=== PATIENT | female | born 2000 | race Caucasian/White ===

== ENCOUNTER → 2024-09-04 | Outpatient (CLI) | payer BC, SELFPAY ==
[2024-09-04 10:38] LABS: Absolute Lymphocyte Count 1.88 X10^3/uL (0.83-4.51); Absolute Neutrophil Count 9.3 X10^3/uL (2.0-7.7); Basophil# 0.03 X10^3/uL; Basophil% 0.3 % (0-1); Eosinophil# 0.04 X10^3/uL; Eosinophils% 0.3 % (0-5); Hematocrit 40.6 % (37-47); Hemoglobin 14.2 g/dL (12.0-15.0); Lymphocyte # 1.88 X10^3/ul (0.83-4.51); Lymphocyte % 15.8 % (19-41); Mean Corpuscular Hgb 29.1 pg (27.0-32.0); Mean Corpuscular Volume 83.2 fL (81-99); Mean Platelet Vol. 10.1 fl (6.2-12.0); Monocyte# 0.57 X10^3/uL; Monocyte% 4.8 % (0-10); NRBC Flagged by Analyzer 0 % (0-5); Neutrophil # 9.29 X10^3/uL (2.7-7.7); Neutrophil % 78.2 % (47-70); Platelet Count 339 K/mm3 (150-450); RBC Distribution Width CV 12.8 % (11.6-14.6); RBC Distribution Width SD 38.9 fl (35.1-43.9); Red Blood Count 4.88 M/mm3 (4.2-5.4); White Blood Count 11.9 K/mm3 (4.4-11.0)
[2024-09-04 11:20] LABS: Hemoglobin A1c 5.1 % (<=5.6)
[2024-09-04 11:37] LABS: HIV Nonreactive (Nonreactive); Hepatitis B Surface Antigen Nonreactive (Nonreactive); Hepatitis C Antibody Nonreactive (Nonreactive); Rubella IgG REAC (Nonreactive); Syphilis Antibodies Nonreactive (Nonreactive)
== END | disposition home or self-care (01) ==
LOC: BWCLAB 09:33
PROVIDERS: Visit Provider Advanced Practice Midwife
DX: O99.210 Obesity complicating pregnancy, unspecified trimester (principal); Z3A.00 Weeks of gestation of pregnancy not specified
CPT/HCPCS: 36415; 83036; 85025; 86703; 86762; 86780; 86803; 86850; 86900; 86901; 87086; 87340; 87491; 87591; 88175; G0145

== ENCOUNTER → 2024-09-04 | Outpatient (CLI) | payer BC, SELFPAY | END | disposition home or self-care (01) | LOC: LABSPEC 10:45 | PROVIDERS: Referring Provider Advanced Practice Midwife; Visit Provider Advanced Practice Midwife | DX: O09.91 Supervision of high risk pregnancy, unspecified, first trimester (principal); Z3A.09 9 weeks gestation of pregnancy; Z12.4 Encounter for screening for malignant neoplasm of cervix | CPT/HCPCS: 87086; 87491; 87591; 88175; G0145 ==

== ENCOUNTER → 2025-01-15 | Outpatient (CLI) | payer OTHER, SELFPAY ==
[2025-01-15 12:15] LABS: Hematocrit 37.9 % (37-47); Hemoglobin 12.9 g/dL (12.0-15.0); Immature Granulocytes Count 0.080 X10^3/uL (0.0-0.0); Mean Corp Hgb Conc 34.0 g/dL (32-36); Mean Corpuscular Volume 87.7 fL (81-99); Mean Platelet Vol. 10.3 fl (6.2-12.0); NRBC Flagged by Analyzer 0 % (0-5); Platelet Count 293 K/mm3 (150-450); RBC Distribution Width CV 12.6 % (11.6-14.6); RBC Distribution Width SD 40.6 fl (35.1-43.9); Red Blood Count 4.32 M/mm3 (4.2-5.4); White Blood Count 11.3 K/mm3 (4.4-11.0)
[2025-01-15 13:19] LABS: HIV Nonreactive (Nonreactive); Syphilis Antibodies Nonreactive (Nonreactive)
[2025-01-15 13:21] LABS: Glucose Challenge Gest 1H 50g 142 mg/dL (70-140)
== END | disposition home or self-care (01) ==
LOC: BWCLAB 09:55
PROVIDERS: Referring Provider Obstetrics & Gynecology; Visit Provider Obstetrics & Gynecology
DX: O09.90 Supervision of high risk pregnancy, unspecified, unspecified trimester (principal); Z13.1 Encounter for screening for diabetes mellitus; Z3A.00 Weeks of gestation of pregnancy not specified
CPT/HCPCS: 36415; 82950; 85025; 86703; 86780

== ENCOUNTER → 2025-03-01 | Outpatient (CLI) | payer OTHER, SELFPAY ==
--- NOTE | 2025-03-01 15:04 | US_ITS ---
PROCEDURE: US/OB Limited With [employer]
== END | disposition home or self-care (01) ==
LOC: US 15:01
PROVIDERS: PCP Internal Medicine; Referring Provider Obstetrics & Gynecology; Visit Provider Obstetrics & Gynecology
DX: O99.213 Obesity complicating pregnancy, third trimester (principal); Z3A.33 33 weeks gestation of pregnancy
CPT/HCPCS: 76816

== ENCOUNTER → 2025-03-02 | Outpatient (CLI) | payer OTHER, SELFPAY ==
[2025-03-02 07:18] LABS: Glucose GTT-Gestation. Fasting 106 mg/dL (<105)
[2025-03-02 09:32] LABS: Glucose GTT-Gestational 1 Hr 167 mg/dL (<190)
[2025-03-02 11:07] LABS: Glucose GTT-Gestational 2 Hr 149 mg/dL (<165)
[2025-03-02 12:24] LABS: Glucose GTT-Gestational 3 Hr 79 L (<145)
== END | disposition home or self-care (01) ==
PROVIDERS: PCP Internal Medicine; Referring Provider Nurse Practitioner Women's Health; Visit Provider Nurse Practitioner Women's Health
DX: O99.810 Abnormal glucose complicating pregnancy (principal); Z3A.00 Weeks of gestation of pregnancy not specified
CPT/HCPCS: 36415; 82951; 82952

== ENCOUNTER → 2025-03-13 | Outpatient (CLI) | payer OTHER, SELFPAY | END | disposition home or self-care (01) | LOC: LABSPEC 11:58 | PROVIDERS: PCP Internal Medicine; Visit Provider Advanced Practice Midwife | DX: O09.93 Supervision of high risk pregnancy, unspecified, third trimester (principal); Z3A.00 Weeks of gestation of pregnancy not specified | CPT/HCPCS: 87081; 87186 ==

== ENCOUNTER 2025-03-27 19:53 | Inpatient (IN) | payer OTHER, SELFPAY ==
[2025-03-27] VITALS (22 sets, daily range): BP systolic 125–167; BP diastolic 58–87; PULSE 82–142; RESP 18; TEMP 36.8–37; O2SAT 98–100; BMI 45.7; BMI 2009.0; BMI 20251125.0
--- OUTSIDE RECORDS SUMMARY | 2025-03-27 19:22 | XMS RPT_ITS | CCD ---
Author Organization [facility] Care Team Providers Care Ripper Operator Name Role Phone Mango Whiteside Admitting Unavailable Mango Whiteside Attending Unavailable No Doctor Assigned, Nodr Primary Care Unavail able Mango Whiteside Admitting Unavailable Mango Whiteside Attending Unavailable No Doctor Assigned, Nodr Primary Care Unavail able Mango Whiteside Admitting Unavailable WhitesideMango quinn Attending Unavailable No Doctor Assigned, Nodr Primary Care Unavail able Mango Whiteside Admitting Unavailable Mango Whiteside Attending Unavailable No Doctor Assigned, Nodr Primary Care Unavail able Mango Whiteside Admitting Unavailable WhitesideMango quinn Attending Unavailable No Doctor Assigned, Nodr Primary Care Unavail able Mango Whiteside Attending Unavailable No Doctor Assigned, Nodr Primary Care Unavail able Mango Whiteside Admitting Unavailable Mango Whiteside Attending Unavailable No Doctor Assigned, Nodr Primary Care Unavail able Oberhauser DO, Daquan L Primary Care Provider OBERHAUSER, DAQUAN L Primary Care Unavailable OBERHAUSER, DAQUAN L Attending Unavailable OBERHAUSER, DAQUAN L Referring Unavailable OBERHAUSER, DAQUAN L Primary Care Unavailable JAY STEWART Attending Unavailable OBERHAUSER, DAQUAN L Primary Care Unavailable OBERHAUSER, DAQUAN L Attending Unavailable OBERHAUSER, DAQUAN L Primary Care Unavailable OBERHAUSER, DAQUAN Primary Care Unavailable SUKHI PEREZ Attending Unava ilable OBERHAUSER, DAQUAN Primary Care Unavailable LANE MORFIN Attending Unavailable LIDIA KRUGER Attending Unavaila ble OBERHAUSER, DAQUAN Primary Care Unavailable Angelica Maldonado CNM Attending Provider Angelica Maldonado CNM Referring Provider [phone] Dr. Tabitha Byrnes MD Attending Provider [phone] Miguelina Espinal CNM Attending Provider [phone] Dr. Dorys Dow DO Attending Provider TABITHA BYRNES Referring Unavailabl e NO PRIMARY CARE, Primary Care Unavailable VIOLET ALEJO Attending Unavailable KHLOE CAPUTO Attending Unavailable DORYS PETTIT Referring Unavailab le NO PRIMARY CARE, Primary Care Unavailable MINDY HUANG Attending Unavailable OBERHAUSER, DAQUAN Primary Care Unavailable Angelica Maldonado CNM Attending Provider [phone] Chris BRANTLEY-CNusrat Attending Provider [phone] Dr. Dorys Dow DO Referring Provider Miguelina Espinal CNM Attending Physician [phone] Dr. Dorys Dow DO Attending Physician Chris LUG BREAKER AND WIRE PULLER-CNusrat Attending Physician [phone] Angelica Maldonado CNM Attending Physician [phone] Joseph FRAUSTO, Dr. Lu Attending Physician Oberhauser, Daquan Primary Care Unavailable Angelica Maldonado Attending Unavailable Oberhauser, Daquan Primary Care Unavailable Angelica Maldonado Attending Unavailable Oberhauser, Daquan Referring Unavailable Dorys Dow Attending Unavailbhupendra Perez LUG BREAKER AND WIRE PULLERNusrat Attending Unavailable Angelica Maldonado Attending Unavailable Miguelina Espinal Attending Unavailable Angelica Maldonado Attending Unavailable Angelica Maldonado Attending Unavailable Tabitha Byrnes Attending Unavailable Dorys Dow Attending UnavailTabitha Griffin Attending Unavailable Tabitha Byrnes Attending Unavailable Oberhauser, Daquan Primary Care Unavailable Oberhauser, Daquan Referring Unavailable Tabitha Byrnes Attending Unavailable Angelica Maldonado Attending Unavailable Angelica Maldonado Referring Unavailable Angelica Maldonado Attending Unavailable Oberhauser, Daquan Primary Care Unavailable [place] LUG BREAKER AND WIRE PULLER, Nusrat Attending Unavailable [place] LUG BREAKER AND WIRE PULLERNusrat Referring Unavailable Oberhauser, Daquan Primary Care Unavailable Tabitha Byrnes Attending Unavailable Tabitha Byrnes Referring Unavailable Dorys Dow Attending Unavailbhupendra e Dorys Dow Referring Unavailabl e Medications Current Medications Medication Drug Class(es) Dates Sig (Normalized) Sig (Original) 200 actuat albuterol 0.09 mg/actuat dry powder inhaler (10 sources) beta2-Adrenergic Agonist Start: 08-18-2024 Albuterol Sulfate 90 mcg/actuation aerosol powdr breath activated Active 1 NMA INHALATION EVERY 4-6 HOURS as needed August 18, 2024 12:00am Complies with drug therapy azithromycin 250 mg oral tablet (1 source) Macrolide Antimicrobial Start: 03-11-2023 azithromycin (Zithromax) 250 mg tablet Indications: Acute asthmatic bronchitis , Upper respiratory tract infection, unspecified type Take 1 tablet (250 mg) by mouth once daily. 2 tabs po day 1 1 tab po every day days 2-5 6 tablet 0 03/11/2023 Active brompheniramine maleate 0.4 mg/ml / dextromethorphan hydrobromide 2 mg/ml / pseudoephedrine hydrochloride 6 mg/ml oral solution (1 source) alpha-Adrenergic Agonist, Uncompetitive D-hioksn-W-asparta te Receptor Antagonist, Sigma-1 Agonist Start: 03-11-2023 take 5 mL by mouth every four hours for cough brompheniramine-pse udoeph-DM (Bromfed DM) 2-30-10 mg/5 mL syrup Indications: Acute asthmatic bronchitis , Upper respiratory tract infection, unspecified type Take 5 mL by mouth every 4 hours if needed for allergies, congestion or cough. 120 mL 1 03/11/2023 Active docosahexaenoic acid 200 mg oral capsule (10 sources) Start: 08-18-2024 Docosahexaenoic Acid ( Dha) 200 mg capsule Active mg PO August 18, 2024 12:00am Complies with drug therapy drospirenone / Ethinyl Estradiol (2 sources) Progestin, Estrogen Start: 2022 End: 2023 take 1 tablet by mouth once daily drospirenone-ethiny l estradioL (Ashleigh, 28,) 3-0.03 mg tablet Indications: Menorrhagia with irregular cycle Take 1 tablet by mouth once daily. 28 tablet 12 2022 2023 Active Ethinyl Estradiol / Ferrous fumarate / Norethindrone (2 sources) Estrogen Start: 08-21-2022 End: 2022 take 1 tablet by mouth once daily norethindrone-e.est radioL-iron (Microgestin FE 1.5/30) 1.5 mg-30 mcg (21)/75 mg (7) tablet Indications: Menorrhagia with irregular cycle Take 1 tablet by mouth once daily. 28 tablet 12 08/21/2022 2022 Discontinued (Therapy completed) Start: 08-21-2022 End: 08-21-2023 take 1 tablet by mouth once daily norethindrone-e.estradioL-iron (Microges tin FE 1.5/30) 1.5 mg-30 mcg (21)/75 mg (7) tablet Indications: Menorrhagia with irregular cycle Take 1 tablet by mouth once daily. 28 tablet 12 08/21/2022 08/21/2023 Active ondansetron 4 mg disintegrating oral tablet (11 sources) Serotonin-3 Receptor Antagonist Start: 09-04-2024 take 1 tablet by mouth every six hours as needed for nausea and vomiting Ondansetron 4 mg tablet,disintegrating Active 4 mg PO EVERY 6 HOURS as needed for nausea and vomiting 30 September 04, 2024 12:00am Nausea and vomiting during Vomiting of , unspecified Complies with drug therapy Start: 08-21-2022 End: 08-28-2022 take 1 tablet by mouth every eight hours for nausea ondansetron ODT (Zofran-ODT) 4 mg disintegrating tablet Indications: Menorrhagia with irregular cycle Take 1 tablet (4 mg) by mouth every 8 hours if needed for nausea or vomiting for up to 7 days. 20 tablet 0 08/21/2022 08/28/2022 Active predniSONE 10 mg oral tablet (1 source) Start: 03-11-2023 take 4 tablets by mouth once daily, then take 3 tablets by mouth once daily, then take 2 tablets by mouth once daily, then take 1 tablet by mouth once daily predniSONE (Deltasone) 10 mg tablet Indications: Acute asthmatic bronchitis , Upper respiratory tract infection, unspecified type 4 tabs po every day x3 days, then 3 tabs po every day x3 days, then 2 tabs po every day x3 days, then 1 tab po every day x3 days 30 tablet 0 03/11/2023 Active sertraline 50 mg oral tablet (8 sources) Serotonin Reuptake Inhibitor Start: 01-29-2025 take 1 tablet by mouth once daily Sertraline 50 mg tablet Active 50 mg PO daily 30 January 29, 2025 11:13am Complies with drug therapy Start: 01-29-2025 take 1 tablet by pilar th once daily Sertraline 50 mg tablet Active 50 mg PO daily 30 10January 29, 2025 11:13am Complies with drug therapy Start: 12-19-2024 End: 01-29-2025 take 1 tablet by mouth once daily Sertraline 50 mg tablet Discontinued 50 mg PO daily December 19, 2024 12:00am January 29, 2025 11:13am Problems Active Problems Problem Classification Problem Date Documented Da te Episodic/Chronic Asthma (20 sources) Exercise-induced asthma; Translations: [Exercise induced bronchospasm] Onset: 11-29-2015 08-21-2022 Chronic Comment on above: Rescue inhaler Diabetes or abnormal glucose tolerance complicating ; childbirth; or the puerperium (8 sources) Abnormal glucose level; Translations: [Abnormal glucose complicating ] Onset: 03-13-2025 01-16-2025 Episodic Comment on above: 3 hr glucose Immunizations and screening for infectious disease (1 source) Encounter for immunization; Translations: [Encounter for immunization] Onset: 02-13-2025 Episodic Menstrual disorders (10 sources) Menometrorrhagia; Translations: [Excessive and frequent menstruation with irregular cycle] Onset: 08-21-2022 08-21-2022 Chronic Other complications of (20 sources) Maternal obesity complicating , childbirth and the puerperium, antepartum; Translations: [Obesity complicating , unspecified trimester] 09-04-2024 Chronic Comment on above: BMI 42.0-weekly NSTs at 34 weeks A1C Other complications of (1 source) Obesity complicating , third trimester; Translations: [Obesity complicating , third trimester] Onset: 03-13-2025 Chronic Other complications of (1 source) Obesity complicating , unspecified trimester; Translations: [Obesity complicating , unspecified trimester] Onset: 11-28-2024 Chronic Other complications of (20 sources) High risk ; Translations: [Supervision of high risk , unspecified, unspecified trimester] 09-04-2024 Episodic Comment on above: PRR (waiting on gcc) ,, ARAM 04/07/25, : Nader PRR,, ARAM , : Nader PRR,, ARAM , ajit : Nader Other complications of (1 source) Supervision of high risk , unspecified, third trimester; Translations: [Supervision of high risk , unspecified, third trimester] Onset: 03-13-2025 Episodic Other complications of (1 source) Supervision of high risk , unspecified, unspecified trimester; Translations: [Supervision of high risk , unspecified, unspecified trimester] Onset: 01-20-2025 Episodic Other connective tissue disease (2 sources) Bursitis of right shoulder; Translations: [Bursitis of right shoulder] Onset: 11-01-2023 Episodic Other connective tissue disease (2 sources) Pain in leg, unspecified; Translations: [Pain in leg, unspecified] Onset: 11-30-2024 Episodic Other and delivery including normal (20 sources) ; Translations: [Encounter for supervision of normal , unspecified, unspecified trimester] 09-04-2024 Episodic Comment on above: Discuss genetic/stone ier testing - undecided Discuss genetic/stone ier testing - declined nl anatomy Other upper respiratory infections (3 sources) Acute upper respiratory infection, unspecified; Translations: [Upper respiratory infection] Onset: 03-11-2023 Episodic Residual codes; unclassified (1 source) 36 weeks gestation of ; Translations: [36 weeks gestation of ] Onset: 03-13-2025 Episodic Residual codes; unclassified (1 source) 34 weeks gestation of ; Translations: [34 weeks gestation of ] Onset: 02-27-2025 Episodic Residual codes; unclassified (1 source) 32 weeks gestation of ; Translations: [32 weeks gestation of ] Onset: 02-13-2025 Episodic Urinary tract infections (2 sources) Urinary tract infection, site not specified; Translations: [Urinary tract infection, site not specified] Onset: 12-15-2023 Episodic Viral infection (2 sources) COVID-19; Translations: [COVID-19] Onset: 06-09-2023 Past or Other Problems Problem Classification Problem Date Documented Da te Episodic/Chronic Other complications of (1 source) Supervision of high risk , unspecified, first trimester; Translations: [Supervision of high risk , unspecified, first trimester] Onset: 11-14-2024 Episodic Other complications of (1 source) Vomiting of , unspecified; Translations: [Vomiting of , unspecified] Onset: 09-04-2024 Episodic Other non-traumatic joint disorders (2 sources) Knee pain; Translations: [Pain in unspecified knee] Onset: 05-10-2018 08-21-2022 Episodic Other non-traumatic joint disorders (3 sources) Pain of right wrist; Translations: [Pain in right wrist] Onset: 07-22-2018 08-21-2022 Episodic Other non-traumatic joint disorders (1 source) Pain in unspecified knee; Translations: [Pain in joint, lower leg] Onset: 05-10-2018 08-21-2022 Episodic Other screening for suspected conditions (not mental disorders or infectious disease) (1 source) Encounter for screening for malignant neoplasm of cervix; Translations: [Encounter for screening for malignant neoplasm of cervix] Onset: 09-04-2024 Episodic Residual codes; unclassified (1 source) 16 weeks gestation of ; Translations: [16 weeks gestation of ] Onset: 10-27-2024 Episodic Residual codes; unclassified (1 source) 12 weeks gestation of ; Translations: [12 weeks gestation of ] Onset: 09-29-2024 Episodic Residual codes; unclassified (1 source) 9 weeks gestation of ; Translations: [9 weeks gestation of ] Onset: 09-04-2024 Episodic Unclassified (1 source) Onset: 03-11-2023 03-11-2023 Results Test Name Value Interpretation Reference Range Facility Operating Table Assembler Office Visit Reporton 03-13-2025 Operating Table Assembler Office Visit Report [facility] [address], [address] [place] [address] OFFICE VISIT Date of Service: 03/13/25 MR#: [id number] Acct: [id number] Name: ANGELITA SUTTON Rep #: [id number] : 2000 Provider: MARIANNA Mascorro ams Age/Sex: 24/F Location: [facility] [place] Status: Signed Intake Vital Signs 12/19/24 11:06 01/15/25 10:04 03/06/25 10:54 03/13/25 08:54 03/13/25 08:55 Height 5 ft 11 in 5 ft 11 in 5 ft 11 in 5 ft 11 in 5 ft 11 in Weight: 316 lb 9 oz BMI 44.1 BP 127/81 H Intake Visit Reasons: 36wk3d ob/nst Embroiderer Required: No Is patient in pain?: No Allergies No Known Allergies Allergy (Verified 03/13/25 08:54) Medications ???Medication ???Instructions ???Recorded ???Confirmed ???Type albuterol sulfate 90 mcg/actuation 1 inh inhalation Q4-6H PRN 08/1803/13/25 History breath activated powder inhaler docosahexaenoic acid 200 mg mg PO 08/18/24 03/13/25 History capsule ( DHA) ondansetron 4 mg disintegrating 4 mg PO Q6H PRN nausea and 09/04/2 5 03/13/25 Rx tablet vomiting #30 tabs sertraline 50 mg tablet 50 mg PO QDAY #30 tabs 01/29/25 Rx Last Menstrual Period: 07/01/24 Zika: Zika virus screening: Negative : No PFSH PFSH Surgical History [place] teeth removed S/P tonsillectomy Family History Father Hypothyroid Grandmother [place] disease Grandmother Diabetes Hypertension Kidney failure Social History adopted: No household members: spouse and other details: step son 's ex current occupational status: employed 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 current occupational exposures/hazards: Yes pets and animals: No history of recent travel: No sexually active: Yes Smoking Status: Never smoker alcohol intake: current alcohol intake frequency: holidays/special occasions only details: Not while substance use type: does not use diet: lactose free well-balanced diet: about half the time caffeine: No eating out: 1-3 times/week during the past year weight has: remained stable what type of physical activity do you participate in: none carine/yazidism: Bahai seatbelt use: always do you feel safe at home: Yes additional social history: : Vadim Chung ([facility]) - [employer]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 OB Visit ARAM Calculator Estimated Delivery Date Method Current WG Current Estimate 04/07/25 LMP (Certain) 36w 3d Other Estimates 04/07/25 Ultrasound #1 36w 3d Expected Delivery Route/Plan Labor Preferences- CB/BF classes: encouraged labor support person: Ron labor intervention preferences: [] pain management options preferred: epidural! cut cord/dad catch: yes : yes PP control planned: Discussed discussed possible routes of delivery and associated risks: [] special requests: [] Specific Issue/Plans Covid status: [] Flu vaccine: [] Tdap vaccine: given Rhogam: NA LARC form signed: yes Problem list reviewed and updated with the most current plan of care details and appropriate orders placed. Relevant counseling for the gestational age provided. Continue routine care and follow up unless otherwise noted in visit notes/problem list details Initial Weight: 294 lb Date -???-???-???-???-?? ?-???-???-???-???-? ??-???-???- EGA Weight BP Urine Prot -???-???-???-???-?? ?-???-???-???-???-? ??-???-???- Glucose FHR FuHt Pres Dilation -???-???-???-???-?? ?-???-???-???-???-? ??-???-???- Effaced St Visit Note 05/05/25 -???-???-???-???-?? ?-???-???-???-???-? ??-???-???- 9w 2d 294 lb 2 oz (+2 oz) 124/84 -???-???-???-???-?? ?-???-???-???-???-? ??-???-???- 184 -???-???-???-???-?? ?-???-???-???-???-? ??-???-???- KW-CRL cons with dates. undecided on NIPT/carrier. rest of labs today. 09/29/24 -???-???-???-???-?? ?-???-???-???-???-? ??-???-???- 12w 6d 295 lb 6 oz (+1 lb 6 oz) 130/82 Negative -???-???-???-???-?? ?-???-???-???-???-? ??-???-???- Negative 150 -???-???-???-???-?? ?-???-???-???-???-? ??-???-???- SM- no vb pearce ving some cramping and pelvic pain 10/27/24 -???-???-???-???-?? ?-???-???-???-???-? ??-???-???- 16w 6d 289 lb (-5 lb) 138/79 Negative -???-???-???-???-?? ?-???-???-???-???-? ??-???-???- Negative 144 -???-???-???-???-?? ?-???-???-???-???-? ??-?? (more content not included)... Normal [facility] Operating Table Assembler Office Visit Reporton 03-06-2025 Operating Table Assembler Office Visit Report [facility] [address], [address] [place] [address] OFFICE VISIT Date of Service: 03/06/25 MR#: [id number] Acct: [id number] Name: ANGELITA SUTTON Rep #: [id number] : 2000 Provider: Dr. Tabitha goldman MD Age/Sex: 24/F Location: [facility] Status: Signed Intake Vital Signs 01/15/25 10:04 02/27/25 09:48 03/06/25 10:54 Height 5 ft 11 in 5 ft 11 in 5 ft 11 in Weight: 311 lb 2 oz 312 lb 7 oz BMI 43.4 43.5 BP 129/83 H 132/83 H Intake Visit Reasons: 35wk 3d *NST only Embroiderer Required: No Is patient in pain?: No Allergies No Known Allergies Allergy (Verified 03/06/25 10:54) Medications ???Medication ???Instructions ???Recorded ???Confirmed ???Type albuterol sulfate 90 mcg/actuation 1 inh inhalation Q4-6H PRN 08/1803/06/25 History breath activated powder inhaler docosahexaenoic acid 200 mg mg PO 08/18/24 03/06/25 History capsule ( DHA) ondansetron 4 mg disintegrating 4 mg PO Q6H PRN nausea and 0505/2 5 03/06/25 Rx tablet vomiting #30 tabs sertraline 50 mg tablet 50 mg PO QDAY #30 tabs 01/29/25 Rx Last Menstrual Period: 07/01/24 Zika: Zika virus screening: Negative : No PFSH PFSH Surgical History [place] teeth removed S/P tonsillectomy Family History Father Hypothyroid Grandmother [place] disease Grandmother Diabetes Hypertension Kidney failure Social History adopted: No household members: spouse and other details: step son 's ex current occupational status: employed 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 current occupational exposures/hazards: Yes pets and animals: No history of recent travel: No sexually active: Yes Smoking Status: Never smoker alcohol intake: current alcohol intake frequency: holidays/special occasions only details: Not while substance use type: does not use diet: lactose free well-balanced diet: about half the time caffeine: No eating out: 1-3 times/week during the past year weight has: remained stable what type of physical activity do you participate in: none carine/yazidism: Bahai seatbelt use: always do you feel safe at home: Yes additional social history: : 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 OB Visit ARAM Calculator Estimated Delivery Date Method Current WG Current Estimate 04/07/25 LMP (Certain) 35w 4d Other Estimates 04/07/25 Ultrasound #1 35w 4d Expected Delivery Route/Plan Labor Preferences- CB/BF classes: encouraged labor support person: Ron labor intervention preferences: [] pain management options preferred: epidural! cut cord/dad catch: yes : yes PP control planned: Discussed discussed possible routes of delivery and associated risks: [] special requests: [] Specific Issue/Plans Covid status: [] Flu vaccine: [] Tdap vaccine: given Rhogam: NA LARC form signed: yes Problem list reviewed and updated with the most current plan of care details and appropriate orders placed. Relevant counseling for the gestational age provided. Continue routine care and follow up unless otherwise noted in visit notes/problem list details Initial Weight: 294 lb Date -???-???-???-???-?? ?-???-???-???-???-? ??-???-???- EGA Weight BP Urine Prot -???-???-???-???-?? ?-???-???-???-???-? ??-???-???- Glucose FHR FuHt Pres Dilation -???-???-???-???-?? ?-???-???-???-???-? ??-???-???- Effaced St Visit Note 09/04/24 -???-???-???-???-?? ?-???-???-???-???-? ??-???-???- 9w 2d 294 lb 2 oz (+2 oz) 124/84 -???-???-???-???-?? ?-???-???-???-???-? ??-???-???- 184 -???-???-???-???-?? ?-???-???-???-???-? ??-???-???- KW-CRL cons with dates. undecided on NIPT/carrier. rest of labs today. 09/29/24 -???-???-???-???-?? ?-???-???-???-???-? ??-???-???- 12w 6d 295 lb 6 oz (+1 lb 6 oz) 130/82 Negative -???-???-???-???-?? ?-???-???-???-???-? ??-???-???- Negative 150 -???-???-???-???-?? ?-???-???-???-???-? ??-???-???- SM- no vb pearce ving some cramping and pelvic pain 10/27/24 -???-???-???-???-?? ?-???-???-???-???-? ??-???-???- 16w 6d 289 lb (-5 lb) 138/79 Negative -???-???-???-???-?? ?-???-???-???-???-? ??-???-???- Negative 144 -???-???-???-???-?? ?-???-???-???-???-? ??-???-???- LC (more content not included)... Normal [facility] Gestational GTT 3HR 100gon 1 GEST GTT 100gm High [facility] Comment on above: Order Comment: Y Result Comment: FAST ING 106 H Col: 03/02/25 0644 GLUCOSE TOLERANCE TEST FOR Reference Interval GESTATIONAL DIABETES Fasting <105 mg/dL 1 hour <190 mg/dl 2 hour <165 mg/dl 3 hour <145 mg/dl 1 HR GLU 167 Col: 03/02/25 0819 2 HR GLU 149 Col: 03/02/25 0918 3 HR GLU 79 Col: 03/02/25 1019 Performed By: #### B TS, L3890.6102, L3890.6301, L509.4006, L509.8002, L100.0100, L3890.6006, L501.9985 #### [facility] [address] [place], [address] OB Limited With Biometricson 03-01-2025 OB Limited With Biometrics [facility] Services [address] [place], [place] [id number] OB Limited With Biometrics MR#: [id number] Acct: [id number] Name: ANGELITA SUTTON Rep #: [id number] : 2000 F 24 From: Bryan otto MD PCP: Dr. Daquan Hills, DO Status: REG CLI Study: OB Limited With Biometrics Date of Exam: 03/01 Exam# [id number] Ordering Dr: Tabitha Byrnes PROCEDURE: OB LIMITED WITH BIOMETRICS 03/01/2025 REASON FOR EXAM: GROWTH TECHNIQUE: Procedure Code: [id number] Modality: US Procedure: OB LIMITED WITH BIOMETRICS COMPARISON: None FINDINGS LMP: July 01, 2024. Number: 1 Position: Vertex Placental Position: Posterior and not low-lying Placental Abnormalities: No evidence of previa. DIMENSIONS: Biparietal Diameter: 9 cm: 36 weeks and 4 days: 92 percentile/ Head Circumference: 32 cm: 36 weeks and 1 day: 51 percentile/ Abdominal Circumference: 31.4 cm: 35 weeks and 2 days: 73rd percentile/ Femur Length: 6.8 cm: 34 weeks and 6 days: 47 percentile/ ESTIMATED WEIGHT: 2704 g plus/-406 g. ESTIMATED WEIGHT PERCENTILE (24+ weeks): 69 ESTIMATED GESTATIONAL AGE: Baseline: 34 weeks and 5 days By Ultrasound: 35 weeks and 5 days ESTIMATED DATE OF DELIVERY: Baseline: April 07, 2025 By Ultrasound: March 31, 2025 BIOPHYSICAL ASSESSMENT: Amniotic Fluid Volume: 5.7 cm Amniotic Fluid Index: 11.9 cm (8-24 cm normal range) Cardiac Motion: 131 beats per minute (average) Trunk and Limb Motion: Present. US/OB Limited With Biometrics IMPRESSION: Single live intrauterine gestation with a mean gestational age of 35 weeks and 5 days. Reading Location: [facility] CC: Dr. Daquan Hills DO; Dr. Tabitha Byrnes MD Social Welfare Clerk: Signed Normal [facility] Operating Table Assembler Office Visit Reporton 02-27-2025 Operating Table Assembler Office Visit Report [facility]'s [address], [address] [place] [address] OFFICE VISIT Date of Service: 02/27/25 MR#: [id number] Acct: [id number] Name: HERMANANGELITA PRIEST Rep #: [id number] : 2000 Provider: Dr. Tabitha goldman MD Age/Sex: 24/F Location: [facility] [place] Status: Signed Intake Vital Signs 12/19/24 11:06 02/13/25 13:53 02/27/25 09:48 Height 5 ft 11 in 5 ft 11 in 5 ft 11 in Weight: 307 lb 4 oz 311 lb 2 oz BMI 42.8 43.4 BP 116/68 129/83 H Intake Visit Reasons: 34w 3d ob/nst Embroiderer Required: No Is patient in pain?: No Allergies No Known Allergies Allergy (Verified 02/27/25 09:48) Medications ???Medication ???Instructions ???Recorded ???Confirmed ???Type albuterol sulfate 90 mcg/actuation 1 inh inhalation Q4-6H PRN 08/1802/27/25 History breath activated powder inhaler docosahexaenoic acid 200 mg mg PO 08/18/24 02/27/25 History capsule ( DHA) ondansetron 4 mg disintegrating 4 mg PO Q6H PRN nausea and 5 02/27/25 Rx tablet vomiting #30 tabs sertraline 50 mg tablet 50 mg PO QDAY #30 tabs 01/29/25 Rx Last Menstrual Period: 07/01/24 Zika: Zika virus screening: Negative : No PFSH PFSH Surgical History [place] teeth removed S/P tonsillectomy Family History Father Hypothyroid Grandmother [place] disease Grandmother Diabetes Hypertension Kidney failure Social History adopted: No household members: spouse and other details: step son 's ex current occupational status: employed 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 current occupational exposures/hazards: Yes pets and animals: No history of recent travel: No sexually active: Yes Smoking Status: Never smoker alcohol intake: current alcohol intake frequency: holidays/special occasions only details: Not while substance use type: does not use diet: lactose free well-balanced diet: about half the time caffeine: No eating out: 1-3 times/week during the past year weight has: remained stable what type of physical activity do you participate in: none carine/yazidism: Bahai seatbelt use: always do you feel safe at home: Yes additional social history: : 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 OB Visit ARAM Calculator Estimated Delivery Date Method Current WG Current Estimate 04/07/25 LMP (Certain) 34w 3d Other Estimates 04/07/25 Ultrasound #1 34w 3d Expected Delivery Route/Plan Labor Preferences- CB/BF classes: encouraged labor support person: Ron labor intervention preferences: [] pain management options preferred: epidural! cut cord/dad catch: yes : yes PP control planned: Discussed discussed possible routes of delivery and associated risks: [] special requests: [] Specific Issue/Plans Covid status: [] Flu vaccine: [] Tdap vaccine: given Rhogam: NA LARC form signed: yes Problem list reviewed and updated with the most current plan of care details and appropriate orders placed. Relevant counseling for the gestational age provided. Continue routine care and follow up unless otherwise noted in visit notes/problem list details Initial Weight: 294 lb Date -???-???-???-???-?? ?-???-???-???-???-? ??-???-???- EGA Weight BP Urine Prot -???-???-???-???-?? ?-???-???-???-???-? ??-???-???- Glucose FHR FuHt Pres Dilation -???-???-???-???-?? ?-???-???-???-???-? ??-???-???- Effaced St Visit Note 09/04/24 -???-???-???-???-?? ?-???-???-???-???-? ??-???-???- 9w 2d 294 lb 2 oz (+2 oz) 124/84 -???-???-???-???-?? ?-???-???-???-???-? ??-???-???- 184 -???-???-???-???-?? ?-???-???-???-???-? ??-???-???- KW-CRL cons with dates. undecided on NIPT/carrier. rest of labs today. 09/29/24 -???-???-???-???-?? ?-???-???-???-???-? ??-???-???- 12w 6d 295 lb 6 oz (+1 lb 6 oz) 130/82 Negative -???-???-???-???-?? ?-???-???-???-???-? ??-???-???- Negative 150 -???-???-???-???-?? ?-???-???-???-???-? ??-???-???- SM- no vb pearce ving some cramping and pelvic pain 10/27/24 -???-???-???-???-?? ?-???-???-???-???-? ??-???-???- 16w 6d 289 lb (-5 lb) 138/79 Negative -???-???-???-???-?? ?-???-???-???-???-? ??-???-???- Negative 144 -???-???-???-???-?? ?-???-???-???-???-? ??-???-???- LC- no vb/cr amping (more content not included)... Normal [facility] - Chemistry and C hemistry - challengeOrdered By: Tabitha Byrnes on 02-13-2025 Glucose Ql (U) Negative [facility] - UrinalysisOrder ed By: Tabitha Byrnes on 02-13-2025 Protein Ql (U) Negative [facility] Operating Table Assembler Office Visit Reporton 02-13-2025 Operating Table Assembler Office Visit Report [facility] [address], [address] [place] [address] OFFICE VISIT Date of Service: 02/13/25 MR#: [id number] Acct: [id number] Name: ANGELITA SUTTON Rep #: [id number] : 2000 Provider: Dr. Tabitha goldman MD Age/Sex: 24/F Location: [facility] [place] Status: Signed Intake Vital Signs 12/19/24 11:06 01/29/25 10:51 02/13/25 13:53 Height 5 ft 11 in 5 ft 11 in 5 ft 11 in Weight: 307 lb 4 oz BMI 42.8 BP 116/68 Intake Visit Reasons: 32wk 3D ob Embroiderer Required: No Is patient in pain?: No Allergies No Known Allergies Allergy (Verified 02/13/25 13:52) Medications ???Medication ???Instructions ???Recorded ???Confirmed ???Type albuterol sulfate 90 mcg/actuation 1 inh inhalation Q4-6H PRN 08/1802/13/25 History breath activated powder inhaler docosahexaenoic acid 200 mg mg PO 08/18/24 02/13/25 History capsule ( DHA) ondansetron 4 mg disintegrating 4 mg PO Q6H PRN nausea and 5 02/13/25 Rx tablet vomiting #30 tabs sertraline 50 mg tablet 50 mg PO QDAY #30 tabs 01/29/25 Rx Last Menstrual Period: 07/01/24 Zika: Zika virus screening: Negative : No PFSH PFSH Surgical History [place] teeth removed S/P tonsillectomy Family History Father Hypothyroid Grandmother [place] disease Grandmother Diabetes Hypertension Kidney failure Social History adopted: No household members: spouse and other details: step son 's ex current occupational status: employed 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 current occupational exposures/hazards: Yes pets and animals: No history of recent travel: No sexually active: Yes Smoking Status: Never smoker alcohol intake: current alcohol intake frequency: holidays/special occasions only details: Not while substance use type: does not use diet: lactose free well-balanced diet: about half the time caffeine: No eating out: 1-3 times/week during the past year weight has: remained stable what type of physical activity do you participate in: none carine/yazidism: Bahai seatbelt use: always do you feel safe at home: Yes additional social history: : 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 OB Visit ARAM Calculator Estimated Delivery Date Method Current WG Current Estimate 04/07/25 LMP (Certain) 32w 3d Other Estimates 04/07/25 Ultrasound #1 32w 3d Expected Delivery Route/Plan Labor Preferences- CB/BF classes: encouraged labor support person: Ron labor intervention preferences: [] pain management options preferred: epidural! cut cord/dad catch: yes : yes PP control planned: Discussed discussed possible routes of delivery and associated risks: [] special requests: [] Specific Issue/Plans Covid status: [] Flu vaccine: [] Tdap vaccine: given Rhogam: NA LARC form signed: yes Problem list reviewed and updated with the most current plan of care details and appropriate orders placed. Relevant counseling for the gestational age provided. Continue routine care and follow up unless otherwise noted in visit notes/problem list details Initial Weight: 294 lb Date -???-???-???-???-?? ?-???-???-???-???-? ??-???-???- EGA Weight BP Urine Prot -???-???-???-???-?? ?-???-???-???-???-? ??-???-???- Glucose FHR FuHt Pres Dilation -???-???-???-???-?? ?-???-???-???-???-? ??-???-???- Effaced St Visit Note 09/04/24 -???-???-???-???-?? ?-???-???-???-???-? ??-???-???- 9w 2d 294 lb 2 oz (+2 oz) 124/84 -???-???-???-???-?? ?-???-???-???-???-? ??-???-???- 184 -???-???-???-???-?? ?-???-???-???-???-? ??-???-???- KW-CRL cons with dates. undecided on NIPT/carrier. rest of labs today. 09/29/24 -???-???-???-???-?? ?-???-???-???-???-? ??-???-???- 12w 6d 295 lb 6 oz (+1 lb 6 oz) 130/82 Negative -???-???-???-???-?? ?-???-???-???-???-? ??-???-???- Negative 150 -???-???-???-???-?? ?-???-???-???-???-? ??-???-???- SM- no vb pearce ving some cramping and pelvic pain 10/27/24 -???-???-???-???-?? ?-???-???-???-???-? ??-???-???- 16w 6d 289 lb (-5 lb) 138/79 Negative -???-???-???-???-?? ?-???-???-???-???-? ??-???-???- Negative 144 -???-???-???-???-?? ?-???-???-???-???-? ??-???-???- LC- no vb/cr amping today. no concerns. has anatomy (more content not included)... Normal [facility] - Chemistry and C hemistry - challengeOrdered By: Angelica Maldonado on 01-29-2025 Glucose Ql (U) Negative [facility] - UrinalysisOrder ed By: Angelica Maldonado on 01-29-2025 Protein Ql (U) Negative [facility] Operating Table Assembler Office Visit Reporton 01-29-2025 Operating Table Assembler Office Visit Report [facility] [address], [address] [place] [address] OFFICE VISIT Date of Service: 01/29/25 MR#: [id number] Acct: [id number] Name: HERMANANGELITA PRIEST Rep #: [id number] : 2000 Provider: MARIANNA Mascorro ams Age/Sex: 24/F Location: [facility] [place] Status: Signed Intake Vital Signs 12/19/24 11:06 01/15/25 10:04 01/29/25 10:50 01/29/25 10:51 Height 5 ft 11 in 5 ft 11 in 5 ft 11 in 5 ft 11 in Weight: 303 lb 9 oz BMI 42.3 BP 131/83 H Intake Visit Reasons: 30wk 2D ob Embroiderer Required: No Is patient in pain?: No Allergies No Known Allergies Allergy (Verified 01/29/25 10:50) Medications ???Medication ???Instructions ???Recorded ???Confirmed ???Type albuterol sulfate 90 mcg/actuation 1 inh inhalation Q4-6H PRN 08/1801/29/25 History breath activated powder inhaler docosahexaenoic acid 200 mg mg PO 08/18/24 01/29/25 History capsule ( DHA) ondansetron 4 mg disintegrating 4 mg PO Q6H PRN nausea and 5 01/29/25 Rx tablet vomiting #30 tabs sertraline 50 mg tablet 50 mg PO QDAY #30 tabs 01/29/25 Rx Last Menstrual Period: 07/01/24 Zika: Zika virus screening: Negative : No PFSH PFSH Surgical History [place] teeth removed S/P tonsillectomy Family History Father Hypothyroid Grandmother [place] disease Grandmother Diabetes Hypertension Kidney failure Social History adopted: No household members: spouse and other details: step son 's ex current occupational status: employed 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 current occupational exposures/hazards: Yes pets and animals: No history of recent travel: No sexually active: Yes Smoking Status: Never smoker alcohol intake: current alcohol intake frequency: holidays/special occasions only details: Not while substance use type: does not use diet: lactose free well-balanced diet: about half the time caffeine: No eating out: 1-3 times/week during the past year weight has: remained stable what type of physical activity do you participate in: none carine/yazidism: Bahai seatbelt use: always do you feel safe at home: Yes additional social history: : 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 OB Visit ARAM Calculator Estimated Delivery Date Method Current WG Current Estimate 04/07/25 LMP (Certain) 30w 2d Other Estimates 04/07/25 Ultrasound #1 30w 2d Expected Delivery Route/Plan Labor Preferences- CB/BF classes: encouraged labor support person: Ron labor intervention preferences: [] pain management options preferred: epidural! cut cord/dad catch: yes : yes PP control planned: Discussed discussed possible routes of delivery and associated risks: [] special requests: [] Specific Issue/Plans Covid status: [] Flu vaccine: [] Tdap vaccine: given Rhogam: NA LARC form signed: yes Problem list reviewed and updated with the most current plan of care details and appropriate orders placed. Relevant counseling for the gestational age provided. Continue routine care and follow up unless otherwise noted in visit notes/problem list details Initial Weight: 294 lb Date -???-???-???-???-?? ?-???-???-???-???-? ??-???-???- EGA Weight BP Urine Prot -???-???-???-???-?? ?-???-???-???-???-? ??-???-???- Glucose FHR FuHt Pres Dilation -???-???-???-???-?? ?-???-???-???-???-? ??-???-???- Effaced St Visit Note 09/04/24 -???-???-???-???-?? ?-???-???-???-???-? ??-???-???- 9w 2d 294 lb 2 oz (+2 oz) 124/84 -???-???-???-???-?? ?-???-???-???-???-? ??-???-???- 184 -???-???-???-???-?? ?-???-???-???-???-? ??-???-???- KW-CRL cons with dates. undecided on NIPT/carrier. rest of labs today. 09/29/24 -???-???-???-???-?? ?-???-???-???-???-? ??-???-???- 12w 6d 295 lb 6 oz (+1 lb 6 oz) 130/82 Negative -???-???-???-???-?? ?-???-???-???-???-? ??-???-???- Negative 150 -???-???-???-???-?? ?-???-???-???-???-? ??-???-???- SM- no vb pearce ving some cramping and pelvic pain 10/27/24 -???-???-???-???-?? ?-???-???-???-???-? ??-???-???- 16w 6d 289 lb (-5 lb) 138/79 Negative -???-???-???-???-?? ?-???-???-???-???-? ??-???-???- Negative 144 -???-???-???-???-?? ?-???-???-???-???-? ??-???-???- LC- no vb/cr amping today. no (more content not included)... Normal [facility] Absolute lymphocyte countOrd ered By: Dorys Ahn on 01-15-2025 Lymphocytes Auto (Unsp spec) [#/Vol] 2.07 10*3/uL 0.83-4.51 [facility] Absolute neutrophil countOrd ered By: Dorys Ahn on 01-15-2025 Neutrophils (Bld) [#/Vol] 8.5 10*3/uL High 2.0-7.7 [facility] Automated lymphocyte count a s percentage of total leukocytesOrdered By: Dorys Ahn on 01-15-2025 Lymphocytes/100 WBC Auto (Unsp spec) 18.4 % Low 19-41 [facility] Basophil percentageOrdered B y: Dorys Ahn on 01-15-2025 Basophils/100 WBC (Bld) 0.3 % 0-1 [facility] CBC W/Diff, Automatedon 01-01 Absolute Lymph 2.07 X10 3/uL Normal 0.83-4.51 [facility] Comment on above: Performed By: #### L 509.8002, L3890.6006, L501.0250, L100.0100 #### [facility] [address] [place], [address] Absolute Neut 8.5 X10 3/uL High 2.0-7.7 [facility] Comment on above: Performed By: #### L 509.8002, L3890.6006, L501.0250, L100.0100 #### [facility] [address] [place], [address] Basophils/100 WBC (Bld) 0.3 % Normal 0-1 [facility] Comment on above: Performed By: #### L 509.8002, L3890.6006, L501.0250, L100.0100 #### [facility] [address] [place], [address] Eosinophils/100 WBC (Bld) 0.6 % Normal 0-5 [facility] Comment on above: Performed By: #### L 509.8002, L3890.6006, L501.0250, L100.0100 #### [facility] [address] [place], [address] Erythrocyte distribution width (RBC) [Ratio] 12.6 % Normal 11.6-14.6 [facility] Comment on above: Performed By: #### L 509.8002, L3890.6006, L501.0250, L100.0100 #### [facility] [address] [place], [address] Hematocrit (Bld) [Volume fraction] 37.9 % Normal 37-47 [facility] Comment on above: Performed By: #### L 509.8002, L3890.6006, L501.0250, L100.0100 #### [facility] [address] [place], [address] Hemoglobin (Bld) [Mass/Vol] 12.9 g/dL Normal 12.0-15.0 [facility] Comment on above: Performed By: #### L 509.8002, L3890.6006, L501.0250, L100.0100 #### [facility] [address] [place], [address] IG% 0.700 Normal 0.0-0.9 [facility] Comment on above: Result Comment: IG% - Immature Granulocytes (promyelocytes, myelocytes and metamyelocytes) > 1% indicates that a LEFT SHIFT is Present. Performed By: #### L 509.8002, L3890.6006, L501.0250, L100.0100 #### [facility] [address] [place], [address] Lymphocytes/100 WBC (Bld) 18.4 % Low 19-41 [facility] Comment on above: Performed By: #### L 509.8002, L3890.6006, L501.0250, L100.0100 #### [facility] [address] [place], [address] MCH (RBC) [Entitic mass] 29.9 pg Normal 27.0-32.0 [facility] Comment on above: Performed By: #### L 509.8002, L3890.6006, L501.0250, L100.0100 #### [facility] [address] [place], [address] MCHC (RBC) [Mass/Vol] 34.0 g/dL Normal 32-36 [facility] Comment on above: Performed By: #### L 509.8002, L3890.6006, L501.0250, L100.0100 #### [facility] [address] [place], [address] MCV (RBC) [Entitic vol] 87.7 fL Normal 81-99 [facility] Comment on above: Performed By: #### L 509.8002, L3890.6006, L501.0250, L100.0100 #### [facility] [address] [place], [address] Monocytes/100 WBC (Bld) 4.6 % Normal 0-10 [facility] Comment on above: Performed By: #### L 509.8002, L3890.6006, L501.0250, L100.0100 #### [facility] [address] [place], [address] Neutrophils/100 WBC (Bld) 75.4 % High 47-70 [facility] Comment on above: Performed By: #### L 509.8002, L3890.6006, L501.0250, L100.0100 #### [facility] [address] [place], [address] Nucleated RBC (Bld) [#/Vol] 0 10*3/uL Normal 0-5 [facility] Comment on above: Performed By: #### L 509.8002, L3890.6006, L501.0250, L100.0100 #### [facility] [address] [place], [address] Platelet mean volume (Bld) [Entitic vol] 10.3 fL Normal 6.2-12.0 [facility] Comment on above: Performed By: #### L 509.8002, L3890.6006, L501.0250, L100.0100 #### [facility] [address] [place], [address] Platelets (Bld) [#/Vol] 293 10*3/uL Normal 150-450 [facility] Comment on above: Performed By: #### L 509.8002, L3890.6006, L501.0250, L100.0100 #### [facility] [address] [place], [address] RBC (Bld) [#/Vol] 4.32 10*6/uL Normal 4.2-5.4 [facility] Comment on above: Performed By: #### L 509.8002, L3890.6006, L501.0250, L100.0100 #### [facility] [address] [place], [address] RDW SD 40.6 fl Normal 35.1-43.9 [facility] Comment on above: Performed By: #### L 509.8002, L3890.6006, L501.0250, L100.0100 #### [facility] [address] [place], [address] WBC (Bld) [#/Vol] 11.3 10*3/uL High 4.4-11.0 [facility] Comment on above: Performed By: #### L 509.8002, L3890.6006, L501.0250, L100.0100 #### [facility] [address] [place], [address] Eosinophil percentageOrdered By: Dorys Ahn on 01-15-2025 Eosinophils/100 WBC (Bld) 0.6 % 0-5 [facility] Erythrocyte distribution wid th ratioOrdered By: Dorys Ahn on 01-15-2025 Erythrocyte distribution width (RBC) [Ratio] 12.6 % 11.6-14.6 [facility] Erythrocyte distribution wid th standard deviationOrdered By: Dorys Ahn on 01-15-2025 Erythrocyte distribution width (RBC) [Ratio] 40.6 fl 35.1-43.9 [facility] Glucose Challenge Gest 1H 50 sam 01-15-2025 GLU GEST 50g 1H 147 mg/dL High 70-140 [facility] Comment on above: Result Comment: AMENDED REPORT 01/15/25 1321 GLU GEST 50g 1H previously reported as: 147 H mg/dL Performed By: #### L 509.8002, L3890.6006, L501.0250, L100.0100 #### [facility] [address] [place], [address] Glucose measurement at 2 margie rs post-dose gestational glucose tolerance testOrdered By: Dorys Ahn on 01-15-2025 Glucose [Mass/Vol] 142 mg/dL High 70-140 [facility] Comment on above: Previous reported re sult: 147 mg/dLEdited by: DANI on 01/15/25:1321 AMENDED REPORT 01/15/25 1321 GLU GEST 50g 1H previously reported as: 147 H mg/dL HIVon 01-15-2025 HIV Non-Reactive Normal Nonreactive [facility] Comment on above: Result Comment: Non- Reactive Reactive Repeatedly reactive samples must be confirmed according to CDC recommended confirmatory algorithms. The subresults for either HIVAG or AHIV can be used as an aid in the selection of the confirmation algorithm for reactive samples. Send out specimens with Reactive results to [facility] for confirmation. Order the HIV antibody detection and differentiation: lc#[id number] Performed By: #### B TS, L3890.6102, L3890.6301, L509.4006, L509.8002, L100.0100, L3890.6006, L501.9985 #### [facility] [address] [place], [place], [address] Hematocrit Auto (Bld) [Volum e fraction]Ordered By: Dorys Ahn on 01-15-2025 Hematocrit (Bld) [Volume fraction] 37.9 % 37-47 [facility] Hemoglobin measurementOrdere d By: Dorys Ahn on 01-15-2025 Hemoglobin (Bld) [Mass/Vol] 12.9 g/dL 12.0-15.0 [facility] Immature granulocytes/100 WB C Auto (Bld)Ordered By: Dorys Ahn on 01-15-2025 Immature granulocytes/100 WBC (Bld) 0.700 % 0.0-0.9 [facility] Comment on above: IG% - Immature Granu locytes (promyelocytes, myelocytes and metamyelocytes) > 1% indicates that a LEFT SHIFT is Present. Laboratory - Chemistry and C hemistry - challengeOrdered By: Nusrat Perez on 01-15-2025 Glucose Ql (U) Negative [facility] - UrinalysisOrder ed By: Nusrat Perez on 01-15-2025 Protein Ql (U) Negative [facility] MCV (mean corpuscular volume ) determinationOrdered By: Dorys Ahn on 01-15-2025 MCV (RBC) [Entitic vol] 87.7 fL 81-99 [facility] Mean corpuscular hemoglobin (MCH) determinationOrdered By: Dorys Ahn on 01-15-2025 MCH (RBC) [Entitic mass] 29.9 pg 27.0-32.0 [facility] Mean corpuscular hemoglobin concentration (MCHC) determinationOrdered By: Dorys Ahn on 01-15-2025 MCHC (RBC) [Mass/Vol] 34.0 g/dL 32-36 [facility] Mean platelet volume determi nationOrdered By: Dorys Ahn on 01-15-2025 Platelet mean volume (Bld) [Entitic vol] 10.3 fL 6.2-12.0 [facility] Monocyte percentageOrdered B y: Dorys Ahn on 01-15-2025 Monocytes/100 WBC (Bld) 4.6 % 0-10 [facility] Neutrophil percentageOrdered By: Dorys Ahn on 01-15-2025 Neutrophils/100 WBC (Bld) 75.4 % High 47-70 [facility] No Panel InformationOrdered By: Dorys Ahn on 01-15-2025 HIV (1&2) Antibody Non-Reactive Nonreactive [facility] Comment on above: Non-ReactiveReactive Repeatedly reactive samples must be confirmed according to CDC recommended confirmatory algorithms. The subresults for either HIVAG or AHIV can be used as an aid in the selection of the confirmation algorithm for reactive samples.Send out specimens with Reactive results to [facility] for confirmation.Order the HIV antibody detection and differentiation: #[id number] Nucleated red blood cell per centageOrdered By: Dorys Ahn on 01-15-2025 Nucleated RBC/100 WBC (Bld) [Ratio] 0 % 0-5 [facility] Operating Table Assembler Office Visit Reporton 01-15-2025 Operating Table Assembler Office Visit Report [facility]'[address], [address] [place] [address] OFFICE VISIT Date of Service: 01/15/25 MR#: [id number] Acct: [id number] Name: HERMANANGELITA PRIEST Rep #: [id number] : 2000 Provider: RENATO de la cruz Age/Sex: 24/F Location: [facility] [place] Status: Signed Intake Vital Signs 10/27/24 13:59 12/19/24 11:06 01/15/25 09:52 01/15/25 10:04 Height 5 ft 11 in 5 ft 11 in 5 ft 11 in 5 ft 11 in Weight: 301 lb 2 oz BMI 42.0 BP 118/84 H Intake Visit Reasons: 28 wk ob/glucose Chief Complaint: 28 Week OB/Glucose Embroiderer Required: No Is patient in pain?: No Allergies No Known Allergies Allergy (Verified 01/15/25 09:51) Medications ???Medication ???Instructions ???Recorded ???Confirmed ???Type albuterol sulfate 90 mcg/actuation 1 inh inhalation Q4-6H PRN 08/1801/15/25 History breath activated powder inhaler docosahexaenoic acid 200 mg mg PO 08/18/24 01/15/25 History capsule ( DHA) ondansetron 4 mg disintegrating 4 mg PO Q6H PRN nausea and 09/04/2 5 01/15/25 Rx tablet vomiting #30 tabs sertraline 50 mg tablet 50 mg PO QDAY #30 tabs 12/19/24 Rx Last Menstrual Period: 07/01/24 Zika: Zika virus screening: Negative : Yes PFSH PFSH Surgical History [place] teeth removed S/P tonsillectomy Family History Father Hypothyroid Grandmother [place] disease Grandmother Diabetes Hypertension Kidney failure Social History adopted: No household members: spouse and other details: step son 's ex current occupational status: employed 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 current occupational exposures/hazards: Yes pets and animals: No history of recent travel: No sexually active: Yes Smoking Status: Never smoker alcohol intake: current alcohol intake frequency: holidays/special occasions only details: Not while substance use type: does not use diet: lactose free well-balanced diet: about half the time caffeine: No eating out: 1-3 times/week during the past year weight has: remained stable what type of physical activity do you participate in: none carine/yazidism: Bahai seatbelt use: always do you feel safe at home: Yes additional social history: : 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 OB Visit ARAM Calculator Estimated Delivery Date Method Current WG Current Estimate 04/07/25 LMP (Certain) 28w 2d Other Estimates 04/07/25 Ultrasound #1 28w 2d Expected Delivery Route/Plan Labor Preferences- CB/BF classes: encouraged labor support person: Ron labor intervention preferences: [] pain management options preferred: epidural! cut cord/dad catch: yes : yes PP control planned: Discussed discussed possible routes of delivery and associated risks: [] special requests: [] Specific Issue/Plans Covid status: [] Flu vaccine: [] Tdap vaccine: given Rhogam: NA LARC form signed: yes Problem list reviewed and updated with the most current plan of care details and appropriate orders placed. Relevant counseling for the gestational age provided. Continue routine care and follow up unless otherwise noted in visit notes/problem list details Initial Weight: 294 lb Date -???-???-???-???-?? ?-???-???-???-???-? ??-???-???- EGA Weight BP Urine Prot -???-???-???-???-?? ?-???-???-???-???-? ??-???-???- Glucose FHR FuHt Pres Dilation -???-???-???-???-?? ?-???-???-???-???-? ??-???-???- Effaced St Visit Note 09/04/24 -???-???-???-???-?? ?-???-???-???-???-? ??-???-???- 9w 2d 294 lb 2 oz (+2 oz) 124/84 -???-???-???-???-?? ?-???-???-???-???-? ??-???-???- 184 -???-???-???-???-?? ?-???-???-???-???-? ??-???-???- KW-CRL cons with dates. undecided on NIPT/carrier. rest of labs today. 09/29/24 -???-???-???-???-?? ?-???-???-???-???-? ??-???-???- 12w 6d 295 lb 6 oz (+1 lb 6 oz) 130/82 Negative -???-???-???-???-?? ?-???-???-???-???-? ??-???-???- Negative 150 -???-???-???-???-?? ?-???-???-???-???-? ??-???-???- SM- no vb pearce ving some cramping and pelvic pain 10/27/24 -???-???-???-???-?? ?-???-???-???-???-? ??-???-???- 16w 6d 289 lb (-5 lb) 138/79 Negative -???-???-???-???-?? ?-???-???-???-???-? ??-???-???- Negative 144 -???-???-???-???-?? ?-???-??? (more content not included)... Normal [facility] Platelet countOrdered By: Hugh Ahn on 01-15-2025 Platelets (Bld) [#/Vol] 293 10*3/uL 150-450 [facility] RBC Auto (Bld) [#/Vol]Ordere d By: Dorys Ahn on 01-15-2025 RBC (Bld) [#/Vol] 4.32 10*6/uL 4.2-5.4 [facility] Syphilis Antibodieson 2024 Syphilis Abs Non-Reactive Normal Nonreactive [facility] Comment on above: Performed By: #### B TS, L3890.6102, L3890.6301, L509.4006, L509.8002, L100.0100, L3890.6006, L501.9985 #### [facility] [address] [place], [address] White blood cell (WBC) count Ordered By: Dorys Ahn on 01-15-2025 WBC (Bld) [#/Vol] 11.3 10*3/uL High 4.4-11.0 [facility] Laboratory - Chemistry and C hemistry - challengeOrdered By: Dorys Ahn on 12-19-2024 Glucose Ql (U) Negative [facility] - UrinalysisOrder ed By: Dorysangeli Ahn on 12-19-2024 Protein Ql (U) Negative [facility] Operating Table Assembler Office Visit Reporton 12-19-2024 Operating Table Assembler Office Visit Report [facility]'[address], [address] [place] [address] OFFICE VISIT Date of Service: 12/19/24 MR#: [id number] Acct: [id number] Name: ANGELITA SUTTON Rep #: [id number] : 2000 Provider: Dr. Dorys Parra DO Age/Sex: 24/F Location: [facility] [place] Status: Signed Intake Vital Signs 10/27/24 13:59 11/20/24 09:23 12/19/24 11:06 Height 5 ft 11 in 5 ft 11 in 5 ft 11 in Weight: 300 lb 6 oz BMI 41.8 BP 117/75 Intake Visit Reasons: 24 wk ob Embroiderer Required: No Is patient in pain?: No Allergies No Known Allergies Allergy (Verified 12/19/24 11:04) Medications ???Medication ???Instructions ???Recorded ???Confirmed ???Type albuterol sulfate 90 mcg/actuation 1 inh inhalation Q4-6H PRN 08/1812/19/24 History breath activated powder inhaler docosahexaenoic acid 200 mg mg PO 08/18/24 12/19/24 History capsule ( DHA) ondansetron 4 mg disintegrating 4 mg PO Q6H PRN nausea and 05/05/2 5 12/19/24 Rx tablet vomiting #30 tabs sertraline 50 mg tablet 50 mg PO QDAY #30 tabs 12/19/24 Rx Last Menstrual Period: 07/01/24 Zika: Zika virus screening: Negative : No PFSH PFSH Surgical History [place] teeth removed S/P tonsillectomy Family History Father Hypothyroid Grandmother [place] disease Grandmother Diabetes Hypertension Kidney failure Social History adopted: No household members: spouse and other details: step son 's ex current occupational status: employed 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 current occupational exposures/hazards: Yes pets and animals: No history of recent travel: No sexually active: Yes Smoking Status: Never smoker alcohol intake: current alcohol intake frequency: holidays/special occasions only details: Not while substance use type: does not use diet: lactose free well-balanced diet: about half the time caffeine: No eating out: 1-3 times/week during the past year weight has: remained stable what type of physical activity do you participate in: none carine/yazidism: Bahai seatbelt use: always do you feel safe at home: Yes additional social history: : 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 OB Visit ARAM Calculator Estimated Delivery Date Method Current WG Current Estimate 04/07/25 LMP (Certain) 24w 3d Other Estimates 04/07/25 Ultrasound #1 24w 3d Expected Delivery Route/Plan Labor Preferences- CB/BF classes: [] labor support person: [] labor intervention preferences: [] pain management options preferred: [] cut cord/dad catch: [] : [] PP control planned: [] discussed possible routes of delivery and associated risks: [] special requests: [] Specific Issue/Plans Covid status: [] Flu vaccine: [] Tdap vaccine: [] Rhogam: [] LARC form signed: [] Problem list reviewed and updated with the most current plan of care details and appropriate orders placed. Relevant counseling for the gestational age provided. Continue routine care and follow up unless otherwise noted in visit notes/problem list details Initial Weight: 294 lb Date -???-???-???-???-?? ?-???-???-???-???-? ??-???-???- EGA Weight BP Urine Prot -???-???-???-???-?? ?-???-???-???-???-? ??-???-???- Glucose FHR FuHt Pres Dilation -???-???-???-???-?? ?-???-???-???-???-? ??-???-???- Effaced St Visit Note 09/04/24 -???-???-???-???-?? ?-???-???-???-???-? ??-???-???- 9w 2d 294 lb 2 oz (+2 oz) 124/84 -???-???-???-???-?? ?-???-???-???-???-? ??-???-???- 184 -???-???-???-???-?? ?-???-???-???-???-? ??-???-???- KW-CRL cons with dates. undecided on NIPT/carrier. rest of labs today. 09/29/24 -???-???-???-???-?? ?-???-???-???-???-? ??-???-???- 12w 6d 295 lb 6 oz (+1 lb 6 oz) 130/82 Negative -???-???-???-???-?? ?-???-???-???-???-? ??-???-???- Negative 150 -???-???-???-???-?? ?-???-???-???-???-? ??-???-???- SM- no vb pearce ving some cramping and pelvic pain 10/27/24 -???-???-???-???-?? ?-???-???-???-???-? ??-???-???- 16w 6d 289 lb (-5 lb) 138/79 Negative -???-???-???-???-?? ?-???-???-???-???-? ??-???-???- Negative 144 -???-???-???-???-?? ?-???-???-???-???-? ??-???-???- LC- no vb/cr amping today. no concerns. has anatomy scheduled.declines afp (more content not included)... Normal [facility] D-DIMER, QUANTITATIVEon 11-02 D-DIMER QUANTITATIVE < Normal 0.27-0.49 [facility] Comment on above: Order Comment: A D-d colby concentration of <0.5 micrograms per milliliter FEU is considered a low probability for pulmonary embolus (PE) and deep venous thrombosis (DVT). Results of this test should always be interpreted in conjunction with the patient's medical history,clinical presentation, and other findings. Clinical diagnosis should not be based on the results of the D-dimer alone. Performed By: #### 4 [id number] #### [facility] [address] [address] Bruno Alexandra M.D. [id number] ED Prov Noteon 11-30-2024 ED Prov Note [facility] EM[facility] ATTENDING NOTE: NAME: Angelita Sutton CSN: [id number] 24 y.o. PCP: Daquan [place] DO History: Chief Complaint: Leg Pain and Problem HPI: The history was obtained from the patient. Angelita is a 24 y.o. female who presents with a chief complaint of Leg Pain and Problem. Wearing compression socks thigh high Initially a burning sensation in his bilateral inguinal canal Burning sensation medial right knee now in lateral right calf Called [facility] and told to come in for DVT evaluation PMHx: Past Medical History: Diagnosis Date Asthma PMSx: History reviewed. No pertinent surgical history. FAM. Hx: History reviewed. No pertinent family history. SOC. Hx: Social History [1] MEDs: Previous Medications Medication Sig albuterol 90 mcg/actuation inhaler Inhale 2 (two) puffs every 4 (four) hours as needed . ketorolac (TORADOL) 10 mg tablet Take 1 (one) tablet (10 mg total) by mouth 3 (three) times a day as needed for pain . ALL: Allergies[2] ROS: Positives and pertinent negatives as per HPI. All other systems were reviewed and are negative. Physical Exam: Patient Vitals for the past 24 hrs: BP Temp Temp src Pulse Resp SpO2 11/30/24 2315 114/77 -- -- 90 15 97 % 11/30/24 2300 114/77 -- -- 98 -- 97 % 11/30/24 2126 (!) 153/85 98.1 degrees F (36.7 degrees C) Oral (!) 106 16 97 % Physical Exam Laboratory & Radiological Imaging (if done): Labs Reviewed D-DIMER, QUANTITATIVE - Normal Narrative: A D-dimer concentration of <0.5 micrograms per milliliter FEU is considered a low probability for pulmonary embolus (PE) and deep venous thrombosis (DVT). Results of this test should always be interpreted in conjunction with the patient's medical history,clinical presentation, and other findings. Clinical diagnosis should not be based on the results of the D-dimer alone. No orders to display ED Course / Medical Decision Making: I did personally review Angelita's past medical history, surgical history, social history, as well as family history (when relevant). In this case, I also oversaw the her drug management by reviewing her medication list, allergy list, as well as the medications that I prescribed during the ED course and/or recommended as an out-patient (including possible OTC medications such as acetaminophen, NSAIDs , etc). Her past medical problem list included: Active Ambulatory Problems Diagnosis Date Noted No Active Ambulatory Problems Resolved Ambulatory Problems Diagnosis Date Noted No Resolved Ambulatory Problems Past Medical History: Diagnosis Date Asthma ED MEDICATIONS GIVEN: Medications - No data to display After reviewing the items above, I did look at previous medical documentation, such as recent hospitalizations, office visits, and/or recent consultations with PCP/specialist. SDOH: Another factor that I considered in Angelita's care was her Social Determinants of Health (SDOH). During this ED encounter, she did NOT appear to have any significant issues identified. LAB TESTING: Ancillary lab testing: D-dimer RADIOLOGY: I did consider radiological studies for Angelita's care today: None indicated DIFFERENTIAL DIAGNOSES: Achilles tendon rupture calcaneal bursitis cellulitis compartment syndrome DVT cancer anemia strain ruptured popliteal cyst superficial thrombophlebitis venous stasis lymphedema cellulitis fracture compartment syndrome , as well as other etiologies. ED COURSE: 24-year-old female who is 21 weeks came in for right sided leg pain initially started in her bilateral inguinal canal region then it went to the medial right knee and then down into the right calf Patient called her OB and was told to come in for evaluation of possible DVT D-dimer negative Patient discharged home in stable condition with return precautions Clinical Impression: 1. Leg pain Disposition: ED Disposition ED Disposition Discharge Condition Stable Comment Angelita Jessica Herman discharged to home/self care in stable condition. Mindy Huang MD ED Attending Physician [facility] [1] Social History Socioeconomic History Marital status: Tobacco Use Smoking status: Never Smokeless tobacco: Never Vaping Use Vaping status: Never Used Substance and Sexual Activity Alcohol use: Not Currently Drug use: Not Currently [2] No Known Allergies Mindy Huang MD 11/30/24 2338 AUTHENTICATED BY MINDY HUANG, ON 11/30/2024 23:38:00 Normal [facility] - Chemistry and C hemistry - challengeOrdered By: Dorys Ahn on 11-20-2024 Glucose Ql (U) Negative [facility] - UrinalysisOrder ed By: Dorys Ahn on 11-20-2024 Protein Ql (U) Negative [facility] Operating Table Assembler Office Visit Reporton 11-20-2024 Operating Table Assembler Office Visit Report [facility]'s [address], [address] [place] [address] OFFICE VISIT Date of Service: 11/20/24 MR#: [id number] Acct: [id number] Name: HERMANANGELITALOREE ACOSTA Rep #: [id number] : 2000 Provider: Dr. Dorys Parra DO Age/Sex: 23/F Location: [facility] [place] Status: Signed Intake Vital Signs 09/04/24 08:50 10/27/24 13:59 11/20/24 09:21 11/20/24 09:23 Height 5 ft 11 in 5 ft 11 in 5 ft 11 in 5 ft 11 in Weight: 300 lb BMI 41.8 BP 139/82 H Intake Visit Reasons: 20wk ob Embroiderer Required: No Is patient in pain?: No Allergies No Known Allergies Allergy (Verified 11/20/24 09:21) Medications ???Medication ???Instructions ???Recorded ???Confirmed ???Type albuterol sulfate 90 mcg/actuation 1 inh inhalation Q4-6H PRN 08/1811/20/24 History breath activated powder inhaler docosahexaenoic acid 200 mg mg PO 08/18/24 11/20/24 History capsule ( DHA) ondansetron 4 mg disintegrating 4 mg PO Q6H PRN nausea and 5 11/20/24 Rx tablet vomiting #30 tabs Last Menstrual Period: 07/01/24 Zika: Zika virus screening: Negative : No PFSH PFSH Surgical History [place] teeth removed S/P tonsillectomy Family History Father Hypothyroid Grandmother [place] disease Grandmother Diabetes Hypertension Kidney failure Social History adopted: No household members: spouse and other details: step son 's ex current occupational status: employed 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 current occupational exposures/hazards: Yes pets and animals: No history of recent travel: No sexually active: Yes Smoking Status: Never smoker alcohol intake: current alcohol intake frequency: holidays/special occasions only details: Not while substance use type: does not use diet: lactose free well-balanced diet: about half the time caffeine: No eating out: 1-3 times/week during the past year weight has: remained stable what type of physical activity do you participate in: none carine/yazidism: Bahai seatbelt use: always do you feel safe at home: Yes additional social history: : 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 OB Visit ARAM Calculator Estimated Delivery Date Method Current WG Current Estimate 04/07/25 LMP (Certain) 20w 2d Other Estimates 04/07/25 Ultrasound #1 20w 2d Expected Delivery Route/Plan Labor Preferences- CB/BF classes: [] labor support person: [] labor intervention preferences: [] pain management options preferred: [] cut cord/dad catch: [] : [] PP control planned: [] discussed possible routes of delivery and associated risks: [] special requests: [] Specific Issue/Plans Covid status: [] Flu vaccine: [] Tdap vaccine: [] Rhogam: [] LARC form signed: [] Problem list reviewed and updated with the most current plan of care details and appropriate orders placed. Relevant counseling for the gestational age provided. Continue routine care and follow up unless otherwise noted in visit notes/problem list details Initial Weight: 294 lb Date -???-???-???-???-?? ?-???-???-???-???-? ??-???-???- EGA Weight BP Urine Prot -???-???-???-???-?? ?-???-???-???-???-? ??-???-???- Glucose FHR FuHt Pres Dilation -???-???-???-???-?? ?-???-???-???-???-? ??-???-???- Effaced St Visit Note 09/04/24 -???-???-???-???-?? ?-???-???-???-???-? ??-???-???- 9w 2d 294 lb 2 oz (+2 oz) 124/84 -???-???-???-???-?? ?-???-???-???-???-? ??-???-???- 184 -???-???-???-???-?? ?-???-???-???-???-? ??-???-???- KW-CRL cons with dates. undecided on NIPT/carrier. rest of labs today. 09/29/24 -???-???-???-???-?? ?-???-???-???-???-? ??-???-???- 12w 6d 295 lb 6 oz (+1 lb 6 oz) 130/82 Negative -???-???-???-???-?? ?-???-???-???-???-? ??-???-???- Negative 150 -???-???-???-???-?? ?-???-???-???-???-? ??-???-???- SM- no vb pearce ving some cramping and pelvic pain 10/27/24 -???-???-???-???-?? ?-???-???-???-???-? ??-???-???- 16w 6d 289 lb (-5 lb) 138/79 Negative -???-???-???-???-?? ?-???-???-???-???-? ??-???-???- Negative 144 -???-???-???-???-?? ?-???-???-???-???-? ??-???-???- LC- no vb/cr amping today. no concerns. has anatomy scheduled.declines afp 07/21/25 -???-???-???-???-?? ?-???-???-???-???-? ??-??? (more content not included)... Normal [facility] - Chemistry and C hemistry - challengeOrdered By: Miguelina Espinal on 10-27-2024 Glucose Ql (U) Negative [facility] - UrinalysisOrder ed By: Miguelina Espinal on 10-27-2024 Protein Ql (U) Negative [facility] Operating Table Assembler Office Visit Reporton 10-27-2024 Operating Table Assembler Office Visit Report [facility]'s [address], [address] [place] [address] OFFICE VISIT Date of Service: 10/27/24 MR#: [id number] Acct: [id number] Name: ANGELITA SUTTON Rep #: [id number] : 2000 Provider: MARIANNA cardoza Age/Sex: 23/F Location: [facility] [place] Status: Signed Intake Vital Signs 09/04/24 08:50 09/29/24 14:56 10/27/24 13:59 Height 5 ft 11 in 5 ft 11 in 5 ft 11 in Weight: 289 lb BMI 40.3 BP 138/79 H Intake Visit Reasons: 16wk ob Chief Complaint: 16wk ob Embroiderer Required: No Is patient in pain?: No Allergies No Known Allergies Allergy (Unverified 10/27/24 13:57) Medications ???Medication ???Instructions ???Recorded ???Confirmed ???Type albuterol sulfate 90 mcg/actuation 1 inh inhalation Q4-6H PRN 08/1810/27/24 History breath activated powder inhaler docosahexaenoic acid 200 mg mg PO 08/18/24 10/27/24 History capsule ( DHA) ondansetron 4 mg disintegrating 4 mg PO Q6H PRN nausea and 5 10/27/24 Rx tablet vomiting #30 tabs Last Menstrual Period: 07/01/24 : No PFSH PFSH Surgical History [place] teeth removed S/P tonsillectomy Family History Father Hypothyroid Grandmother [place] disease Grandmother Diabetes Hypertension Kidney failure Social History adopted: No household members: spouse and other details: step son 's ex current occupational status: employed 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 current occupational exposures/hazards: Yes pets and animals: No history of recent travel: No sexually active: Yes Smoking Status: Never smoker alcohol intake: current alcohol intake frequency: holidays/special occasions only details: Not while substance use type: does not use diet: lactose free well-balanced diet: about half the time caffeine: No eating out: 1-3 times/week during the past year weight has: remained stable what type of physical activity do you participate in: none carine/yazidism: Bahai seatbelt use: always do you feel safe at home: Yes additional social history: : 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 OB Visit ARAM Calculator Estimated Delivery Date Method Current WG Current Estimate 04/07/25 LMP (Certain) 16w 6d Other Estimates 04/07/25 Ultrasound #1 16w 6d Expected Delivery Route/Plan Labor Preferences- CB/BF classes: [] labor support person: [] labor intervention preferences: [] pain management options preferred: [] cut cord/dad catch: [] : [] PP control planned: [] discussed possible routes of delivery and associated risks: [] special requests: [] Specific Issue/Plans Covid status: [] Flu vaccine: [] Tdap vaccine: [] Rhogam: [] LARC form signed: [] Problem list reviewed and updated with the most current plan of care details and appropriate orders placed. Relevant counseling for the gestational age provided. Continue routine care and follow up unless otherwise noted in visit notes/problem list details Initial Weight: 294 lb Date -???-???-???-???-?? ?-???-???-???-???-? ??-???-???- EGA Weight BP Urine Prot -???-???-???-???-?? ?-???-???-???-???-? ??-???-???- Glucose FHR FuHt Pres Dilation -???-???-???-???-?? ?-???-???-???-???-? ??-???-???- Effaced St Visit Note 09/04/24 -???-???-???-???-?? ?-???-???-???-???-? ??-???-???- 9w 2d 294 lb 2 oz (+2 oz) 124/84 -???-???-???-???-?? ?-???-???-???-???-? ??-???-???- 184 -???-???-???-???-?? ?-???-???-???-???-? ??-???-???- KW-CRL cons with dates. undecided on NIPT/carrier. rest of labs today. 09/29/24 -???-???-???-???-?? ?-???-???-???-???-? ??-???-???- 12w 6d 295 lb 6 oz (+1 lb 6 oz) 130/82 Negative -???-???-???-???-?? ?-???-???-???-???-? ??-???-???- Negative 150 -???-???-???-???-?? ?-???-???-???-???-? ??-???-???- SM- no vb pearce ving some cramping and pelvic pain 10/27/24 -???-???-???-???-?? ?-???-???-???-???-? ??-???-???- 16w 6d 289 lb (-5 lb) 138/79 Negative -???-???-???-???-?? ?-???-???-???-???-? ??-???-???- Negative 144 -???-???-???-???-?? ?-???-???-???-???-? ??-???-???- LC- no vb/cr amping today. no concerns. has anatomy scheduled.declines afp ACOG First Trimester First Trimester: Discussed ROS Const Reports system reviewed and no additi (more content not included)... Normal [facility] - Chemistry and C hemistry - challengeOrdered By: Tabitha Byrnes on 09-29-2024 Glucose Ql (U) Negative [facility] - UrinalysisOrder ed By: Tabitha Byrnes on 09-29-2024 Protein Ql (U) Negative [facility] Operating Table Assembler Office Visit Reporton 09-29-2024 Operating Table Assembler Office Visit Report [facility] [address], [address] [place] [address] OFFICE VISIT Date of Service: 09/29/24 MR#: [id number] Acct: [id number] Name: ANGELITA SUTTON Rep #: [id number] : 2000 Provider: Dr. Tabitha goldman MD Age/Sex: 23/F Location: [facility] [place] Status: Signed Intake Vital Signs 09/04/24 08:50 09/29/24 14:53 09/29/24 14:56 Height 5 ft 11 in 5 ft 11 in 5 ft 11 in Weight: 295 lb 6 oz BMI 41.1 BP 130/82 H Intake Visit Reasons: 12wk ob Embroiderer Required: No Is patient in pain?: No Allergies No Known Allergies Allergy (Unverified 09/29/24 14:53) Medications ???Medication ???Instructions ???Recorded ???Confirmed ???Type albuterol sulfate 90 mcg/actuation 1 inh inhalation Q4-6H PRN 08/1809/29/24 History breath activated powder inhaler docosahexaenoic acid 200 mg mg PO 08/18/24 09/29/24 History capsule ( DHA) ondansetron 4 mg disintegrating 4 mg PO Q6H PRN nausea and 5 09/29/24 Rx tablet vomiting #30 tabs Last Menstrual Period: 07/01/24 Zika: Zika virus screening: Negative : No PFSH PFSH Surgical History [place] teeth removed S/P tonsillectomy Family History Father Hypothyroid Grandmother Bhanu disease Grandmother Diabetes Hypertension Kidney failure Social History adopted: No household members: spouse and other details: step son 's ex current occupational status: employed 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 current occupational exposures/hazards: Yes pets and animals: No history of recent travel: No sexually active: Yes Smoking Status: Never smoker alcohol intake: current alcohol intake frequency: holidays/special occasions only details: Not while substance use type: does not use diet: lactose free well-balanced diet: about half the time caffeine: No eating out: 1-3 times/week during the past year weight has: remained stable what type of physical activity do you participate in: none carine/yazidism: Bahai seatbelt use: always do you feel safe at home: Yes additional social history: : 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 OB Visit ARAM Calculator Estimated Delivery Date Method Current WG Current Estimate 04/07/25 LMP (Certain) 12w 6d Other Estimates 04/07/25 Ultrasound #1 12w 6d Expected Delivery Route/Plan Labor Preferences- CB/BF classes: [] labor support person: [] labor intervention preferences: [] pain management options preferred: [] cut cord/dad catch: [] : [] PP control planned: [] discussed possible routes of delivery and associated risks: [] special requests: [] Specific Issue/Plans Covid status: [] Flu vaccine: [] Tdap vaccine: [] Rhogam: [] LARC form signed: [] Problem list reviewed and updated with the most current plan of care details and appropriate orders placed. Relevant counseling for the gestational age provided. Continue routine care and follow up unless otherwise noted in visit notes/problem list details Initial Weight: 294 lb Date -???-???-???-???-?? ?-???-???-???-???-? ??-???-???- EGA Weight BP Urine Prot -???-???-???-???-?? ?-???-???-???-???-? ??-???-???- Glucose FHR FuHt Pres Dilation -???-???-???-???-?? ?-???-???-???-???-? ??-???-???- Effaced St Visit Note 09/04/24 -???-???-???-???-?? ?-???-???-???-???-? ??-???-???- 9w 2d 294 lb 2 oz (+2 oz) 124/84 -???-???-???-???-?? ?-???-???-???-???-? ??-???-???- 184 -???-???-???-???-?? ?-???-???-???-???-? ??-???-???- KW-CRL cons with dates. undecided on NIPT/carrier. rest of labs today. 09/29/24 -???-???-???-???-?? ?-???-???-???-???-? ??-???-???- 12w 6d 295 lb 6 oz (+1 lb 6 oz) 130/82 Negative -???-???-???-???-?? ?-???-???-???-???-? ??-???-???- Negative 150 -???-???-???-???-?? ?-???-???-???-???-? ??-???-???- SM- no vb pearce ving some cramping and pelvic pain ACOG First Trimester First Trimester: Discussed Results POC Urinalysis 2 Dip (Clinic) Office Urine Glucose Negative Last Edit by Nusrat Don on 09/29/24 15:14 Office Urine Protein Negative Last Edit by Nusrat Don on 09/29/24 15:14 Coding Level of Care Code OB Routine Diagnoses Obesity affecting O99.210 Supervision of [facility] (more content not included)... Normal [facility] Chlamydia/GC JR aptimaon CHLAMY,NUC ACID Negative [facility] Comment on above: Performed By: #### B TS, L3890.6102, L3890.6301, L509.4006, L509.8002, L100.0100, L3890.6006, L501.9985 #### [facility] [address] [place], [place], [id number] GC BY NUC ACID Negative [facility] Comment on above: Performed By: #### B TS, L3890.6102, L3890.6301, L509.4006, L509.8002, L100.0100, L3890.6006, L501.9985 #### [facility] [address] [place], [place], [id number] PAP I-G w/rfx hrHPV-Aptimaon 09-07-2024 ADEQ Comment Normal . [facility] Comment on above: Order Comment: Speci men Comment: [id number] Comment: No. of containers..01 ThinPrep Vial Result Comment: Sati sfactory for evaluation. No endocervical component is identified. Performed By: #### B TS, L3890.6102, L3890.6301, L509.4006, L509.8002, L100.0100, L3890.6006, L501.9985 #### [facility] [address] [place], [address] COMM . Normal . [facility] Comment on above: Order Comment: Speci men Comment: [id number] Comment: No. of containers..01 ThinPrep Vial Performed By: #### B TS, L3890.6102, L3890.6301, L509.4006, L509.8002, L100.0100, L3890.6006, L501.9985 #### [facility] [address] [place], [place], [id number] COMMENT Comment Normal . [facility] Comment on above: Order Comment: Speci men Comment: [id number] Comment: No. of containers..01 ThinPrep Vial Result Comment: This liquid based ThinPrep(R) pap test was screened with the use of an image guided system. Performed By: #### B TS, L3890.6102, L3890.6301, L509.4006, L509.8002, L100.0100, L3890.6006, L501.9985 #### [facility] [address] [place], [place], [phone] DIAG Comment Normal . [facility] Comment on above: Order Comment: Speci men Comment: [id number] Comment: No. of containers..01 ThinPrep Vial Result Comment: NEGA TIVE FOR INTRAEPITHELIAL LESION OR MALIGNANCY. Performed By: #### B TS, L3890.6102, L3890.6301, L509.4006, L509.8002, L100.0100, L3890.6006, L501.9985 #### [facility] [address] [place], [place], [id number] HPV RFLX Comment Normal . [facility] Comment on above: Order Comment: Speci men Comment: [id number] Comment: No. of containers..01 ThinPrep Vial Result Comment: The HPV DNA reflex criteria were not met with this specimen result therefore, no HPV testing was performed. Performed at: [address] [id number] Police Justice: Brigette George MD, Phone: [phone] Performed By: #### B TS, L3890.6102, L3890.6301, L509.4006, L509.8002, L100.0100, L3890.6006, L501.9985 #### [facility] [address] [place], [place], [phone] PAPSMR Comment Normal . [facility] Comment on above: Order Comment: Speci men Comment: [id number] Comment: No. of containers..01 ThinPrep Vial Result Comment: The Pap smear is a screening test designed to aid in the detection of premalignant and malignant conditions of the uterine cervix. It is not a diagnostic procedure and should not be used as the sole means of detecting cervical cancer. Both false-positive and false-negative reports do occur. Performed By: #### B TS, L3890.6102, L3890.6301, L509.4006, L509.8002, L100.0100, L3890.6006, L501.9985 #### [facility] [address] [place], [place], [phone] PERFORM Comment Normal . [facility] Comment on above: Order Comment: Speci men Comment: [id number] Comment: No. of containers..01 ThinPrep Vial Result Comment: Oly Santacruz, Cook Pressure (ASCP) Performed By: #### B TS, L3890.6102, L3890.6301, L509.4006, L509.8002, L100.0100, L3890.6006, L501.9985 #### [facility] [address] [place], [place], [phone] Urine Cultureon 09-05-2024 URC Culture exhibits no growth. Normal [facility] Comment on above: Performed By: #### B TS, L3890.6102, L3890.6301, L509.4006, L509.8002, L100.0100, L3890.6006, L501.9985 #### [facility] [address] [place], [place], [phone] Absolute lymphocyte countOrd ered By: Angelica Maldonado on 09-04-2024 Lymphocytes Auto (Unsp spec) [#/Vol] 1.88 10*3/uL 0.83-4.51 [facility] Absolute neutrophil countOrd ered By: Angelica Maldonado on 09-04-2024 Neutrophils (Bld) [#/Vol] 9.3 10*3/uL High 2.0-7.7 [facility] Automated lymphocyte count a s percentage of total leukocytesOrdered By: Angelica Maldonado on 09-04-2024 Lymphocytes/100 WBC Auto (Unsp spec) 15.8 % Low 19-41 [facility] Basophil percentageOrdered B y: Angelica Maldonado on 09-04-2024 Basophils/100 WBC (Bld) 0.3 % 0-1 [facility] CBC W/Diff, Automatedon 05 Absolute Lymph 1.88 X10 3/uL Normal 0.83-4.51 [facility] Comment on above: Performed By: #### B TS, L3890.6102, L3890.6301, L509.4006, L509.8002, L100.0100, L3890.6006, L501.9985 #### [facility] [address] [place], [address] Absolute Neut 9.3 X10 3/uL High 2.0-7.7 [facility] Comment on above: Performed By: #### B TS, L3890.6102, L3890.6301, L509.4006, L509.8002, L100.0100, L3890.6006, L501.9985 #### [facility] [address] [place], [address] Basophils/100 WBC (Bld) 0.3 % Normal 0-1 [facility] Comment on above: Performed By: #### B TS, L3890.6102, L3890.6301, L509.4006, L509.8002, L100.0100, L3890.6006, L501.9985 #### [facility] [address] [place], [address] Eosinophils/100 WBC (Bld) 0.3 % Normal 0-5 [facility] Comment on above: Performed By: #### B TS, L3890.6102, L3890.6301, L509.4006, L509.8002, L100.0100, L3890.6006, L501.9985 #### [facility] [address] [place], [address] Erythrocyte distribution width (RBC) [Ratio] 12.8 % Normal 11.6-14.6 [facility] Comment on above: Performed By: #### B TS, L3890.6102, L3890.6301, L509.4006, L509.8002, L100.0100, L3890.6006, L501.9985 #### [facility] [address] [place], [address] Hematocrit (Bld) [Volume fraction] 40.6 % Normal 37-47 [facility] Comment on above: Performed By: #### B TS, L3890.6102, L3890.6301, L509.4006, L509.8002, L100.0100, L3890.6006, L501.9985 #### [facility] [address] [place], [address] Hemoglobin (Bld) [Mass/Vol] 14.2 g/dL Normal 12.0-15.0 [facility] Comment on above: Performed By: #### B TS, L3890.6102, L3890.6301, L509.4006, L509.8002, L100.0100, L3890.6006, L501.9985 #### [facility] [address] [place], [address] IG% 0.600 Normal 0.0-0.9 [facility] Comment on above: Result Comment: IG% - Immature Granulocytes (promyelocytes, myelocytes and metamyelocytes) > 1% indicates that a LEFT SHIFT is Present. Performed By: #### B TS, L3890.6102, L3890.6301, L509.4006, L509.8002, L100.0100, L3890.6006, L501.9985 #### [facility] [address] [place], [address] Lymphocytes/100 WBC (Bld) 15.8 % Low 19-41 [facility] Comment on above: Performed By: #### B TS, L3890.6102, L3890.6301, L509.4006, L509.8002, L100.0100, L3890.6006, L501.9985 #### [facility] [address] [place], [address] MCH (RBC) [Entitic mass] 29.1 pg Normal 27.0-32.0 [facility] Comment on above: Performed By: #### B TS, L3890.6102, L3890.6301, L509.4006, L509.8002, L100.0100, L3890.6006, L501.9985 #### [facility] [address] [place], [address] MCHC (RBC) [Mass/Vol] 35.0 g/dL Normal 32-36 [facility] Comment on above: Performed By: #### B TS, L3890.6102, L3890.6301, L509.4006, L509.8002, L100.0100, L3890.6006, L501.9985 #### [facility] [address] [place], [address] MCV (RBC) [Entitic vol] 83.2 fL Normal 81-99 [facility] Comment on above: Performed By: #### B TS, L3890.6102, L3890.6301, L509.4006, L509.8002, L100.0100, L3890.6006, L501.9985 #### [facility] [address] [place], [address] Monocytes/100 WBC (Bld) 4.8 % Normal 0-10 [facility] Comment on above: Performed By: #### B TS, L3890.6102, L3890.6301, L509.4006, L509.8002, L100.0100, L3890.6006, L501.9985 #### [facility] [address] [place], [address] Neutrophils/100 WBC (Bld) 78.2 % High 47-70 [facility] Comment on above: Performed By: #### B TS, L3890.6102, L3890.6301, L509.4006, L509.8002, L100.0100, L3890.6006, L501.9985 #### [facility] [address] [place], [address] Nucleated RBC (Bld) [#/Vol] 0 10*3/uL Normal 0-5 [facility] Comment on above: Performed By: #### B TS, L3890.6102, L3890.6301, L509.4006, L509.8002, L100.0100, L3890.6006, L501.9985 #### [facility] [address] [place], [address] Platelet mean volume (Bld) [Entitic vol] 10.1 fL Normal 6.2-12.0 [facility] Comment on above: Performed By: #### B TS, L3890.6102, L3890.6301, L509.4006, L509.8002, L100.0100, L3890.6006, L501.9985 #### [facility] [address] [place], [address] Platelets (Bld) [#/Vol] 339 10*3/uL Normal 150-450 [facility] Comment on above: Performed By: #### B TS, L3890.6102, L3890.6301, L509.4006, L509.8002, L100.0100, L3890.6006, L501.9985 #### [facility] [address] [place], [address] RBC (Bld) [#/Vol] 4.88 10*6/uL Normal 4.2-5.4 [facility] Comment on above: Performed By: #### B TS, L3890.6102, L3890.6301, L509.4006, L509.8002, L100.0100, L3890.6006, L501.9985 #### [facility] [address] [place], [address] RDW SD 38.9 fl Normal 35.1-43.9 [facility] Comment on above: Performed By: #### B TS, L3890.6102, L3890.6301, L509.4006, L509.8002, L100.0100, L3890.6006, L501.9985 #### [facility] [address] [place], [address] WBC (Bld) [#/Vol] 11.9 10*3/uL High 4.4-11.0 [facility] Comment on above: Performed By: #### B TS, L3890.6102, L3890.6301, L509.4006, L509.8002, L100.0100, L3890.6006, L501.9985 #### [facility] [address] [place], [place], [id number] Cervical or vagninal specime n microscopic examination by cytology stain (reported asOrdered By: Angelica Maldonado on 09-04-2024 Cytology report Cyto stain Doc (Cvx/Vag) Comment . [facility] Comment on above: The Pap smear is a s creening test designed to aid in thedetection of premalignant and malignant conditions of theuterine cervix. It is not a diagnostic procedure andshould not be used as the sole means of detecting cervicalcancer. Both false-positive and false-negative reports dooccur. Chlamydia trachomatis rRNA d etection by probe and target amplification methodOrdered By: Angelica Maldonado on 09-04-2024 C. trachomatis rRNA JR+probe Ql (Unsp spec) Negative [facility] Eosinophil percentageOrdered By: Angelica Maldonado on 09-04-2024 Eosinophils/100 WBC (Bld) 0.3 % 0-5 [facility] Erythrocyte distribution wid th ratioOrdered By: Angelica Maldonado on 09-04-2024 Erythrocyte distribution width (RBC) [Ratio] 12.8 % 11.6-14.6 [facility] Erythrocyte distribution wid th standard deviationOrdered By: Angelica Maldonado on 09-04-2024 Erythrocyte distribution width (RBC) [Ratio] 38.9 fl 35.1-43.9 [facility] HIVon 09-04-2024 HIV Non-Reactive Normal Nonreactive [facility] Comment on above: Result Comment: Non- Reactive Reactive Repeatedly reactive samples must be confirmed according to CDC recommended confirmatory algorithms. The subresults for either HIVAG or AHIV can be used as an aid in the selection of the confirmation algorithm for reactive samples. Send out specimens with Reactive results to [facility] for confirmation. Order the HIV antibody detection and differentiation: lc#[id number] Performed By: #### B TS, L3890.6102, L3890.6301, L509.4006, L509.8002, L100.0100, L3890.6006, L501.9985 #### [facility] [address] [place], [place], [id number] Hematocrit Auto (Bld) [Volum e fraction]Ordered By: Angelica Maldonado on 09-04-2024 Hematocrit (Bld) [Volume fraction] 40.6 % 37-47 [facility] Hemoglobin A1con 09-04-2024 HbA1c (Bld) [Mass fraction] 5.1 % Normal <=5.6 [facility] Comment on above: Result Comment: Norm al < 5.7 % Prediabetic 5.7 - 6.4 % Diabetic >or= 6.5 % Please note range changes. Performed By: #### B TS, L3890.6102, L3890.6301, L509.4006, L509.8002, L100.0100, L3890.6006, L501.9985 #### [facility] [address] [place], [address] Hemoglobin A1c percentageOrd ered By: Angelica Maldonado on 09-04-2024 HbA1c (Bld) [Mass fraction] 5.1 % <5.7 [facility] Comment on above: Normal < 5.7 % Predi abetic 5.7 - 6.4 % Diabetic >or= 6.5 % Please note range changes. Hemoglobin measurementOrdere d By: Angelica Maldonado on 09-04-2024 Hemoglobin (Bld) [Mass/Vol] 14.2 g/dL 12.0-15.0 [facility] Hepatitis C Antibodyon 09-04 Hepatitis C Ab Non-Reactive Normal Nonreactive [facility] Comment on above: Result Comment: Reac tive: Presumptive evidence of antibodies to HCV. Follow CDC recommendations for supplemental testing. Non-Reactive: Antibodies to HCV were not detected; does not exclude the possibility of exposure to HCV Reactive Results are presumptive evidence of antibodies to HCV. Follow CDC recommendations for supplemental testing. Order confirmation testing: HCV Quant by PCR testing - HCVPCR #[id number] Non Reactive: < 0.8 Equivocal: >/= 0.8 to < 1.0 Reactive: >/= 1.0 The [facility] requires that a reactive/equivocal HCV antibody result be sent out for confirmation. HCV Quant by PCR testing. Performed By: #### B TS, L3890.6102, L3890.6301, L509.4006, L509.8002, L100.0100, L3890.6006, L501.9985 #### [facility] [address] [place], [place], [id number] Immature granulocytes/100 WB C Auto (Bld)Ordered By: Angelica Maldonado on 09-04-2024 Immature granulocytes/100 WBC (Bld) 0.600 % 0.0-0.9 [facility] Comment on above: IG% - Immature Granu locytes (promyelocytes, myelocytes and metamyelocytes) > 1% indicates that a LEFT SHIFT is Present. L3890.6102on 09-04-2024 HEP B Surf Ag Non-Reactive Normal Nonreactive [facility] Comment on above: Result Comment: Reac tive: Presumptive evidence of HBV. Repeatedly reactive samples must be confirmed using a neutralization test ([employer] HBsAg Confirmatory Test) Non-Reactive: HBsAg not detected; does not exclude the possibility of exposure to HBV Performed By: #### B TS, L3890.6102, L3890.6301, L509.4006, L509.8002, L100.0100, L3890.6006, L501.9985 #### [facility] [address] [place], [place], [id number] L509.4006on 09-04-2024 Rubella IgG REAC Normal Nonreactive [facility] Comment on above: Result Comment: Anti body Result: Interpretation Non-Reactive: Non-Immune Reactive: Immune The following results were obtained with the [employer] Rubella IgG assay. Results from assays of other manufacturers cannot be used interchangeably. Performed By: #### B TS, L3890.6102, L3890.6301, L509.4006, L509.8002, L100.0100, L3890.6006, L501.9985 #### [facility] [address] [place], [address] Laboratory - CytologyOrdered By: Angelica Maldonado on 09-04-2024 Cook Pressure Cyto stain Nom (Cvx/Vag) [ID] Comment . [facility] Comment on above: Lashonda Domínguez ytologist ([facility]) Laboratory - Microbiology an d Antimicrobial susceptibilityOrdered By: Angelica Maldonado on 09-04-2024 HBV surface Ag Ql (S) Non-Reactive Nonreactive [facility] Comment on above: Reactive: Presumptiv e evidence of HBV. Repeatedly reactive samples must be confirmed using a neutralization test ([employer] HBsAg Confirmatory Test)Non-Reactive: HBsAg not detected; does not exclude the possibility of exposure to HBV Laboratory - Miscellaneous t estsOrdered By: Angelica Mladonado on 09-04-2024 Service comment (Unsp spec) [Interp] . . [facility] MCV (mean corpuscular volume ) determinationOrdered By: Angelica Maldonado on 09-04-2024 MCV (RBC) [Entitic vol] 83.2 fL 81-99 [facility] Mean corpuscular hemoglobin (MCH) determinationOrdered By: Angelica Maldonado on 09-04-2024 MCH (RBC) [Entitic mass] 29.1 pg 27.0-32.0 [facility] Mean corpuscular hemoglobin concentration (MCHC) determinationOrdered By: Angelica Maldonado on 09-04-2024 MCHC (RBC) [Mass/Vol] 35.0 g/dL 32-36 [facility] Mean platelet volume determi nationOrdered By: Angelica Maldonado on 09-04-2024 Platelet mean volume (Bld) [Entitic vol] 10.1 fL 6.2-12.0 [facility] Monocyte percentageOrdered B y: Angelica Maldonado on 09-04-2024 Monocytes/100 WBC (Bld) 4.8 % 0-10 [facility] Neisseria gonorrhoeae nuclei c acid detection by amplified probe techniqueOrdered By: Angelica Maldonado on 09-04-2024 N. gonorrhoeae DNA JR+probe Ql (Unsp spec) Negative [facility] Neutrophil percentageOrdered By: Angelica Maldonado on 09-04-2024 Neutrophils/100 WBC (Bld) 78.2 % High 47-70 [facility] No Panel InformationOrdered By: Angelica Maldonado on 09-04-2024 Pap Smear Specimen Adequacy Comment . [facility] Comment on above: Satisfactory for ruben luation. No endocervical component is identified. HIV (1&2) Antibody Non-Reactive Nonreactive [facility] Comment on above: Non-ReactiveReactive Repeatedly reactive samples must be confirmed according to CDC recommended confirmatory algorithms. The subresults for either HIVAG or AHIV can be used as an aid in the selection of the confirmation algorithm for reactive samples.Send out specimens with Reactive results to [facility] for confirmation.Order the HIV antibody detection and differentiation: lc#[id number] Nucleated red blood cell per centageOrdered By: Angelica Maldonado on 09-04-2024 Nucleated RBC/100 WBC (Bld) [Ratio] 0 % 0-5 [facility] Operating Table Assembler Office Visit Reporton 09-04-2024 Operating Table Assembler Office Visit Report [facility] [address], [address] [place] [address] OFFICE VISIT Date of Service: 09/04/24 MR#: [id number] Acct: [id number] Name: ANGELITA SUTTON Rep #: [id number] : 2000 Provider: MARIANNA Mascorro ams Age/Sex: 23/F Location: [facility] [place] Status: Signed Intake Vital Signs 08/18/24 13:40 09/04/24 08:50 Height 5 ft 11 in 5 ft 11 in Weight: 294 lb 2 oz BMI 41.0 BP 124/84 H Intake Visit Reasons: NOB:LMP 3/ ARAM 04/07 Do NOT shorten per KW Chief Complaint: New OB Embroiderer Required: No Is patient in pain?: No Allergies No Known Allergies Allergy (Unverified 09/04/24 08:48) Medications ???Medication ???Instructions ???Recorded ???Confirmed ???Type albuterol sulfate 90 mcg/actuation 1 inh inhalation Q4-6H PRN 08/1809/04/24 History breath activated powder inhaler docosahexaenoic acid 200 mg mg PO 08/18/24 09/04/24 History capsule ( DHA) ondansetron 4 mg disintegrating 4 mg PO Q6H PRN nausea and 5 09/04/24 Rx tablet vomiting #30 tabs Last Menstrual Period: 07/01/24 : No Have you fallen in the past year?: No PFSH PFSH Surgical History [place] teeth removed S/P tonsillectomy Family History Father Hypothyroid Grandmother [place] disease Grandmother Diabetes Hypertension Kidney failure Social History adopted: No household members: spouse and other details: step son 's ex current occupational status: employed 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 current occupational exposures/hazards: Yes pets and animals: No history of recent travel: No sexually active: Yes Smoking Status: Never smoker alcohol intake: current alcohol intake frequency: holidays/special occasions only details: Not while substance use type: does not use diet: lactose free well-balanced diet: about half the time caffeine: No eating out: 1-3 times/week during the past year weight has: remained stable what type of physical activity do you participate in: none carine/yazidism: Bahai seatbelt use: always do you feel safe at home: Yes additional social history: : 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 OB Visit ARAM Calculator Estimated Delivery Date Method Current WG Current Estimate 04/07/25 LMP (Certain) 9w 2d Other Estimates 04/07/25 Ultrasound #1 9w 2d Estimated Due Date: 04/07/25 Expected Delivery Route/Plan Labor Preferences- CB/BF classes: [] labor support person: [] labor intervention preferences: [] pain management options preferred: [] cut cord/dad catch: [] : [] PP control planned: [] discussed possible routes of delivery and associated risks: [] special requests: [] Specific Issue/Plans Covid status: [] Flu vaccine: [] Tdap vaccine: [] Rhogam: [] LARC form signed: [] Problem list reviewed and updated with the most current plan of care details and appropriate orders placed. Relevant counseling for the gestational age provided. Continue routine care and follow up unless otherwise noted in visit notes/problem list details Initial Weight: 294 lb Date -???-???-???-???-?? ?-???-???-???-???-? ??-???-???- EGA Weight BP Urine Prot -???-???-???-???-?? ?-???-???-???-???-? ??-???-???- Glucose FHR FuHt Pres Dilation -???-???-???-???-?? ?-???-???-???-???-? ??-???-???- Effaced St Visit Note 09/04/24 -???-???-???-???-?? ?-???-???-???-???-? ??-???-???- 9w 2d 294 lb 2 oz (+2 oz) -???-???-???-???-?? ?-???-???-???-???-? ??-???-???- 184 -???-???-???-???-?? ?-???-???-???-???-? ??-???-???- KW-CRL cons with dates. undecided on NIPT/carrier. rest of labs today. Menstrual History Last Menstrual Period: 07/01/24 Reported LMP: definite Normal amount/duration: Yes Frequency in days: 32 On hormonal BC at conception: No hCG+: 08/05/24 Antepartum Record Genetic Screening: Congenital Heart Defect: Other, Neural Tube Defect: Other, Hemoglobinopathy Or Carrier: Other, Cystic Fibrosis: Other, Chromosome Abnormality: Other, Roman-Sachs: Other, Hemophilia: Other, Intellectual Disability/Autism: Other, Recurrent Loss/Stillbirth: Other, Other Structural Defect: Other, Other Genetic Disease: Partner (NF1 - FOB's dad) and Materna (more content not included)... Normal [facility] Platelet countOrdered By: Ezra Maldonado on 09-04-2024 Platelets (Bld) [#/Vol] 339 10*3/uL 150-450 [facility] RBC Auto (Bld) [#/Vol]Ordere d By: Angelica Maldonado on 09-04-2024 RBC (Bld) [#/Vol] 4.88 10*6/uL 4.2-5.4 [facility] Syphilis Antibodieson 2024 Syphilis Abs Non-Reactive Normal Nonreactive [facility] Comment on above: Performed By: #### B TS, L3890.6102, L3890.6301, L509.4006, L509.8002, L100.0100, L3890.6006, L501.9985 #### [facility] [address] [place], [address] Type AND Screenon 09-04-2024 ABO and Rh group Nom (Bld) Blood group A Rh(D) positive Normal [facility] Comment on above: Order Comment: PN Performed By: #### B TS, L3890.6102, L3890.6301, L509.4006, L509.8002, L100.0100, L3890.6006, L501.9985 #### [facility] [address] [place], [address] Urine cultureOrdered By: Lakhwinder Maldonado on 09-04-2024 Bacteria identified Cx Nom (U) Culture exhibits no growth. [facility] White blood cell (WBC) count Ordered By: Angelica Maldonado on 09-04-2024 WBC (Bld) [#/Vol] 11.9 10*3/uL High 4.4-11.0 [facility] - Chemistry and C hemistry - challengeOrdered By: Angelica Maldonado on 08-18-2024 HCG ( test) Ql (U) Positive [facility] Office Visit Reporton 2024 Office Visit Report [facility] [address] [place] [address] OFFICE VISIT Date of Service: 08/18/24 MR#: [id number] Acct: [id number] Patient: ANGELITA SUTTON Rep #: [id number] : 2000 Provider: MARIANNA Mascorro ams Age/Sex: 23/F Location: [facility] Status: Signed Intake Vital Signs 08/18/24 13:40 Height 5 ft 11 in Weight: 301 lb 4 oz BMI 42.0 BP 122/76 H Intake Visit Reasons: PNOB nurse visit Embroiderer Required: No Accompanied by: Allergies No Known Allergies Allergy (Unverified 08/18/24 13:06) Medications ???Medication ???Instructions ???Recorded ???Confirmed ???Type albuterol sulfate 90 mcg/actuation 1 inh inhalation Q4-6H PRN 08/1808/18/24 History breath activated powder inhaler docosahexaenoic acid 200 mg mg PO 08/18/24 08/18/24 History capsule ( DHA) Is last menstrual period known: Yes Post menopausal: No Patient : Yes Nurse's Note: Pt here for PNOB. Office UPT: positive. Vitals WNL. PNOB questions completed. Problem list, allergies, and medications updated. Results POC Urine Office , Urine Positive Last Edit by Mayela Nvoa RN on 08/18/24 13:53 Assessment and Plan Assessment and Plan Orders: Orders POC Urine 08/18/24 N91.2 - Amenorrhea, unspecified CBC W/Diff, Automated 08/18/24 O09.90 - Supervision of high risk , unspecified, unspecified trimester Type Screen 08/18/24 O. - Supervision of high risk , unspecified, unspecified trimester Rubella IgG 08/18/24 O09. - Supervision of high risk , unspecified, unspecified trimester Hepatitis C Antibody 08/18/24 O.90 - Supervision of high risk , unspecified, unspecified trimester Hepatitis B Surface Antigen 08/18/24 O.90 - Supervision of high risk , unspecified, unspecified trimester Culture, Urine 08/18/24 O. - Supervision of high risk , unspecified, unspecified trimester Syphilis Antibodies 08/18/24 O. - Supervision of high risk , unspecified, unspecified trimester Chlamydia/GC JR aptima 08/18/24 O. - Supervision of high risk , unspecified, unspecified trimester HIV 08/18/24 O09. - Supervision of high risk , unspecified, unspecified trimester Hemoglobin A1c 08/18/24 O09.90 - Supervision of high risk , unspecified, unspecified trimester, O99.210 - Obesity complicating , unspecified trimester 08/21/24 1643 Date Angelica Venegas Signature: Date (if applicable) CC: Normal [facility] ED Prov Noteon 12-15-2023 ED Prov Note ED PROVIDER NOTE [facility] EM[facility] NAME: Angelita Johnson AGE: 23 y.o. : 2000 VISIT DATE: 12/15/2023 CSN: [id number] PCP: Daquan Hills DO Chief Complaint Patient presents with Urinary Frequency 23-year-old presents to the ER for evaluation of dysuria urgency frequency. States has been having waxing and symptoms for last few days. No associate fevers abdominal pain or flank pain. No chest pain difficulty breathing. Past Medical History: Diagnosis Date Asthma History reviewed. No pertinent surgical history. History reviewed. No pertinent family history. Social History Socioeconomic History Marital status: Single Tobacco Use Smoking status: Never Smokeless tobacco: Never Vaping Use Vaping status: Never Used Substance and Sexual Activity Alcohol use: Not Currently Drug use: Not Currently Previous Medications Medication Sig albuterol 90 mcg/actuation inhaler Inhale 2 (two) puffs every 4 (four) hours as needed . ketorolac (TORADOL) 10 mg tablet Take 1 (one) tablet (10 mg total) by mouth 3 (three) times a day as needed for pain . No Known Allergies Review of Systems All other systems reviewed and are negative. Patient Vitals for the past 24 hrs: BP Temp Temp src Pulse Resp SpO2 Height Weight 12/15/23 1237 125/82 99.1 degrees F (37.3 degrees C) Temporal 88 18 98 % 5' 11" 135.2 kg (298 lb) Physical Exam Vitals and nursing note reviewed. Constitutional: Appearance: Normal appearance. HENT: Head: Normocephalic and atraumatic. Right Ear: External ear normal. Left Ear: External ear normal. Nose: Nose normal. Mouth/Throat: Mouth: Mucous membranes are moist. Pharynx: Oropharynx is clear. Eyes: Extraocular Movements: Extraocular movements intact. Conjunctiva/sclera: Conjunctivae normal. Pupils: Pupils are equal, round, and reactive to light. Cardiovascular: Rate and Rhythm: Normal rate and regular rhythm. Musculoskeletal: General: Normal range of motion. Cervical back: Normal range of motion and neck supple. Pulmonary: Effort: Pulmonary effort is normal. Breath sounds: Normal breath sounds. Abdominal: General: Abdomen is flat. Bowel sounds are normal. Palpations: Abdomen is soft. Neurological: General: No focal deficit present. Mental Status: She is alert and oriented to person, place, and time. Mental status is at baseline. Psychiatric: Mood and Affect: Mood normal. Thought Content: Thought content normal. . Laboratory & Radiographic Imaging (if done): Results for orders placed or performed during the hospital encounter of 12/15/23 POC Urinalysis Dipstick, Auto Result Value Ref Range Spec Grav, UA 1.020 1.005 - 1.025 pH, UA 7.0 5.0 - 7.0 Protein, UA Negative Negative mg/dL Glucose, UA Negative Negative mg/dL Ketones, UA Negative Negative mg/dL Bilirubin, UA Negative Negative Urobilinogen, UA 0.2 <2.0 mg/dL Blood, UA Trace-intact (A) Negative Nitrite, UA Negative Negative Leukocyte Esterase, UA Small (A) Negative POC , Urine Result Value Ref Range POC Preg Test, Urine Negative Negative No orders to display Procedures Medical Decision Making Not . Unlikely TOA, Ovarian Torsion, PID, gonorrhea/chlamydia . Low suspicion for Infected Urolithiasis, AAA, Cholecystitis, Pancreatitis, SBO, Appendicitis, or other acute abdomen. Rx: Keflex 500mg BID for 5 days Disposition: Discharge home. SRP discussed. Advise follow up with primary care provider within 24-72 hours. The patient has been informed that they may have pre-hypertension or hypertension based on a blood pressure reading in the Emergency Department. I recommend that the patient call the primary care provider listed on their discharge instructions or a physician of their choice as soon as possible to arrange follow-up in the next 4 weeks for further evaluation of possible pre-hypertension or hypertension. . Clinical Impression: No diagnosis found. ED Disposition None Follow-up Information Follow-up information has not been specified. Contact information for after-discharge care Follow-up information has not been specified. Lidia Kruger MD 12/15/23 1257 AUTHENTICATED BY LIDIA KRUGER, ON 12/15/2023 12:57:52 Normal [facility] POC , URINE - RALSo n 12-15-2023 Beta HCG ( test) Ql (U) Negative Normal Negative [facility] Comment on above: Order Comment: Negat raymon: Dilute urine specimens, as indicated by a low specific gravity (<1.010) may not contain representitive levels of hCG. If is still suspected, a serum test or repeat urine test using a first morning urine specimen should be considered. POC URINALYSIS DIPSTICK,AUTO - RALSon 12-15-2023 POC BILIRUBIN, URINE Negative Normal Negative [facility] POC BLOOD, URINE Trace-intact Abnormal Negative [facility] POC GLUCOSE, URINE Negative Normal Negative [facility] POC KETONES, URINE Negative Normal Negative [facility] POC LEUKOCYTE ESTERASE, URINE Small Abnormal Negative [facility] POC NITRITE, URINE Negative Normal Negative [facility] POC PH, URINE 7.0 Normal 5.0-7.0 [facility] POC PROTEIN, URINE Negative Normal Negative [facility] POC SPECIFIC GRAVITY 1.020 Normal 1.005-1.025 [facility] POC UROBILINOGEN 0.2 mg/dL Normal < 2.0 [facility] dical [place] URINE AEROBIC CULTUREon 12-01 URINE AEROBIC CULTURE URINE CULTURE > 10,000 CFU/mL mixture of normal urogenital microbiota Normal [facility] Comment on above: Performed By: #### 4 [id number] #### [facility] [address] [place] [address] Sukhi Amaro M.D. [id number] ED Prov Noteon 11-01-2023 ED Prov Note HPI: 11/01/2023, Time: @JUAN@ Angelita Jessica Johnson is a 22 y.o. 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 The complaint has been constant, moderate in severity, and worsened by changing position. No numbness of the arm and no other direct injury ROS: Pertinent positives and negatives are stated within HPI, all other systems reviewed and are negative. ------- PAST HISTORY ------- Past Medical History: @[facility] Past Surgical History: has no past surgical history on file. Social History: reports that she has never smoked. She has never used smokeless tobacco. She reports that she does not currently use alcohol. She reports that she does not currently use drugs. Family History: family history is not on file. The patient's home medications have been reviewed. Allergies: Patient has no known allergies. RESULTS All laboratory and radiology results have been personally reviewed by myself LABS: Results for orders placed or performed during the hospital encounter of 06/09/23 COVID-19, Molecular Specimen: Nasal; Swab Result Value Ref Range SARS-CoV-2 Detected (A) Not Detected POC Urinalysis Dipstick, Auto Result Value Ref Range Spec Grav, UA >=1.030 (H) 1.005 - 1.025 pH, UA 6.0 5.0 - 7.0 Protein, UA Negative Negative mg/dL Glucose, UA Negative Negative mg/dL Ketones, UA Negative Negative mg/dL Bilirubin, UA Negative Negative Urobilinogen, UA 1.0 <2.0 mg/dL Blood, UA Negative Negative Nitrite, UA Negative Negative Leukocyte Esterase, UA Negative Negative POC , Urine Result Value Ref Range POC Preg Test, Ur Negative Negative POC Influenza A/B Result Value Ref Range POC Rapid Influenza A Ag Not Detected Not Detected POC Influenza B Ag Not Detected Not Detected RADIOLOGY: Interpreted by Radiologist. No orders to display ------ NURSING NOTES AND VITALS REVIEWED -------- The nursing notes within the ED encounter and vital signs as below have been reviewed. BP 135/79 (BP Location: Left arm, Patient Position: Sitting) Pulse 77 Temp 98 degrees F (36.7 degrees C) (Temporal) Resp 16 Ht 5' 11" Wt 135.2 kg (298 lb) LMP 10/25/2023 (Approximate) SpO2 100% BMI 41.56 kg/m Oxygen Saturation Interpretation: Normal PHYSIC AL EXAM ---- Constitutional/Gene ral: Alert and oriented x3, well appearing, non toxic in NAD Head: NC/AT Eyes: PERRL, EOMI Mouth: Oropharynx clear, handling secretions, no trismus Neck: Supple, full ROM, no meningeal signs Pulmonary: Lungs clear to auscultation bilaterally, no wheezes, rales, or rhonchi. Not in respiratory distress Cardiovascular: Regular rate and rhythm, no murmurs, gallops, or rubs. 2+ distal pulses Abdomen: Soft, non tender, non distended, Extremities: Moves all extremities x 4. Warm and well perfused, right shoulder: Moderate tenderness to palpation subacromial anteriorly and worse with any range of motion consistent with bursitis Skin: warm and dry without rash Neurologic: GCS 15, Psych: Normal Affect ED COURSE/MEDICAL DECISION MAKING --------- Medications ketorolac (TORADOL) injection 30 mg (has no administration in time range) Medical Decision Making: Will treat for suspected bursitis secondary to overuse Counseling: The emergency provider has spoken with the patient and discussed today's results, in addition to providing specific details for the plan of care and counseling regarding the diagnosis and prognosis. Questions are answered at this time and they are agreeable with the plan. IMPRESSION AND DISPOSITION IMPRESSION 1. Subacromial bursitis of right shoulder joint DISPOSITION Disposition: discharged to home Patient condition is stable Summation Patient Course: Improved ED Medications administered this visit: Medications ketorolac (TORADOL) injection 30 mg (has no administration in time range) New Prescriptions from this visit: New Prescriptions ketorolac (TORADOL) 10 mg tablet Take 1 (one) tablet (10 mg total) by mouth 3 (three) times a day as needed for pain . Follow-up: Trent Leblanc MD [address] [facility] [id number] In 3 days Final Impression: 1. Subacromial bursitis of right shoulder joint (Please note that portions of this note were completed with a voice recognition program. Efforts were made to edit the dictations but occasionally words are mis-transcribed.) G (more content not included)... Normal [facility] COVID-19, MOLECULARon 2023 SARS-CoV-2 (COVID-19) Ab IA Ql Detected Abnormal Not Detected [facility] Comment on above: Result Comment: Test ing was performed using the [employer] ID NOW COVID-19 assay on the ID NOW platform. This test has not been approved for use in asymptomatic patients and its performance in this patient population has not been evaluated. Negative results do not rule out the presence of SARS-CoV-2/COVID-19. Influenza virus A and B and SARS-CoV-2 (COVID-19) identified JR+probe Nom (Resp)on 03-12-2023 FLUAV RNA JR+probe Ql (Resp) Not detected Not Detected [facility] FLUBV RNA JR+probe Ql (Resp) Not detected Not Detected [facility] Interpretation and review of laboratory results Normal [facility] SARS-CoV-2 (COVID-19) RNA JR+probe Ql (Resp) Not detected Not Detected [facility] This assay has received FDA Emergency Use Authorization (EUA) and is only authorized for the duration of time that circumstances exist to justify the authorization of the emergency use of in vitro diagnostic tests for the detection of SARS-CoV-2 virus and/or diagnosis of COVID-19 infection under section 564(b)(1) of the Act, 21 U.S.C. 360bbb-3(b)(1). Testing for SARS-CoV-2 is only recommended for patients who meet current clinical and/or epidemiological criteria as defined by federal, state, or local public health directives. This assay is an in vitro diagnostic nucleic acid amplification test for the qualitative detection of SARS-CoV-2, Influenza A, and Influenza B from nasopharyngeal specimens and has been validated for use at [facility]. Negative results do not preclude COVID-19 infections or Influenza A/B infections, and should not be used as the sole basis for diagnosis, treatment, or other management decisions. If Influenza A/B and RSV PCR results are negative, testing for Parainfluenza virus, Adenovirus and Metapneumovirus is routinely performed for [facility] pediatric oncology and intensive care inpatients, and is available on other patients by placing an add-on request. [facility] Influenza virus A and B and SARS-CoV-2 (COVID-19) identified JR+probe Nom (Resp)on 03-11-2023 FLUAV RNA JR+probe Ql (Resp) Not detected Normal Not Detected [facility] Comment on above: Order Comment: This assay has received FDA Emergency Use Authorization (EUA) and is only authorized for the duration of time that circumstances exist to justify the authorization of the emergency use of in vitro diagnostic tests for the detection of SARS-CoV-2 virus and/or diagnosis of COVID-19 infection under section 564(b)(1) of the Act, 21 U.S.C. 360bbb-3(b)(1). Testing for SARS-CoV-2 is only recommended for patients who meet current clinical and/or epidemiological criteria as defined by federal, state, or local public health directives. This assay is an in vitro diagnostic nucleic acid amplification test for the qualitative detection of SARS-CoV-2, Influenza A, and Influenza B from nasopharyngeal specimens and has been validated for use at [facility]. Negative results do not preclude COVID-19 infections or Influenza A/B infections, and should not be used as the sole basis for diagnosis, treatment, or other management decisions. If Influenza A/B and RSV PCR results are negative, testing for Parainfluenza virus, Adenovirus and Metapneumovirus is routinely performed for [facility] pediatric oncology and intensive care inpatients, and is available on other patients by placing an add-on request. Performed By: #### [id number] #### CATHY Parekh ([id number]) [facility] ([facility]) [address] [place] [address] FLUBV RNA JR+probe Ql (Resp) Not detected Normal Not Detected [facility] Comment on above: Order Comment: This assay has received FDA Emergency Use Authorization (EUA) and is only authorized for the duration of time that circumstances exist to justify the authorization of the emergency use of in vitro diagnostic tests for the detection of SARS-CoV-2 virus and/or diagnosis of COVID-19 infection under section 564(b)(1) of the Act, 21 U.S.C. 360bbb-3(b)(1). Testing for SARS-CoV-2 is only recommended for patients who meet current clinical and/or epidemiological criteria as defined by federal, state, or local public health directives. This assay is an in vitro diagnostic nucleic acid amplification test for the qualitative detection of SARS-CoV-2, Influenza A, and Influenza B from nasopharyngeal specimens and has been validated for use at [facility]. Negative results do not preclude COVID-19 infections or Influenza A/B infections, and should not be used as the sole basis for diagnosis, treatment, or other management decisions. If Influenza A/B and RSV PCR results are negative, testing for Parainfluenza virus, Adenovirus and Metapneumovirus is routinely performed for [facility] pediatric oncology and intensive care inpatients, and is available on other patients by placing an add-on request. Performed By: #### [id number] #### CATHY Parekh ([id number]) [facility] ([facility]) [address] [place] [address] SARS-CoV-2 (COVID-19) RNA JR+probe Ql (Resp) Not detected Normal Not Detected [facility] Comment on above: Order Comment: This assay has received FDA Emergency Use Authorization (EUA) and is only authorized for the duration of time that circumstances exist to justify the authorization of the emergency use of in vitro diagnostic tests for the detection of SARS-CoV-2 virus and/or diagnosis of COVID-19 infection under section 564(b)(1) of the Act, 21 U.S.C. 360bbb-3(b)(1). Testing for SARS-CoV-2 is only recommended for patients who meet current clinical and/or epidemiological criteria as defined by federal, state, or local public health directives. This assay is an in vitro diagnostic nucleic acid amplification test for the qualitative detection of SARS-CoV-2, Influenza A, and Influenza B from nasopharyngeal specimens and has been validated for use at [facility]. Negative results do not preclude COVID-19 infections or Influenza A/B infections, and should not be used as the sole basis for diagnosis, treatment, or other management decisions. If Influenza A/B and RSV PCR results are negative, testing for Parainfluenza virus, Adenovirus and Metapneumovirus is routinely performed for [facility] pediatric oncology and intensive care inpatients, and is available on other patients by placing an add-on request. Performed By: #### [id number] #### CATHY Parekh ([id number]) [facility] ([facility]) [address] [place] [address] CHEST 1 VIEWon 06-18-2021 CHEST 1 VIEW Patient Name: ANGELITA JOHNSON STUDY: CHEST 1 VIEW; 06/18/2021 1:18 pm INDICATION: sob . COMPARISON: None. ACCESSION NUMBER(S): [id number] ORDERING CLINICIAN: MINDY CRUZ FINDINGS: The heart is not enlarged. No infiltrate, pleural effusion or pneumothorax is seen. IMPRESSION: Electronically signed by: ROSA KERR MD [facility] Provider Note - ED v3on 06-03 Provider Note - ED v3 Provider Note: Chart Review: ED NOTES ED NOTES: ====HPI==== Patient is an 20-year-old female who presents to the emergency department for a rash and shortness of breath. 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 She states that this morning she woke up with a rash to bilateral hands and arms. It is not on the palmar aspect. She states that the rash is itchy. She states that around noon today she felt short of breath and tightness in her chest. She states that she does have a history of asthma. When asked if this feels similar to her asthma she reports that it does. She states that she has not had a rescue inhaler for quite some time as she had left it at school prior to the summer being let out and has not needed it. She denies any history of blood clots. No recent long travels or surgeries. No leg swelling. No exogenous hormone use. PMHX: None Social HX: Denies TOBACCO Denies ETOH Denies DRUGS ====Review of Systems==== 10 point system review is negative except for those specifically mentioned in history of present illness ====Physical Exam==== Constitutional/Gene ral: Alert and oriented x3, well appearing, nontoxic, and in NAD. Head: Normocephalic and atraumatic. Eyes: PERRL, EOMI, conjunctive normal, sclera nonicteric, subconjunctival layer is pink. Mouth: Oropharynx clear, handling secretions, no trismus, no asymmetry of the posterior oropharynx or uvular edema Neck: Supple, full ROM, non tender to palpation in the midline, no stridor, no crepitus, no meningeal signs. Trachea at midline. Respiratory: Lungs clear to auscultation bilaterally, occasional wheeze, rales, or rhonchi, not in respiratory distress. Cardiovascular: Regular rate, regular rhythm, no murmurs, gallops, or rubs, 2+ distal pulses. Chest: normal chest wall movement GI: Abdomen soft, nontender, nondistended, + BS, no organomegaly, no palpable masses, no rebound, guarding, or rigidity. Musculoskeletal: Moves all extremities x4, warm and well perfused, no clubbing, cyanosis, or edema, cap refill <3 seconds Integument: Skin warm and dry, no rashes. Lymphatic: No lymphadenopathy noted. Neurologic: No focal deficits Psychiatric: Normal affect. ====ED Course and Medical Decision Making==== See MDM section for review of findings & plan of care. Portions of this note were dictated by speech recognition. An attempt at proof reading was made to minimize errors. Minor errors in health lead may be present. Please call if questions.. HISTORY OF PRESENTING ILLNESS ANGELITA is a 20 year old Female and was seen by me at 18-Jun-2021 12:53 for a chief complaint of multiple medical complaints (Brought to ED per [facility] from school. 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 She started to develop a rash on her hands this am that started to creep up her B/L arms and neck. She started to have SOB and CP around noon.)(1). Triage Information: Most recent Vital Sign Value Date Temp (F): 97.2 06-18-2021 13:02 Temp (C): 36.2 06-18-2021 13:02 Heart Rate (beats/min): 91 06-18-2021 13:02 Respirations (breaths/min): 16 06-18-2021 13:02 SpO2 (%): 97 06-18-2021 13:02 BP Systolic (mm Hg): 131 06-18-2021 13:02 BP Diastolic (mm Hg): 87 06-18-2021 13:02 PAST MEDICAL HISTORY ALLERGIES/INTOLERAN YOU: No Known Allergies HEALTH HISTORY: No documented data. OUTPATIENT MEDICATIONS: Home Medications Review Status for Reconciliation: Not Done Med Status: Patient Currently Takes Medications Drug Name: albuterol 90 mcg/inh inhalation aerosol Instructions: 2 puff(s) inhaled every 4 hours SIGNIFICANT EVENTS: Past Medical History Description:asthma Description:acid reflux MDM MDM/ED COURSE: Patient presents to the emergency department with a rash that seems allergic in nature. It is itchy. Patient also complained of shortness of breath and some tightness in her chest in which she reported was similar to her asthma. She did have occasional wheezes on exam. She was given a breathing treatment and when she reports significantly improved her symptoms she denies any shortness of breath or chest tightness at this time. Chest x-ray shows no acute process. EKG was unremarkable. And was given Benadryl steroids and Pepcid. She has no complaints at this time. She will be discharged home with recommended follow-up with her family physician return for any new or worsening symptoms. PROGRESS NOTE EKG Post-Procedure Diagnosis: EKG INTERPRETATION: Impression: EKG shows normal sinus rhythm with a rate of [address] elevation. LA interval is 174 ms and QRS duration is 94 ms. DISPOSITION Diagnosis/Annotatio n: ED Dx Name:Allergic reaction Code:T78.40XA Disposition: discharged (more content not included)... Normal [facility] Triage - EDon 06-18-2021 Triage - ED Quick Triage: Are You no Have You Given In The Last 6 Weeksno Are You Currently Breastfeedingno The patient and/or guardian verbally acknowledges placement for services into the following (when Urgent Care Service hours are operating):emergenc y department Chart Review: ARRIVAL INFORMATION Mode of Arrival: ambulance Agency: [facility] Agency Name: [place] CHIEF COMPLAINT ANGELITA JOHNSON is a Female patient with a chief complaint of multiple medical complaints (Brought to ED per [place] [employer] from school. 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 She started to develop a rash on her hands this am that started to creep up her B/L arms and neck. She started to have SOB and CP around noon.). Triage Date/Time: 18-Jun-2021 13:02 ARCHIE: 2 Pain Rating (0-10): 7 = Severe Pain location: mid chest Vital Signs: Temperature: 97.2F ( 36.2C) taken temporal Blood Pressure: 131/87 Mean: Heart Rate: 91 Respiratory Rate: 16 Pulse Oximetry: 97% on room air, no respiratory support. Weight: 275.5 pounds. Calculated 125.0 kg. Roger Coma Scale: Best Eye Response: (E4) spontaneous Best Motor Response: (M6) obeys commands Best Verbal Response: (V5) oriented Roger Score: 15 Cough lasting greater than 3 weeks: no Allergies: no Mask applied: yes Last menstrual period: 11-Jun-2021 Patient has homicidal thoughts: no Symptoms Are POSITIVE For: dyspnea and pain Symptoms Are Negative For: anxiety, chills, diaphoresis, headache, loss of consciousness, nausea, numbness, tingling and weakness Risk Screens Suicide Risk Screen In the Past Month: Have you wished you were or wished you could go to sleep and not wake up no In the Past Month: Have you had any actual thoughts of killing yourself no In Your Lifetime: Have you ever done anything, started to do anything, or prepared to do anything to end your life no Smith Fall Scale Screening Has the patient fallen before (or is the patient in the ED as a result of a fall) has not had a fall Does the patient have an impaired gait does not have impaired gait Is the patient cognitively impaired not cognitively impaired Interventions: Luis Fall Interventions: LOW INTERVENTIONS: *patient oriented to surroundings and call system, * patient/family falls education completed and documented, *patients fall status communicated during bedside handoff, *whiteboard updated, *mode of toileting discussed with patient, *bed in low position with brakes locked, *call light in reach, * non-skid footwear TRAVEL HISTORY Travel History Coronavirus Screening: no exposure or symptoms Travel Exposure History: NO travel to International locations in the past 30 days PAIN Pain Scale Used: CHRISTY Pain Rating (0-10): 7 = Severe Past Medical History: Past Medical History Reviewedyes acid reflux: Past Medical History, Active asthma: Past Medical History, Active Electronic Signatures: Miladis Dean (RN) (Signed 18-Jun-2021 13:06) Entered: Risk Screens, Pain, Travel History, Chart Review, Scores, Past Medical History Authored: Quick Triage, Risk Screens, Pain, Travel History, Chart Review, Scores, Past Medical History Last Updated: 18-Jun-2021 13:06 by Miladis Dean (RN) [facility] MRI Knee w/o Contrast Righto n 02-04-2018 MRI Knee w/o Contrast Right Exam Date/Time: 02/04/2018 08:09 EDT Reason for Exam: RIGHT KNEE PAIN RIGHT KNEE INTERNAL DERANGEMENT PT WANTS TO GO FEET FIRST;Internal derangement Report STUDY: MRI of the KNEEknee dated 02/04/2018. INDICATION: Internal derangement COMPARISON: None. ACCESSION NUMBER(S): [id number]. ORDERING CLINICIAN: Mango Whiteside. TECHNIQUE: Multiplanar multisequence MRI of the right knee was performed without intravenous contrast. FINDINGS: LIGAMENTS AND TENDONS: The anterior cruciate ligament is intact. The posterior cruciate ligament is intact. The medial collateral ligament is intact. The lateral supporting structures including the lateral collateral ligament, popliteus and biceps femoris muscles and iliotibial band are intact. Extensor mechanism appears intact. MENISCI: The medial meniscus is intact. The lateral meniscus is intact. JOINTS: The hyaline articular cartilage of the femorotibial joint spaces is intact. The hyaline articular cartilage of the patellofemoral joint space is intact. No joint effusion is evident. OSSEOUS STRUCTURES: No fracture or dislocation is evident. The bone marrow signal is homogeneous. SOFT TISSUES: Unremarkable without significant popliteal cyst or subcutaneous edema. IMPRESSION: Exam Date/Time: 02/04/2018 08:09 EDT Report 1. Unremarkable MRI of the knee. FINAL REPORT Dictated: 02/04/2018 8:51 am Wade Ivy MD Signed (Electronic Signature): 02/04/2018 8:51 am Signed by: Wade Ivy MD Technologist: MONICO [facility] XR Knee Complete Righton XR Knee Complete Right Exam Date/Time: 01/28/2018 10:18 EDT Reason for Exam: Pain, Non Traumatic Report STUDY: XR Knee Complete Right; 01/28/2018 10:18 am INDICATION: Volleyball injury 2 weeks ago; knee pain COMPARISON: 02/04/2016 ACCESSION NUMBER(S): [id number] ORDERING CLINICIAN: Reyna Mark FINDINGS: Compared to the prior examination, no fracture or joint effusion is identified. IMPRESSION: Unremarkable radiographic appearance of the right knee. FINAL REPORT Dictated: 01/28/2018 10:48 am Maribel Hilton MD Signed (Electronic Signature): 01/28/2018 10:48 am Signed by: Maribel Hilton MD Technologist: TAMMY [facility] Vital Signs Date Time Vital Sign Value Performing Clinician Facility 02-13-2025 13:53-0400 Body height 180.[address] Dorys Dow DO Work Phone: [facility] 02-13-2025 13:53-0400 Body mass index (BMI) [Ratio] 42.8 kg/m2 Dr. Dorys Dow DO Work Phone: [facility] 02-13-2025 13:53-0400 Body weight 139.[address] Dorys Dow DO Work Phone: [facility] 02-13-2025 13:53-0400 Diastolic blood pressure 68 mm[Hg] Dr. Dorys Dow DO Work Phone: [facility] 02-13-2025 13:53-0400 Systolic blood pressure 116 mm[Hg] Dr. Dorys Dow DO Work Phone: [facility] 01-29-2025 10:51-0400 Body height 180.[address] Dorys Dow DO Work Phone: [facility] 01-29-2025 10:50-0400 Body mass index (BMI) [Ratio] 42.3 kg/m2 Dr. Dorys Dow DO Work Phone: [facility] 01-29-2025 10:50-0400 Body weight 137.[address] Dorys Dow DO Work Phone: [facility] 01-29-2025 10:50-0400 Diastolic blood pressure 83 mm[Hg] Dr. Dorys Dow DO Work Phone: [facility] 01-29-2025 10:50-0400 Systolic blood pressure 131 mm[Hg] Dr. Dorys Dow DO Work Phone: [facility] 01-15-2025 10:04-0400 Body height 180.[address] Dorys Dow DO Work Phone: [facility] 01-15-2025 09:52-0400 Body mass index (BMI) [Ratio] 42 kg/m2 Dr. Dorys Dow DO Work Phone: [facility] 01-15-2025 09:52-0400 Body weight 136.[address] Dorys Dow DO Work Phone: [facility] 01-15-2025 09:52-0400 Diastolic blood pressure 84 mm[Hg] Dr. Dorys Dow DO Work Phone: [facility] 01-15-2025 09:52-0400 Systolic blood pressure 118 mm[Hg] Dr. Dorys Dow DO Work Phone: [facility] 12-19-2024 11:06-0400 Body height 180.34 cm Angelica Maldonado CNM Work Phone: [facility] 12-19-2024 11:06-0400 Body mass index (BMI) [Ratio] 41.8 kg/m2 Angelica Maldonado CNM Work Phone: [facility] 12-19-2024 11:06-0400 Body weight 136.24 kg Angelica Maldonado CNM Work Phone: [facility] 12-19-2024 11:06-0400 Diastolic blood pressure 75 mm[Hg] Angelica Maldonado CNM Work Phone: [facility] 12-19-2024 11:06-0400 Systolic blood pressure 117 mm[Hg] Angelica Maldonado CNM Work Phone: [facility] 11-20-2024 09:23-0400 Body height 180.34 cm Angelica Maldonado CNM Work Phone: [facility] 11-20-2024 09:21-0400 Body mass index (BMI) [Ratio] 41.8 kg/m2 Angelica Maldonado CNM Work Phone: [facility] 11-20-2024 09:21-0400 Body weight 136.07 kg Angelica Maldonado CNM Work Phone: [facility] 11-20-2024 09:21-0400 Diastolic blood pressure 82 mm[Hg] Angelica Maldonado CNM Work Phone: [facility] 11-20-2024 09:21-0400 Systolic blood pressure 139 mm[Hg] Angelica Maldonado CNM Work Phone: [facility] 10-27-2024 13:59-0400 Body height 180.34 cm Angelica Maldonado CNM Work Phone: [facility] 10-27-2024 13:59-0400 Body mass index (BMI) [Ratio] 40.3 kg/m2 Aneglica Maldonado CNM Work Phone: [facility] 10-27-2024 13:59-0400 Body weight 131.08 kg Angelica Maldonado CNM Work Phone: [facility] 10-27-2024 13:59-0400 Diastolic blood pressure 79 mm[Hg] Angelica Maldonado CNM Work Phone: [facility] 10-27-2024 13:59-0400 Systolic blood pressure 138 mm[Hg] Angelica Maldonado CNM Work Phone: [facility] 09-29-2024 14:56-0400 Body height 180.34 cm Angelica Maldonado CNM Work Phone: [facility] 09-29-2024 14:53-0400 Body mass index (BMI) [Ratio] 41.1 kg/m2 Angelica Maldonado CNM Work Phone: [facility] 09-29-2024 14:53-0400 Body weight 133.97 kg Angelica Maldonado CNM Work Phone: [facility] 09-29-2024 14:53-0400 Diastolic blood pressure 82 mm[Hg] Angelica Maldonado CNM Work Phone: [facility] 09-29-2024 14:53-0400 Systolic blood pressure 130 mm[Hg] Angelica Maldonado CNM Work Phone: [facility] 09-04-2024 08:50-0400 Body height 180.34 cm Angelica Maldonado CNM Work Phone: [facility] 09-04-2024 08:50-0400 Body mass index (BMI) [Ratio] 41 kg/m2 Angelica Maldonado CNM Work Phone: [facility] 09-04-2024 08:50-0400 Body weight 133.41 kg Angelica Maldonado CNM Work Phone: [facility] 09-04-2024 08:50-0400 Diastolic blood pressure 84 mm[Hg] Angelica Maldonado CNM Work Phone: [facility] 09-04-2024 08:50-0400 Systolic blood pressure 124 mm[Hg] Angelica Maldonado CNM Work Phone: [facility] 08-18-2024 13:40-0400 Body mass index (BMI) [Ratio] 42 kg/m2 Angelica Maldonado CNM Work Phone: [facility] 08-18-2024 13:40-0400 Body weight 136.64 kg Angelica Maldonado CNM Work Phone: [facility] 08-18-2024 13:40-0400 Diastolic blood pressure 76 mm[Hg] Angelica Maldonado CNM Work Phone: [facility] 08-18-2024 13:40-0400 Systolic blood pressure 122 mm[Hg] Angelica Joel CABRAL Work Phone: [facility] 03-11-2023 14:55-0500 Body height 180.3 cm Jay Newbill PA-C Work Phone: [facility] 03-11-2023 14:55-0500 Body mass index (BMI) [Ratio] 41.69 kg/m2 Jay Newbill PA-C Work Phone: [facility] 03-11-2023 14:55-0500 Body temperature 97.5 [degF] Jay Newbill PA-C Work Phone: [phone] [place] [address] 03-11-2023 14:55-0500 Body weight 135.58 kg Jay Newbill PA-C Work Phone: [facility] 03-11-2023 14:55-0500 Diastolic blood pressure 82 mm[Hg] Jay Newbill PA-C Work Phone: [facility] 03-11-2023 14:55-0500 Heart rate 104 /min Jay Newbill PA-C Work Phone: [facility] 03-11-2023 14:55-0500 SaO2% (BldA) [Mass fraction] 98 % Jay Newbill PA-C Work Phone: [facility] 03-11-2023 14:55-0500 Systolic blood pressure 136 mm[Hg] Jay Newbill PA-C Work Phone: [facility] 2022 10:05-0400 Body height 180.3 cm Daquan Aguillonerhauser DO Work Phone: [facility] 2022 10:05-0400 Body mass index (BMI) [Ratio] 39.75 kg/m2 Daquan Oberhauser DO Work Phone: [facility] 2022 10:05-0400 Body weight 129.28 kg Daquan Oberhauser DO Work Phone: [facility] 2022 10:05-0400 Diastolic blood pressure 66 mm[Hg] Daquan Oberhauser DO Work Phone: [facility] 2022 10:05-0400 Heart rate 87 /min Daquan Oberhauser DO Work Phone: [facility] 2022 10:05-0400 SaO2% (BldA) [Mass fraction] 95 % Daquan Oberhauser DO Work Phone: [facility] 2022 10:05-0400 Systolic blood pressure 121 mm[Hg] Daquan Oberhauser DO Work Phone: [facility] 08-21-2022 11:08-0400 Body height 180.3 cm Daquan Oberhauser DO Work Phone: [facility] 08-21-2022 11:08-0400 Body mass index (BMI) [Ratio] 41.42 kg/m2 Daquan Oberhauser DO Work Phone: [facility] 08-21-2022 11:08-0400 Body weight 134.72 kg Daquan Oberhauser DO Work Phone: [facility] 08-21-2022 11:08-0400 Diastolic blood pressure 81 mm[Hg] Daquan Oberhauser DO Work Phone: [facility] 08-21-2022 11:08-0400 Heart rate 91 /min Daquan Oberhauser DO Work Phone: [facility] 08-21-2022 11:08-0400 SaO2% (BldA) [Mass fraction] 95 % Daquan Oberhauser DO Work Phone: [facility] 08-21-2022 11:08-0400 Systolic blood pressure 119 mm[Hg] Daquan Oberhauser DO Work Phone: [facility] Encounters Encounter Date Encounter Type Care Provider Facility Start: 03-13-2025 ambulatory Daquan Oberhauser Facili ty:[facility] Start: 03-13-2025 End: 03-13-2025 ambulatory Daquan Oberhauser Facility:[facility] Start: 03-06-2025 End: 03-06-2025 ambulatory Daquan Oberhauser Facility:[facility] Start: 03-02-2025 End: 03-02-2025 ambulatory Daquan Oberhauser Facility:[facility] Start: 03-01-2025 End: 03-01-2025 ambulatory Daquan Oberhauser Facility:[facility] Start: 02-27-2025 End: 02-27-2025 ambulatory Tabitha Byrnes Facility:[facility] Start: 02-13-2025 End: 02-13-[address] Tabitha Byrnes MD -[facility] Work Phone: Start: 02-13-2025 End: 02-13-[address] Dorys Dow DO Work Phone: -[facility] Start: 01-29-2025 End: 01-29-2025 Patient encounter procedure Angelica Maldonado CNM -[facility] Work Phone: Start: 01-29-2025 End: 01-29-[address] Dorys Dow DO Work Phone: -[facility] Start: 01-15-2025 End: 01-15-2025 Patient encounter procedure Nusrat GROSS -[facility] Work Phone: Start: 01-15-2025 End: 01-15-[address] Dorys Dow DO Work Phone: -[facility] Start: 01-15-2025 End: 01-15-2025 ambulatory Dorys Dow Facility:[facility] Start: 12-19-2024 End: 12-19-[address] Dorys Dow DO -[facility] Work Phone: Start: 12-19-2024 End: 12-19-2024 ambulatory Angelica Maldonado CNM Work Phone: -[facility] Start: 11-30-2024 End: 11-30-2024 Emergency department patient visit [facility] Start: 11-30-2024 End: 11-30-2024 ambulatory [facility] Start: 11-20-2024 End: 11-20-[address] Dorys Dow DO -[facility] Work Phone: Start: 11-20-2024 End: 11-20-2024 ambulatory Angelica Maldonado CNM Work Phone: [facility] Start: 11-14-2024 End: 11-14-2024 ambulatory TABITHA BYRNES [facility] Start: 10-27-2024 End: 10-27-2024 Patient encounter procedure Miguelina Espinal CNM -[facility] Work Phone: Start: 10-27-2024 End: 10-27-2024 ambulatory Angelica Maldnoado CNM Work Phone: -[facility] Start: 09-29-2024 End: 09-29-[address] Tabitha Byrnes MD -[facility] Work Phone: Start: 09-29-2024 End: 09-29-2024 ambulatory Angelica Maldonado CNM Work Phone: [facility] Work Phone: Start: 09-04-2024 End: 09-04-2024 ambulatory Angelica Maldonado CNM Work Phone: [facility] Work Phone: Start: 09-04-2024 End: 09-04-2024 Patient encounter procedure Angelica Maldonado CNM -Laboratory, Specimen Work Phone: Start: 09-04-2024 End: 09-04-2024 Patient encounter procedure Angelica Maldonado CNM -[facility] Work Phone: Start: 09-04-2024 End: 09-04-2024 ambulatory Angelica Maldonado CNElina Work Phone: [facility] Work Phone: Start: 09-04-2024 End: 09-04-2024 ambulatory Angelica Maldonado Facility:[facility] Start: 08-18-2024 End: 08-18-2024 Patient encounter procedure Angelica Maldonado CNM -[facility] Work Phone: Start: 08-18-2024 End: 08-18-2024 ambulatory Angelica Maldonado Facility:[facility] Start: 12-15-2023 End: 12-15-2023 Emergency department patient visit MURILLO LENI [facility] Start: 11-01-2023 End: 11-01-2023 [facility] Start: 06-09-2023 End: 06-09-2023 Emergency department patient visit DAQUAN [facility] Start: 03-11-2023 End: 03-11-2023 ambulatory [facility] Start: 03-11-2023 End: 03-11-2023 Office outpatient visit 25 minutes [facility] Work Phone: [facility] Comment on above: Acute asthmatic bron chitis (Primary Dx); Upper respiratory tract infection, unspecified type Start: 2022 End: [address] [facility] Start: 2022 End: 2022 Office outpatient visit 15 minutes Daquan Hills DO Work Phone: [facility] Comment on above: Menorrhagia with irr egular cycle (Primary Dx) Start: 08-27-2022 End: 08-28-2022 ambulatory [facility] Start: 08-21-2022 End: 08-21-[address] [facility] Start: 08-21-2022 End: 08-21-2022 Office outpatient new 30 minutes Daquan Hills DO Work Phone: [facility] Comment on above: Menorrhagia with irr egular cycle (Primary Dx) Start: 03-29-2018 End: 03-30-2018 Patient encounter procedure Mango Whiteside Facility:[facility] Start: 02-18-2018 End: 04-09-2018 Patient encounter procedure Mango Whiteside Facility:[facility] Start: 02-18-2018 Patient encounter Facil [id number] Start: 02-10-2018 End: 02-11-2018 Patient encounter procedure Mango Antoine Whiteside Facility:[facility] Start: 02-04-2018 End: 02-05-2018 Patient encounter procedure [place]ango [place] Facility:[facility] Start: 02-04-2018 Patient encounter Facil [id number] Start: 01-28-2018 End: 01-29-2018 Patient encounter procedure Mango Wh[place]ide Facility:[facility] Start: 01-28-2018 Patient encounter Facil [id number] Procedures Date Procedure Procedure Detail Performing Clinician Start: 01-15-2025 Serologic test for syphilis Dr. Dorys Dow DO Work Phone: Start: 09-04-2024 Urine culture Angelica perez [facility] Work Phone: Start: 09-04-2024 Liquid based cervica l cytology screening Angelica WALTON Work Phone: Comment on above: NEGATIVE FOR INTRAEP ITHELIAL LESION OR MALIGNANCY. This liquid based Th inPrep(R) pap test was screened withthe use of an image guided system. The HPV DNA reflex c riteria were not met with this specimenresult therefore, no HPV testing was performed.Performed at: [address] [place] [id number] Director: Brigette George MD, Phone: [phone] Start: 09-04-2024 Hepatitis C antibody measurement Angelica WALTON Work Phone: Comment on above: Reactive: Presumptiv e evidence of antibodies to HCV. Follow CDC recommendations for supplemental testing.Non-Reactive: Antibodies to HCV were not detected; does not exclude the possibility of exposure to HCVReactive Results are presumptive evidence of antibodies to HCV. Follow CDC recommendations for supplemental testing.Order confirmation testing: HCV Quant by PCR testing - HCVPCR #[id number] Non Reactive: < 0.8 Equivocal: >/= 0.8 to < 1.0 Reactive: >/= 1.0The [facility] requires that a reactive/equivocal HCV antibody result be sent out for confirmation. HCV Quant by PCR testing. Start: 09-04-2024 Rubella IgG measurement Angelica Maldonado [facility] [employer] [facility] [employer] Work Phone: Comment on above: Antibody Result: Int erpretationNon-Reactive: Non- ImmuneReactive: ImmuneThe following results were obtained with the [email or web address] Rubella IgG assay. Results from assays of other manufacturers cannot be used interchangeably. Start: 09-04-2024 Serologic test for syphilis Angelica Maldonado [facility] [facility] [employer] Work Phone: Start: 03-11-2023 SARS-COV-2 AND INFLU EVELYN A/B PCR DAQUAN HILLS Start: 03-11-2023 Influenza virus A an d B and SARS-CoV-2 (COVID-19) identified in Respiratory specimen by JR with probe detection Jay Stewart PA-C Work Phone: Start: 2022 FOLLOW UP IN FAMILY MEDICINE [place] [place]S Start: 08-27-2022 CBC W Auto Different ial panel - Blood [place]QUAN HILLS Start: 08-27-2022 Comprehensive metabo lic 2000 panel - Serum or Plasma DAQUAN HILLS Start: 08-27-2022 Ferritin [Mass/volum e] in Serum or Plasma [place]AN HILLS Start: 08-27-2022 IRON AND TIBC DAQUAN AGUILLONE RHAUSER Start: 08-27-2022 THYROXINE, FREE DAQUAN SÁNCHEZ Start: 08-27-2022 TSH WITH REFLEX TO F REE T4 IF ABNORMAL DAQUAN HILLS Plan of Treatment Date Care Activity Detail Author Start: 2052 Zoster Vaccines (1 of 2) Zoste r Vaccines (1 of 2) [facility] Start: 11-28-2025 DTaP/Tdap/Td Vaccine s (7 - Td or Tdap) DTaP/Tdap/Td Vaccines (7 - Td or Tdap) [facility] Start: 01-29-2025 End: 01-29-2025 Patient encounter procedure Abnormal glucose affecting -[facility] Work Phone: Start: 01-15-2025 CBC W Auto Different ial panel - Blood [facility] Start: 01-15-2025 Measurement of gluco se 2 hours after glucose challenge for glucose tolerance test [facility] Start: 01-15-2025 Serologic test for syphilis [facility] Start: 01-15-2025 [facility] Start: 09-04-2024 Chlamydia deoxyribon ucleic acid detection [facility] Start: 09-04-2024 Liquid based cervica l cytology screening [facility] Start: 01-01-2023 Influenza vaccination [facility] Start: 2022 End: 2022 Patient encounter procedure 2022 10:00 AM EDT Office Visit [facility] [address] [place] [id number] Daquan Hills, [address] [facility] [place] [address] [facility] Start: 08-21-2022 End: 08-22-2023 CBC W Auto Differential panel - Blood CBC and Auto Differential Lab Routine Menorrhagia with irregular cycle Expected: 08/21/2022 (Approximate), Expires: 08/22/2023 [facility] Work Phone: Comment on above: Expected: 08/21/2022 (Approximate), Expires: 08/22/2023 Start: 08-21-2022 End: 08-22-2023 Comprehensive metabolic 2000 panel - Serum or Plasma Comprehensive Metabolic Panel Lab Routine Menorrhagia with irregular cycle Expected: 08/21/2022 (Approximate), Expires: 08/22/2023 [facility] Service Area Work Phone: Comment on above: Expected: 08/21/2022 (Approximate), Expires: 08/22/2023 Start: 08-21-2022 End: 08-22-2023 Ferritin [Mass/volume] in Serum or Plasma Ferritin Lab Routine Menorrhagia with irregular cycle Expected: 08/21/2022 (Approximate), Expires: 08/22/2023 [facility] Work Phone: Comment on above: Expected: 08/21/2022 (Approximate), Expires: 08/22/2023 Start: 08-21-2022 End: 08-22-2023 Iron and Iron binding capacity panel - Serum or Plasma Iron and TIBC Lab Routine Menorrhagia with irregular cycle Expected: 08/21/2022 (Approximate), Expires: 08/22/2023 [facility] Work Phone: Comment on above: Expected: 08/21/2022 (Approximate), Expires: 08/22/2023 Start: 08-21-2022 End: 08-22-2023 TSH with reflex to Free T4 if abnormal TSH with reflex to Free T4 if abnormal Lab Routine Menorrhagia with irregular cycle Expected: 08/21/2022 (Approximate), Expires: 08/22/2023 [facility] Work Phone: Comment on above: Expected: 08/21/2022 (Approximate), Expires: 08/22/2023 Start: 06-20-2021 Hepatitis A Vaccines (2 of 2 - 2-dose series) Hepatitis A Vaccines (2 of 2 - 2-dose series) [facility] Start: 04-22-2021 COVID-19 Vaccine (2 - Booster for Mal series) COVID-19 Vaccine (2 - Booster for Mal series) [facility] Start: 2020 Hepatitis C screening Hepatitis C [facility] Start: 2005 Well Child Visit (WC V) - Annual Well Child Visit (WCV) - Annual [facility] Start: 07-29-2003 Application of denta l fluoride varnish Fluoride Varnish [facility] Start: 2002 Hearing Screening (#1) Hearing Scree jerilyn (#1) [facility] Start: 2002 HIV screening HIV Screening [facility] Start: 2002 Lipid panel Lipid Panel [facility] CBC W Auto Different ial panel - Blood [facility] Erythrocyte mean corpuscular volume determination [facility] Hematocrit [Volume Fraction] of Blood [facility] Hemoglobin [Mass/vol ume] in Blood [facility] Leukocytes [#/volume ] in Blood [facility] Mean corpuscular hemoglobin concentration determination [facility] Mean corpuscular hemoglobin determination [facility] Measurement of gluco se 2 hours after glucose challenge for glucose tolerance test [facility] Neisseria gonorrhoea e rRNA [Presence] in Unspecified specimen by JR with probe detection [facility] Neutrophil count [facility] Neutrophil percent differential count [facility] Path report.final Dx Spec [facility] PCR test for Chlamyd ia trachomatis [facility] Platelets [#/volume] in Blood [facility] Red blood cell count [facility] Red cell distributio n width determination [facility] Serologic test for syphilis [facility] Immunizations Immunization Date Immunization Notes Care Provider Fa [facility] 02-13-2025 Seasonal trivalent influenza vaccine, adjuvanted, preservative free Dr. Dorys Dow DO Work Phone: [facility] 01-15-2025 tetanus toxoid, redu tim diphtheria toxoid, and acellular pertussis vaccine, adsorbed Dr. Dorys Dow DO Work Phone: [facility] 12-18-2020 hepatitis A vaccine, pediatric/adolescent dosage, 2 dose schedule Daquan Hills DO Work Phone: [facility] 12-18-2020 hepatitis B vaccine, pediatric or pediatric/adolescent dosage Daquan Hills DO Work Phone: [facility] 12-18-2020 Human Papillomavirus 9-valent vaccine Daquan Hills DO Work Phone: [facility] 12-18-2020 meningococcal B vaccine, recombinant, OMV, adjuvanted Daquan Hills DO Work Phone: [facility] 12-18-2020 meningococcal polysaccharide (groups A, C, Y and W-135) diphtheria toxoid conjugate vaccine (MCV4P) Daquan Hills DO Work Phone: [facility] 12-18-2020 hepatitis A and hepatitis B vaccine Daquan Oberhauser DO Work Phone: [facility] Work Phone: 11-29-2015 Human Papillomavirus 9-valent vaccine Daquan Obzachary DO Work Phone: [facility] 11-29-2015 measles, mumps, rubella, and varicella virus vaccine Daquan Obermckenzieer DO Work Phone: [facility] 11-29-2015 meningococcal polysaccharide (groups A, C, Y and W-135) diphtheria toxoid conjugate vaccine (MCV4P) Daquan Obzachary DO Work Phone: [facility] 11-29-2015 tetanus toxoid, redu tim diphtheria toxoid, and acellular pertussis vaccine, adsorbed Daquan Obzachary DO Work Phone: [facility] 01-14-2009 diphtheria, tetanus toxoids and acellular pertussis vaccine, unspecified formulation Daquan Obermckenzieer DO Work Phone: [facility] Work Phone: 01-14-2009 hepatitis B vaccine, pediatric or pediatric/adolescent dosage Daquan Obzachary DO Work Phone: [facility] Work Phone: 01-14-2009 measles, mumps and rubella virus vaccine Daquan Obermckenzieer DO Work Phone: [facility] Work Phone: 01-14-2009 poliovirus vaccine, unspecified formulation Daquan Obermckenzieer DO Work Phone: [facility] Work Phone: 01-14-2009 varicella virus vaccine Emilio n Oberyenifer DO Work Phone: [facility] Work Phone: 05-19-2004 diphtheria, tetanus toxoids and acellular pertussis vaccine, unspecified formulation Daquan Hills DO Work Phone: [facility] Work Phone: 05-19-2004 influenza, injectabl e, quadrivalent, preservative free Daquan Hills DO Work Phone: [facility] Work Phone: 05-19-2004 varicella virus vaccine Emilio Hills DO Work Phone: [facility] Work Phone: 05-19-2004 influenza virus vaccine, unspecified formulation Daquan Hills DO Work Phone: [facility] Work Phone: 03-20-2004 pneumococcal conjuga te vaccine, 7 valent Daquan Hills DO Work Phone: [facility] Work Phone: 03-10-2004 pneumococcal conjuga te vaccine, 7 valent Daquan Hills DO Work Phone: [facility] Work Phone: 12-31-2003 haemophilus influenz ae type b vaccine, PRP-T conjugate Daquan Hills DO Work Phone: [facility] Work Phone: 12-31-2003 measles, mumps and rubella virus vaccine Daquan Hills DO Work Phone: [facility] Work Phone: 12-31-2003 poliovirus vaccine, inactivated Daquan Hills DO Work Phone: [facility] Work Phone: 12-21-2003 haemophilus influenz ae type b vaccine, conjugate unspecified formulation Daquan Hills DO Work Phone: [facility] Work Phone: 12-21-2003 measles, mumps and rubella virus vaccine Daquan Hills DO Work Phone: [facility] Work Phone: 12-21-2003 poliovirus vaccine, unspecified formulation Daquan Hills DO Work Phone: [facility] Work Phone: 05-29-2003 diphtheria, tetanus toxoids and acellular pertussis vaccine, unspecified formulation Daquan Hills DO Work Phone: [facility] Work Phone: 05-29-2003 haemophilus influenz ae type b vaccine, PRP-T conjugate Daquan Hills DO Work Phone: [facility] Work Phone: 05-29-2003 pneumococcal conjuga te vaccine, 7 valent Daquan Hills DO Work Phone: [facility] Work Phone: 03-30-2003 DTaP-hepatitis B and poliovirus vaccine Daquan Hills DO Work Phone: [facility] 03-30-2003 haemophilus influenz ae type b vaccine, PRP-T conjugate Daquan Hills DO Work Phone: [facility] Work Phone: 03-30-2003 pneumococcal conjuga te vaccine, 7 valent Daquan Hills DO Work Phone: [facility] Work Phone: 01-29-2003 DTaP-hepatitis B and poliovirus vaccine Daquan Hills DO Work Phone: [facility] Work Phone: 01-29-2003 haemophilus influenz ae type b vaccine, PRP-T conjugate Daquan Hills DO Work Phone: [facility] Work Phone: 01-29-2003 pneumococcal conjuga te vaccine, 7 valent Daquan Hills DO Work Phone: [facility] Work Phone: 2002 hepatitis B vaccine, pediatric or pediatric/adolescent dosage Daquan Hills DO Work Phone: [facility] Work Phone: Payers Date Payer Category Payer Unknown [id number] 2024 Unknown [id number] 2024 Unknown [id number] 2024 Self-pay 2024 Unknown [id number] 2022 Unknown [id number] 2018 Unknown 2002 Unknown [id number] 2.16. 840.1.049267.3.579.2.356 2002 Unknown [id number] 2.16. 840.1.121357.3.579.2.356 2002 Unknown [id number] 2.16. 840.1.015600.3.579.2.356 2002 Unknown [id number] 2.16.840 .1.359237.3.579.2.1245 2002 Unknown [id number] 2.16.8 40.1.213184.3.579.2.1244 2002 Unknown [id number] 2.16.8 40.1.102110.3.579.2.1244 2002 Unknown [id number] 2.16.84 0.1.726977.3.579.2.1244 2002 Unknown [id number] 2.16. 840.1.687958.3.579.2.902 2002 Unknown [id number] 2.16. 840.1.230295.3.579.2.902 2002 Unknown [id number] 2.16. 840.1.563193.3.579.2.902 2002 Unknown [id number] 2.16. 840.1.930858.3.579.2.479 2002 Unknown [id number] 2.16. 840.1.252438.3.579.2.479 2002 Unknown [id number] 2.16. 840.1.763218.3.579.2.903 1974 Unknown [id number] 2.16.84 0.1.675031.3.579.2. 1974 Unknown [id number] 2.16.84 0.1.127091.3.579.2.7 1974 Unknown [id number] 2.16.84 0.1.325361.3.579.2.7 1974 Unknown [id number] 2.16.84 0.1.787871.3.579.2. 1974 Unknown [id number] 2.16.84 0.1.803471.3.579.2.717 1973 Unknown [id number] 2.16.84 0.1.735191.3.579.2.717 1973 Unknown [id number] 2.16.84 0.1.438839.3.579.2.717 Unknown [id number] 2.16.8 40.1.509522.3.579.2.462 Unknown [id number] 2.16.8 40.1.360097.3.579.2.462 Unknown [id number] 2.16.8 40.1.099887.3.579.2.462 Unknown [id number] 2.16.8 40.1.580672.3.579.2.462 Unknown [id number] 2.16.8 40.1.536168.3.579.2.462 Unknown [id number] 2.16.8 40.1.988743.3.579.2.462 Unknown [id number] 2.16.8 40.1.123942.3.579.2.462 Unknown [id number] 2.16.8 40.1.751281.3.579.2.462 Unknown [id number] 2.16.8 40.1.815021.3.579.2.462 Unknown [id number] 2.16.8 40.1.279751.3.579.2.462 Unknown [id number] 2.16.8 40.1.901865.3.579.2.462 Unknown [id number] 2.16.8 40.1.585477.3.579.2.462 Unknown [id number] 2.16.8 40.1.963408.3.579.2.462 Unknown [id number] 2.16.8 40.1.891851.3.579.2.462 Unknown [id number] 2.16.8 40.1.756350.3.579.2.462 Unknown [id number] 2.16.8 40.1.259034.3.579.2.462 Unknown [id number] 2.16.8 40.1.264729.3.579.2.462 Unknown [id number] 2.16.8 40.1.286365.3.579.2.462 Social History Date Type Detail Facility Start: 08-21-2022 End: 08-18-2024 Tobacco smoking status WYIS Never smoked tobacco [facility] Work Phone: Start: 08-21-2022 Tobacco use and exposure Smokeless tobacco non-user [facility] Work Phone: Start: 08-21-2022 End: 03-11-2023 Alcohol intake Lifetime non-drinker (finding) [facility] Work Phone: Start: 08-21-2022 End: 03-11-2023 History of Social function [facility] Work Phone: Start: 08-21-2022 End: 03-11-2023 Tobacco use panel [facility] Work Phone: Start: 2002 Sex Assigned At Not on file [facility] Work Phone: Start: 08-11-2022 End: 03-11-2023 Exposure to SARS-CoV-2 (event) Not sure [facility] Start: 2002 Sex Assigned At Female [facility] Clinical Notes 08-21-2022 to 02-13-2025 Note Date & Type Note Facility 02-13-2025 Progress note [facility] 02-13-2025 Progress note Note Date/Time February 13, 2025 2:29pm [facility] [address], [address] [place] [address] OFFICE VISIT Date of Service: 02/13/25 MR#: [id number] Acct: [id number] Name: ANGELITA SUTTON Rep #: [id number] : 2000 Provider: Dr. Ned Byrnes MD Age/Sex: 24/F Location: [facility] Status: Signed Intake Vital Signs 12/19/24 11:06 01/29/25 10:51 02/13/25 13:53 Height 5 ft 11 in 5 ft 11 in 5 ft 11 in Weight: 307 lb 4 oz BMI 42.8 BP 116/68 Intake Visit Reasons: 32wk 3D ob Embroiderer Required: No Is patient in pain?: No Allergies No Known Allergies Allergy (Verified 02/13/25 13:52) Medications ?Medication ?Instructions ?Recorded ?Confirmed ?Type albuterol sulfate 90 mcg/actuation 1 inh inhalation Q4 -6H PRN 08/18/24 02/13/25 History breath activated powder inhaler docosahexaenoic acid 200 mg mg PO 08/18/24 02/13/25 Hi story capsule ( DHA) ondansetron 4 mg disintegrating 4 mg PO Q6H PRN nausea and 09/04/24 02/13/25 Rx tablet vomiting #30 tabs sertraline 50 mg tablet 50 mg PO QDAY #30 tabs 01/2902/13/25 Rx Last Menstrual Period: 07/01/24 Zika: Zika virus screening: Negative : No PFSH PFSH Surgical History [place] teeth removed S/P tonsillectomy Family History Father Hypothyroid Grandmother [place] disease Grandmother Diabetes Hypertension Kidney failure Social History adopted: No household members: spouse and other details: step son & 's ex current occupational status: employed 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 current occupational exposures/hazards: Yes pets and animals: No history of recent travel: No sexually active: Yes Smoking Status: Never smoker alcohol intake: current alcohol intake frequency: holidays/special occasions only details: Not while substance use type: does not use diet: lactose free well-balanced diet: about half the time caffeine: No eating out: 1-3 times/week during the past year weight has: remained stable what type of physical activity do you participate in: none carine/yazidism: Bahai seatbelt use: always do you feel safe at home: Yes additional social history: : 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 OB Visit ARAM Calculator Estimated Delivery Date Method Current WG Current Estimate 04/07/25 LMP (Certain) 32w 3d Other Estimates 04/07/25 Ultrasound #1 32w 3d Expected Delivery Route/Plan Labor Preferences- CB/BF classes: encouraged labor support person: Ron labor intervention preferences: [] pain management options preferred: epidural! cut cord/dad catch: yes : yes PP control planned: Discussed discussed possible routes of delivery and associated risks: [] special requests: [] Specific Issue/Plans Covid status: [] Flu vaccine: [] Tdap vaccine: given Rhogam: NA LARC form signed: yes Problem list reviewed and updated with the most current plan of care details and appropriate orders placed. Relevant counseling for the gestational age provided. Continue routine care and follow up unless otherwise noted in visit notes/problem list details Initial Weight: 294 lb Date -?-?-?-?-?-?-?-?-?-?-?-?- EGA Weight BP Urine Prot -?-?-?-?-?-?-?-?-?-?-?-?- Glucose FHR FuHt Pres Dilation -?-?-?-?-?-?-?-?-?-?-?-?- Effaced St Visit Note 09/04/24 -?-?-?-?-?-?-?-?-?-?-?-?- 9w 2d 294 lb 2 oz (+2 oz) 124/84 -?-?-?-?-?-?-?-?-?-?-?-?- 184 -?-?-?-?-?-?-?-?-?-?-?-?- KW-CRL cons with dates. undecided on NIPT/carrier. rest of labs today. 09/29/24 -?-?-?-?-?-?-?-?-?-?-?-?- 12w 6d 295 lb 6 oz (+1 lb 6 oz) 130/82 Negative -?-?-?-?-?-?-?-?-?-?-?-?- Negative 150 -?-?-?-?-?-?-?-?-?-?-?-?- SM- no vb having some cramping and pelvic pain 10/27/24 -?-?-?-?-?-?-?-?-?-?-?-?- 16w 6d 289 lb (-5 lb) 138/79 Negative -?-?-?-?-?-?-?-?-?-?-?-?- Negative 144 -?-?-?-?-?-?-?-?-?-?-?-?- LC- no vb/crampi ng today. no concerns. has anatomy scheduled.declines afp 11/20/24 -?-?-?-?-?-?-?-?-?-?-?-?- 20w 2d 300 lb (+6 lb) 139/82 Negative -?-?-?-?-?-?-?-?-?-?-?-?- Negative 145 -?-?-?-?-?-?-?-?-?-?-?-?- JV- no lof, vagi nal bleeding, or cramping. no complaints. anatomy scan was limited becauase she declined the vaginal probe. needs to go back for cervical length and placentation. 12/19/24 -?-?-?-?-?-?-?-?-?-?-?-?- 24w 3d 300 lb 6 oz (+6 lb 6 oz) 117/75 Negative -?-?-?-?-?-?-?-?-?-?-?-?- Negative 145 25 -?-?-?-?-?-?-?-?-?-?-?-?- JV- PHQ-9 showed moderate depression today. She denies SI/HI but is interested in antidepressants and counseling. no lof, vaginal bleeding, or dec fm. starting zoloft. info on counselors given. 01/15/25 -?-?-?-?-?-?-?-?-?-?-?-?- 28w 2d 301 lb 2 oz (+7 lb 2 oz) 118/84 Negative -?-?-?-?-?-?-?-?-?-?-?-?- Negative 143 29 -?-?-?-?-?-?-?-?-?-?-?-?- MH-No Vb, LOF. G ood FM. States feelings of sadness improved. Larc, tdap. 01/29/25 -?-?-?-?-?-?-?-?-?-?-?-?- 30w 2d 303 lb 9 oz (+9 lb 9 oz) 131/83 Negative -?-?-?-?-?-?-?-?-?-?-?-?- Negative 130 32 -?-?-?-?-?-?-?-?-?-?-?-?- KW- no vb/lof/ct x. good fm. doing well on zoloft. refill given. will need to call and schedule 3 hour gct. magnesium and compression hose encouraged for leg cramps 02/13/25 -?-?-?-?-?-?-?-?-?-?-?-?- 32w 3d 307 lb 4 oz (+13 lb 4 oz) 116/68 Negative -?-?-?-?-?-?-?-?-?-?-?-?- Negative 140 34 -?-?-?-?-?-?-?-?-?-?-?-?- Sm- no vb lof go od fm no regular ctx ACOG First Trimester First Trimester: Discussed Second Trimester Second Trimester: Signs and Symptoms of Labor, Selecting a care provider, Reproductive Life Planning & Contreception, Care Planning, Depression/Anxiety and Intimate Partner Violence; Discussed Tobacco Cessation Third Trimester Third Trimester: Pain Management Plans, Labor support person(s), Immediate Larc, Circumcision preference, Movement Monitoring, Signs and Symptoms of Preeclampsia, Infant Feeding No and [place] Education Results POC Urinalysis 2 Dip (Clinic) Office Urine Glucose Negative Last Edit by Nusrat Don on 02/13/25 14:05 Office Urine Protein Negative Last Edit by Nusrat Don on 02/13/25 14:05 Immunizations Fluad 2024- 65yr up(PF)45 mcg(15 mcgx3)/0.5 mL intramuscular syringe Performing Provider: Tabitha Byrnes MD Performing Location: [facility] Administered by: Nusrat Don on 02/13/25 14:02 2 Dose Route Admin Location Dispensed Lot Number Expiration Date Pack age NDC NDC Immunology Specialist 0.5 mL IM Left Deltoid 0.5 mL [id number] 09/09/25 [id number] [email or web address] VIS Given Date VIS Provided VIS Publication Date 02/13/25 Single Vaccine 24 Eligibility Eligibility Date Funding Source Not Applicable Coding Level of Care Code OB Routine Diagnoses Abnormal glucose affecting O99.810 Obesity affecting in third trimester, unspecified obesity type O99.213 Obesity type affecting : unspecified obesity Trimester: third trimester Supervision of high risk in third trimester O09.93 Trimester: third trimester 32 weeks gestation of Z3A.32 Weeks of gestation: 32 weeks Asthma J45.909 Assessment and Plan Assessment and Plan (1) Abnormal glucose affecting : Status: Acute Comment: 3 hr glucose (2) Obesity affecting : Status: Acute Qualifiers: Obesity type affecting : unspecified obesity Trimester: third trimester Qualified Code(s): O99.213 - Obesity complicating , third trimester Comment: BMI 42.0-weekly NSTs at 34 weeks A1C (3) Supervision of high-risk : Status: Acute Qualifiers: Trimester: third trimester Qualified Code(s): O09.93 - Supervision of high risk , unspecified, third trimester Comment: PRR,, ARAM 04/07/25, : Nader (4) : Status: Acute Qualifiers: Weeks of gestation: 32 weeks Qualified Code(s): Z3A.32 - 32 weeks gestation of Comment: Discuss genetic/carrier testing - undecided (5) Asthma: Status: Acute Comment: Rescue inhaler Orders: Orders POC Urinalysis 2 Dip (Clinic) Today Influenza Immunization Today Z23 - Encounter for immunization 02/13/25 2544 <Electronically signed by Tabitha rios MD> Date _ [facility] Signature: Date (if applicable) CC: ~ [facility] Work Phone: [phone] [facility] [address], [address] [place] [address] OFFICE VISIT Date of Service: 01/29/25 MR#: [id number] Acct: [id number] Name: ANGELITA SUTTON Rep #: [id number] : 2000 Provider: MARIANNA Maldonado Age/Sex: 24/F Location: [facility] Status: Signed Intake Vital Signs 12/19/24 11:06 01/15/25 10:04 01/29/25 10:50 01/29/25 10:51 Height 5 ft 11 in 5 ft 11 in 5 ft 11 in 5 ft 11 in Weight: 303 lb 9 oz BMI 42.3 BP 131/83 H Intake Visit Reasons: 30wk 2D ob Embroiderer Required: No Is patient in pain?: No Allergies No Known Allergies Allergy (Verified 01/29/25 10:50) Medications ?Medication ?Instructions ?Recorded ?Confirmed ?Type albuterol sulfate 90 mcg/actuation 1 inh inhalation Q4 -6H PRN 08/18/24 01/29/25 History breath activated powder inhaler docosahexaenoic acid 200 mg mg PO 08/18/24 01/29/25 Hi story capsule ( DHA) ondansetron 4 mg disintegrating 4 mg PO Q6H PRN nausea and 09/04/24 01/29/25 Rx tablet vomiting #30 tabs sertraline 50 mg tablet 50 mg PO QDAY #30 tabs 01/2901/29/25 Rx Last Menstrual Period: 07/01/24 Zika: Zika virus screening: Negative : No PFSH PFSH Surgical History [place] teeth removed S/P tonsillectomy Family History Father Hypothyroid Grandmother [place] disease Grandmother Diabetes Hypertension Kidney failure Social History adopted: No household members: spouse and other details: step son & 's ex current occupational status: employed 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 current occupational exposures/hazards: Yes pets and animals: No history of recent travel: No sexually active: Yes Smoking Status: Never smoker alcohol intake: current alcohol intake frequency: holidays/special occasions only details: Not while substance use type: does not use diet: lactose free well-balanced diet: about half the time caffeine: No eating out: 1-3 times/week during the past year weight has: remained stable what type of physical activity do you participate in: none carine/yazidism: Bahai seatbelt use: always do you feel safe at home: Yes additional social history: : 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 OB Visit ARAM Calculator Estimated Delivery Date Method Current WG Current Estimate 04/07/25 LMP (Certain) 30w 2d Other Estimates 04/07/25 Ultrasound #1 30w 2d Expected Delivery Route/Plan Labor Preferences- CB/BF classes: encouraged labor support person: Ron labor intervention preferences: [] pain management options preferred: epidural! cut cord/dad catch: yes : yes PP control planned: Discussed discussed possible routes of delivery and associated risks: [] special requests: [] Specific Issue/Plans Covid status: [] Flu vaccine: [] Tdap vaccine: given Rhogam: NA LARC form signed: yes Problem list reviewed and updated with the most current plan of care details and appropriate ordersplaced. Relevant counseling for the gestational age provided. Continue routine care and follow up unless otherwise noted in visit notes/problem list details Initial Weight: 294 lb Date -?-?-?-?-?-?-?--?-?-?-?-?- EGA Weight BP Urine Prot -?-?-?-?-?-?-?-?-?-?-?-?- Glucose FHR FuHt Pres Dilation -?-?-?-?-?-?-?-?-?-?-?-?- Effaced St Visit Note 09/04/24 -?-?-?-?-?-?-?-?-?-?-?-?- 9w 2d 294 lb 2 oz (+2 oz) 124/84 -?-?-?-?-?-?-?-?-?-?-?-?- 184 -?-?-?-?-?-?-?-?-?-?-?-?- KW-CRL cons with dates. undecided on NIPT/carrier. rest of labs today. 09/29/24 -?--?-?-?-?-?-?-?-?-?-?-?- 12w 6d 295 lb 6 oz (+1 lb 6 oz) 130/82 Negative -?-?-?-?-?-?-?-?-?-?-?-?- Negative 150 -?-?-?-?-?-?-?-?-?-?-?-?- SM- no vb having some cramping and pelvic pain 10/27/24 -?-?-?-?-?-?-?-?-?-?-?-?- 16w 6d 289 lb (-5 lb) 138/79 Negative -?-?-?-?-?-?-?-?-?-?-?-?- Negative 144 -?-?-?-?-?-?-?-?-?-?-?-?- LC- no vb/crampi ng today. no concerns. has anatomy scheduled.declines afp 11/20/24 -?-?-?-?-?-?-?-?-?-?-?-?- 20w 2d 300 lb (+6 lb) 139/82 Negative -?-?-?-?-?-?-?-?-?-?-?-?- Negative 145 -?-?-?-?-?-?-?-?-?-?-?-?- JV- no lof, vagi nal bleeding, or cramping. no complaints. anatomy scan was limited becauase she declined the vaginal probe. needs to go back for cervical length and placentation. 12/19/24 -?-?-?-?-?-?-?-?-?-?-?-?- 24w 3d 300 lb 6 oz (+6 lb 6 oz) 117/75 Negative -?-?-?-?-?-?-?-?-?-?-?-?- Negative 145 25 -?-?-?-?-?-?-?-?-?-?-?-?- JV- PHQ-9 showed moderate depression today. She denies SI/HI but is interested in antidepressants and counseling. no lof, vaginal bleeding, or dec fm. starting zoloft. info on counselors given. 01/15/25 -?-?-?-?-?-?-?-?-?-?-?-?- 28w 2d 301 lb 2 oz (+7 lb 2 oz) 118/84 Negative -?-?-?-?-?-?-?-?-?--?-?-?- Negative 143 29 -?-?-?-?-?-?-?-?-?-?-?-?- MH-No Vb, LOF. G ood FM. States feelings of sadness improved. Larc, tdap. 01/29/25 -?-?-?-?-?-?--?-?-?-?-?-?- 30w 2d 303 lb 9 oz (+9 lb 9 oz) 131/83 Negative -?-?-?-?-?-?-?-?-?-?-?-?- Negative 130 32 -?-?-?-?-?-?-?-?-?-?-?-?- KW- no vb/lof/ct x. good fm. doing well on zoloft. refill given. will need to call and schedule 3 hour gct. magnesium and compression hose encouraged for leg cramps ACOG First Trimester First Trimester: Discussed Second Trimester Second Trimester: Signs and Symptoms of Labor, Selecting a care provider, Reproductive Life Planning & Contreception, Care Planning, Depression/Anxiety and Intimate Partner Violence; Discussed Tobacco Cessation Third Trimester Third Trimester: Pain Management Plans, Labor support person(s), Immediate Larc, Circumcision preference, Movement Monitoring, Signs and Symptoms of Preeclampsia, Feeding No and [place] Education ROS Const Reports system reviewed and no additional complaints, except as documented Eyes Reports system reviewed and no additional complaints, except as documented ENT Reports system reviewed and no additional complaints, except as documented Card Reports system reviewed and no additional complaints, except as documented Resp Reports system reviewed and no additional complaints, except as documented GI Reports system reviewed and no additional complaints, except as documented, Denies nausea and Denies vomiting Reports system reviewed and no additional complaints, except as documented Musc Reports system reviewed and no additional complaints, except as documented Skin/Breast Reports system reviewed and no additional complaints, except as documented Neuro Yes system reviewed and no additional complaints, except as documented Psych Reports system reviewed and no additional complaints, except as documented Endo Reports system reviewed and no additional complaints, except as documented Leon/Lymph Reports system reviewed and no additional complaints, except as documented Aller/Immun Reports system reviewed and no additional complaints, except as documented Exam Const General: cooperative, healthy appearing and no acute distress Orientation: alert, awake and oriented x3 Neck Neck: normal visual inspection and full ROM Resp Effort & Inspection: normal respiratory effort, able to speak in complete sentences and symmetric chest movement GI Inspection: normal to inspection Palpation: soft and other Other: gravid Skin General: no rashes or lesions noted Neuro General: patient alert, patient awake and patient oriented x3 Cognition: normal cognition Speech: speech normal Gait: normal gait Motor: muscle tone normal throughout Extrem General: normal to inspection and full ROM Psych Appearance: grossly normal Mental Status: mental status grossly normal Mood: congruent mood Affect: normal affect Speech and Movement: speech and movement normal Attitude: cooperative Thought Process: normal Thought Content: normal Judgment: judgment good Results POC Urinalysis 2 Dip (Clinic) Office Urine Glucose Negative Last Edit by Vivian Garrido on 01/29/25 10: 59 Office Urine Protein Negative Last Edit by Vivian Garrido on 01/29/25 10: 59 Coding Level of Care Code OB Routine Diagnoses Abnormal glucose affecting O99.810 Obesity affecting in third trimester, unspecified obesity type O99.213 Obesity type affecting : unspecified obesity Trimester: third trimester Supervision of high risk in third trimester O09.93 Trimester: third trimester 30 weeks gestation of Z3A.30 Weeks of gestation: 30 weeks Asthma J45.909 Assessment and Plan Assessment and Plan (1) Abnormal glucose affecting : Status: Acute Comment: 3 hr glucose (2) Obesity affecting : Status: Acute Qualifiers: Obesity type affecting : unspecified obesity Trimester: third trimester Qualified Code(s):O99.213 - Obesity complicating , third trimester Comment: BMI 42.0-weekly NSTs at 34 weeks A1C (3) Supervision of high-risk : Status: Acute Qualifiers: Trimester: third trimester Qualified Code(s): O09.93 - Supervision of high risk , unspecified, third trimester Comment: PRR,, ARAM 04/07/25, : Nader (4) : Status: Acute Qualifiers: Weeks of gestation: 30 weeks Qualified Code(s): Z3A.30 - 30 weeks gestation of Comment: Discuss genetic/carrier testing - undecided (5) Asthma: Status: Acute Comment: Rescue inhaler Orders: Orders POC Urinalysis 2 Dip (Clinic) Today Medications: Refilled sertraline 50 mg PO QDAY 30 tabs 6RF Plan Details Additional Comments: ACOG trimester education reviewed and updated. see problem list details for updated plan management information and see below for orders placed atthis visit. [place] appropriate handout given. 01/29/25 1113 s CNElina> Date _ Angelica Maldonado CNM Cosigner Signature: Date (if applicable) CC: ~ [facility]07-21-2025 Evaluation note* Diagnosis Onset Date Resolution Status Admit Date Asthma acute November 20 9:07am Obesity affecting acute November 20, 2024 9:07am acute November 20 9:07am Supervision of high-risk acute November 20, 2024 9:07am Asthma acute December 19, 025 11:00am Obesity affecting acute December 19, 2024 11:00am acute December 19, 11:00am Supervision of high-risk acute December 19 11:00am Obesity affecting acute January 15, 2025 9:49am acute January 9:49am Supervision of high-risk acute January 15, 2025 9:49am Abnormal glucose affecting acute January 29, 2025 10:44am Asthma acute January 10:44am Obesity affecting acute January 29, 2025 10:44am acute January 10:44am Supervision of high-risk acute January 29, 2025 10:44am Abnormal glucose affecting acute February 13 1:49pm Asthma acute February 13, 2025 1:49pm Obesity affecting acute February 13, 2025 1:49pm acute February 13, 2025 1:49pm Supervision of high-risk acute February 13 1:49pm [facility] Work Phone: [phone] Evaluation note* Diagnosis Onset Date Resolution Status Admit Date Asthma acute October 27 1:56pm Obesity affecting acute October 27, 2024 1:56pm acute October 27 1:56pm Supervision of high-risk acute October 27, 2024 1:56pm Asthma acute November 20 9:07am Obesity affecting acute November 20, 2024 9:07am acute November 20 9:07am Supervision of high-risk acute November 20, 2024 9:07am Asthma acute December 19, 025 11:00am Obesity affecting acute December 19, 2024 11:00am acute December 19, 11:00am Supervision of high-risk acute December 19 11:00am Obesity affecting acute January 15, 2025 9:49am acute January 9:49am Supervision of high-risk acute January 15, 2025 9:49am Abnormal glucose affecting acute January 29, 2025 10:44am Asthma acute January 10:44am Obesity affecting acute January 29, 2025 10:44am acute January 10:44am Supervision of high-risk acute January 29, 2025 10:44am [facility] Work Phone: [phone] [facility] [address] [place] [address], [address] [place] [address] OFFICE VISIT Date of Service: 10/27/24 MR#: [id number] Acct: [id number] Name: ANGELITA SUTTON Rep #: [id number] : 2000 Provider: MARIANNA Espinal Age/Sex: 23/F Location: [facility] Status: Signed Intake Vital Signs 09/04/24 08:50 09/29/24 14:56 10/27/24 13:59 Height 5 ft 11 in 5 ft 11 in 5 ft 11 in Weight: 289 lb BMI 40.3 BP 138/79 H Intake Visit Reasons: 16wk ob Chief Complaint: 16wk ob Embroiderer Required: No Is patient in pain?: No Allergies No Known Allergies Allergy (Unverified 10/27/24 13:57) Medications ?Medication ?Instructions ?Recorded ?Confirmed ?Type albuterol sulfate 90 mcg/actuation 1 inh inhalation Q4 -6H PRN 08/18/24 10/27/24 History breath activated powder inhaler docosahexaenoic acid 200 mg mg PO 08/18/24 10/27/24 Hi story capsule ( DHA) ondansetron 4 mg disintegrating 4 mg PO Q6H PRN nausea and 09/04/24 10/27/24 Rx tablet vomiting #30 tabs Last Menstrual Period: 07/01/24 : No PFSH PFSH Surgical History [place] teeth removed S/P tonsillectomy Family History Father Hypothyroid Grandmother [place] disease Grandmother Diabetes Hypertension Kidney failure Social History adopted: No household members: spouse and other details: step son & 's ex current occupational status: employed 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 current occupational exposures/hazards: Yes pets and animals: No history of recent travel: No sexually active: Yes Smoking Status: Never smoker alcohol intake: current alcohol intake frequency: holidays/special occasions only details: Not while substance use type: does not use diet: lactose free well-balanced diet: about half the time caffeine: No eating out: 1-3 times/week during the past year weight has: remained stable what type of physical activity do you participate in: none carine/yazidism: Bahai seatbelt use: always do you feel safe at home: Yes additional social history: : 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 OB Visit ARAM Calculator Estimated Delivery Date Method Current WG Current Estimate 04/07/25 LMP (Certain) 16w 6d Other Estimates 04/07/25 Ultrasound #1 16w 6d Expected Delivery Route/Plan Labor Preferences- CB/BF classes: [] labor support person: [] labor intervention preferences: [] pain management options preferred: [] cut cord/dad catch: [] : [] PP control planned: [] discussed possible routes of delivery and associated risks: [] special requests: [] Specific Issue/Plans Covid status: [] Flu vaccine: [] Tdap vaccine: [] Rhogam: [] LARC form signed: [] Problem list reviewed and updated with the most current plan of care details and appropriate ordersplaced. Relevant counseling for the gestational age provided. Continue routine care and follow up unless otherwise noted in visit notes/problem list details Initial Weight: 294 lb Date -?-?-?-?-?-?-?-?-?-?-?-?- EGA Weight BP Urine Prot -?-?-?-?-?-?-?-?-?-?-?-?- Glucose FHR FuHt Pres Dilation -?-?-?-?-?-?-?-?-?-?-?-?- Effaced St Visit Note 09/04/24 -?-?-?-?-?-?-?-?-?-?-?-?- 9w 2d 294 lb 2 oz (+2 oz) 124/84 -?-?-?-?-?-?-?-?-?-?-?-?- 184 -?-?-?-?-?-?-?-?-?-?-?-?- KW-CRL cons with dates. undecided on NIPT/carrier. rest of labs today. 09/29/24 -?-?-?-?-?-?-?-?-?-?-?-?- 12w 6d 295 lb 6 oz (+1 lb 6 oz) 130/82 Negative -?-?-?-?-?-?-?-?-?-?-?-?- Negative 150 -?--?-?-?-?-?-?-?-?-?-?-?- SM- no vb having some cramping and pelvic pain 10/27/24 -?-?-?-?-?-?-?-?-?-?-?-?- 16w 6d 289 lb (-5 lb) 138/79 Negative -?-?-?-?-?-?-?-?-?-?-?-?- Negative 144 -?-?-?-?-?-?-?-?-?-?-?-?- LC- no vb/crampi ng today. no concerns. has anatomy scheduled.declines afp ACOG First Trimester First Trimester: Discussed ROS Const Reports system reviewed and no additional complaints, except as documented GI Denies nausea and Denies vomiting Denies urinary hesitancy and Denies urinary urgency Exam Const Orientation: alert, awake and oriented x3 Resp Effort & Inspection: normal respiratory effort, able to speak in complete sentences and symmetric chest movement GI Palpation: soft (gravid) OB/External & Speculum: other (fundus appriopriate for GA) Results POC Urinalysis 2 Dip (Clinic) Office Urine Glucose Negative Last Edit by Sona Moran on 10/27/24 14:06 Office Urine Protein Negative Last Edit by Sona Moran on 10/27/24 14:06 Coding Level of Care Code OB Routine Diagnoses Obesity affecting O99.210 Supervision of high-risk O09.90 Asthma J45.909 16 weeks gestation of Z3A.16 Weeks of gestation: 16 weeks Assessment and Plan Assessment and Plan (1) Obesity affecting : Status: Acute Comment: BMI 42.0-weekly NSTs at 34 weeks A1C (2) Supervision of high-risk : Status: Acute Comment: PRR,, ARAM 04/07/25, : Nader (3) Asthma: Status: Acute Comment: Rescue inhaler (4) : Status: Acute Qualifiers: Weeks of gestation: 16 weeks Qualified Code(s): Z3A.16 - 16 weeks gestation of Comment: Discuss genetic/carrier testing - undecided Orders: Orders POC Urinalysis 2 Dip (Clinic) Today Plan Details Additional Comments: ACOG trimester education reviewed and updated. see problem list details for updated plan management information and see below for orders placed atthis visit. [place] appropriate handout given. 10/27/24 1431 ns CNM> Date _ Miguelina Espinal CNM Cosigner Signature: Date (if applicable) CC: ~ [facility]06-27-2025 Progress note Author Miguelinawendy Espinal [facility] Note Date/Time October 27, 2024 2:31 pm [facility]'s [address], [address] [place] [address] OFFICE VISIT Date of Service: 10/27/24 MR#: [id number] Acct: [id number] Name: ANGELITA SUTTON Rep #: [id number] : 2000 Provider: MARIANNA Espinal Age/Sex: 23/F Location: [facility] Status: Signed Intake Vital Signs 09/04/24 08:50 09/29/24 14:56 10/27/24 13:59 Height 5 ft 11 in 5 ft 11 in 5 ft 11 in Weight: 289 lb BMI 40.3 BP 138/79 H Intake Visit Reasons: 16wk ob Chief Complaint: 16wk ob Embroiderer Required: No Is patient in pain?: No Allergies No Known Allergies Allergy (Unverified 10/27/24 13:57) Medications ?Medication ?Instructions ?Recorded ?Confirmed ?Type albuterol sulfate 90 mcg/actuation 1 inh inhalation Q4 -6H PRN 08/18/24 10/27/24 History breath activated powder inhaler docosahexaenoic acid 200 mg mg PO 08/18/24 10/27/24 Hi story capsule ( DHA) ondansetron 4 mg disintegrating 4 mg PO Q6H PRN nausea and 09/04/24 10/27/24 Rx tablet vomiting #30 tabs Last Menstrual Period: 07/01/24 : No PFSH PFSH Surgical History [place] teeth removed S/P tonsillectomy Family History Father Hypothyroid Grandmother [place] disease Grandmother Diabetes Hypertension Kidney failure Social History adopted: No household members: spouse and other details: step son & 's ex current occupational status: employed 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 current occupational exposures/hazards: Yes pets and animals: No history of recent travel: No sexually active: Yes Smoking Status: Never smoker alcohol intake: current alcohol intake frequency: holidays/special occasions only details: Not while substance use type: does not use diet: lactose free well-balanced diet: about half the time caffeine: No eating out: 1-3 times/week during the past year weight has: remained stable what type of physical activity do you participate in: none carine/yazidism: Bahai seatbelt use: always do you feel safe at home: Yes additional social history: : 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 OB Visit ARAM Calculator Estimated Delivery Date Method Current WG Current Estimate 04/07/25 LMP (Certain) 16w 6d Other Estimates 04/07/25 Ultrasound #1 16w 6d Expected Delivery Route/Plan Labor Preferences- CB/BF classes: [] labor support person: [] labor intervention preferences: [] pain management options preferred: [] cut cord/dad catch: [] : [] PP control planned: [] discussed possible routes of delivery and associated risks: [] special requests: [] Specific Issue/Plans Covid status: [] Flu vaccine: [] Tdap vaccine: [] Rhogam: [] LARC form signed: [] Problem list reviewed and updated with the most current plan of care details and appropriate orders placed. Relevant counseling for the gestational age provided. Continue routine care and follow up unless otherwise noted in visit notes/problem list details Initial Weight: 294 lb Date -?-?-?-?-?-?-?-?-?-?-?-?- EGA Weight BP Urine Prot -?-?-?-?-?-?-?-?-?-?-?-?- Glucose FHR FuHt Pres Dilation -?-?-?-?-?-?-?-?-?-?-?-?- Effaced St Visit Note 09/04/24 -?-?-?-?-?-?-?-?-?-?-?-?- 9w 2d 294 lb 2 oz (+2 oz) 124/84 -?-?-?-?-?-?-?-?-?-?-?-?- 184 -?-?-?-?-?-?-?-?-?-?-?-?- KW-CRL cons with dates. undecided on NIPT/carrier. rest of labs today. 09/29/24 -?-?-?-?-?-?-?-?-?-?-?-?- 12w 6d 295 lb 6 oz (+1 lb 6 oz) 130/82 Negative -?-?-?-?-?-?-?-?-?-?-?-?- Negative 150 -?--?-?-?-?-?-?-?-?-?-?-?- SM- no vb having some cramping and pelvic pain 10/27/24 -?-?-?-?-?-?-?-?-?-?-?-?- 16w 6d 289 lb (-5 lb) 138/79 Negative -?-?-?-?-?-?-?-?-?-?-?-?- Negative 144 -?-?-?-?-?-?-?-?-?-?-?-?- LC- no vb/crampi ng today. no concerns. has anatomy scheduled.declines afp ACOG First Trimester First Trimester: Discussed ROS Const Reports system reviewed and no additional complaints, except as documented GI Denies nausea and Denies vomiting Denies urinary hesitancy and Denies urinary urgency Exam Const Orientation: alert, awake and oriented x3 Resp Effort & Inspection: normal respiratory effort, able to speak in complete sentences and symmetric chest movement GI Palpation: soft (gravid) OB/External & Speculum: other (fundus appriopriate for GA) Results POC Urinalysis 2 Dip (Clinic) Office Urine Glucose Negative Last Edit by Sona Moran on 10/27/24 14:06 Office Urine Protein Negative Last Edit by Sona Moran on 10/27/24 14:06 Coding Level of Care Code OB Routine Diagnoses Obesity affecting O99.210 Supervision of high-risk O09.90 Asthma J45.909 16 weeks gestation of Z3A.16 Weeks of gestation: 16 weeks Assessment and Plan Assessment and Plan (1) Obesity affecting : Status: Acute Comment: BMI 42.0-weekly NSTs at 34 weeks A1C (2) Supervision of high-risk : Status: Acute Comment: PRR,, ARAM 04/07/25, : Nader (3) Asthma: Status: Acute Comment: Rescue inhaler (4) : Status: Acute Qualifiers: Weeks of gestation: 16 weeks Qualified Code(s): Z3A.16 - 16 weeks gestation of Comment: Discuss genetic/carrier testing - undecided Orders: Orders POC Urinalysis 2 Dip (Clinic) Today Plan Details Additional Comments: ACOG trimester education reviewed and updated. see problem list details for updated plan management information and see below for orders placed at this visit. GA appropriate handout given. 10/27/24 1431 <Electronically signed by Miguelina cisse CNM> Date _ Miguelina Espinal CNM Cosigner Signature: Date (if applicable) CC: ~ [facility] Work Phone: [phone] 262-222105-30-2025 Evaluation note* Diagnosis Onset Date Resolution Status Admit Date Asthma acute September 29, 2024 2:00pm Obesity affecting acute September 29, 2024 2:00pm acute September 29, 2024 2:00pm Supervision of high-risk acute September 29, 2024 2 :00pm Asthma acute October 27 1:56pm Obesity affecting acute October 27, 2024 1:56pm acute October 27 1:56pm Supervision of high-risk acute October 27, 2024 1:56pm Asthma acute November 20 9:07am Obesity affecting acute November 20, 2024 9:07am acute November 20 9:07am Supervision of high-risk acute November 20, 2024 9:07am Asthma acute December 19, 025 11:00am Obesity affecting acute December 19, 2024 11:00am acute December 19 025 11:00am Supervision of high-risk acute December 19 11:00am Asthma acute January 9:49am Obesity affecting acute January 15, 2025 9:49am acute January 9:49am Supervision of high-risk acute January 15, 2025 9:49am [facility] Work Phone: 1(799) 474-156305-30-2025 Progress [facility] [address] [place] [address], [address] [place] [address] OFFICE VISIT Date of Service: 09/29/24 MR#: [id number] Acct: [id number] Name: ANGELITA SUTTON Rep #: [id number] : 2000 Provider: Dr. Ned Byrnes MD Age/Sex: 23/F Location: [facility] Status: Signed Intake Vital Signs 09/04/24 08:50 09/29/24 14:53 09/29/24 14:56 Height 5 ft 11 in 5 ft 11 in 5 ft 11 in Weight: 295 lb 6 oz BMI 41.1 BP 130/82 H Intake Visit Reasons: 12wk ob Embroiderer Required: No Is patient in pain?: No Allergies No Known Allergies Allergy (Unverified 09/29/24 14:53) Medications ?Medication ?Instructions ?Recorded ?Confirmed ?Type albuterol sulfate 90 mcg/actuation 1 inh inhalation Q4 -6H PRN 08/18/24 09/29/24 History breath activated powder inhaler docosahexaenoic acid 200 mg mg PO 08/18/24 09/29/24 Hi story capsule ( DHA) ondansetron 4 mg disintegrating 4 mg PO Q6H PRN nausea and 09/04/24 09/29/24 Rx tablet vomiting #30 tabs Last Menstrual Period: 07/01/24 Zika: Zika virus screening: Negative : No PFSH PFSH Surgical History [place] teeth removed S/P tonsillectomy Family History Father Hypothyroid Grandmother [place] disease Grandmother Diabetes Hypertension Kidney failure Social History adopted: No household members: spouse and other details: step son & 's ex current occupational status: employed 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 current occupational exposures/hazards: Yes pets and animals: No history of recent travel: No sexually active: Yes Smoking Status: Never smoker alcohol intake: current alcohol intake frequency: holidays/special occasions only details: Not while substance use type: does not use diet: lactose free well-balanced diet: about half the time caffeine: No eating out: 1-3 times/week during the past year weight has: remained stable what type of physical activity do you participate in: none carine/yazidism: Bahai seatbelt use: always do you feel safe at home: Yes additional social history: : 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 OB Visit ARAM Calculator Estimated Delivery Date Method Current WG Current Estimate 04/07/25 LMP (Certain) 12w 6d Other Estimates 04/07/25 Ultrasound #1 12w 6d Expected Delivery Route/Plan Labor Preferences- CB/BF classes: [] labor support person: [] labor intervention preferences: [] pain management options preferred: [] cut cord/dad catch: [] : [] PP control planned: [] discussed possible routes of delivery and associated risks: [] special requests: [] Specific Issue/Plans Covid status: [] Flu vaccine: [] Tdap vaccine: [] Rhogam: [] LARC form signed: [] Problem list reviewed and updated with the most current plan of care details and appropriate ordersplaced. Relevant counseling for the gestational age provided. Continue routine care and follow up unless otherwise noted in visit notes/problem list details Initial Weight: 294 lb Date -?-?-?-?-?-?-?-?-?-?-?-?- EGA Weight BP Urine Prot -?-?-?-?-?-?-?-?-?-?-?-?- Glucose FHR FuHt Pres Dilation -?-?-?-?-?--?-?-?-?-?-?-?- Effaced St Visit Note 09/04/24 -?-?-?-?-?-?-?-?-?-?-?-?- 9w 2d 294 lb 2 oz (+2 oz) 124/84 -?-?-?-?-?-?-?-?-?-?-?-?- 184 -?-?-?-?-?-?-?-?-?-?-?-?- KW-CRL cons with dates. undecided on NIPT/carrier. rest of labs today. 09/29/24 -?-?-?-?-?-?-?-?-?-?-?-?- 12w 6d 295 lb 6 oz (+1 lb 6 oz) 130/82 Negative -?-?-?-?-?-?-?-?-?-?-?-?- Negative 150 -?-?-?-?-?-?-?-?-?-?-?-?- SM- no vb having some cramping and pelvic pain ACOG First Trimester First Trimester: Discussed Results POC Urinalysis 2 Dip (Clinic) Office Urine Glucose Negative Last Edit by Nusrat Don on 09/29/24 15:14 Office Urine Protein Negative Last Edit by Nusrat Don on 09/29/24 15:14 Coding Level of Care Code OB Routine Diagnoses Obesity affecting O99.210 Supervision of high-risk O09.90 12 weeks gestation of Z3A.12 Weeks of gestation: 12 weeks Asthma J45.909 Assessment and Plan Assessment and Plan (1) Obesity affecting : Status: Acute Comment: BMI 42.0-weekly NSTs at 34 weeks A1C (2) Supervision of high-risk : Status: Acute Comment: PRR,, ARAM 04/07/25, : Nader (3) : Status: Acute Qualifiers: Weeks of gestation: 12 weeks Qualified Code(s): Z3A.12 - 12 weeks gestation of Comment: Discuss genetic/carrier testing - undecided (4) Asthma: Status: Acute Comment: Rescue inhaler Orders: Orders 2 POC Urinalysis 2 Dip (Clinic) Today 09/29/24 1520 gabriel FRAUSTO> Date _ Tabitha Byrnes MD Cosigner Signature: Date (if applicable) CC: ~ [facility]05-30-2025 Progress note Author Tabitha Byrnes [facility] Services Note Date/Time September 29, 2024 3:20p [facility] [address], [address] [place] [address] OFFICE VISIT Date of Service: 09/29/24 MR#: [id number] Acct: [id number] Name: ANGELITA SUTTON Rep #: [id number] : 2000 Provider: Dr. Ned Byrnes MD Age/Sex: 23/F Location: [facility] Status: Signed Intake Vital Signs 09/04/24 08:50 09/29/24 14:53 09/29/24 14:56 Height 5 ft 11 in 5 ft 11 in 5 ft 11 in Weight: 295 lb 6 oz BMI 41.1 BP 130/82 H Intake Visit Reasons: 12wk ob Embroiderer Required: No Is patient in pain?: No Allergies No Known Allergies Allergy (Unverified 09/29/24 14:53) Medications ?Medication ?Instructions ?Recorded ?Confirmed ?Type albuterol sulfate 90 mcg/actuation 1 inh inhalation Q4 -6H PRN 08/18/24 09/29/24 History breath activated powder inhaler docosahexaenoic acid 200 mg mg PO 08/18/24 09/29/24 Hi story capsule ( DHA) ondansetron 4 mg disintegrating 4 mg PO Q6H PRN nausea and 09/04/24 09/29/24 Rx tablet vomiting #30 tabs Last Menstrual Period: 07/01/24 Zika: Zika virus screening: Negative : No PFSH PFSH Surgical History [place] teeth removed S/P tonsillectomy Family History Father Hypothyroid Grandmother [place] disease Grandmother Diabetes Hypertension Kidney failure Social History adopted: No household members: spouse and other details: step son & 's ex current occupational status: employed 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 current occupational exposures/hazards: Yes pets and animals: No history of recent travel: No sexually active: Yes Smoking Status: Never smoker alcohol intake: current alcohol intake frequency: holidays/special occasions only details: Not while substance use type: does not use diet: lactose free well-balanced diet: about half the time caffeine: No eating out: 1-3 times/week during the past year weight has: remained stable what type of physical activity do you participate in: none acrine/yazidism: Bahai seatbelt use: always do you feel safe at home: Yes additional social history: : 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 OB Visit ARAM Calculator Estimated Delivery Date Method Current WG Current Estimate 04/07/25 LMP (Certain) 12w 6d Other Estimates 04/07/25 Ultrasound #1 12w 6d Expected Delivery Route/Plan Labor Preferences- CB/BF classes: [] labor support person: [] labor intervention preferences: [] pain management options preferred: [] cut cord/dad catch: [] : [] PP control planned: [] discussed possible routes of delivery and associated risks: [] special requests: [] Specific Issue/Plans Covid status: [] Flu vaccine: [] Tdap vaccine: [] Rhogam: [] LARC form signed: [] Problem list reviewed and updated with the most current plan of care details and appropriate orders placed. Relevant counseling for the gestational age provided. Continue routine care and follow up unless otherwise noted in visit notes/problem list details Initial Weight: 294 lb Date -?-?-?-?-?-?-?-?-?-?-?-?- EGA Weight BP Urine Prot -?-?-?-?-?-?-?-?-?-?-?-?- Glucose FHR FuHt Pres Dilation -?-?-?-?-?--?-?-?-?-?-?-?- Effaced St Visit Note 09/04/24 -?-?-?-?-?-?-?-?-?-?-?-?- 9w 2d 294 lb 2 oz (+2 oz) 124/84 -?-?-?-?-?-?-?-?-?-?-?-?- 184 -?-?-?-?-?-?-?-?-?-?-?-?- KW-CRL cons with dates. undecided on NIPT/carrier. rest of labs today. 09/29/24 -?-?-?-?-?-?-?-?-?-?-?-?- 12w 6d 295 lb 6 oz (+1 lb 6 oz) 130/82 Negative -?-?-?-?-?-?-?-?-?-?-?-?- Negative 150 -?-?-?-?-?-?-?-?-?-?-?-?- SM- no vb having some cramping and pelvic pain ACOG First Trimester First Trimester: Discussed Results POC Urinalysis 2 Dip (Clinic) Office Urine Glucose Negative Last Edit by Nusrat Don on 09/29/24 15:14 Office Urine Protein Negative Last Edit by Nusrat Don on 09/29/24 15:14 Coding Level of Care Code OB Routine Diagnoses Obesity affecting O99.210 Supervision of high-risk O09.90 12 weeks gestation of Z3A.12 Weeks of gestation: 12 weeks Asthma J45.909 Assessment and Plan Assessment and Plan (1) Obesity affecting : Status: Acute Comment: BMI 42.0-weekly NSTs at 34 weeks A1C (2) Supervision of high-risk : Status: Acute Comment: PRR,, ARAM 04/07/25, : Nader (3) : Status: Acute Qualifiers: Weeks of gestation: 12 weeks Qualified Code(s): Z3A.12 - 12 weeks gestation of Comment: Discuss genetic/carrier testing - undecided (4) Asthma: Status: Acute Comment: Rescue inhaler Orders: Orders 2 POC Urinalysis 2 Dip (Clinic) Today 09/29/24 1520 <Electronically signed by Tabitha rios MD> Date _ Tabitha Byrnes MD Cosign Signature: Date (if applicable) CC: ~ [facility] Work Phone: 1(895) 341-972405-05-2025 Evaluation note* Diagnosis Onset Date Resolution Status Admit Date Asthma acute September 04, 2024 8:46am Obesity affecting acute September 04, 2024 8:46am acute September 04, 2024 8:46am Supervision of high-risk a cute September 04, 2024 8:46am [facility] Work Phone: 1(234) 242-208405-05-2025 Evaluation note* Diagnosis Onset Date Resolution Status Admit Date Asthma acute September 04, 2024 8:46am Obesity affecting acute September 04, 2024 8:46am acute September 04, 2024 8:46am Supervision of high-risk a cute September 04, 2024 8:46am Asthma acute September 29, 2024 2:00pm Obesity affecting acute September 29, 2024 2:00pm acute September 29, 2024 2:00pm Supervision of high-risk a cute September 29, 2024 2:00pm [facility] Work Phone: 1(121) 255-736505-05-2025 Evaluation note* Diagnosis Onset Date Resolution Status Admit Date Asthma acute September 04, 2024 8:46am Obesity affecting acute September 04, 2024 8:46am acute September 04, 2024 8:46am Supervision of high-risk acute September 04, 2024 8: 46am Asthma acute September 29, 2024 2:00pm Obesity affecting acute September 29, 2024 2:00pm acute September 29, 2024 2:00pm Supervision of high-risk acute September 29, 2024 2 :00pm Asthma acute October 27 1:56pm Obesity affecting acute October 27, 2024 1:56pm acute October 27 1:56pm Supervision of high-risk acute October 27, 2024 1:56pm [facility] Work Phone: 1([phone]) 962-821405-05-2025 Evaluation note* Diagnosis Onset Date Resolution Status Admit Date Asthma acute September 04, 2024 8:46am Obesity affecting acute September 04, 2024 8:46am acute September 04, 2024 8:46am Supervision of high-risk acute September 04, 2024 8: 46am Asthma acute September 29, 2024 2:00pm Obesity affecting acute September 29, 2024 2:00pm acute September 29, 2024 2:00pm Supervision of high-risk acute September 29, 2024 2 :00pm Asthma acute October 27 1:56pm Obesity affecting acute October 27, 2024 1:56pm acute October 27 1:56pm Supervision of high-risk acute October 27, 2024 1:56pm Asthma acute November 20 9:07am Obesity affecting acute November 20, 2024 9:07am acute November 20 9:07am Supervision of high-risk acute November 20, 2024 9:07am [facility] Work Phone: 1([phone]) 859-594405-05-2025 Evaluation note* Diagnosis Onset Date Resolution Status Admit Date Asthma acute September 04, 2024 8:46am Obesity affecting acute September 04, 2024 8:46am acute September 04, 2024 8:46am Supervision of high-risk acute September 04, 2024 8: 46am Asthma acute September 29, 2024 2:00pm Obesity affecting acute September 29, 2024 2:00pm acute September 29, 2024 2:00pm Supervision of high-risk acute September 29, 2024 2 :00pm Asthma acute October 27 1:56pm Obesity affecting acute October 27, 2024 1:56pm acute October 27 1:56pm Supervision of high-risk acute October 27, 2024 1:56pm Asthma acute November 20 9:07am Obesity affecting acute November 20, 2024 9:07am acute November 20 9:07am Supervision of high-risk acute November 20, 2024 9:07am Asthma acute December 19, 2 025 11:00am Obesity affecting acute December 19, 2024 11:00am acute December 19, 2 025 11:00am Supervision of high-risk acute December 19 11:00am [facility] Work Phone: 1([phone]) 173-228811-09-2023 History of Present illness Narrative* Jay Stewart PA-C - 03/11/2023 3:10 PM EST Subjective Patient ID: Angelita Johnson is a 22 y.o. female who presents for URI (Patient having cough, sore throat, head and chest congestion, SOB and frontal headache x 2 days.). HPI Presents for evaluation of URI. Symptoms including cough, congestion, body aches, malaise, and headache have been present for several days and refractory to OTC meds. No fever, chills, nausea, vomiting, abdominal pain, CP, or SOB. No exacerbating factors. Patient does have asthma. Review of Systems Constitutional: See HPI ENT: See HPI Respiratory: See HPI Neurologic: Alert and oriented X4, No numbness, No tingling. All other systems are negative Objective BP 136/82 Pulse 104 Temp 36.4 C (97.5 F) (Temporal) Ht 1.803 m (5' 11") Wt 136 kg (298 lb 14.4 oz) SpO2 98% BMI 41.69 kg/m Physical Exam General: Alert and oriented, No acute distress. Eye: Pupils are equal, round and reactive to light, Extraocular movements are intact, Normal conjunctiva. HENT: Normocephalic, Normal hearing, Oral mucosa is moist, No pharyngeal erythema, No sinus tenderness. Neck: Supple, Non-tender, No lymphadenopathy. Respiratory: Bilateral scattered wheezing and rhonchi; no rales Cardiovascular: Normal rate, Regular rhythm. Gastrointestinal: Non-distended. Musculoskeletal: Normal range of motion, Normal strength, No tenderness, No swelling, No deformity,Normal gait. Integumentary: Warm, Dry, Intact, No pallor, No rash. Neurologic: Alert, Oriented, Normal sensory, Normal motor function, No focal deficits, Cranial Nerves II-XII are grossly intact Psychiatric: Cooperative, Appropriate mood & affect. Assessment/Plan URI with acute asthmatic bronchitis: Z-Nino, prednisone taper, Bromfed. Patient requesting COVID swab so this was obtained. Patient started isolate till results come available. Rest and supportive care otherwise. If COVID-positive, isolation protocol reviewed. Problem List Items Addressed This Visit None Visit Diagnoses Acute asthmatic bronchitis - Primary Relevant Medications azithromycin (Zithromax) 250 mg tablet idioesucflapjpb-ljkcxhwdw-ND (Bromfed DM) 2-30-10 mg/5 mL syrup predniSONE (Deltasone) 10 mg tablet Other Relevant Orders Sars-CoV-2 and Influenza A/B PCR Upper respiratory tract infection, unspecified type Relevant Medications azithromycin (Zithromax) 250 mg tablet jyiwijvsjqdhhrz-jkkrbykqk-KA (Bromfed DM) 2-30-10 mg/5 mL syrup predniSONE (Deltasone) 10 mg tablet Other Relevant Orders Sars-CoV-2 and Influenza A/B PCR Final diagnoses: [J45.909] Acute asthmatic bronchitis [J06.9] Upper respiratory tract infection, unspecified type documented in this [facility] Work Phone: 1([phone]) 792-362507-28-2023 History of Present illness Narrative* Daquan Hills DO - 2022 10:00 AM EDT Subjective Patient ID: Angelita Johnson is a 22 y.o. female who presents for Follow-up (Would like to discuss control medication. Very emotional. Tiredness. ). HPI Patient is here today for follow up Patient reports that she has been bleednig twice a month, more emotional, more tired, other side effects. Review of Systems Constitutional: Negative for activity change, appetite change, chills and fatigue. HENT: Negative for congestion, postnasal drip, sinus pressure, sinus pain and sore throat. Respiratory: Negative for cough, shortness of breath and wheezing. Cardiovascular: Negative for chest pain and leg swelling. Gastrointestinal: Negative for abdominal distention, diarrhea, nausea and vomiting. Musculoskeletal: Negative for back pain. Neurological: Negative for weakness and numbness. Objective BP 121/66 Pulse 87 Ht 1.803 m (5' 11") Wt 129 kg (285 lb) SpO2 95% BMI 39.75 kg/m Physical Exam Constitutional: General: She is not in acute distress. Appearance: Normal appearance. HENT: Head: Normocephalic. Nose: Nose normal. Skin: General: Skin is warm and dry. Coloration: Skin is not jaundiced. Neurological: General: No focal deficit present. Mental Status: She is alert and oriented to person, place, and time. Cranial Nerves: No cranial nerve deficit. Psychiatric: Mood and Affect: Mood normal. Behavior: Behavior normal. Assessment/Plan Problem List Items Addressed This Visit Menorrhagia with irregular cycle - Primary Relevant Medications drospirenone-ethinyl estradioL (Ashleigh, 28,) 3-0.03 mg tablet Will change control and see if she tolerates it better. Final diagnoses: [N92.1] Menorrhagia with irregular cycle [facility] Work Phone: 1([phone]) 145-832004-21-2023 History of Present illness Narrative* Daquan Hills, DO - 08/21/2022 11:20 AM EDT Subjective Patient ID: Angelita Johnson is a 21 y.o. female who presents for Establish Care (Patients periods are getting worse. ). HPI Patient is a 21. Y.o. female patient who patient who is here today to establish care. PT reports that she has such painful cramps that she vomits. She reports that she finds that now it is cutting back into her work schedule. Patient reports that she has a regular monthly cycle. Pt has never tried control. She does report moods swings prior to periods. No family history of blood clotting. Review of Systems Constitutional: Negative for activity change, appetite change, fatigue, fever and unexpected weightchange. HENT: Negative for congestion, ear discharge, ear pain, nosebleeds, postnasal drip, rhinorrhea, sinus pressure, sneezing, sore throat, tinnitus and trouble swallowing. Eyes: Negative for discharge. Respiratory: Negative for cough and shortness of breath. Cardiovascular: Negative for chest pain. Gastrointestinal: Negative for abdominal distention, abdominal pain, blood in stool, constipation, diarrhea, nausea and vomiting. Endocrine: Negative for cold intolerance. Genitourinary: Negative for dysuria and frequency. Musculoskeletal: Negative for arthralgias, back pain and neck pain. Skin: Negative for rash. Neurological: Negative for dizziness, weakness, numbness and headaches. Psychiatric/Behavioral: Negative for hallucinations. The patient is not nervous/anxious. Objective BP 119/81 Pulse 91 Ht 1.803 m (5' 11") Wt 135 kg (297 lb) SpO2 95% BMI 41.42 kg/m Physical Exam Constitutional: General: She is not in acute distress. Appearance: Normal appearance. She is not toxic-appearing. HENT: Head: Normocephalic and atraumatic. Right Ear: Tympanic membrane, ear canal and external ear normal. Left Ear: Tympanic membrane, ear canal and external ear normal. Nose: Nose normal. Mouth/Throat: Mouth: Mucous membranes are moist. Pharynx: Oropharynx is clear. Eyes: Extraocular Movements: Extraocular movements intact. Conjunctiva/sclera: Conjunctivae normal. Pupils: Pupils are equal, round, and reactive to light. Cardiovascular: Rate and Rhythm: Normal rate and regular rhythm. Heart sounds: No murmur heard. No friction rub. No gallop. Pulmonary: Effort: Pulmonary effort is normal. Breath sounds: Normal breath sounds. Abdominal: General: Bowel sounds are normal. There is no distension. Palpations: Abdomen is soft. There is no mass. Tenderness: There is no abdominal tenderness. There is no guarding. Musculoskeletal: General: No swelling. Normal range of motion. Cervical back: Normal range of motion. Skin: General: Skin is warm and dry. Neurological: General: No focal deficit present. Mental Status: She is alert and oriented to person, place, and time. Psychiatric: Mood and Affect: Mood normal. Thought Content: Thought content normal. Judgment: Judgment normal. Assessment/Plan Problem List Items Addressed This Visit Genitourinary Menorrhagia with irregular cycle - Primary Relevant Medications norethindrone-e.estradioL-iron (Microgestin FE 1.5/30) 1.5 mg-30 mcg (21)/75 mg (7) tablet ondansetron ODT (Zofran-ODT) 4 mg disintegrating tablet Other Relevant Orders Comprehensive Metabolic Panel CBC and Auto Differential Iron and TIBC TSH with reflex to Free T4 if abnormal Ferritin 1 Discussed trying control vs low dose ssri for cramps, she would like to try control, advised starting at the end of her next cycle, discussed taking it at roughly the same time everyday, takes two weeks to be effective so use other form of control when having intercourse. Will see her back in 3 mo for blood pressure check, Sent zofran to use as needed as well. Check bloodwork Final diagnoses: [N92.1] Menorrhagia with irregular cycle [facility] Work Phone: Evaluation note* Diagnosis Menorrhagia with irregular cycle- Primary documented in this encounter [facility] Work Phone: Evaluation note* Diagnosis Menorrhagia with irregular cycle- Primary documented in this encounter [facility] Work Phone: Evaluation note* Diagnosis Acute asthmatic bronchitis- Primary Unspecified asthma, with exacerbation Upper respiratory tract infection, unspecified type documented in this encounter [facility] Work Phone: Progress note Author Angelica Maldonado [facility] Note Date/Time January 29, 2025 11:13am [facility]'s [address], [address] [place] [address] OFFICE VISIT Date of Service: 01/29/25 MR#: [id number] Acct: [id number] Name: ANGELITA SUTTON Rep #: [id number] : 2000 Provider: MARIANNA Maldonado Age/Sex: 24/F Location: [facility] Status: Signed Intake Vital Signs 12/19/24 11:06 01/15/25 10:04 01/29/25 10:50 01/29/25 10:51 Height 5 ft 11 in 5 ft 11 in 5 ft 11 in 5 ft 11 in Weight: 303 lb 9 oz BMI 42.3 BP 131/83 H Intake Visit Reasons: 30wk 2D ob Embroiderer Required: No Is patient in pain?: No Allergies No Known Allergies Allergy (Verified 01/29/25 10:50) Medications ?Medication ?Instructions ?Recorded ?Confirmed ?Type albuterol sulfate 90 mcg/actuation 1 inh inhalation Q4 -6H PRN 08/18/24 01/29/25 History breath activated powder inhaler docosahexaenoic acid 200 mg mg PO 08/18/24 01/29/25 Hi story capsule ( DHA) ondansetron 4 mg disintegrating 4 mg PO Q6H PRN nausea and 09/04/24 01/29/25 Rx tablet vomiting #30 tabs sertraline 50 mg tablet 50 mg PO QDAY #30 tabs 01/2901/29/25 Rx Last Menstrual Period: 07/01/24 Zika: Zika virus screening: Negative : No PFSH PFSH Surgical History [place] teeth removed S/P tonsillectomy Family History Father Hypothyroid Grandmother [place] disease Grandmother Diabetes Hypertension Kidney failure Social History (Reviewed 01/29/25 @ 10:50 by Vivian Benavides adopted: No household members: spouse and other details: step son & 's ex current occupational status: employed 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 current occupational exposures/hazards: Yes pets and animals: No history of recent travel: No sexually active: Yes Smoking Status: Never smoker alcohol intake: current alcohol intake frequency: holidays/special occasions only details: Not while substance use type: does not use diet: lactose free well-balanced diet: about half the time caffeine: No eating out: 1-3 times/week during the past year weight has: remained stable what type of physical activity do you participate in: none carine/yazidism: Bahai seatbelt use: always do you feel safe at home: Yes additional social history: : 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 OB Visit ARAM Calculator Estimated Delivery Date Method Current WG Current Estimate 04/07/25 LMP (Certain) 30w 2d Other Estimates 04/07/25 Ultrasound #1 30w 2d Expected Delivery Route/Plan Labor Preferences- CB/BF classes: encouraged labor support person: Ron labor intervention preferences: [] pain management options preferred: epidural! cut cord/dad catch: yes : yes PP control planned: Discussed discussed possible routes of delivery and associated risks: [] special requests: [] Specific Issue/Plans Covid status: [] Flu vaccine: [] Tdap vaccine: given Rhogam: NA LARC form signed: yes Problem list reviewed and updated with the most current plan of care details and appropriate orders placed. Relevant counseling for the gestational age provided. Continue routine care and follow up unless otherwise noted in visit notes/problem list details Initial Weight: 294 lb Date -?-?-?-?-?-?-?--?-?-?-?-?- EGA Weight BP Urine Prot -?-?-?-?-?-?-?-?-?-?-?-?- Glucose FHR FuHt Pres Dilation -?-?-?-?-?-?-?-?-?-?-?-?- Effaced St Visit Note 09/04/24 -?-?-?-?-?-?-?-?-?-?-?-?- 9w 2d 294 lb 2 oz (+2 oz) 124/84 -?-?-?-?-?-?-?-?-?-?-?-?- 184 -?-?-?-?-?-?-?-?-?-?-?-?- KW-CRL cons with dates. undecided on NIPT/carrier. rest of labs today. 09/29/24 -?--?-?-?-?-?-?-?-?-?-?-?- 12w 6d 295 lb 6 oz (+1 lb 6 oz) 130/82 Negative -?-?-?-?-?-?-?-?-?-?-?-?- Negative 150 -?-?-?-?-?-?-?-?-?-?-?-?- SM- no vb having some cramping and pelvic pain 10/27/24 -?-?-?-?-?-?-?-?-?-?-?-?- 16w 6d 289 lb (-5 lb) 138/79 Negative -?-?-?-?-?-?-?-?-?-?-?-?- Negative 144 -?-?-?-?-?-?-?-?-?-?-?-?- LC- no vb/crampi ng today. no concerns. has anatomy scheduled.declines afp 11/20/24 -?-?-?-?-?-?-?-?-?-?-?-?- 20w 2d 300 lb (+6 lb) 139/82 Negative -?-?-?-?-?-?-?-?-?-?-?-?- Negative 145 -?-?-?-?-?-?-?-?-?-?-?-?- JV- no lof, vagi nal bleeding, or cramping. no complaints. anatomy scan was limited becauase she declined the vaginal probe. needs to go back for cervical length and placentation. 12/19/24 -?-?-?-?-?-?-?-?-?-?-?-?- 24w 3d 300 lb 6 oz (+6 lb 6 oz) 117/75 Negative -?-?-?-?-?-?-?-?-?-?-?-?- Negative 145 25 -?-?-?-?-?-?-?-?-?-?-?-?- JV- PHQ-9 showed moderate depression today. She denies SI/HI but is interested in antidepressants and counseling. no lof, vaginal bleeding, or dec fm. starting zoloft. info on counselors given. 01/15/25 -?-?-?-?-?-?-?-?-?-?-?-?- 28w 2d 301 lb 2 oz (+7 lb 2 oz) 118/84 Negative -?-?-?-?-?-?-?-?-?--?-?-?- Negative 143 29 -?-?-?-?-?-?-?-?-?-?-?-?- MH-No Vb, LOF. G ood FM. States feelings of sadness improved. Larc, tdap. 01/29/25 -?-?-?-?-?-?--?-?-?-?-?-?- 30w 2d 303 lb 9 oz (+9 lb 9 oz) 131/83 Negative -?-?-?-?-?-?-?-?-?-?-?-?- Negative 130 32 -?-?-?-?-?-?-?-?-?-?-?-?- KW- no vb/lof/ct x. good fm. doing well on zoloft. refill given. will need to call and schedule 3 hour gct. magnesium and compression hose encouraged for leg cramps ACOG First Trimester First Trimester: Discussed Second Trimester Second Trimester: Signs and Symptoms of Labor, Selecting a care provider, Reproductive Life Planning & Contreception, Care Planning, Depression/Anxiety and Intimate Partner Violence; Discussed Tobacco Cessation Third Trimester Third Trimester: Pain Management Plans, Labor support person(s), Immediate Larc, Circumcision preference, Movement Monitoring, Signs and Symptoms of Preeclampsia, Infant Feeding No and Education ROS Const Reports system reviewed and no additional complaints, except as documented Eyes Reports system reviewed and no additional complaints, except as documented ENT Reports system reviewed and no additional complaints, except as documented Card Reports system reviewed and no additional complaints, except as documented Resp Reports system reviewed and no additional complaints, except as documented GI Reports system reviewed and no additional complaints, except as documented, Denies nausea and Denies vomiting Reports system reviewed and no additional complaints, except as documented Musc Reports system reviewed and no additional complaints, except as documented Skin/Breast Reports system reviewed and no additional complaints, except as documented Neuro Yes system reviewed and no additional complaints, except as documented Psych Reports system reviewed and no additional complaints, except as documented Endo Reports system reviewed and no additional complaints, except as documented Leon/Lymph Reports system reviewed and no additional complaints, except as documented Aller/Immun Reports system reviewed and no additional complaints, except as documented Exam Const General: cooperative, healthy appearing and no acute distress Orientation: alert, awake and oriented x3 Neck Neck: normal visual inspection and full ROM Resp Effort & Inspection: normal respiratory effort, able to speak in complete sentences and symmetric chest movement GI Inspection: normal to inspection Palpation: soft and other Other: gravid Skin General: no rashes or lesions noted Neuro General: patient alert, patient awake and patient oriented x3 Cognition: normal cognition Speech: speech normal Gait: normal gait Motor: muscle tone normal throughout Extrem General: normal to inspection and full ROM Psych Appearance: grossly normal Mental Status: mental status grossly normal Mood: congruent mood Affect: normal affect Speech and Movement: speech and movement normal Attitude: cooperative Thought Process: normal Thought Content: normal Judgment: judgment good Results POC Urinalysis 2 Dip (Clinic) Office Urine Glucose Negative Last Edit by Vivian Garrido on 01/29/25 10: 59 Office Urine Protein Negative Last Edit by Vivian Garrido on 01/29/25 10: 59 Coding Level of Care Code OB Routine Diagnoses Abnormal glucose affecting O99.810 Obesity affecting in third trimester, unspecified obesity type O99.213 Obesity type affecting : unspecified obesity Trimester: third trimester Supervision of high risk in third trimester O09.93 Trimester: third trimester 30 weeks gestation of Z3A.30 Weeks of gestation: 30 weeks Asthma J45.909 Assessment and Plan Assessment and Plan (1) Abnormal glucose affecting : Status: Acute Comment: 3 hr glucose (2) Obesity affecting : Status: Acute Qualifiers: Obesity type affecting : unspecified obesity Trimester: third trimester Qualified Code(s): O99.213 - Obesity complicating , third trimester Comment: BMI 42.0-weekly NSTs at 34 weeks A1C (3) Supervision of high-risk : Status: Acute Qualifiers: Trimester: third trimester Qualified Code(s): O09.93 - Supervision of high risk , unspecified, third trimester Comment: PRR,, ARAM 04/07/25, : Nader (4) : Status: Acute Qualifiers: Weeks of gestation: 30 weeks Qualified Code(s): Z3A.30 - 30 weeks gestation of Comment: Discuss genetic/carrier testing - undecided (5) Asthma: Status: Acute Comment: Rescue inhaler Orders: Orders POC Urinalysis 2 Dip (Clinic) Today Medications: Refilled sertraline 50 mg PO QDAY 30 tabs 6RF Plan Details Additional Comments: ACOG trimester education reviewed and updated. see problem list details for updated plan management information and see below for orders placed at this visit. GA appropriate handout given. 01/29/25 1113 <Electronically signed by Angelica jara CNM> Date _ Angelica Maldonado CNM Cosigner Signature: Date (if applicable) CC: ~ [facility] [employer] Work Phone: Reason for referral (narrative)* Consultation (Routine) - Authorized Specialty Diagnoses / Procedures Referred By Amarjit sneed Referred To Contact Primary Care Procedures Follow Up In Primary Care Daquan Hills, DO [address] [facility] [place] [address] Referral ID Status Reason Start Date Expiration Date V isits Requested Visits Authorized [id number] Authorized 08/21/2022 02/17/2023 1 1 [facility] Work Phone: Reason for referral (narrative)No reason for referral information [facility] Work Phone: Summary Purpose Family History No Family History Records Found Relationship Condition Age at Onset Recorded Date/T uday father Hypothyroidism Unknown grandmother Ozark's disease Unknown grandmother Diabetes mellitus Unknown Hypertension Unknown Renal failure Unknown Advance Directives No Advanced Directives Records FoundNo Advanced Directives Records FoundNo Advanced Directives Records FoundNo Advanced Directives Records FoundNo Advanced Directives Records FoundNo Advanced Directives Records FoundNo Advanced Directives Records FoundNo Advanced Directives Records FoundNo Advanced Directives Records Found Chief Complaint and Reason for Visit Chief Complaint Admit Date PNOB nurse visit August 18, 2024 12: 48pm NOB:LMP 3/ ARAM 04/07 Do NOT shorten pe r KW September 04, 2024 8:46am Reason for Visit Admit Date Asthma September 04, 2024 8:46am Obesity affecting September 04 8:46am September 04, 2024 8:46am Supervision of high-risk September 042024 8:46am Chief Complaint Admit Date PNOB nurse visit August 18, 2024 12: 48pm NOB:LMP 3 ARAM 04/07 Do NOT shorten pe r KW September 04, 2024 8:46am 12wk ob September 29, 2024 2:00p m Reason for Visit Admit Date Asthma September 04, 2024 8:46am Obesity affecting September 04 8:46am September 04, 2024 8:46am Supervision of high-risk September 042024 8:46am Asthma September 29, 2024 2:00p m Obesity affecting September 29 2:00pm September 29, 2024 2:00p m Supervision of high-risk September 022024 2:00pm Chief Complaint Admit Date PNOB nurse visit August 18, 2024 12: 48pm NOB:LMP 3/1 ARAM 04/07 Do NOT shorten pe r KW September 04, 2024 8:46am 12wk ob September 29, 2024 2:00p m 16wk ob October 27, 2024 1:56 pm Reason for Visit Admit Date Asthma September 04, 2024 8:46am Obesity affecting September 04 8:46am September 04, 2024 8:46am Supervision of high-risk September 042024 8:46am Asthma September 29, 2024 2:00p m Obesity affecting September 29 2:00pm September 29, 2024 2:00p m Supervision of high-risk September 022024 2:00pm Asthma October 27, 2024 1:56 pm Obesity affecting October 27, 2 025 1:56pm October 27, 2024 1:56 pm Supervision of high-risk October 27, 2024 1:56pm Chief Complaint Admit Date PNOB nurse visit August 18, 2024 12: 48pm NOB:LMP 07/01 ARAM 04/07 Do NOT shorten pe r KW September 04, 2024 8:46am 12wk ob September 29, 2024 2:00p m 16wk ob October 27, 2024 1:56 pm 20wk ob November 20, 2024 9:07 am Reason for Visit Admit Date Asthma September 04, 2024 8:46am Obesity affecting September 04 8:46am September 04, 2024 8:46am Supervision of high-risk September 042024 8:46am Asthma September 29, 2024 2:00p m Obesity affecting September 29 2:00pm September 29, 2024 2:00p m Supervision of high-risk September 022024 2:00pm Asthma October 27, 2024 1:56 pm Obesity affecting October 27, 2 025 1:56pm October 27, 2024 1:56 pm Supervision of high-risk October 27, 2024 1:56pm Asthma November 20, 2024 9:07 am Obesity affecting November 20, 2 025 9:07am November 20, 2024 9:07 am Supervision of high-risk November 20, 2024 9:07am Chief Complaint Admit Date NOB:LMP 07/01 ARAM 04/07 Do NOT shorten pe r KW September 04, 2024 8:46am 12wk ob September 29, 2024 2:00p m 16wk ob October 27, 2024 1:56 pm 20wk ob November 20, 2024 9:07 am 24 wk ob December 19, 2024 11 :00am Reason for Visit Admit Date Asthma September 04, 2024 8:46am Obesity affecting September 04 8:46am September 04, 2024 8:46am Supervision of high-risk September 042024 8:46am Asthma September 29, 2024 2:00p m Obesity affecting September 29 2:00pm September 29, 2024 2:00p m Supervision of high-risk September 022024 2:00pm Asthma October 27, 2024 1:56 pm Obesity affecting October 27, 2 025 1:56pm October 27, 2024 1:56 pm Supervision of high-risk October 27, 2024 1:56pm Asthma November 20, 2024 9:07 am Obesity affecting November 20, 2 025 9:07am November 20, 2024 9:07 am Supervision of high-risk November 20, 2024 9:07am Asthma December 19, 2024 11 :00am Obesity affecting December 19, 2024 11:00am December 19, 2024 11 :00am Supervision of high-risk Augus t 2024 11:00am Chief Complaint Admit Date 12wk ob September 29, 2024 2:00p m 16wk ob October 27, 2024 1:56 pm 20wk ob November 20, 2024 9:07 am 24 wk ob December 19, 2024 11 :00am 28 wk ob/glucose January 15, 2025 9:49am Reason for Visit Admit Date Asthma September 29, 2024 2:00p m Obesity affecting September 29 2:00pm September 29, 2024 2:00p m Supervision of high-risk September 022024 2:00pm Asthma October 27, 2024 1:56 pm Obesity affecting October 27, 2 025 1:56pm October 27, 2024 1:56 pm Supervision of high-risk October 27, 2024 1:56pm Asthma November 20, 2024 9:07 am Obesity affecting November 20, 2 025 9:07am November 20, 2024 9:07 am Supervision of high-risk November 20, 2024 9:07am Asthma December 19, 2024 11 :00am Obesity affecting December 19, 2024 11:00am December 19, 2024 11 :00am Supervision of high-risk Augus t 2024 11:00am Asthma January 15, 2025 9:49am Obesity affecting January 152024 9:49am January 15, 2025 9:49am Supervision of high-risk Cleme mber 2024 9:49am Chief Complaint Admit Date 16wk ob October 27, 2024 1:56 pm 20wk ob November 20, 2024 9:07 am 24 wk ob December 19, 2024 11 :00am 28wk 2D ob/glucose January 15, 2025 9:49am 30wk 2D ob January 29, 2025 10:44am Reason for Visit Admit Date Asthma October 27, 2024 1:56 pm Obesity affecting October 27, 2 025 1:56pm October 27, 2024 1:56 pm Supervision of high-risk October 27, 2024 1:56pm Asthma November 20, 2024 9:07 am Obesity affecting November 20, 2 025 9:07am November 20, 2024 9:07 am Supervision of high-risk November 20, 2024 9:07am Asthma December 19, 2024 11 :00am Obesity affecting December 19, 2024 11:00am December 19, 2024 11 :00am Supervision of high-risk Augus t 2024 11:00am Obesity affecting January 152024 9:49am January 15, 2025 9:49am Supervision of high-risk Mark mb 2024 9:49am Abnormal glucose affecting Sep tember 2024 10:44am Asthma January 29, 2025 10:44am Obesity affecting January 292024 10:44am January 29, 2025 10:44am Supervision of high-risk Septe [facility] 2024 10:44am Chief Complaint Admit Date 20wk ob November 20, 2024 9:07 am 24 wk ob December 19, 2024 11 :00am 28wk 2D ob/glucose January 15, 2025 9:49am 30wk 2D ob January 29, 2025 10:44am 32wk 3D ob February 13, 2025 1 :49pm Reason for Visit Admit Date Asthma November 20, 2024 9:07 am Obesity affecting November 20, 2 025 9:07am November 20, 2024 9:07 am Supervision of high-risk November 20, 2024 9:07am Asthma December 19, 2024 11 :00am Obesity affecting December 19, 2024 11:00am December 19, 2024 11 :00am Supervision of high-risk Augus t 2024 11:00am Obesity affecting January 152024 9:49am January 15, 2025 9:49am Supervision of high-risk Septe [facility] 2024 9:49am Abnormal glucose affecting Sep tember 2024 10:44am Asthma January 29, 2025 10:44am Obesity affecting January 292024 10:44am January 29, 2025 10:44am Supervision of high-risk Septe [facility] 2024 10:44am Abnormal glucose affecting Oct david 2024 1:49pm Asthma February 13, 2025 1 :49pm Obesity affecting January 1:49pm February 13, 2025 1 :49pm Supervision of high-risk Octob er 2024 1:49pm Additional Source Comments INFORMATION SOURCE (unrecogn ized section and content) DATE CREATED AUTHOR 03/04/2018 [facility] DATE CREATED AUTHOR AUTHOR'S ORGANIZ ATION 06/21/2018 [facility] DATE CREATED AUTHOR AUTHOR'S ORGANIZ ATION 06/21/2021 [facility] DATE CREATED AUTHOR AUTHOR'S ORGANIZ ATION 08/31/2022 [facility] DATE CREATED AUTHOR AUTHOR'S ORGANIZ ATION 03/13/2023 [facility] DATE CREATED AUTHOR AUTHOR'S ORGANIZ ATION 12/22/2023 [facility] DATE CREATED AUTHOR AUTHOR'S ORGANIZ ATION 12/02/2024 [facility] DATE CREATED AUTHOR AUTHOR'S ORGANIZ ATION 12/08/2024 [facility] DATE CREATED AUTHOR AUTHOR'S ORGANIZ ATION 03/14/2025 [facility] Reason for Visit (unrecogniz ed section and content) Reason Comments Establish Care Patients periods are getting worse. Reason Comments Follow-up Would like to discus s control medication. Very emotional. Tiredness. Specialty Diagnoses / Procedures Referred By Amarjit sneed Referred To Contact Primary Care Procedures Follow Up In Primary Care Daquan Hills DO [address] [facility] [place] [address] Referral ID Status Reason Start Date Expiration Date V isits Requested Visits Authorized [id number] Authorized 08/21/2022 02/17/2023 1 1 Reason Comments URI Patient having cough , sore throat, head and chest congestion, SOB and frontal headache x 2 days. Care Teams (unrecognized sec tion and content) Ripper Operator Relationship Specialty Start Date End Date Daquan Hills DO [address] [facility] [place] [address] PCP - General Internal Medicine 07/27/22 Ripper Operator Relationship Specialty Start Date End Date Daquan Hills DO [address] [facility] [place] [address] PCP - General Internal Medicine 07/27/22 Ripper Operator Relationship Specialty Start Date End Date Daquan Hills DO [address] [facility] [place] [address] PCP - General Internal Medicine 07/27/22 Team Status: Inactive Member Role Status Dates Angelica Maldonado CNM Attending Provider Active S tart: August 18, 2024 End: August 18, 2024 Team Status: Inactive Member Role Status Dates Angelica Maldonado CNM Attending Provider Active S tart: September 04, 2024 End: September 04, 2024 Team Status: Active Member Role Status Dates Angelica Maldonado CNM Attending Provider Active S tart: September 04, 2024 Angelica Maldonado CNM Referring Provider Active S tart: September 04, 2024 Team Status: Inactive Member Role Status Dates Angelica Maldonado CNM Attending Provider Active S tart: September 04, 2024 End: September 04, 2024 Angelica Maldonado CNM Referring Provider Active S tart: September 04, 2024 End: September 04, 2024 Team Status: Inactive Member Role Status Dates Dr. Tabitha Byrnes MD Attending Provider Active Start: September 29, 2024 End: September 29, 2024 Team Status: Inactive Member Role/Relationship Status Dates Angelica Maldonado CNM Attending Provider Active S tart: August 18, 2024 End: August 18, 2024 Team Status: Inactive Member Role/Relationship Status Dates Angelica Maldonado CNM Attending Provider Active S tart: September 04, 2024 End: September 04, 2024 Team Status: Inactive Member Role/Relationship Status Dates Angelica Maldonado CNM Attending Provider Active S tart: September 04, 2024 End: September 04, 2024 Team Status: Inactive Member Role/Relationship Status Dates Angelica Maldonado CNM Attending Provider Active S tart: September 04, 2024 End: September 04, 2024 Angelica Maldonado CNM Referring Provider Active S tart: September 04, 2024 End: September 04, 2024 Team Status: Inactive Member Role/Relationship Status Dates Dr. Tabitha Byrnes MD Attending Provider Active Start: September 29, 2024 End: September 29, 2024 Team Status: Inactive Member Role/Relationship Status Dates Miguelina Espinal CNM Attending Provider Active Start: October 27, 2024 End: October 27, 2024 Team Status: Inactive Member Role/Relationship Status Dates Dr. Dorys Dow DO Attending Provider Activ e Start: November 20, 2024 End: November 20, 2024 Team Status: Inactive Member Role/Relationship Status Dates Angelica Maldonado CNM Attending Provider Active S tart: September 04, 2024 End: September 04, 2024 Team Status: Inactive Member Role/Relationship Status Dates Angelica Maldonado CNM Attending Provider Active S tart: September 04, 2024 End: September 04, 2024 Angelica Maldonado CNM Referring Provider Active S tart: September 04, 2024 End: September 04, 2024 Team Status: Inactive Member Role/Relationship Status Dates Dr. Tabitha Byrnes MD Attending Provider Active Start: September 29, 2024 End: September 29, 2024 Team Status: Inactive Member Role/Relationship Status Dates Miguelina Espinal CNM Attending Provider Active Start: October 27, 2024 End: October 27, 2024 Team Status: Inactive Member Role/Relationship Status Dates Dr. Dorys Dow DO Attending Provider Activ e Start: November 20, 2024 End: November 20, 2024 Team Status: Inactive Member Role/Relationship Status Dates Dr. Dorys Dow DO Attending Provider Activ e Start: December 19, 2024 End: December 19, 2024 Team Status: Inactive Member Role/Relationship Status Dates Dr. Tabitha Byrnes MD Attending Provider Active Start: September 29, 2024 End: September 29, 2024 Team Status: Inactive Member Role/Relationship Status Dates Miguelina Espinal CNM Attending Provider Active Start: October 27, 2024 End: October 27, 2024 Team Status: Inactive Member Role/Relationship Status Dates Dr. Dorys Dow DO Attending Provider Activ e Start: November 20, 2024 End: November 20, 2024 Team Status: Inactive Member Role/Relationship Status Dates Dr. Dorys Dow DO Attending Provider Activ e Start: December 19, 2024 End: December 19, 2024 Team Status: Inactive Member Role/Relationship Status Dates Nusrat Perez NP, [employer] Attending Provider Active Start: January 15, 2025 End: January 15, 2025 Team Status: Active Member Role/Relationship Status Dates Dr. Dorys Dow DO Attending Provider Activ e Start: January 15, 2025 Dr. Dorys Dow DO Referring Provider Activ e Start: January 15, 2025 Team Status: Inactive Member Role/Relationship Status Dates Miguelina Espinal CNM Attending physician Active Start: October 27, 2024 End: October 27, 2024 Team Status: Inactive Member Role/Relationship Status Dates Dr. Dorys Dow DO Attending physician Acti ve Start: November 20, 2024 End: November 20, 2024 Team Status: Inactive Member Role/Relationship Status Dates Dr. Dorys Dow DO Attending physician Acti ve Start: December 19, 2024 End: December 19, 2024 Team Status: Inactive Member Role/Relationship Status Dates Nusrat Perez NP [employer] Attending physician Active Start: January 15, 2025 End: January 15, 2025 Team Status: Inactive Member Role/Relationship Status Dates Dr. Dorys Dow DO Attending physician Acti ve Start: January 15, 2025 End: January 15, 2025 Dr. Dorys Dow DO Referring Provider Activ e Start: January 15, 2025 End: January 15, 2025 Team Status: Inactive Member Role/Relationship Status Dates Angelica Maldonado CNM Attending physician Active Start: January 29, 2025 End: January 29, 2025 Team Status: Inactive Member Role/Relationship Status Dates Dr. Dorys Dow DO Attending physician Acti ve Start: November 20, 2024 End: November 20, 2024 Team Status: Inactive Member Role/Relationship Status Dates Dr. Dorys Dow DO Attending physician Acti ve Start: December 19, 2024 End: December 19, 2024 Team Status: Inactive Member Role/Relationship Status Dates Nusrat Perez NP [employer] Attending physician Active Start: January 15, 2025 End: January 15, 2025 Team Status: Inactive Member Role/Relationship Status Dates Dr. Dorys Dow DO Attending physician Acti ve Start: January 15, 2025 End: January 15, 2025 Dr. Dorys Dow DO Referring Provider Activ e Start: January 15, 2025 End: January 15, 2025 Team Status: Inactive Member Role/Relationship Status Dates Angelica Maldonado CNM Attending physician Active Start: January 29, 2025 End: January 29, 2025 Team Status: Inactive Member Role/Relationship Status Dates Dr. Tabitha Byrnes MD Attending physician Active Start: February 13, 2025 End: February 13, 2025 Goals (unrecognized section and content) Type Care Experience Labor Preferences-CB /BF classes: encouragedlabor support person: Ruslabor intervention preferences: []pain management options preferred: epidural!cut cord/dad catch: yesbreastfeeding: yesPP control planned: Discusseddiscussed possible routes of delivery and associated risks: []special requests: [] Type Detail Care Experience svdLabor Preferences -CB/BF classes: encouragedlabor support person: Ruslabor intervention preferences: []pain management options preferred: epidural!cut cord/dad catch: yesbreastfeeding: yesPP control planned: Discusseddiscussed possible routes of delivery and associated risks: []special requests: [] FOR RECORDS PERTAINING TO PATIENTS WHO ARE OR HAVE BEEN ENROLLED IN A CHEMICAL DEPENDENCY/SUBSTANCEABUSE PROGRAM, SOME INFORMATION MAY BE OMITTED. This clinical summary was aggregated from multiple sources. Caution should be exercised in using it in the provision of clinical care. This summary normalizes information from multiple sources, and as a consequence, information in this document may materially change the coding, format and clinical context of patient data. In addition, data may be omitted in some cases. CLINICAL DECISIONS SHOULD BE BASED ON THE PRIMARY CLINICAL RECORDS. [place] [employer]. provides no warranty or guarantee of the accuracy or completeness of information in this document.
--- OUTSIDE RECORDS SUMMARY | 2025-03-27 20:07 | XMS RPT_ITS | CCD ---
Author Organization [facility] Care Team Providers Care Behavior Analyst Name Role Phone Mango Whiteside Admitting Unavailable [...] Oberhauser DO, Daquan L Primary Care Provider [phone] OBERHAUSER, DAQUAN L Primary Care Unavailable OBERHAUSER, DAQUAN L Attending Unavailable OBERHAUSER, DAQUAN L Referring Unavailable OBERHAUSER, DAQUAN L Primary Care Unavailable JAY STEWART Attending Unavailable OBERHAUSER, DAQUAN L Primary Care Unavailable OBERHAUSER, DAQUAN L Attending Unavailable OBERHAUSER, DAQUAN L Primary Care Unavailable OBERHAUSER, DAQUAN Primary Care Unavailable USKHI PEREZ Attending Unava ilable OBERHAUSER, DAQUAN Primary Care Unavailable LANE MORFIN Attending Unavailable LIDIA KRUGER Attending Unavaila ble OBERHAUSER, DAQUAN Primary Care Unavailable Angelica Maldonado CNM Attending Provider Angelica Maldonado CNM Referring Provider [phone] Dr. Tabitha Byrnes MD Attending Provider Miguelina Espinal CNM Attending Provider [phone] Dr. [...] Dr. Dorys Dow DO Attending Physician Chris ALLEY TENDER-CNusrat Attending Physician [phone] Angelica Maldonado CNM Attending Physician [phone] Joseph FRAUSTO, Dr. Lu Attending Physician Oberhauser, Daquan Primary Care Unavailable Angelica Maldonado Attending Unavailable Oberhauser, Daquan Primary Care Unavailable Angelica Maldonado Attending Unavailable Oberhauser, Daquan Referring Unavailable Dorys Dow Attending Unavailbhupendra Perez ALLEY TENDERNusrat Attending Unavailable Angelica Maldonado Attending Unavailable Miguelina Espinal Attending Unavailable Angelica Maldonado Attending Unavailable Angelica Maldonado Attending Unavailable Tabitha Byrnes Attending Unavailable Dorys Dow Attending UnavailTabitha Griffin Attending Unavailable Tabitha Byrnes Attending Unavailable Oberhauser, Daquan Primary Care Unavailable Oberhauser, Daquan Referring Unavailable Tabitha Byrnes Attending Unavailable Angelica Maldonado Attending Unavailable Angelica Maldonado Referring Unavailable Angelica Maldonado Attending Unavailable Oberhauser, Daquan Primary Care Unavailable Salix ALLEY TENDER, Nusrat Attending Unavailable Salix ALLEY TENDERNusrat Referring Unavailable Oberhauser, Daquan Primary Care Unavailable Tabitha Byrnes Attending Unavailable Tabitha Byrnes Referring Unavailable Dorsy Dow Attending Unavailbhupenrda e Dorys Dow Referring Unavailabl e Medications [...] oral solution (1 source) alpha-Adrenergic Agonist, Uncompetitive X-miumqb-A-asparta te Receptor Antagonist, Sigma-1 Agonist Start: 03-11-2023 [...] Test Name Value Interpretation Reference Range Facility [facility] Visit Reporton 03-13-2025 [facility] Visit Report [facility] [address], [address] [place] [address] OFFICE VISIT Date of Service: 03/13/25 MR#: [id number] Acct: [id number] Name: ANGELITA SUTTON Rep #: [id number] : 2000 Provider: MARIANNA Mascorro ams Age/Sex: 24/F Location[facility] Status: Signed Intake Vital Signs 12/19/24 11:06 01/15/25 10:04 03/06/25 10:54 03/13/25 08:54 03/13/25 08:55 Height 5 ft 11 in 5 ft 11 in 5 ft 11 in 5 ft 11 in 5 ft 11 in Weight: 316 lb 9 oz BMI 44.1 BP 127/81 H Intake Visit Reasons: 36wk3d ob/nst Wet Mixer Required: No Is patient in pain?: No [...] Negative : No PFSH PFSH Surgical History Llewellyn teeth removed S/P tonsillectomy Family History Father Hypothyroid Grandmother Callaway disease Grandmother Diabetes Hypertension Kidney failure Social History adopted: No household members: spouse and other details: step son 's ex current occupational status: employed 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 ??-?? (more content not included)... Normal [facility] Office Visit Reporton 03-06-2025 [facility] Office Visit Report [facility] [address], [address] [place] [address] OFFICE VISIT Date of Service: 03/06/25 MR#: [id number] Acct: [id number] Name: ANGELITA SUTTON Rep #: [id number] : 2000 Provider: Dr. Tabitha goldman MD Age/Sex: 24/F Location: [facility] Status: Signed Intake Vital Signs 01/15/25 10:04 02/27/25 09:48 03/06/25 10:54 Height 5 ft 11 in 5 ft 11 in 5 ft 11 in Weight: 311 lb 2 oz 312 lb 7 oz BMI 43.4 43.5 BP 129/83 H 132/83 H Intake Visit Reasons: 35wk 3d *NST only Wet Mixer Required: No Is patient in pain?: No [...] Negative : No PFSH PFSH Surgical History Llewellyn teeth removed S/P tonsillectomy Family History Father Hypothyroid Grandmother Callaway disease Grandmother Diabetes Hypertension Kidney failure Social History adopted: No household members: spouse and other details: step son 's ex current occupational status: employed 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 Normal [facility] Gestational GTT 3HR 100gon 1 GEST GTT 100gm High [facility] Comment on above: Order Comment: Y Result [...] L3890.6301, L509.4006, L509.8002, L100.0100, L3890.6006, L501.9985 #### [facility] [address] [place], [address] OB Limited With Biometricson 03-01-2025 OB Limited With Biometrics [facility] Imaging Services [address] [place], [place] [address] OB Limited With Biometrics MR#: [id number] Acct: [id number] Name: ANGELITA SUTTON Rep #: [id number] : 2000 F 24 From: Bryan otto MD PCP: Dr. Daquan Hills, DO Status: REG CLI Study: OB Limited With Biometrics Date of Exam: 03/01 Exam# [id number] Ordering Dr: Tabitha Byrnes PROCEDURE: OB LIMITED [...] Daquan Hills DO; Dr. Tabitha Byrnes MD Global Upstream Marketing Manager: Signed Normal [facility] Office Visit Reporton 02-27-2025 [facility] Office Visit Report [facility] [address], [address] [place] [address] OFFICE VISIT Date of Service: 02/27/25 MR#: [id number] Acct: [id number] Name: HERMANANGELITA PRIEST Rep #: [id number] : 2000 Provider: Dr. Tabitha goldman MD Age/Sex: 24/F Location: [facility] Status: Signed Intake Vital Signs 12/19/24 11:06 02/13/25 13:53 02/27/25 09:48 Height 5 ft 11 in 5 ft 11 in 5 ft 11 in Weight: 307 lb 4 oz 311 lb 2 oz BMI 42.8 43.4 BP 116/68 129/83 H Intake Visit Reasons: 34w 3d ob/nst Wet Mixer Required: No Is patient in pain?: No [...] Negative : No PFSH PFSH Surgical History Llewellyn teeth removed S/P tonsillectomy Family History Father Hypothyroid Grandmother Callaway disease Grandmother Diabetes Hypertension Kidney failure Social History adopted: No household members: spouse and other details: step son 's ex current occupational status: employed 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 Normal [facility] Laboratory - Chemistry and C hemistry - challengeOrdered By: Tabitha Byrnes on 02-13-2025 Glucose Ql (U) Negative [facility] Laboratory - UrinalysisOrder ed By: Tabitha Byrnes on 02-13-2025 Protein Ql (U) Negative [facility] Office Visit Reporton 02-13-2025 [facility] Office Visit Report [facility] [address], [address] [place] [address] OFFICE VISIT Date of Service: 02/13/25 MR#: [id number] Acct: [id number] Name: ANGELITA SUTTON Rep #: [id number] : 2000 Provider: Dr. Tabitha goldman MD Age/Sex: 24/F Location: [facility] Status: Signed Intake Vital Signs 12/19/24 11:06 01/29/25 10:51 02/13/25 13:53 Height 5 ft 11 in 5 ft 11 in 5 ft 11 in Weight: 307 lb 4 oz BMI 42.8 BP 116/68 Intake Visit Reasons: 32wk 3D ob Wet Mixer Required: No Is patient in pain?: No [...] Negative : No PFSH PFSH Surgical History Llewellyn teeth removed S/P tonsillectomy Family History Father Hypothyroid Grandmother Callaway disease Grandmother Diabetes Hypertension Kidney failure Social History adopted: No household members: spouse and other details: step son 's ex current occupational status: employed 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 Normal [facility] Laboratory - Chemistry and C hemistry - challengeOrdered By: Angelica Maldonado on 01-29-2025 Glucose Ql (U) Negative [facility] Laboratory - UrinalysisOrder ed By: Angelica Maldonado on 01-29-2025 Protein Ql (U) Negative [facility] Office Visit Reporton 01-29-2025 [facility] Office Visit Report [facility] [address], [address] [place] [address] OFFICE VISIT Date of Service: 01/29/25 MR#: [id number] Acct: [id number] Name: HERMANANGELITA PRIEST Rep #: [id number] : 2000 Provider: MARIANNA Mascorro ams Age/Sex: 24/F Location: [facility] Status: Signed Intake Vital Signs 12/19/24 11:06 01/15/25 10:04 01/29/25 10:50 01/29/25 10:51 Height 5 ft 11 in 5 ft 11 in 5 ft 11 in 5 ft 11 in Weight: 303 lb 9 oz BMI 42.3 BP 131/83 H Intake Visit Reasons: 30wk 2D ob Wet Mixer Required: No Is patient in pain?: No [...] Negative : No PFSH PFSH Surgical History Llewellyn teeth removed S/P tonsillectomy Family History Father Hypothyroid Grandmother Callaway disease Grandmother Diabetes Hypertension Kidney failure Social History adopted: No household members: spouse and other details: step son 's ex current occupational status: employed 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 no (more content not included)... Normal [facility] Absolute lymphocyte countOrd ered By: Dorys Ahn on 01-15-2025 Lymphocytes Auto (Unsp spec) [#/Vol] 2.07 10*3/uL 0.83-4.51 [facility] Absolute neutrophil countOrd ered By: Dorys Ahn on 01-15-2025 Neutrophils (Bld) [#/Vol] 8.5 10*3/uL High 2.0-7.7 [facility] Automated lymphocyte count a s percentage of total leukocytesOrdered By: Dorys Ahn on 01-15-2025 Lymphocytes/100 WBC Auto (Unsp spec) 18.4 % Low 19-41 [facility] Basophil percentageOrdered B y: Dorys Ahn on 01-15-2025 Basophils/100 WBC (Bld) 0.3 % 0-1 [facility] CBC W/Diff, Automatedon 01-01 Absolute Lymph 2.07 X10 3/uL Normal 0.83-4.51 [facility] Comment on above: Performed By: #### L 509.8002, L3890.6006, L501.0250, L100.0100 #### [facility] [address] [place], [address] Absolute Neut 8.5 X10 3/uL High 2.0-7.7 [facility] Comment on above: Performed By: #### L 509.8002, L3890.6006, L501.0250, L100.0100 #### [facility] [address] [place], [address] Basophils/100 WBC (Bld) 0.3 % Normal 0-1 [facility] Comment on above: Performed By: #### L 509.8002, L3890.6006, L501.0250, L100.0100 #### [facility] [address] [place], [address] Eosinophils/100 WBC (Bld) 0.6 % Normal 0-5 [facility] Comment on above: Performed By: #### L 509.8002, L3890.6006, L501.0250, L100.0100 #### [facility] [address] [place], [address] Erythrocyte distribution width (RBC) [Ratio] 12.6 % Normal 11.6-14.6 [facility] Comment on above: Performed By: #### L 509.8002, L3890.6006, L501.0250, L100.0100 #### [facility] [address] [place], [address] Hematocrit (Bld) [Volume fraction] 37.9 % Normal 37-47 [facility] Comment on above: Performed By: #### L 509.8002, L3890.6006, L501.0250, L100.0100 #### [facility] [address] [place], [address] Hemoglobin (Bld) [Mass/Vol] 12.9 g/dL Normal 12.0-15.0 [facility] Comment on above: Performed By: #### L 509.8002, L3890.6006, L501.0250, L100.0100 #### [facility] [address] [place], [address] IG% 0.700 Normal 0.0-0.9 [facility] Comment on above: Result Comment: IG% - Immature Granulocytes (promyelocytes, myelocytes and metamyelocytes) > 1% indicates that a LEFT SHIFT is Present. Performed By: #### L 509.8002, L3890.6006, L501.0250, L100.0100 #### [facility] [address] [place], [address] Lymphocytes/100 WBC (Bld) 18.4 % Low 19-41 [facility] Comment on above: Performed By: #### L 509.8002, L3890.6006, L501.0250, L100.0100 #### [facility] [address] [place], [address] MCH (RBC) [Entitic mass] 29.9 pg Normal 27.0-32.0 [facility] Comment on above: Performed By: #### L 509.8002, L3890.6006, L501.0250, L100.0100 #### [facility] [address] [place], [address] MCHC (RBC) [Mass/Vol] 34.0 g/dL Normal 32-36 [facility] Comment on above: Performed By: #### L 509.8002, L3890.6006, L501.0250, L100.0100 #### [facility] [address] [place], [address] MCV (RBC) [Entitic vol] 87.7 fL Normal 81-99 [facility] Comment on above: Performed By: #### L 509.8002, L3890.6006, L501.0250, L100.0100 #### [facility] [address] [place], [address] Monocytes/100 WBC (Bld) 4.6 % Normal 0-10 [facility] Comment on above: Performed By: #### L 509.8002, L3890.6006, L501.0250, L100.0100 #### [facility] [address] [place], [address] Neutrophils/100 WBC (Bld) 75.4 % High 47-70 [facility] Comment on above: Performed By: #### L 509.8002, L3890.6006, L501.0250, L100.0100 #### [facility] [address] [place], [address] Nucleated RBC (Bld) [#/Vol] 0 10*3/uL Normal 0-5 [facility] Comment on above: Performed By: #### L 509.8002, L3890.6006, L501.0250, L100.0100 #### [facility] [address] [place], [address] Platelet mean volume (Bld) [Entitic vol] 10.3 fL Normal 6.2-12.0 [facility] Comment on above: Performed By: #### L 509.8002, L3890.6006, L501.0250, L100.0100 #### [facility] [address] [place], [address] Platelets (Bld) [#/Vol] 293 10*3/uL Normal 150-450 [facility] Comment on above: Performed By: #### L 509.8002, L3890.6006, L501.0250, L100.0100 #### [facility] [address] [place], [address] RBC (Bld) [#/Vol] 4.32 10*6/uL Normal 4.2-5.4 [facility] Comment on above: Performed By: #### L 509.8002, L3890.6006, L501.0250, L100.0100 #### [facility] [address] [place], [address] RDW SD 40.6 fl Normal 35.1-43.9 [facility] Comment on above: Performed By: #### L 509.8002, L3890.6006, L501.0250, L100.0100 #### [facility] [address] [place], [address] WBC (Bld) [#/Vol] 11.3 10*3/uL High 4.4-11.0 [facility] Comment on above: Performed By: #### L 509.8002, L3890.6006, L501.0250, L100.0100 #### [facility] [address] [place], [address] Eosinophil percentageOrdered By: Dorys Ahn on 01-15-2025 Eosinophils/100 WBC (Bld) 0.6 % 0-5 [facility] Erythrocyte distribution wid th ratioOrdered By: Dorys Ahn on 01-15-2025 Erythrocyte distribution width (RBC) [Ratio] 12.6 % 11.6-14.6 [facility] Erythrocyte distribution wid th standard deviationOrdered By: Dorys Ahn on 01-15-2025 Erythrocyte distribution width (RBC) [Ratio] 40.6 fl 35.1-43.9 [facility] Glucose Challenge Gest 1H 50 sma 01-15-2025 GLU GEST 50g 1H 147 mg/dL High 70-140 [facility] Comment on above: Result Comment: AMENDED REPORT 01/15/25 1321 GLU GEST 50g 1H previously reported as: 147 H mg/dL Performed By: #### L 509.8002, L3890.6006, L501.0250, L100.0100 #### [facility] [address] [place], [address] Glucose measurement at 2 margie rs post-dose gestational glucose tolerance testOrdered By: Dorys Ahn on 01-15-2025 Glucose [Mass/Vol] 142 mg/dL High 70-140 [facility] Comment on above: Previous reported re sult: 147 mg/dLEdited by: DANI on 01/15/25:1321 AMENDED REPORT 01/15/25 1321 GLU GEST 50g 1H previously reported as: 147 H mg/dL HIVon 01-15-2025 HIV Non-Reactive Normal Nonreactive [facility] Comment on above: Result Comment: Non- Reactive Reactive Repeatedly reactive samples must be confirmed according to CDC recommended confirmatory algorithms. The subresults for either HIVAG or AHIV can be used as an aid in the selection of the confirmation algorithm for reactive samples. Send out specimens with Reactive results to [facility] for confirmation. Order the HIV antibody detection and differentiation: lc#[id number] Performed By: #### B TS, L3890.6102, L3890.6301, L509.4006, L509.8002, L100.0100, L3890.6006, L501.9985 #### [facility] [address] [place], [place], [address] Hematocrit Auto (Bld) [Volum e fraction]Ordered By: Dorys Ahn on 01-15-2025 Hematocrit (Bld) [Volume fraction] 37.9 % 37-47 [facility] Hemoglobin measurementOrdere d By: Dorys Ahn on 01-15-2025 Hemoglobin (Bld) [Mass/Vol] 12.9 g/dL 12.0-15.0 [facility] Immature granulocytes/100 WB C Auto (Bld)Ordered By: Dorys Ahn on 01-15-2025 Immature granulocytes/100 WBC (Bld) 0.700 % 0.0-0.9 [facility] Comment on above: IG% - Immature Granu locytes (promyelocytes, myelocytes and metamyelocytes) > 1% indicates that a LEFT SHIFT is Present. Laboratory - Chemistry and C hemistry - challengeOrdered By: Nusrat Perez on 01-15-2025 Glucose Ql (U) Negative [facility] Laboratory - UrinalysisOrder ed By: Nusrat Perez on 01-15-2025 Protein Ql (U) Negative [facility] MCV (mean corpuscular volume ) determinationOrdered By: Dorys Ahn on 01-15-2025 MCV (RBC) [Entitic vol] 87.7 fL 81-99 [facility] Mean corpuscular hemoglobin (MCH) determinationOrdered By: Dorys Ahn on 01-15-2025 MCH (RBC) [Entitic mass] 29.9 pg 27.0-32.0 [facility] Mean corpuscular hemoglobin concentration (MCHC) determinationOrdered By: Dorys Ahn on 01-15-2025 MCHC (RBC) [Mass/Vol] 34.0 g/dL 32-36 [facility] Mean platelet volume determi nationOrdered By: Dorys Ahn on 01-15-2025 Platelet mean volume (Bld) [Entitic vol] 10.3 fL 6.2-12.0 [facility] Monocyte percentageOrdered B y: Dorys Ahn on 01-15-2025 Monocytes/100 WBC (Bld) 4.6 % 0-10 [facility] Neutrophil percentageOrdered By: Dorys Ahn on 01-15-2025 Neutrophils/100 WBC (Bld) 75.4 % High 47-70 [facility] No Panel InformationOrdered By: Dorys Ahn on 01-15-2025 HIV (1&2) Antibody Non-Reactive Nonreactive [facility] Comment on above: Non-ReactiveReactive Repeatedly reactive samples must be confirmed according to CDC recommended confirmatory algorithms. The subresults for either HIVAG or AHIV can be used as an aid in the selection of the confirmation algorithm for reactive samples.Send out specimens with Reactive results to [facility] for confirmation.Order the HIV antibody detection and differentiation: #[id number] Nucleated red blood cell per centageOrdered By: Dorys Ahn on 01-15-2025 Nucleated RBC/100 WBC (Bld) [Ratio] 0 % 0-5 [facility] Office Visit Reporton 01-15-2025 [facility] Office Visit Report [facility], [address] [place] [address] OFFICE VISIT Date of Service: 01/15/25 MR#: [id number] Acct: [id number] Name: HERMANANGELITA PRIEST Rep #: [id number] : 2000 Provider: RENATO de la cruz Age/Sex: 24/F Location[facility] Status: Signed Intake Vital Signs 10/27/24 13:59 12/19/24 11:06 01/15/25 09:52 01/15/25 10:04 Height 5 ft 11 in 5 ft 11 in 5 ft 11 in 5 ft 11 in Weight: 301 lb 2 oz BMI 42.0 BP 118/84 H Intake Visit Reasons: 28 wk ob/glucose Chief Complaint: 28 Week OB/Glucose Wet Mixer Required: No Is patient in pain?: No [...] Negative : Yes PFSH PFSH Surgical History Llewellyn teeth removed S/P tonsillectomy Family History Father Hypothyroid Grandmother Callaway disease Grandmother Diabetes Hypertension Kidney failure Social History adopted: No household members: spouse and other details: step son 's ex current occupational status: employed 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 ?-???-??? (more content not included)... Normal [facility] Platelet countOrdered By: Hugh Ahn on 01-15-2025 Platelets (Bld) [#/Vol] 293 10*3/uL 150-450 [facility] RBC Auto (Bld) [#/Vol]Ordere d By: Dorys Ahn on 01-15-2025 RBC (Bld) [#/Vol] 4.32 10*6/uL 4.2-5.4 [facility] Syphilis Antibodieson 2024 Syphilis Abs Non-Reactive Normal Nonreactive [facility] [facility] Comment on above: Performed By: #### B TS, L3890.6102, L3890.6301, L509.4006, L509.8002, L100.0100, L3890.6006, L501.9985 #### [facility] [address] [place], [address] White blood cell (WBC) count Ordered By: Dorys Ahn on 01-15-2025 WBC (Bld) [#/Vol] 11.3 10*3/uL High 4.4-11.0 [facility] - Chemistry and C hemistry - challengeOrdered By: Dorys Ahn on 12-19-2024 Glucose Ql (U) Negative [facility] - UrinalysisOrder ed By: Dorysangeli Ahn on 12-19-2024 Protein Ql (U) Negative [facility] Office Visit Reporton 12-19-2024 [facility] Office Visit Report [facility]'[address], [address] [place] [address] OFFICE VISIT Date of Service: 12/19/24 MR#: [id number] Acct: [id number] Name: ANGELITA SUTTON Rep #: [id number] : 2000 Provider: Dr. Dorys Parra DO Age/Sex: 24/F Location: [facility] Status: Signed Intake Vital Signs 10/27/24 13:59 11/20/24 09:23 12/19/24 11:06 Height 5 ft 11 in 5 ft 11 in 5 ft 11 in Weight: 300 lb 6 oz BMI 41.8 BP 117/75 Intake Visit Reasons: 24 wk ob Wet Mixer Required: No Is patient in pain?: No [...] Negative : No PFSH PFSH Surgical History Llewellyn teeth removed S/P tonsillectomy Family History Father Hypothyroid Grandmother Callaway disease Grandmother Diabetes Hypertension Kidney failure Social History adopted: No household members: spouse and other details: step son 's ex current occupational status: employed 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 Normal [facility] D-DIMER, QUANTITATIVEon 11-02 D-DIMER QUANTITATIVE < Normal 0.27-0.49 [facility] Comment on above: Order Comment: A [...] #### 4 [id number] #### [facility] [address] [address] Bruno Alexandra M.D. [id number] ED Prov Noteon 11-30-2024 ED Prov Note [facility] EMERGENCY DEPARTMENT ATTENDING NOTE: NAME: Angelita Sutton CSN: [id number] 24 y.o. PCP: Daquan Hills DO History: Chief Complaint: Leg Pain and Problem HPI: The history was obtained from the patient. Angelita is a 24 y.o. female who presents with a chief complaint of Leg Pain and Problem. 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 Mindy Huang MD ED Attending Physician [facility] EMERGENCY DEPARTMENT [1] Social History Socioeconomic History Marital status: Tobacco Use Smoking status: Never Smokeless tobacco: Never Vaping Use Vaping status: Never Used Substance and Sexual Activity Alcohol use: Not Currently Drug use: Not Currently [2] No Known Allergies Mindy Huang MD 11/30/24 2338 AUTHENTICATED BY MINDY HUANG, ON 11/30/2024 23:38:00 Normal [facility] Laboratory - Chemistry and C hemistry - challengeOrdered By: Dorys Ahn on 11-20-2024 Glucose Ql (U) Negative [facility] - UrinalysisOrder ed By: Dorys Ahn on 11-20-2024 Protein Ql (U) Negative [facility] Office Visit Reporton 11-20-2024 [facility] Office Visit Report [facility]'s [address], [address] [place] [address] OFFICE VISIT Date of Service: 11/20/24 MR#: [id number] Acct: [id number] Name: HERMANANGELITALOREE ACOSTA Rep #: [id number] : 2000 Provider: Dr. Dorys Parra DO Age/Sex: 23/F Location: [facility] Status: Signed Intake Vital Signs 09/04/24 08:50 10/27/24 13:59 11/20/24 09:21 11/20/24 09:23 Height 5 ft 11 in 5 ft 11 in 5 ft 11 in 5 ft 11 in Weight: 300 lb BMI 41.8 BP 139/82 H Intake Visit Reasons: 20wk ob Wet Mixer Required: No Is patient in pain?: No [...] Negative : No PFSH PFSH Surgical History Llewellyn teeth removed S/P tonsillectomy Family History Father Hypothyroid Grandmother Callaway disease Grandmother Diabetes Hypertension Kidney failure Social History adopted: No household members: spouse and other details: step son 's ex current occupational status: employed 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 ??-??? (more content not included)... Normal [facility] - Chemistry and C hemistry - challengeOrdered By: Miguelina Espinal on 10-27-2024 Glucose Ql (U) Negative [facility] - UrinalysisOrder ed By: Miguelina Espinal on 10-27-2024 Protein Ql (U) Negative [facility] Office Visit Reporton 10-27-2024 [facility] Office Visit Report [facility]'s [address], [address] [place] [address] OFFICE VISIT Date of Service: 10/27/24 MR#: [id number] Acct: [id number] Name: ANGELITA SUTTON Rep #: [id number] : 2000 Provider: MARIANNA cardoza Age/Sex: 23/F Location: [facility] Status: Signed Intake Vital Signs 09/04/24 08:50 09/29/24 14:56 10/27/24 13:59 Height 5 ft 11 in 5 ft 11 in 5 ft 11 in Weight: 289 lb BMI 40.3 BP 138/79 H Intake Visit Reasons: 16wk ob Chief Complaint: 16wk ob Wet Mixer Required: No Is patient in pain?: No [...] 07/01/24 : No PFSH PFSH Surgical History Llewellyn teeth removed S/P tonsillectomy Family History Father Hypothyroid Grandmother Callaway disease Grandmother Diabetes Hypertension Kidney failure Social History adopted: No household members: spouse and other details: step son 's ex current occupational status: employed 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 Normal [facility] - Chemistry and C hemistry - challengeOrdered By: Tabitha Byrnes on 09-29-2024 Glucose Ql (U) Negative [facility] - UrinalysisOrder ed By: Tabitha Byrnes on 09-29-2024 Protein Ql (U) Negative [facility] Office Visit Reporton 09-29-2024 Board[facility] Office Visit Report [facility] [address], [address] [place] [address] OFFICE VISIT Date of Service: 09/29/24 MR#: [id number] Acct: [id number] Name: ANGELITA SUTTON Rep #: [id number] : 2000 Provider: Dr. Tabitha goldman MD Age/Sex: 23/F Location[facility] Status: Signed Intake Vital Signs 09/04/24 08:50 09/29/24 14:53 09/29/24 14:56 Height 5 ft 11 in 5 ft 11 in 5 ft 11 in Weight: 295 lb 6 oz BMI 41.1 BP 130/82 H Intake Visit Reasons: 12wk ob Wet Mixer Required: No Is patient in pain?: No [...] Negative : No PFSH PFSH Surgical History Llewellyn teeth removed S/P tonsillectomy Family History Father Hypothyroid Grandmother Bhanu disease Grandmother Diabetes Hypertension Kidney failure Social History adopted: No household members: spouse and other details: step son 's ex current occupational status: employed 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 Normal [facility] Chlamydia/GC JR aptimaon CHLAMY,NUC ACID Negative [facility] Comment on above: Performed By: #### B TS, L3890.6102, L3890.6301, L509.4006, L509.8002, L100.0100, L3890.6006, L501.9985 #### [facility] [address] [place], [place], [id number] GC BY NUC ACID Negative [facility] Comment on above: Performed By: #### B TS, L3890.6102, L3890.6301, L509.4006, L509.8002, L100.0100, L3890.6006, L501.9985 #### [facility] [address] [place], [place], [id number] PAP I-G w/rfx hrHPV-Aptimaon 09-07-2024 ADEQ Comment Normal . [facility] Comment on above: Order Comment: Speci men Comment: [id number] Comment: No. of containers..01 ThinPrep Vial Result Comment: Sati sfactory for evaluation. No endocervical component is identified. Performed By: #### B TS, L3890.6102, L3890.6301, L509.4006, L509.8002, L100.0100, L3890.6006, L501.9985 #### [facility] [address] [place], [address] COMM . Normal . [facility] Comment on above: Order Comment: Speci men Comment: [id number] Comment: No. of containers..01 ThinPrep Vial Performed By: #### B TS, L3890.6102, L3890.6301, L509.4006, L509.8002, L100.0100, L3890.6006, L501.9985 #### [facility] [address] [place], [place], [id number] COMMENT Comment Normal . [facility] Comment on above: Order Comment: Speci men Comment: [id number] Comment: No. of containers..01 ThinPrep Vial Result Comment: This liquid based ThinPrep(R) pap test was screened with the use of an image guided system. Performed By: #### B TS, L3890.6102, L3890.6301, L509.4006, L509.8002, L100.0100, L3890.6006, L501.9985 #### [facility] [address] [place], [place], [id number] DIAG Comment Normal . [facility] Comment on above: Order Comment: Speci men Comment: [id number] Comment: No. of containers..01 ThinPrep Vial Result Comment: NEGA TIVE FOR INTRAEPITHELIAL LESION OR MALIGNANCY. Performed By: #### B TS, L3890.6102, L3890.6301, L509.4006, L509.8002, L100.0100, L3890.6006, L501.9985 #### [facility] [address] [place], [place], [id number] HPV RFLX Comment Normal . [facility] Comment on above: Order Comment: Speci men Comment: [id number] Comment: No. of containers..01 ThinPrep Vial Result Comment: The HPV DNA reflex criteria were not met with this specimen result therefore, no HPV testing was performed. Performed at: [address] [id number] Sales Associate Fishing: Brigette George MD, Phone: [phone] Performed By: #### B TS, L3890.6102, L3890.6301, L509.4006, L509.8002, L100.0100, L3890.6006, L501.9985 #### [facility] [address] [place], [place], [id number] PAPSMR Comment Normal . [facility] Comment on above: Order Comment: Speci men Comment: [id number] Comment: No. of containers..01 ThinPrep Vial Result [...] L3890.6301, L509.4006, L509.8002, L100.0100, L3890.6006, L501.9985 #### [facility] [address] [place], [place], [id number] PERFORM Comment Normal . [facility] Comment on above: Order Comment: Speci men Comment: [id number] Comment: No. of containers..01 ThinPrep Vial Result Comment: Oly Santacruz, Bleacher Operator (ASCP) Performed By: #### B TS, L3890.6102, L3890.6301, L509.4006, L509.8002, L100.0100, L3890.6006, L501.9985 #### [facility] [address] [place], [place], [id number] Urine Cultureon 09-05-2024 URC Culture exhibits no growth. Normal [facility] Comment on above: Performed By: #### B TS, L3890.6102, L3890.6301, L509.4006, L509.8002, L100.0100, L3890.6006, L501.9985 #### [facility] [address] [place], [place], [id number] Absolute lymphocyte countOrd ered By: Angelica Maldonado on 09-04-2024 Lymphocytes Auto (Unsp spec) [#/Vol] 1.88 10*3/uL 0.83-4.51 [facility] Absolute neutrophil countOrd ered By: Angelica Maldonado on 09-04-2024 Neutrophils (Bld) [#/Vol] 9.3 10*3/uL High 2.0-7.7 [facility] Automated lymphocyte count a s percentage of total leukocytesOrdered By: Angelica Maldonado on 09-04-2024 Lymphocytes/100 WBC Auto (Unsp spec) 15.8 % Low 19-41 [facility] Basophil percentageOrdered B y: Angelica Maldonado on 09-04-2024 Basophils/100 WBC (Bld) 0.3 % 0-1 [facility] CBC W/Diff, Automatedon 05 Absolute Lymph 1.88 X10 3/uL Normal 0.83-4.51 [facility] Comment on above: Performed By: #### B TS, L3890.6102, L3890.6301, L509.4006, L509.8002, L100.0100, L3890.6006, L501.9985 #### [facility] [address] [place], [address] Absolute Neut 9.3 X10 3/uL High 2.0-7.7 [facility] Comment on above: Performed By: #### B TS, L3890.6102, L3890.6301, L509.4006, L509.8002, L100.0100, L3890.6006, L501.9985 #### [facility] [address] [place], [address] Basophils/100 WBC (Bld) 0.3 % Normal 0-1 [facility] Comment on above: Performed By: #### B TS, L3890.6102, L3890.6301, L509.4006, L509.8002, L100.0100, L3890.6006, L501.9985 #### [facility] [address] [place], [address] Eosinophils/100 WBC (Bld) 0.3 % Normal 0-5 [facility] Comment on above: Performed By: #### B TS, L3890.6102, L3890.6301, L509.4006, L509.8002, L100.0100, L3890.6006, L501.9985 #### [facility] [address] [place], [address] Erythrocyte distribution width (RBC) [Ratio] 12.8 % Normal 11.6-14.6 [facility] Comment on above: Performed By: #### B TS, L3890.6102, L3890.6301, L509.4006, L509.8002, L100.0100, L3890.6006, L501.9985 #### [facility] [address] [place], [address] Hematocrit (Bld) [Volume fraction] 40.6 % Normal 37-47 [facility] Comment on above: Performed By: #### B TS, L3890.6102, L3890.6301, L509.4006, L509.8002, L100.0100, L3890.6006, L501.9985 #### [facility] [address] [place], [address] Hemoglobin (Bld) [Mass/Vol] 14.2 g/dL Normal 12.0-15.0 [facility] Comment on above: Performed By: #### B TS, L3890.6102, L3890.6301, L509.4006, L509.8002, L100.0100, L3890.6006, L501.9985 #### [facility] [address] [place], [address] IG% 0.600 Normal 0.0-0.9 [facility] Comment on above: Result Comment: IG% - Immature Granulocytes (promyelocytes, myelocytes and metamyelocytes) > 1% indicates that a LEFT SHIFT is Present. Performed By: #### B TS, L3890.6102, L3890.6301, L509.4006, L509.8002, L100.0100, L3890.6006, L501.9985 #### [facility] [address] [place], [address] Lymphocytes/100 WBC (Bld) 15.8 % Low 19-41 [facility] Comment on above: Performed By: #### B TS, L3890.6102, L3890.6301, L509.4006, L509.8002, L100.0100, L3890.6006, L501.9985 #### [facility] [address] [place], [address] MCH (RBC) [Entitic mass] 29.1 pg Normal 27.0-32.0 [facility] Comment on above: Performed By: #### B TS, L3890.6102, L3890.6301, L509.4006, L509.8002, L100.0100, L3890.6006, L501.9985 #### [facility] [address] [place], [address] MCHC (RBC) [Mass/Vol] 35.0 g/dL Normal 32-36 [facility] Comment on above: Performed By: #### B TS, L3890.6102, L3890.6301, L509.4006, L509.8002, L100.0100, L3890.6006, L501.9985 #### [facility] [address] [place], [address] MCV (RBC) [Entitic vol] 83.2 fL Normal 81-99 [facility] Comment on above: Performed By: #### B TS, L3890.6102, L3890.6301, L509.4006, L509.8002, L100.0100, L3890.6006, L501.9985 #### [facility] [address] [place], [address] Monocytes/100 WBC (Bld) 4.8 % Normal 0-10 [facility] Comment on above: Performed By: #### B TS, L3890.6102, L3890.6301, L509.4006, L509.8002, L100.0100, L3890.6006, L501.9985 #### [facility] [address] [place], [address] Neutrophils/100 WBC (Bld) 78.2 % High 47-70 [facility] Comment on above: Performed By: #### B TS, L3890.6102, L3890.6301, L509.4006, L509.8002, L100.0100, L3890.6006, L501.9985 #### [facility] [address] [place], [address] Nucleated RBC (Bld) [#/Vol] 0 10*3/uL Normal 0-5 [facility] Comment on above: Performed By: #### B TS, L3890.6102, L3890.6301, L509.4006, L509.8002, L100.0100, L3890.6006, L501.9985 #### [facility] [address] [place], [address] Platelet mean volume (Bld) [Entitic vol] 10.1 fL Normal 6.2-12.0 [facility] Comment on above: Performed By: #### B TS, L3890.6102, L3890.6301, L509.4006, L509.8002, L100.0100, L3890.6006, L501.9985 #### [facility] [address] [place], [address] Platelets (Bld) [#/Vol] 339 10*3/uL Normal 150-450 [facility] Comment on above: Performed By: #### B TS, L3890.6102, L3890.6301, L509.4006, L509.8002, L100.0100, L3890.6006, L501.9985 #### [facility] [address] [place], [address] RBC (Bld) [#/Vol] 4.88 10*6/uL Normal 4.2-5.4 [facility] Comment on above: Performed By: #### B TS, L3890.6102, L3890.6301, L509.4006, L509.8002, L100.0100, L3890.6006, L501.9985 #### [facility] [address] [place], [address] RDW SD 38.9 fl Normal 35.1-43.9 [facility] Comment on above: Performed By: #### B TS, L3890.6102, L3890.6301, L509.4006, L509.8002, L100.0100, L3890.6006, L501.9985 #### [facility] [address] [place], [address] WBC (Bld) [#/Vol] 11.9 10*3/uL High 4.4-11.0 [facility] Comment on above: Performed By: #### B TS, L3890.6102, L3890.6301, L509.4006, L509.8002, L100.0100, L3890.6006, L501.9985 #### [facility] [address] [place], [place], [id number] Cervical or vagninal specime n microscopic examination by cytology stain (reported asOrdered By: Angelica Maldonado on 09-04-2024 Cytology report Cyto stain Doc (Cvx/Vag) Comment . [facility] Comment on above: The Pap smear is [...] trachomatis rRNA JR+probe Ql (Unsp spec) Negative [facility] Eosinophil percentageOrdered By: Angelica Maldonado on 09-04-2024 Eosinophils/100 WBC (Bld) 0.3 % 0-5 [facility] Erythrocyte distribution wid th ratioOrdered By: Angelica Maldonado on 09-04-2024 Erythrocyte distribution width (RBC) [Ratio] 12.8 % 11.6-14.6 [facility] Erythrocyte distribution wid th standard deviationOrdered By: Angelica Maldonado on 09-04-2024 Erythrocyte distribution width (RBC) [Ratio] 38.9 fl 35.1-43.9 [facility] HIVon 09-04-2024 HIV Non-Reactive Normal Nonreactive [facility] Comment on above: Result Comment: Non- Reactive Reactive Repeatedly reactive samples must be confirmed according to CDC recommended confirmatory algorithms. The subresults for either HIVAG or AHIV can be used as an aid in the selection of the confirmation algorithm for reactive samples. Send out specimens with Reactive results to [facility] for confirmation. Order the HIV antibody detection and differentiation: [id number] Performed By: #### B TS, L3890.6102, L3890.6301, L509.4006, L509.8002, L100.0100, L3890.6006, L501.9985 #### [facility] [address] [place], [place], [id number] Hematocrit Auto (Bld) [Volum e fraction]Ordered By: Angelica Maldonado on 09-04-2024 Hematocrit (Bld) [Volume fraction] 40.6 % 37-47 [facility] Hemoglobin A1con 09-04-2024 HbA1c (Bld) [Mass fraction] 5.1 % Normal <=5.6 [facility] Comment on above: Result Comment: Norm al < 5.7 % Prediabetic 5.7 - 6.4 % Diabetic >or= 6.5 % Please note range changes. Performed By: #### B TS, L3890.6102, L3890.6301, L509.4006, L509.8002, L100.0100, L3890.6006, L501.9985 #### [facility] [address] [place], [address] Hemoglobin A1c percentageOrd ered By: Angelica Maldonado on 09-04-2024 HbA1c (Bld) [Mass fraction] 5.1 % <5.7 [facility] Comment on above: Normal < 5.7 % Predi abetic 5.7 - 6.4 % Diabetic >or= 6.5 % Please note range changes. Hemoglobin measurementOrdere d By: Angelica Maldonado on 09-04-2024 Hemoglobin (Bld) [Mass/Vol] 14.2 g/dL 12.0-15.0 [facility] Hepatitis C Antibodyon 09-04 Hepatitis C Ab Non-Reactive Normal Nonreactive [facility] Comment on above: Result Comment: Reac tive: Presumptive evidence of antibodies to HCV. Follow CDC recommendations for supplemental testing. Non-Reactive: Antibodies to HCV were not detected; does not exclude the possibility of exposure to HCV Reactive Results are presumptive evidence of antibodies to HCV. Follow CDC recommendations for supplemental testing. Order confirmation testing: HCV Quant by PCR testing - HCVPCR #[id number] Non Reactive: < 0.8 Equivocal: >/= 0.8 to < 1.0 Reactive: >/= 1.0 The [facility] requires that a reactive/equivocal HCV antibody result be sent out for confirmation. HCV Quant by PCR testing. Performed By: #### B TS, L3890.6102, L3890.6301, L509.4006, L509.8002, L100.0100, L3890.6006, L501.9985 #### [facility] [address] [place], [place], [id number] Immature granulocytes/100 WB C Auto (Bld)Ordered By: Angelica Maldonado on 09-04-2024 Immature granulocytes/100 WBC (Bld) 0.600 % 0.0-0.9 [facility] Comment on above: IG% - Immature Granu locytes (promyelocytes, myelocytes and metamyelocytes) > 1% indicates that a LEFT SHIFT is Present. L3890.6102on 09-04-2024 HEP B Surf Ag Non-Reactive Normal Nonreactive [facility] Comment on above: Result Comment: Reac tive: Presumptive evidence of HBV. Repeatedly reactive samples must be confirmed using a neutralization test ([employer] HBsAg Confirmatory Test) Non-Reactive: HBsAg not detected; does not exclude the possibility of exposure to HBV Performed By: #### B TS, L3890.6102, L3890.6301, L509.4006, L509.8002, L100.0100, L3890.6006, L501.9985 #### [facility] [address] [place], [place], [id number] L509.4006on 09-04-2024 Rubella IgG REAC Normal Nonreactive [facility] Comment on above: Result Comment: Anti body Result: Interpretation Non-Reactive: Non-Immune Reactive: Immune The following results were obtained with the Elecsys Rubella IgG assay. Results from assays of other manufacturers cannot be used interchangeably. Performed By: #### B TS, L3890.6102, L3890.6301, L509.4006, L509.8002, L100.0100, L3890.6006, L501.9985 #### [facility] [address] [place], [address] Laboratory - CytologyOrdered By: Angelica Maldonado on 09-04-2024 Bleacher Operator Cyto stain Nom (Cvx/Vag) [ID] Comment . [facility] Comment on above: Lashonda Domínguez ytologist ([facility]) Laboratory - Microbiology an d Antimicrobial susceptibilityOrdered By: Angelica Maldonado on 09-04-2024 HBV surface Ag Ql (S) Non-Reactive Nonreactive [facility] Comment on above: Reactive: Presumptiv e evidence of HBV. Repeatedly reactive samples must be confirmed using a neutralization test (Elecsys HBsAg Confirmatory Test)Non-Reactive: HBsAg not detected; does not exclude the possibility of exposure to HBV Laboratory - Miscellaneous t estsOrdered By: Angelica Maldonado on 09-04-2024 Service comment (Unsp spec) [Interp] . . [facility] MCV (mean corpuscular volume ) determinationOrdered By: Angelica Maldonado on 09-04-2024 MCV (RBC) [Entitic vol] 83.2 fL 81-99 [facility] Mean corpuscular hemoglobin (MCH) determinationOrdered By: Angelica Maldonado on 09-04-2024 MCH (RBC) [Entitic mass] 29.1 pg 27.0-32.0 [facility] Mean corpuscular hemoglobin concentration (MCHC) determinationOrdered By: Angelica Maldonado on 09-04-2024 MCHC (RBC) [Mass/Vol] 35.0 g/dL 32-36 [facility] Mean platelet volume determi nationOrdered By: Angelica Maldonado on 09-04-2024 Platelet mean volume (Bld) [Entitic vol] 10.1 fL 6.2-12.0 [facility] Monocyte percentageOrdered B y: Angelica Maldonado on 09-04-2024 Monocytes/100 WBC (Bld) 4.8 % 0-10 [facility] Neisseria gonorrhoeae nuclei c acid detection by amplified probe techniqueOrdered By: Angelica Maldonado on 09-04-2024 N. gonorrhoeae DNA JR+probe Ql (Unsp spec) Negative [facility] Neutrophil percentageOrdered By: Angelica Maldonado on 09-04-2024 Neutrophils/100 WBC (Bld) 78.2 % High 47-70 [facility] No Panel InformationOrdered By: Angelica Maldonado on 09-04-2024 Pap Smear Specimen Adequacy Comment . [facility] Comment on above: Satisfactory for ruben luation. No endocervical component is identified. HIV (1&2) Antibody Non-Reactive Nonreactive [facility] Comment on above: Non-ReactiveReactive Repeatedly reactive samples must be confirmed according to CDC recommended confirmatory algorithms. The subresults for either HIVAG or AHIV can be used as an aid in the selection of the confirmation algorithm for reactive samples.Send out specimens with Reactive results to [facility] for confirmation.Order the HIV antibody detection and differentiation: [id number] Nucleated red blood cell per centageOrdered By: Angelica Maldonado on 09-04-2024 Nucleated RBC/100 WBC (Bld) [Ratio] 0 % 0-5 [facility] [employer] Office Visit Reporton 09-04-2024 [facility] Office Visit Report [facility] [address], [address] [place] [address] OFFICE VISIT Date of Service: 09/04/24 MR#: [id number] Acct: [id number] Name: ANGELITA SUTTON Rep #: [id number] : 2000 Provider: MARIANNA Mascorro ams Age/Sex: 23/F Location: [facility] Status: Signed Intake Vital Signs 08/18/24 13:40 09/04/24 08:50 Height 5 ft 11 in 5 ft 11 in Weight: 294 lb 2 oz BMI 41.0 BP 124/84 H Intake Visit Reasons: NOB:LMP 3/ ARAM 04/07 Do NOT shorten per KW Chief Complaint: New OB Wet Mixer Required: No Is patient in pain?: No [...] past year?: No PFSH PFSH Surgical History Llewellyn teeth removed S/P tonsillectomy Family History Father Hypothyroid Grandmother Callaway disease Grandmother Diabetes Hypertension Kidney failure Social History adopted: No household members: spouse and other details: step son 's ex current occupational status: employed 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 Normal [facility] Platelet countOrdered By: Ezra Maldonado on 09-04-2024 Platelets (Bld) [#/Vol] 339 10*3/uL 150-450 [facility] RBC Auto (Bld) [#/Vol]Ordere d By: Angelica Maldonado on 09-04-2024 RBC (Bld) [#/Vol] 4.88 10*6/uL 4.2-5.4 [facility] Syphilis Antibodieson 2024 Syphilis Abs Non-Reactive Normal Nonreactive [facility] Comment on above: Performed By: #### B TS, L3890.6102, L3890.6301, L509.4006, L509.8002, L100.0100, L3890.6006, L501.9985 #### [facility] [address] [place], [address] Type AND Screenon 09-04-2024 ABO and Rh group Nom (Bld) Blood group A Rh(D) positive Normal [facility] Comment on above: Order Comment: PN Performed By: #### B TS, L3890.6102, L3890.6301, L509.4006, L509.8002, L100.0100, L3890.6006, L501.9985 #### [facility] [address] [place], [address] Urine cultureOrdered By: Lakhwinder Maldonado on 09-04-2024 Bacteria identified Cx Nom (U) Culture exhibits no growth. [facility] White blood cell (WBC) count Ordered By: Angelica Maldonado on 09-04-2024 WBC (Bld) [#/Vol] 11.9 10*3/uL High 4.4-11.0 [facility] - Chemistry and C hemistry - challengeOrdered By: Angelica Maldonado on 08-18-2024 HCG ( test) Ql (U) Positive [facility] Office Visit Reporton 2024 Office Visit Report [facility] [address] [place] [address] OFFICE VISIT Date of Service: 08/18/24 MR#: [id number] Acct: [id number] Patient: ANGELITA SUTTON Rep #: [id number] : 2000 Provider: MARIANNA Mascorro ams Age/Sex: 23/F Location: [facility] Status: Signed Intake Vital Signs 08/18/24 13:40 Height 5 ft 11 in Weight: 301 lb 4 oz BMI 42.0 BP 122/76 H Intake Visit Reasons: PNOB nurse visit Wet Mixer Required: No Accompanied by: Allergies No Known [...] , Urine Positive Last Edit by Mayela Nova RN on 08/18/24 13:53 Assessment and Plan [...] Venegas Signature: Date (if applicable) CC: Normal [facility] ED Prov Noteon 12-15-2023 ED Prov Note ED PROVIDER NOTE [facility] EMERGENCY DEPARTMENT NAME: Angelita Johnson AGE: 23 y.o. : 2000 VISIT DATE: 12/15/2023 CSN: [id number] PCP: Daquan Hills DO Chief Complaint Patient [...] BY LIDIA KRUGER, ON 12/15/2023 12:57:[address] [facility] POC , URINE - RALSo n 12-15-2023 Beta HCG ( test) Ql (U) Negative Normal Negative [facility] Comment on above: Order Comment: Negat raymon: Dilute urine specimens, as indicated by a low specific gravity (<1.010) may not contain representitive levels of hCG. If is still suspected, a serum test or repeat urine test using a first morning urine specimen should be considered. POC URINALYSIS DIPSTICK,AUTO - RALSon 12-15-2023 POC BILIRUBIN, URINE Negative Normal Negative [facility] POC BLOOD, URINE Trace-intact Abnormal Negative [facility] POC GLUCOSE, URINE Negative Normal Negative [facility] POC KETONES, URINE Negative Normal Negative [facility] POC LEUKOCYTE ESTERASE, URINE Small Abnormal Negative [facility] POC NITRITE, URINE Negative Normal Negative [facility] POC PH, URINE 7.0 Normal 5.0-7.0 [facility] POC PROTEIN, URINE Negative Normal Negative [facility] POC SPECIFIC GRAVITY 1.020 Normal 1.005-1.025 [facility] POC UROBILINOGEN 0.2 mg/dL Normal < 2.0 [facility] [place] URINE AEROBIC CULTUREon 12-01 URINE AEROBIC CULTURE URINE CULTURE > 10,000 CFU/mL mixture of normal urogenital microbiota Normal [facility] Comment on above: Performed By: #### 4 [id number] #### [facility] [address] [place] [address] Sukhi Amaro M.D. [id number] ED Prov Noteon 11-01-2023 ED Prov Note [...] ------- PAST HISTORY ------- Past Medical History: @[facility]@ Past Surgical History: has no past surgical [...] Follow-up: Trent Leblanc MD [address] [facility] [id number] In 3 days Final Impression: 1. Subacromial bursitis of right shoulder joint (Please note that portions of this note were completed with a voice recognition program. Efforts were made to edit the dictations but occasionally words are mis-transcribed.) G (more content not included)... Normal [facility] COVID-19, MOLECULARon 2023 SARS-CoV-2 (COVID-19) Ab IA Ql Detected Abnormal Not Detected [facility] Comment on above: Result Comment: Test ing was performed using the [place] ID NOW COVID-19 assay on the ID NOW platform. This test has not been approved for use in asymptomatic patients and its performance in this patient population has not been evaluated. Negative results do not rule out the presence of SARS-CoV-2/COVID-19. Influenza virus A and B and SARS-CoV-2 (COVID-19) identified JR+probe Nom (Resp)on 03-12-2023 FLUAV RNA JR+probe Ql (Resp) Not detected Not Detected [facility] FLUBV RNA JR+probe Ql (Resp) Not detected Not Detected [facility] Interpretation and review of laboratory results Normal [facility] SARS-CoV-2 (COVID-19) RNA JR+probe Ql (Resp) Not detected Not Detected [facility] This assay has received FDA Emergency Use [...] and has been validated for use at [facility]. Negative results do not preclude COVID-19 infections or Influenza A/B infections, and should not be used as the sole basis for diagnosis, treatment, or other management decisions. If Influenza A/B and RSV PCR results are negative, testing for Parainfluenza virus, Adenovirus and Metapneumovirus is routinely performed for [facility] pediatric oncology and intensive care inpatients, and is available on other patients by placing an add-on request. [facility] Influenza virus A and B and SARS-CoV-2 (COVID-19) identified JR+probe Nom (Resp)on 03-11-2023 FLUAV RNA JR+probe Ql (Resp) Not detected Normal Not Detected [facility] Comment on above: Order Comment: [...] and has been validated for use at [facility]. Negative results do not preclude COVID-19 infections or Influenza A/B infections, and should not be used as the sole basis for diagnosis, treatment, or other management decisions. If Influenza A/B and RSV PCR results are negative, testing for Parainfluenza virus, Adenovirus and Metapneumovirus is routinely performed for [facility] pediatric oncology and intensive care inpatients, and is available on other patients by placing an add-on request. Performed By: #### 9 [id number] #### CATHY Parekh ([id number]) [facility] ([facility]) [address] [place] [address] FLUBV RNA JR+probe Ql (Resp) Not detected Normal Not Detected [facility] Comment on above: Order Comment: [...] and has been validated for use at [facility]. Negative results do not preclude COVID-19 infections or Influenza A/B infections, and should not be used as the sole basis for diagnosis, treatment, or other management decisions. If Influenza A/B and RSV PCR results are negative, testing for Parainfluenza virus, Adenovirus and Metapneumovirus is routinely performed for [facility] pediatric oncology and intensive care inpatients, and is available on other patients by placing an add-on request. Performed By: #### 9 [id number] #### CATHY Parekh ([id number]) [facility] ([facility]) [address] [place] [address] SARS-CoV-2 (COVID-19) RNA JR+probe Ql (Resp) Not detected Normal Not Detected [facility] Comment on above: Order Comment: [...] and has been validated for use at [facility]. Negative results do not preclude COVID-19 infections or Influenza A/B infections, and should not be used as the sole basis for diagnosis, treatment, or other management decisions. If Influenza A/B and RSV PCR results are negative, testing for Parainfluenza virus, Adenovirus and Metapneumovirus is routinely performed for [facility] pediatric oncology and intensive care inpatients, and is available on other patients by placing an add-on request. Performed By: #### 9 [id number] #### CATHY Parekh ([id number]) [facility] ([facility]) [address] [place] [address] CHEST 1 VIEWon 06-18-2021 CHEST 1 VIEW Patient Name: ANGELITA JOHNSON STUDY: CHEST 1 VIEW; 06/18/2021 1:18 pm INDICATION: sob . COMPARISON: None. ACCESSION NUMBER(S): [id number] ORDERING CLINICIAN: MINDY CRUZ FINDINGS: The heart is not enlarged. No infiltrate, pleural effusion or pneumothorax is seen. IMPRESSION: Electronically signed by: ROSA KERR MD [facility] Provider Note - ED v3on 06-03 Provider Note - ED v3 Provider Note: Chart Review: ED NOTES ED NOTES: ====HPI==== Patient is an 20-year-old female who presents to the emergency department for a rash and shortness of breath. 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 Minor errors in real estate professional may be present. Please call if questions.. HISTORY OF PRESENTING ILLNESS ANGELITA is a 20 year old Female and was seen by me at 18-Jun-2021 12:53 for a chief complaint of multiple medical complaints (Brought to ED per [facility] from school. 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 She started [...] rate of [address] elevation. AK interval is 174 ms and QRS duration is 94 ms. DISPOSITION Diagnosis/Annotatio n: ED Dx Name:Allergic reaction Code:T78.40XA Disposition: discharged (more content not included)... Normal [facility] Triage - EDon 06-18-2021 Triage - ED Quick Triage: Are You no Have You Given In The Last 6 Weeksno Are You Currently Breastfeedingno The patient and/or guardian verbally acknowledges placement for services into the following (when Urgent Care Service hours are operating):emergenc y department Chart Review: ARRIVAL INFORMATION Mode of Arrival: ambulance Agency: [facility] Agency Name: [facility] CHIEF COMPLAINT ANGELITA JOHNSON is a Female patient with a chief complaint of multiple medical complaints (Brought to ED per [facility] squad from school. 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 She started [...] Updated: 18-Jun-2021 13:06 by Miladis Dean (RN) [facility] MRI Knee w/o Contrast Righto n 02-04-2018 MRI Knee w/o Contrast Right Exam Date/Time: 02/04/2018 08:09 EDT Reason for Exam: RIGHT KNEE PAIN RIGHT KNEE INTERNAL DERANGEMENT PT WANTS TO GO FEET FIRST;Internal derangement Report STUDY: MRI of the KNEEknee dated 02/04/2018. INDICATION: Internal derangement COMPARISON: None. ACCESSION NUMBER(S): [id number]. ORDERING CLINICIAN: Mango Whiteside. TECHNIQUE: Multiplanar multisequence [...] Signed by: Wade Ivy MD Technologist: MONICO [facility] XR Knee Complete Righton XR Knee Complete Right Exam Date/Time: 01/28/2018 10:18 EDT Reason for Exam: Pain, Non Traumatic Report STUDY: XR Knee Complete Right; 01/28/2018 10:18 am INDICATION: Volleyball injury 2 weeks ago; knee pain COMPARISON: 02/04/2016 ACCESSION NUMBER(S): [id number] ORDERING CLINICIAN: Reyna Mark FINDINGS: Compared to the prior examination, no fracture or joint effusion is identified. IMPRESSION: Unremarkable radiographic appearance of the right knee. FINAL REPORT Dictated: 01/28/2018 10:48 am Maribel Hilton MD Signed (Electronic Signature): 01/28/2018 10:48 am Signed by: Maribel Hilton MD Technologist: TAMMY [facility] Vital Signs Date Time Vital Sign Value Performing Clinician Facility 02-13-2025 13:53-0400 Body height 180.[address] Dorys Dow DO Work Phone: [facility] 02-13-2025 13:53-0400 Body mass index (BMI) [Ratio] 42.8 kg/m2 Dr. Dorys Dow DO Work Phone: [facility] 02-13-2025 13:53-0400 Body weight 139.[address] Dorys Dow DO Work Phone: [facility] 02-13-2025 13:53-0400 Diastolic blood pressure 68 mm[Hg] Dr. Dorys Dow DO Work Phone: [facility] 02-13-2025 13:53-0400 Systolic blood pressure 116 mm[Hg] Dr. Dorys Dow DO Work Phone: [facility] 01-29-2025 10:51-0400 Body height 180.[address] Dorys Dow DO Work Phone: [facility] 01-29-2025 10:50-0400 Body mass index (BMI) [Ratio] 42.3 kg/m2 Dr. Dorys Dow DO Work Phone: [facility] 01-29-2025 10:50-0400 Body weight 137.[address] Dorys Dow DO Work Phone: [facility] 01-29-2025 10:50-0400 Diastolic blood pressure 83 mm[Hg] Dr. Dorys Dow DO Work Phone: [facility] 01-29-2025 10:50-0400 Systolic blood pressure 131 mm[Hg] Dr. Dorys Dow DO Work Phone: [facility] 01-15-2025 10:04-0400 Body height 180.[address] Dorys Dow DO Work Phone: [facility] 01-15-2025 09:52-0400 Body mass index (BMI) [Ratio] 42 kg/m2 Dr. Dorys Dow DO Work Phone: [facility] 01-15-2025 09:52-0400 Body weight 136.[address] Dorys Dow DO Work Phone: [facility] 01-15-2025 09:52-0400 Diastolic blood pressure 84 mm[Hg] Dr. Dorys Dow DO Work Phone: [facility] 01-15-2025 09:52-0400 Systolic blood pressure 118 mm[Hg] Dr. Dorys Dow DO Work Phone: [facility] 12-19-2024 11:06-0400 Body height 180.34 cm Angelica Maldonado CNM Work Phone: [facility] 12-19-2024 11:06-0400 Body mass index (BMI) [Ratio] 41.8 kg/m2 Angelica Maldonado CNM Work Phone: [facility] 12-19-2024 11:06-0400 Body weight 136.24 kg Angelica Maldonado CNM Work Phone: [facility] 12-19-2024 11:06-0400 Diastolic blood pressure 75 mm[Hg] Angelica Maldonado CNM Work Phone: [facility] 12-19-2024 11:06-0400 Systolic blood pressure 117 mm[Hg] Angelica Maldonado CNM Work Phone: [facility] 11-20-2024 09:23-0400 Body height 180.34 cm Angelica Maldonado CNM Work Phone: [facility] 11-20-2024 09:21-0400 Body mass index (BMI) [Ratio] 41.8 kg/m2 Angelica Maldonado CNM Work Phone: [facility] 11-20-2024 09:21-0400 Body weight 136.07 kg Angelica Maldonado CNM Work Phone: [facility] 11-20-2024 09:21-0400 Diastolic blood pressure 82 mm[Hg] Angelica Maldonado CNM Work Phone: [facility] 11-20-2024 09:21-0400 Systolic blood pressure 139 mm[Hg] Angelica Maldonado CNM Work Phone: [facility] 10-27-2024 13:59-0400 Body height 180.34 cm Angelica Maldonado CNM Work Phone: [facility] 10-27-2024 13:59-0400 Body mass index (BMI) [Ratio] 40.3 kg/m2 Angelica Maldonado CNM Work Phone: [facility] 10-27-2024 13:59-0400 Body weight 131.08 kg Angelica Maldonado CNM Work Phone: [facility] 10-27-2024 13:59-0400 Diastolic blood pressure 79 mm[Hg] Angelica Maldonado CNM Work Phone: [facility] 10-27-2024 13:59-0400 Systolic blood pressure 138 mm[Hg] Angelica Maldonado CNM Work Phone: [facility] 09-29-2024 14:56-0400 Body height 180.34 cm Angelica Maldonado CNM Work Phone: [facility] 09-29-2024 14:53-0400 Body mass index (BMI) [Ratio] 41.1 kg/m2 Angelica Maldonado CNM Work Phone: [facility] 09-29-2024 14:53-0400 Body weight 133.97 kg Angelica Maldonado CNM Work Phone: [facility] 09-29-2024 14:53-0400 Diastolic blood pressure 82 mm[Hg] Angelica Maldonado CNM Work Phone: [facility] 09-29-2024 14:53-0400 Systolic blood pressure 130 mm[Hg] Angelica Maldonado CNM Work Phone: [facility] 09-04-2024 08:50-0400 Body height 180.34 cm Angelica Maldonado CNM Work Phone: [facility] 09-04-2024 08:50-0400 Body mass index (BMI) [Ratio] 41 kg/m2 Angelica Maldonado CNM Work Phone: [facility] 09-04-2024 08:50-0400 Body weight 133.41 kg Angelica Maldonado CNM Work Phone: [facility] 09-04-2024 08:50-0400 Diastolic blood pressure 84 mm[Hg] Angelica Maldonado CNM Work Phone: [facility] 09-04-2024 08:50-0400 Systolic blood pressure 124 mm[Hg] Angelica Maldonado CNM Work Phone: [facility] 08-18-2024 13:40-0400 Body mass index (BMI) [Ratio] 42 kg/m2 Angelica Maldonado CNM Work Phone: [facility] 08-18-2024 13:40-0400 Body weight 136.64 kg Angelica Maldonado CNM Work Phone: [facility] 08-18-2024 13:40-0400 Diastolic blood pressure 76 mm[Hg] Angelica Maldonado CNM Work Phone: [facility] 08-18-2024 13:40-0400 Systolic blood pressure 122 mm[Hg] Angelica Joel CABRAL Work Phone: [facility] 03-11-2023 14:55-0500 Body height 180.3 cm Jay Newbill PA-C Work Phone: [facility] 03-11-2023 14:55-0500 Body mass index (BMI) [Ratio] 41.69 kg/m2 Jay Newbill PA-C Work Phone: [facility] 03-11-2023 14:55-0500 Body temperature 97.5 [degF] Jay Newbill PA-C Work Phone: [phone] [place] [address] 03-11-2023 14:55-0500 Body weight 135.58 kg Jay Newbill PA-C Work Phone: [facility] 03-11-2023 14:55-0500 Diastolic blood pressure 82 mm[Hg] Jay Newbill PA-C Work Phone: [facility] 03-11-2023 14:55-0500 Heart rate 104 /min Jay Newbill PA-C Work Phone: [facility] [facility]11[facility]23 14:55-0500 SaO2% (BldA) [Mass fraction] 98 % Jay Newbill PA-C Work Phone: [facility] 03-11-2023 14:55-0500 Systolic blood pressure 136 mm[Hg] Jay Newbill PA-C Work Phone: [facility] 2022 10:05-0400 Body height 180.3 cm Daquan Aguillonerhauser DO Work Phone: [facility] 2022 10:05-0400 Body mass index (BMI) [Ratio] 39.75 kg/m2 Daquan Oberhauser DO Work Phone: [facility] 2022 10:05-0400 Body weight 129.28 kg Daquan Oberhauser DO Work Phone: [facility] 2022 10:05-0400 Diastolic blood pressure 66 mm[Hg] Daquan Oberhauser DO Work Phone: [facility] 2022 10:05-0400 Heart rate 87 /min Daquan Oberhauser DO Work Phone: [facility] 2022 10:05-0400 SaO2% (BldA) [Mass fraction] 95 % Daquan Oberhauser DO Work Phone: [facility] 2022 10:05-0400 Systolic blood pressure 121 mm[Hg] Daquan Oberhauser DO Work Phone: [facility] 08-21-2022 11:08-0400 Body height 180.3 cm Daquan Oberhauser DO Work Phone: [facility] 08-21-2022 11:08-0400 Body mass index (BMI) [Ratio] 41.42 kg/m2 Daquan Oberhauser DO Work Phone: [facility] 08-21-2022 11:08-0400 Body weight 134.72 kg Daquan Oberhauser DO Work Phone: [facility] 08-21-2022 11:08-0400 Diastolic blood pressure 81 mm[Hg] Daquan Oberhauser DO Work Phone: [facility] 08-21-2022 11:08-0400 Heart rate 91 /min Daquan Oberhauser DO Work Phone: [facility] 08-21-2022 11:08-0400 SaO2% (BldA) [Mass fraction] 95 % Daquan Oberhauser DO Work Phone: [facility] 08-21-2022 11:08-0400 Systolic blood pressure 119 mm[Hg] Daquan Oberhauser DO Work Phone: [facility] Encounters Encounter Date Encounter Type Care Provider Facility Start: 03-13-2025 ambulatory Daquan Oberhauser Facili ty:[facility] Start: 03-13-2025 End: 03-13-2025 ambulatory Daquan Oberhauser Facility:[facility] Start: 03-06-2025 End: 03-06-2025 ambulatory Daquan Oberhauser Facility:[facility] Start: 03-02-2025 End: 03-02-2025 ambulatory Daquan Oberhauser Facility:[facility] Start: 03-01-2025 End: 03-01-2025 ambulatory Daquan Oberhauser Facility:[facility] Start: 02-27-2025 End: 02-27-2025 ambulatory Taibtha Byrnes Facility:[facility] Start: 02-13-2025 End: 02-13-[address] Tabitha Byrnes MD -[facility] Work Phone: Start: 02-13-2025 End: 02-13-[address] Dorys Dow DO Work Phone: -[facility] Start: 01-29-2025 End: 01-29-2025 Patient encounter procedure Angelica Maldonado CNM -[facility] Work Phone: Start: 01-29-2025 End: 01-29-[address] Dorys Dow DO Work Phone: -[facility] Start: 01-15-2025 End: 01-15-2025 Patient encounter procedure Nusrat GROSS -[facility] Work Phone: Start: 01-15-2025 End: 01-15-[address] Dorys Dow DO Work Phone: -[facility] Start: 01-15-2025 End: 01-15-2025 ambulatory Dorys Dow Facility:[facility] Start: 12-19-2024 End: 12-19-[address] Dorys Dow DO -[facility] Work Phone: Start: 12-19-2024 End: 12-19-2024 ambulatory Angelica Maldonado CNM Work Phone: -[facility] Start: 11-30-2024 End: 11-30-2024 Emergency department patient visit [facility] Start: 11-30-2024 End: 11-30-2024 ambulatory [facility] Start: 11-20-2024 End: 11-20-[address] Dorys Dow DO -[facility] Work Phone: Start: 11-20-2024 End: 11-20-2024 ambulatory Angelica Maldonado CNM Work Phone: [facility] Start: 11-14-2024 End: 11-14-2024 ambulatory TABITHA BYRNES [facility] Start: 10-27-2024 End: 10-27-2024 Patient encounter procedure Miguelina Espinal CNM -[facility] Work Phone: Start: 10-27-2024 End: 10-27-2024 ambulatory Angelica Maldonado CNM Work Phone: -[facility] Start: 09-29-2024 End: 09-29-[address] Tabitha Byrnes MD -[facility] Work Phone: Start: 09-29-2024 End: 09-29-2024 ambulatory Angelica Maldonado CNM Work Phone: [facility] Work Phone: Start: 09-04-2024 End: 09-04-2024 ambulatory Angelica Maldonado CNM Work Phone: [facility] Work Phone: Start: 09-04-2024 End: 09-04-2024 Patient encounter procedure Angelica Maldonado CNM -Laboratory, Specimen Work Phone: Start: 09-04-2024 End: 09-04-2024 Patient encounter procedure Angelica Maldonado CNM -[facility] Work Phone: Start: 09-04-2024 End: 09-04-2024 ambulatory Angelica Maldonado CNElina Work Phone: [facility] Work Phone: Start: 09-04-2024 End: 09-04-2024 ambulatory Angelica Maldonado Facility:[facility] Start: 08-18-2024 End: 08-18-2024 Patient encounter procedure Angelica Maldonado CNM -[facility] Work Phone: Start: 08-18-2024 End: 08-18-2024 ambulatory Angelica Maldonado Facility:[facility] Start: 12-15-2023 End: 12-15-2023 Emergency department patient visit MURILLO LENI [facility] Start: 11-01-2023 End: 11-01-2023 [facility] Start: 06-09-2023 End: 06-09-2023 Emergency department patient visit DAQUAN [facility] Start: 03-11-2023 End: 03-11-2023 ambulatory [facility] Start: 03-11-2023 End: 03-11-2023 Office outpatient visit 25 minutes [facility]-Lash[facility] Work Phone: [facility] Comment on above: Acute asthmatic bron chitis (Primary Dx); Upper respiratory tract infection, unspecified type Start: 2022 End: 2022 ambulatory [facility] Start: 2022 End: 2022 Office outpatient visit 15 minutes Daquan Hills DO Work Phone: [facility] Comment on above: Menorrhagia with irr egular cycle (Primary Dx) Start: 08-27-2022 End: 08-28-2022 ambulatory [facility] Start: 08-21-2022 End: 08-21-2022 ambulatory [facility] Start: 08-21-2022 End: 08-21-2022 Office outpatient new 30 minutes Daquan Hills DO Work Phone: [facility] Comment on above: Menorrhagia with irr egular cycle (Primary Dx) Start: 03-29-2018 End: 03-30-2018 Patient encounter procedure Mango Whiteside Facility:[facility] Start: 02-18-2018 End: 04-09-2018 Patient encounter procedure Mango Whiteside Facility:[facility] Start: 02-18-2018 Patient encounter Facil [id number] Start: 02-10-2018 End: 02-11-2018 Patient encounter procedure Mango Antoine Whiteside Facility:[facility] Start: 02-04-2018 End: 02-05-2018 Patient encounter procedure Mango Whiteside Facility:[facility] Start: 02-04-2018 Patient encounter Facil [id number] Start: 01-28-2018 End: 01-29-2018 Patient encounter procedure Mango Whiteside Facility:[facility] Start: 01-28-2018 Patient encounter Facil [id number] Procedures Date Procedure Procedure Detail Performing Clinician Start: 01-15-2025 Serologic test for syphilis Dr. Dorys Dow DO Work Phone: Start: 09-04-2024 Urine culture Angelica perez [facility] Work Phone: Start: 09-04-2024 Liquid based cervica l cytology screening Angelica WALTON Work Phone: Comment on above: NEGATIVE FOR INTRAEP ITHELIAL LESION OR MALIGNANCY. This liquid based Th inPrep(R) pap test was screened withthe use of an image guided system. The HPV DNA reflex c riteria were not met with this specimenresult therefore, no HPV testing was performed.Performed at: [address] [place] [id number] Director: Brigette George MD, Phone: [phone] Start: 09-04-2024 Hepatitis C antibody measurement Angelica [...] HCV Quant by PCR testing - HCVPCR #[id number] Non Reactive: < 0.8 Equivocal: >/= 0.8 to < 1.0 Reactive: >/= 1.0The [facility] requires that a reactive/equivocal HCV antibody result be sent out for confirmation. HCV Quant by PCR testing. Start: 09-04-2024 Rubella IgG measurement Angelica Maldonado [facility] Work Phone: Comment on above: Antibody Result: Int erpretationNon-Reactive: Non- ImmuneReactive: ImmuneThe following results were obtained with the [employer] Rubella IgG assay. Results from assays of other manufacturers cannot be used interchangeably. Start: 09-04-2024 Serologic test for syphilis Angelica Maldonado [facility] Work Phone: Start: 03-11-2023 SARS-COV-2 AND INFLU [...] 2) Zoste r Vaccines (1 of 2) [facility] Start: 11-28-2025 DTaP/Tdap/Td Vaccine s (7 - Td or Tdap) DTaP/Tdap/Td Vaccines (7 - Td or Tdap) [facility] Start: 01-29-2025 End: 01-29-2025 Patient encounter procedure Abnormal glucose affecting -[facility] Work Phone: Start: 01-15-2025 CBC W Auto Different ial panel - Blood [facility] Start: 01-15-2025 Measurement of gluco se 2 hours after glucose challenge for glucose tolerance test [facility] Start: 01-15-2025 Serologic test for syphilis [facility] Start: 01-15-2025 [facility] Start: 09-04-2024 Chlamydia deoxyribon ucleic acid detection [facility] Start: 09-04-2024 Liquid based cervica l cytology screening [facility] Start: 01-01-2023 Influenza vaccination [facility] Start: 2022 End: 2022 Patient encounter procedure 2022 10:00 AM EDT Office Visit [facility] [address] [place] [id number] Daquan Hills, [address] [place] [address] [facility] Start: 08-21-2022 End: 08-22-2023 CBC W Auto Differential panel - Blood CBC and Auto Differential Lab Routine Menorrhagia with irregular cycle Expected: 08/21/2022 (Approximate), Expires: 08/22/2023 [facility] Work Phone: Comment on above: Expected: 08/21/2022 (Approximate), Expires: 08/22/2023 Start: 08-21-2022 End: 08-22-2023 Comprehensive metabolic 2000 panel - Serum or Plasma Comprehensive Metabolic Panel Lab Routine Menorrhagia with irregular cycle Expected: 08/21/2022 (Approximate), Expires: 08/22/2023 [facility] Service Area Work Phone: Comment on above: Expected: 08/21/2022 (Approximate), Expires: 08/22/2023 Start: 08-21-2022 End: 08-22-2023 Ferritin [Mass/volume] in Serum or Plasma Ferritin Lab Routine Menorrhagia with irregular cycle Expected: 08/21/2022 (Approximate), Expires: 08/22/2023 [facility] Work Phone: Comment on above: Expected: 08/21/2022 (Approximate), Expires: 08/22/2023 Start: 08-21-2022 End: 08-22-2023 Iron and Iron binding capacity panel - Serum or Plasma Iron and TIBC Lab Routine Menorrhagia with irregular cycle Expected: 08/21/2022 (Approximate), Expires: 08/22/2023 [facility] Work Phone: Comment on above: Expected: 08/21/2022 (Approximate), Expires: 08/22/2023 Start: 08-21-2022 End: 08-22-2023 TSH with reflex to Free T4 if abnormal TSH with reflex to Free T4 if abnormal Lab Routine Menorrhagia with irregular cycle Expected: 08/21/2022 (Approximate), Expires: 08/22/2023 [facility] Work Phone: Comment on above: Expected: 08/21/2022 (Approximate), Expires: 08/22/2023 Start: 06-20-2021 Hepatitis A Vaccines (2 of 2 - 2-dose series) Hepatitis A Vaccines (2 of 2 - 2-dose series) [facility] Start: 04-22-2021 COVID-19 Vaccine (2 - Booster for Mal series) COVID-19 Vaccine (2 - Booster for Mal series) [facility] Start: 2020 Hepatitis C screening Hepatitis C [facility] Start: 2005 Well Child Visit (WC V) - Annual Well Child Visit (WCV) - Annual [facility] Start: 07-29-2003 Application of denta l fluoride varnish Fluoride Varnish [facility] Start: 2002 Hearing Screening (#1) Hearing Scree jerilyn (#1) [facility] Start: 2002 HIV screening HIV Screening [facility] Start: 2002 Lipid panel Lipid Panel [facility] CBC W Auto Different ial panel - Blood [facility] Erythrocyte mean corpuscular volume determination [facility] Hematocrit [Volume Fraction] of Blood [facility] Hemoglobin [Mass/vol ume] in Blood [facility] Leukocytes [#/volume ] in Blood [facility] Mean corpuscular hemoglobin concentration determination [facility] Mean corpuscular hemoglobin determination [facility] Measurement of gluco se 2 hours after glucose challenge for glucose tolerance test [facility] Neisseria gonorrhoea e rRNA [Presence] in Unspecified specimen by JR with probe detection [facility] Neutrophil count [place] [facility] Neutrophil percent differential count [facility] Path report.final Dx Spec [facility] PCR test for Chlamyd ia trachomatis [facility] Platelets [#/volume] in Blood [facility] Red blood cell count [facility] Red cell distributio n width determination [facility] Serologic test for syphilis [facility] Immunizations Immunization Date Immunization Notes Care Provider Fa [facility] 02-13-2025 Seasonal trivalent influenza vaccine, adjuvanted, preservative free Dr. Dorys Dow DO Work Phone: [facility] 01-15-2025 tetanus toxoid, redu tim diphtheria toxoid, and acellular pertussis vaccine, adsorbed Dr. Dorys Dow DO Work Phone: [facility] 12-18-2020 hepatitis A vaccine, pediatric/adolescent dosage, 2 dose schedule Daquan Hills DO Work Phone: [facility] 12-18-2020 hepatitis B vaccine, pediatric or pediatric/adolescent dosage Daquan Hills DO Work Phone: [facility] 12-18-2020 Human Papillomavirus 9-valent vaccine Daquan Hills DO Work Phone: [facility] 12-18-2020 meningococcal B vaccine, recombinant, OMV, adjuvanted Daquan Hills DO Work Phone: [facility] 12-18-2020 meningococcal polysaccharide (groups A, C, Y and W-135) diphtheria toxoid conjugate vaccine (MCV4P) Daquan Hills DO Work Phone: [facility] 12-18-2020 hepatitis A and hepatitis B vaccine Daquan Oberhauser DO Work Phone: [facility] Work Phone: 11-29-2015 Human Papillomavirus 9-valent vaccine Daquan Obzachary DO Work Phone: [facility] 11-29-2015 measles, mumps, rubella, and varicella virus vaccine Daquan Obermckenzieer DO Work Phone: [facility] 11-29-2015 meningococcal polysaccharide (groups A, C, Y and W-135) diphtheria toxoid conjugate vaccine (MCV4P) Daquan Obzachary DO Work Phone: [facility] 11-29-2015 tetanus toxoid, redu tim diphtheria toxoid, and acellular pertussis vaccine, adsorbed Daquan Obzachary DO Work Phone: [facility] 01-14-2009 diphtheria, tetanus toxoids and acellular pertussis vaccine, unspecified formulation Daquan Obermckenzieer DO Work Phone: [facility] Work Phone: 01-14-2009 hepatitis B vaccine, pediatric or pediatric/adolescent dosage Daquan Obzachary DO Work Phone: [facility] Work Phone: 01-14-2009 measles, mumps and rubella virus vaccine Daquan Obermckenzieer DO Work Phone: [facility] Work Phone: 01-14-2009 poliovirus vaccine, unspecified formulation Daquan Obermckenzieer DO Work Phone: [facility] Work Phone: 01-14-2009 varicella virus vaccine Emilio n Oberyenifer DO Work Phone: [facility] Work Phone: 05-19-2004 diphtheria, tetanus toxoids and acellular pertussis vaccine, unspecified formulation Daquan Hills DO Work Phone: [facility] Work Phone: 05-19-2004 influenza, injectabl e, quadrivalent, preservative free Daquan Hills DO Work Phone: [facility] Work Phone: 05-19-2004 varicella virus vaccine Emilio Hills DO Work Phone: [facility] Work Phone: 05-19-2004 influenza virus vaccine, unspecified formulation Daquan Hills DO Work Phone: [facility] Work Phone: 03-20-2004 pneumococcal conjuga te vaccine, 7 valent Daquan Hills DO Work Phone: [facility] Work Phone: 03-10-2004 pneumococcal conjuga te vaccine, 7 valent Daquan Hills DO Work Phone: [facility] Work Phone: 12-31-2003 haemophilus influenz ae type b vaccine, PRP-T conjugate Daquan Hills DO Work Phone: [facility] Work Phone: 12-31-2003 measles, mumps and rubella virus vaccine Daquan Hills DO Work Phone: [facility] Work Phone: 12-31-2003 poliovirus vaccine, inactivated Daquan Hills DO Work Phone: [facility] Work Phone: 12-21-2003 haemophilus influenz ae type b vaccine, conjugate unspecified formulation Daquan Hills DO Work Phone: [facility] Work Phone: 12-21-2003 measles, mumps and rubella virus vaccine Daquan Hills DO Work Phone: [facility] Work Phone: 12-21-2003 poliovirus vaccine, unspecified formulation Daquan Hills DO Work Phone: [facility] Work Phone: 05-29-2003 diphtheria, tetanus toxoids and acellular pertussis vaccine, unspecified formulation Daquan Hills DO Work Phone: [facility] Work Phone: 05-29-2003 haemophilus influenz ae type b vaccine, PRP-T conjugate Daquan Hills DO Work Phone: [facility] Work Phone: 05-29-2003 pneumococcal conjuga te vaccine, 7 valent aDquan Hills DO Work Phone: [facility] Work Phone: 03-30-2003 DTaP-hepatitis B and poliovirus vaccine Daquan Hills DO Work Phone: [facility] 03-30-2003 haemophilus influenz ae type b vaccine, PRP-T conjugate Daquan Hills DO Work Phone: [facility] Work Phone: 03-30-2003 pneumococcal conjuga te vaccine, 7 valent Daquan Hills DO Work Phone: [facility] Work Phone: 01-29-2003 DTaP-hepatitis B and poliovirus vaccine Daquan Hills DO Work Phone: [facility] Work Phone: 01-29-2003 haemophilus influenz ae type b vaccine, PRP-T conjugate Daquan Hills DO Work Phone: [facility] Work Phone: 01-29-2003 pneumococcal conjuga te vaccine, 7 valent Daquan Hills DO Work Phone: [facility] Work Phone: 2002 hepatitis B vaccine, pediatric or pediatric/adolescent dosage Daquan Hills DO Work Phone: [facility] Work Phone: Payers Date Payer Category Payer Unknown [id number] 2024 Unknown [id number] 2024 Unknown [id number] 2024 Self-pay 2024 Unknown [id number] 2022 Unknown [id number] 2018 Unknown 2002 Unknown [id number] 2.16. 840.1.908272.3.579.2.356 2002 Unknown [id number] 2.16. 840.1.889938.3.579.2.356 2002 Unknown [id number] 2.16. 840.1.604857.3.579.2.356 2002 Unknown [id number] 2.16.840 .1.114817.3.579.2.1245 2002 Unknown [id number] 2.16.8 40.1.343480.3.579.2.1244 2002 Unknown [id number] 2.16.8 40.1.463194.3.579.2.1244 2002 Unknown [id number] 2.16.84 0.1.788806.3.579.2.1244 2002 Unknown [id number] 2.16. 840.1.994416.3.579.2.902 2002 Unknown [id number] 2.16. 840.1.103097.3.579.2.902 2002 Unknown [id number] 2.16. 840.1.217596.3.579.2.902 2002 Unknown [id number] 2.16. 840.1.583763.3.579.2.479 2002 Unknown [id number] 2.16. 840.1.660654.3.579.2.479 2002 Unknown [id number] 2.16. 840.1.707504.3.579.2.903 1974 Unknown [id number] 2.16.84 0.1.663746.3.579.2. 1974 Unknown [id number] 2.16.84 0.1.832385.3.579.2.7 1974 Unknown [id number] 2.16.84 0.1.544018.3.579.2.7 1974 Unknown [id number] 2.16.84 0.1.811256.3.579.2. 1974 Unknown [id number] 2.16.84 0.1.722415.3.579.2.717 1973 Unknown [id number] 2.16.84 0.1.490917.3.579.2.717 1973 Unknown [id number] 2.16.84 0.1.579711.3.579.2.717 Unknown [id number] 2.16.8 40.1.933657.3.579.2.462 Unknown [id number] 2.16.8 40.1.421370.3.579.2.462 Unknown [id number] 2.16.8 40.1.580642.3.579.2.462 Unknown [id number] 2.16.8 40.1.322398.3.579.2.462 Unknown [id number] 2.16.8 40.1.925740.3.579.2.462 Unknown [id number] 2.16.8 40.1.380790.3.579.2.462 Unknown [id number] 2.16.8 40.1.783532.3.579.2.462 Unknown [id number] 2.16.8 40.1.778225.3.579.2.462 Unknown [id number] 2.16.8 40.1.614308.3.579.2.462 Unknown [id number] 2.16.8 40.1.022200.3.579.2.462 Unknown [id number] 2.16.8 40.1.114583.3.579.2.462 Unknown [id number] 2.16.8 40.1.614749.3.579.2.462 Unknown [id number] 2.16.8 40.1.718439.3.579.2.462 Unknown [id number] 2.16.8 40.1.728547.3.579.2.462 Unknown [id number] 2.16.8 40.1.545974.3.579.2.462 Unknown [id number] 2.16.8 40.1.077451.3.579.2.462 Unknown [id number] 2.16.8 40.1.246756.3.579.2.462 Unknown [id number] 2.16.8 40.1.791769.3.579.2.462 Social History Date Type Detail Facility Start: 08-21-2022 End: 08-18-2024 Tobacco smoking status HIIS Never smoked tobacco [facility] Work Phone: Start: 08-21-2022 Tobacco use and exposure Smokeless tobacco non-user [facility] Work Phone: Start: 08-21-2022 End: 03-11-2023 Alcohol intake Lifetime non-drinker (finding) [facility] Work Phone: Start: 08-21-2022 End: 03-11-2023 History of Social function [facility] Work Phone: Start: 08-21-2022 End: 03-11-2023 Tobacco use panel [facility] Work Phone: Start: 2002 Sex Assigned At Not on file [facility] Work Phone: Start: 08-11-2022 End: 03-11-2023 Exposure to SARS-CoV-2 (event) Not sure [facility] Start: 2002 Sex Assigned At Female [facility] Clinical Notes 08-21-2022 to 02-13-2025 Note Date & Type Note Facility 02-13-2025 Progress note [facility] 02-13-2025 Progress note Note Date/Time February 13, 2025 2:29pm [facility] [address], [address] [place] [address] OFFICE VISIT Date of Service: 02/13/25 MR#: [id number] Acct: [id number] Name: ANGELITA SUTTON Rep #: [id number] : 2000 Provider: Dr. Ned Byrnes MD Age/Sex: 24/F Location: [facility] Status: Signed Intake Vital Signs 12/19/24 11:06 01/29/25 10:51 02/13/25 13:53 Height 5 ft 11 in 5 ft 11 in 5 ft 11 in Weight: 307 lb 4 oz BMI 42.8 BP 116/68 Intake Visit Reasons: 32wk 3D ob Wet Mixer Required: No Is patient in pain?: No [...] Negative : No PFSH PFSH Surgical History Llewellyn teeth removed S/P tonsillectomy Family History Father Hypothyroid Grandmother Callaway disease Grandmother Diabetes Hypertension Kidney failure Social History adopted: No household members: spouse and other details: step son & 's ex current occupational status: employed 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 occupational exposures/hazards: Yes [...] physical activity do you participate in: none carine/druze: Druze seatbelt use: always do you feel safe at home: Yes 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 Administered by: Nusrat Don on 02/13/25 14:02 2 Dose Route Admin Location Dispensed Lot Number Expiration Date Pack age NDC NDC Postal Inspector 0.5 mL IM Left Deltoid 0.5 mL [id number] 09/09/25 94293-627-02 [id number] [employer]. VIS Given Date VIS Provided VIS Publication [...] Today Z23 - Encounter for immunization 02/13/25 3909 <Electronically signed by Tabitha rios MD> Date _ [facility] Signature: Date (if applicable) CC: ~ [facility] Work Phone: 1(614) 494-987709-29-2025 Progress [facility] [address], [address] [place] [address] OFFICE VISIT Date of Service: 01/29/25 MR#: [id number] Acct: [id number] Name: ANGELITA SUTTON Rep #: [id number] : 2000 Provider: MARIANNA Maldonado Age/Sex: 24/F Location: [facility] Status: Signed Intake Vital Signs 12/19/24 11:06 01/15/25 10:04 01/29/25 10:50 01/29/25 10:51 Height 5 ft 11 in 5 ft 11 in 5 ft 11 in 5 ft 11 in Weight: 303 lb 9 oz BMI 42.3 BP 131/83 H Intake Visit Reasons: 30wk 2D ob Wet Mixer Required: No Is patient in pain?: No [...] Negative : No PFSH PFSH Surgical History Llewellyn teeth removed S/P tonsillectomy Family History Father Hypothyroid Grandmother Callaway disease Grandmother Diabetes Hypertension Kidney failure Social History adopted: No household members: spouse and other details: step son & 's ex current occupational status: employed 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 current occupational exposures/hazards: [...] physical activity do you participate in: none carine/druze: Druze seatbelt use: always do you feel safe at home: Yes 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 Hx Para 0 [...] and Symptoms of Preeclampsia, Feeding No and [place] [employer] ROS Const Reports system reviewed and [...] Cosigner Signature: Date (if applicable) CC: ~ [facility]07-21-2025 Evaluation note* Diagnosis Onset Date Resolution [...] Supervision of high-risk acute February 13 1:49pm [facility] Work Phone: [phone] Evaluation note* Diagnosis Onset Date Resolution Status [...] of high-risk acute January 29, 2025 10:44am [facility] Work Phone: [phone] Progress [facility] [address] [place] [address], [address] [place] [address] OFFICE VISIT Date of Service: 10/27/24 MR#: [id number] Acct: [id number] Name: ANGELITA SUTTON Rep #: [id number] : 2000 Provider: MARIANNA Espinal Age/Sex: 23/F Location: [facility] Status: Signed Intake Vital Signs 09/04/24 08:50 09/29/24 14:56 10/27/24 13:59 Height 5 ft 11 in 5 ft 11 in 5 ft 11 in Weight: 289 lb BMI 40.3 BP 138/79 H Intake Visit Reasons: 16wk ob Chief Complaint: 16wk ob Wet Mixer Required: No Is patient in pain?: No [...] 07/01/24 : No PFSH PFSH Surgical History Llewellyn teeth removed S/P tonsillectomy Family History Father Hypothyroid Grandmother Callaway disease Grandmother Diabetes Hypertension Kidney failure Social History adopted: No household members: spouse and other details: step son & 's ex current occupational status: employed 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 Note Date/Time October 27, 2024 2:31 pm [facility] [address], [address] [place] [address] OFFICE VISIT Date of Service: 10/27/24 MR#: [id number] Acct: [id number] Name: ANGELITA SUTTON Rep #: [id number] : 2000 Provider: MARIANNA Espinal Age/Sex: 23/F Location: [facility] Status: Signed Intake Vital Signs 09/04/24 08:50 09/29/24 14:56 10/27/24 13:59 Height 5 ft 11 in 5 ft 11 in 5 ft 11 in Weight: 289 lb BMI 40.3 BP 138/79 H Intake Visit Reasons: 16wk ob Chief Complaint: 16wk ob Wet Mixer Required: No Is patient in pain?: No [...] 07/01/24 : No PFSH PFSH Surgical History Llewellyn teeth removed S/P tonsillectomy Family History Father Hypothyroid Grandmother Callaway disease Grandmother Diabetes Hypertension Kidney failure Social History adopted: No household members: spouse and other details: step son & 's ex current occupational status: employed 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 occupational exposures/hazards: Yes [...] physical activity do you participate in: none carine/druze: Druze seatbelt use: always do you feel safe at home: Yes 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 Ned Byrnes MD Age/Sex: 23/F Location: [facility] Status: Signed Intake Vital Signs 09/04/24 08:50 09/29/24 14:53 09/29/24 14:56 Height 5 ft 11 in 5 ft 11 in 5 ft 11 in Weight: 295 lb 6 oz BMI 41.1 BP 130/82 H Intake Visit Reasons: 12wk ob Wet Mixer Required: No Is patient in pain?: No [...] Negative : No PFSH PFSH Surgical History Llewellyn teeth removed S/P tonsillectomy Family History Father Hypothyroid Grandmother Callaway disease Grandmother Diabetes Hypertension Kidney failure Social History adopted: No household members: spouse and other details: step son & 's ex current occupational status: employed 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 Note Date/Time September 29, 2024 3:20p [facility] [address], [address] [place] [address] OFFICE VISIT Date of Service: 09/29/24 MR#: [id number] Acct: [id number] Name: ANGELITA SUTTON Rep #: [id number] : 2000 Provider: Dr. Ned Byrnes MD Age/Sex: 23/F Location: [facility] Status: Signed Intake Vital Signs 09/04/24 08:50 09/29/24 14:53 09/29/24 14:56 Height 5 ft 11 in 5 ft 11 in 5 ft 11 in Weight: 295 lb 6 oz BMI 41.1 BP 130/82 H Intake Visit Reasons: 12wk ob Wet Mixer Required: No Is patient in pain?: No [...] Negative : No PFSH PFSH Surgical History Llewellyn teeth removed S/P tonsillectomy Family History Father Hypothyroid Grandmother Callaway disease Grandmother Diabetes Hypertension Kidney failure Social History adopted: No household members: spouse and other details: step son & 's ex current occupational status: employed 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 occupational exposures/hazards: Yes [...] physical activity do you participate in: none carine/druze: Druze seatbelt use: always do you feel safe at home: Yes 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 Hx Para 0 [...] Cosign Signature: Date (if applicable) CC: ~ [facility] Work Phone: [phone]) 464-930005-05-2025 Evaluation note* Diagnosis Onset Date Resolution Status Admit Date Asthma acute September 04, 2024 8:46am Obesity affecting acute September 04, 2024 8:46am acute September 04, 2024 8:46am Supervision of high-risk a cute September 04, 2024 8:46am [facility] Work Phone: [phone] 551-859205-05-2025 Evaluation note* Diagnosis Onset Date Resolution Status Admit Date Asthma acute September 04, 2024 8:46am Obesity affecting acute September 04, 2024 8:46am acute September 04, 2024 8:46am Supervision of high-risk a cute September 04, 2024 8:46am Asthma acute September 29, 2024 2:00pm Obesity affecting acute September 29, 2024 2:00pm acute September 29, 2024 2:00pm Supervision of high-risk a cute September 29, 2024 2:00pm [facility] Work Phone: [phone] 317-537705-05-2025 Evaluation note* Diagnosis Onset Date Resolution Status [...] of high-risk acute October 27, 2024 1:56pm [facility] Work Phone: [phone] 590-635805-05-2025 Evaluation note* Diagnosis Onset Date Resolution Status [...] of high-risk acute November 20, 2024 9:07am [facility] Work Phone: [phone] 534-837405-05-2025 Evaluation note* Diagnosis Onset Date Resolution Status [...] Supervision of high-risk acute December 19 11:00am [facility] Work Phone: [phone] History of Present illness Narrative* Jay Stewart [...] Relevant Medications azithromycin (Zithromax) 250 mg tablet qiogzvinvifhuoj-bjajeiobf-NP (Bromfed DM) 2-30-10 mg/5 mL syrup predniSONE (Deltasone) 10 mg tablet Other Relevant Orders Sars-CoV-2 and Influenza A/B PCR Upper respiratory tract infection, unspecified type Relevant Medications azithromycin (Zithromax) 250 mg tablet nmmyefdisraihcc-zvnmkimdj-PY (Bromfed DM) 2-30-10 mg/5 mL syrup predniSONE (Deltasone) 10 mg tablet Other Relevant Orders Sars-CoV-2 and Influenza A/B PCR Final diagnoses: [J45.909] Acute asthmatic bronchitis [J06.9] Upper respiratory tract infection, unspecified type documented in this [facility] Work Phone: [phone]) [phone] History of Present illness Narrative* [place] [...] Menorrhagia with irregular cycle [facility]: [phone]) 479-629104-21-2023 History of Present illness Narrative* [place], [...] Menorrhagia with irregular cycle [facility]: Evaluation note* Diagnosis Menorrhagia with irregular cycle- Primary documented in this encounter [facility] Work Phone: Evaluation note* Diagnosis Menorrhagia with irregular cycle- Primary documented in this encounter [facility] Work Phone: Evaluation note* Diagnosis Acute asthmatic bronchitis- Primary Unspecified asthma, with exacerbation Upper respiratory tract infection, unspecified type documented in this encounter [facility] Work Phone: Progress note Author Angelica Maldonado [facility] Note Date/Time January 29, 2025 11:13am [facility] [address], [address] [place] [address] OFFICE VISIT Date of Service: 01/29/25 MR#: [id number] Acct: [id number] Name: ANGELITA SUTTON Rep #: [id number] : 2000 Provider: MARIANNA Maldonado Age/Sex: 24/F Location: [facility] Status: Signed Intake Vital Signs 12/19/24 11:06 01/15/25 10:04 01/29/25 10:50 01/29/25 10:51 Height 5 ft 11 in 5 ft 11 in 5 ft 11 in 5 ft 11 in Weight: 303 lb 9 oz BMI 42.3 BP 131/83 H Intake Visit Reasons: 30wk 2D ob Wet Mixer Required: No Is patient in pain?: No [...] Negative : No PFSH PFSH Surgical History Llewellyn teeth removed S/P tonsillectomy Family History Father Hypothyroid Grandmother Callaway disease Grandmother Diabetes Hypertension Kidney failure Social History (Reviewed 01/29/25 @ 10:50 by Vivian Benavides adopted: No household members: spouse and other details: step son & 's ex current occupational status: employed 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 occupational 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/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: Yes [...] physical activity do you participate in: none carine/druze: Druze seatbelt use: always do you feel safe at home: Yes 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 Hx Para 0 [...] Cosigner Signature: Date (if applicable) CC: ~ [facility] Work Phone: Reason for referral (narrative)* Consultation (Routine) - Authorized Specialty Diagnoses / Procedures Referred By Amarjit sneed Referred To Contact Primary Care Procedures Follow Up In Primary Care Daquan Hills, DO [address] [facility] [place] [address] Referral ID Status Reason Start Date Expiration Date V isits Requested Visits Authorized [id number] Authorized 08/21/2022 02/17/2023 1 1 [facility] Work Phone: Reason for referral (narrative)No reason for referral [facility] Work Phone: Summary Purpose Family History No Family History Records Found Relationship Condition Age at Onset Recorded Date/T uday father Hypothyroidism Unknown grandmother Callaway's disease Unknown grandmother Diabetes mellitus Unknown Hypertension [...] 29, 2025 10:44am Supervision of high-risk Septe [facility] 2024 10:44am Chief Complaint Admit Date 20wk [...] 15, 2025 9:49am Supervision of high-risk Septe [facility] 2024 9:49am Abnormal glucose affecting Sep tember 2024 10:44am Asthma January 29, 2025 10:44am Obesity affecting January 292024 10:44am January 29, 2025 10:44am Supervision of high-risk Septe [facility] 2024 10:44am Abnormal glucose affecting Oct david 2024 1:49pm Asthma February 13, 2025 1 :49pm Obesity affecting January 1:49pm February 13, 2025 1 :49pm Supervision of high-risk Octob er 2024 1:49pm Additional Source Comments INFORMATION SOURCE (unrecogn ized section and content) DATE CREATED AUTHOR 03/04/2018 [facility] DATE CREATED AUTHOR AUTHOR'S ORGANIZ ATION 06/21/2018 [facility] DATE CREATED AUTHOR AUTHOR'S ORGANIZ ATION 06/21/2021 [facility] DATE CREATED AUTHOR AUTHOR'S ORGANIZ ATION 08/31/2022 [facility] DATE CREATED AUTHOR AUTHOR'S ORGANIZ ATION 03/13/2023 [facility] DATE CREATED AUTHOR AUTHOR'S ORGANIZ ATION 12/22/2023 [facility] DATE CREATED AUTHOR AUTHOR'S ORGANIZ ATION 12/02/2024 [facility] DATE CREATED AUTHOR AUTHOR'S ORGANIZ ATION 12/08/2024 [facility] DATE CREATED AUTHOR AUTHOR'S ORGANIZ ATION 03/14/2025 [facility] Reason for Visit (unrecogniz ed section and content) Reason Comments Establish Care Patients periods are getting worse. Reason Comments Follow-up Would like to discus s control medication. Very emotional. Tiredness. Specialty Diagnoses / Procedures Referred By Amarjit sneed Referred To Contact Primary Care Procedures Follow Up In Primary Care Daquan Hills DO [address] [facility] [place] [address] Referral ID Status Reason Start Date Expiration Date V isits Requested Visits Authorized [id number] Authorized 08/21/2022 02/17/2023 1 1 Reason Comments URI Patient having cough , sore throat, head and chest congestion, SOB and frontal headache x 2 days. Care Teams (unrecognized sec tion and content) Behavior Analyst Relationship Specialty Start Date End Date Daquan Hills DO [address] [facility] [place] [address] PCP - General Internal Medicine 07/27/22 Behavior Analyst Relationship Specialty Start Date End Date Daquan Hills DO [address] [facility] [place] [address] PCP - General Internal Medicine 07/27/22 Behavior Analyst Relationship Specialty Start Date End Date Daquan Hills DO [address] [facility] [place] [address] PCP - General Internal Medicine 07/27/22 Team [...] Member Role/Relationship Status Dates Nusrat Perez NP, ALLEY TENDER-C Attending Provider Active Start: January 15, 2025 [...] Member Role/Relationship Status Dates Nusrat Perez NP ALLEY TENDER-C Attending physician Active Start: January 15, 2025 [...] Member Role/Relationship Status Dates Nusrat Perez NP ALLEY TENDER-C Attending physician Active Start: January 15, 2025 [...] BE BASED ON THE PRIMARY CLINICAL RECORDS. [employer] [facility]. provides no warranty or guarantee of the accuracy or completeness of information in this document.
[2025-03-27] MEDS: Lactated Ringers 1,000 ML 999 ML IV (20:10)
[2025-03-27 20:39] LABS: Hematocrit 35.9 % (37-47); Hemoglobin 12.8 g/dL (12.0-15.0); Immature Granulocytes Count 0.090 X10^3/uL (0.0-0.0); Mean Corp Hgb Conc 35.7 g/dL (32-36); Mean Corpuscular Volume 83.5 fL (81-99); Mean Platelet Vol. 10.5 fl (6.2-12.0); NRBC Flagged by Analyzer 0 % (0-5); Platelet Count 292 K/mm3 (150-450); RBC Distribution Width CV 12.8 % (11.6-14.6); RBC Distribution Width SD 38.8 fl (35.1-43.9); Red Blood Count 4.30 M/mm3 (4.2-5.4); White Blood Count 16.4 K/mm3 (4.4-11.0)
[2025-03-27] MEDS: Penicillin G Pot 5,000,000 UNITS in 0.9% Normal Saline (100mL MB+) 100 ML 150 UNITS IV (21:10)
[2025-03-27 21:16] LABS: Syphilis Antibodies Nonreactive (Nonreactive)
[2025-03-27] MEDS: fentaNYL-bupivacaine (epidural) 100 ML BAG EPIDURAL (21:25)
[2025-03-27] MEDS: Lactated Ringers 1,000 ML 200 ML IV (21:30)
--- NOTE | 2025-03-27 22:13 | HP.PCM.OB_ITS ---
HPI - General General Date of Admission: 03/27/25 Date of Service: 03/27/25 HPI Narrative CATHI HARRINGTON, is a 24 F at 38.3 weeks who presents to unit for SROM at 1800 for clear fluid. Grossly ruptured upon arrival. Maternal Data Information ARAM Calculator Estimated Delivery Date Method Current WG Current Estimate 04/07/25 LMP (Certain) 38w 3d Other Estimates 04/07/25 Ultrasound #1 38w 3d Final ARAM: 04/07/25 Final ARAM Source: US >20 weeks Gestational age: 38.3 PFSH PFSH Medical History (Updated 03/27/25 @ 22:23 by Angelica Maldonado CNM) Depression Home Medications Medication Instructions Recorded Last Taken Type albuterol sulfate 90 mcg/actuation 1 inh inhalation Q4 -6H PRN 08/18/24 Unknown History breath activated powder inhaler docosahexaenoic acid 200 mg mg PO 08/18/24 Unknown His tory capsule ( DHA) ondansetron 4 mg disintegrating 4 mg PO Q6H PRN nausea and 09/04/24 Unknown Rx tablet vomiting #30 tabs sertraline 50 mg tablet 50 mg PO QDAY #30 tabs 01/29 Unknown Rx Allergy/AdvReac Type Severity Reaction Status Date / Time No Known Allergies Allergy Verified 03/27/25 11:11 Family History Father Hypothyroid Grandmother Blakely disease Grandmother Diabetes Hypertension Kidney failure Surgical History [place] teeth removed S/P tonsillectomy Social History adopted: No household members: spouse and other details: step son & 's ex current occupational status: employed 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 current occupational exposures/hazards: Yes pets and animals: No history of recent travel: No sexually active: Yes Smoking Status: Never smoker alcohol intake: current alcohol intake frequency: holidays/special occasions only details: Not while substance use type: does not use diet: lactose free well-balanced diet: about half the time caffeine: No eating out: 1-3 times/week during the past year weight has: remained stable what type of physical activity do you participate in: none carine/zoroastrian: Cheondoism seatbelt use: always do you feel safe at home: Yes additional social history: : Vadim Chung ([facility] [employer]) - [employer]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 cut cord/dad catch: yes : yes PP control planned: Discussed discussed possible routes of delivery and associated risks: [] special requests: [] Plans Covid status: [] Flu vaccine: [] Tdap vaccine: given Rhogam: NA LARC form signed: yes Problem list reviewed and updated with the most current plan of care details and appropriate orders placed. Relevant counseling for the gestational age provided. Continue routine care and follow up unless otherwise noted in visit notes/problem list details OB Flowsheet Initial Weight: 294 lb Date - - - - - - - - - - - - - EGA Weight BP Urine Prot - - - - - - - - - - - - - Glucose FHR FuHt Pres Dilation - - - - - - - - - - - - - Effaced St Visit Note 09/04/24 - - - - - - - - - - - - - 9w 2d 294 lb 2 oz (+2 oz) 124/84 - - - - - - - - - - - - - 184 - - - - - - - - - - - - - KW-CRL cons with dates. undecided on NIPT/carrier. rest of labs today. 09/29/24 - - - - - - - - - - - - - 12w 6d 295 lb 6 oz (+1 lb 6 oz) 130/82 Negative - - - - - - - - - - - - - Negative 150 - - - - - - - - - - - - - SM- no vb having some cramping and pelvic pain 10/27/24 - - - - - - - - - - - - - 16w 6d 289 lb (-5 lb) 138/79 Negative - - - - - - - - - - - - - Negative 144 - - - - - - - - - - - - - LC- no vb/crampi ng today. no concerns. has anatomy scheduled.declines afp 11/20/24 - - - - - - - - - - - - - 20w 2d 300 lb (+6 lb) 139/82 Negative - - - - - - - - - - - - - Negative 145 - - - - - - - - - - - - - JV- no lof, vagi nal bleeding, or cramping. no complaints. anatomy scan was limited becauase she declined the vaginal probe. needs to go back for cervical length and placentation. 12/19/24 - - - - - - - - - - - - - 24w 3d 300 lb 6 oz (+6 lb 6 oz) 117/75 Negative - - - - - - - - - - - - - Negative 145 25 - - - - - - - - - - - - - JV- PHQ-9 showed moderate depression today. She denies SI/HI but is interested in antidepressants and counseling. no lof, vaginal bleeding, or dec fm. starting zoloft. info on counselors given. 01/15/25 - - - - - - - - - - - - - 28w 2d 301 lb 2 oz (+7 lb 2 oz) 118/84 Negative - - - - - - - - - - - - - Negative 143 29 - - - - - - - - - - - - - MH-No Vb, LOF. G ood FM. States feelings of sadness improved. Larc, tdap. 01/29/25 - - - - - - - - - - - - - 30w 2d 303 lb 9 oz (+9 lb 9 oz) 131/83 Negative - - - - - - - - - - - - - Negative 130 32 - - - - - - - - - - - - - KW- no vb/lof/ct x. good fm. doing well on zoloft. refill given. will need to call and schedule 3 hour gct. magnesium and compression hose encouraged for leg cramps 02/13/25 - - - - - - - - - - - - - 32w 3d 307 lb 4 oz (+13 lb 4 oz) 116/68 Negative - - - - - - - - - - - - - Negative 140 34 - - - - - - - - - - - - - Sm- no vb lof go od fm no regular ctx 02/27/25 - - - - - - - - - - - - - 34w 3d 311 lb 2 oz (+17 lb 2 oz) 129/ Negative - - - - - - - - - - - - - Negative 140 36 - - - - - - - - - - - - - SM- no vb lof go od fm no regular ctx. 03/06/25 - - - - - - - - - - - - - 35w 3d 312 lb 7 oz (+18 lb 7 oz) 132/ Negative - - - - - - - - - - - - - Negative 140 - - - - - - - - - - - - - JV- NST only tod ay- reactive. passed 3 hr but fasting was 109. we discussed a protein rich but sugar free meal at bedtime and risks of LGA. JV- NST only today- reactive . passed 3 hr but fasting was 109. we discussed a protein rich but sugar free meal at bedtime and risks of LGA. overall growth was normal and AC was only 9th% 03/13/25 - - - - - - - - - - - - - 36w 3d 316 lb 9 oz (+22 lb 9 oz) 127/81 Negative - - - - - - - - - - - - - Negative 140 36 Cephalic 1 - - - - - - - - - - - - - 60 -2 KW- no vb/ lof/ctx. good fm NST reactive. GBS today 03/20/25 - - - - - - - - - - - - - 37w 3d 324 lb 4 oz (+30 lb 4 oz) 132/80 Negative - - - - - - - - - - - - - Negative 145 37 Cephalic 1 .5 - - - - - - - - - - - - - 60 -2 JV- NST re active. no complaints other than back pain and feeling big. 03/27/25 - - - - - - - - - - - - - 38w 3d 332 lb 6 oz (+38 lb 6 oz) 136/82 Negative - - - - - - - - - - - - - Negative 145 2 - - - - - - - - - - - - - 80 -2 KW- no vb/ lof/ctx. good fm. NST reactive. NST FHR Rate Baby A Baseline: 155 Variability:: Moderate Accelerations:: 15 x 15 Decelerations:: None NST Reactive:: Yes FHR Category:: Category I Uterine Activity:: 2-3 ROS Constitutional Constitutional: Denies change in weight, fatigue, fever(s), headache(s), poor appetite or weakness Eyes Eyes: Denies blurry vision, change in vision, floaters, seeing flashes or spots in vision ENT HEENT: Denies dizziness, headache(s), loss taste/smell or sore throat Cardiovascular Cardiovascular: Denies chest pain, dizziness, dyspnea, irregular heart rhythm, lightheadedness, palpitations or rapid heart rate Respiratory/Chest Respiratory/Chest: Denies change in mental status, chest tightness, cough, dyspnea or breast pain Gastrointestinal Gastrointestinal: Denies anorexia, chewing difficulty, constipation, diarrhea or weight changes Genitourinary Genitourinary: Denies difficulty urinating, dysuria, flank pain, genital pain, urinary frequency or urinary urgency Musculoskeletal Musculoskeletal: Denies back pain, difficulty walking, extremity pain, joint pain, muscle cramps or muscle weakness Integumentary Integumentary: Denies lesions or unusual bruising Neurologic Neurologic: Denies abnormal movements, abnormal speech, dizziness, numbness, seizure-like activity, syncope or weakness Psychiatric Psychiatric: Denies behavioral changes, change in appetite, confusion, depression, homicidal ideation, suicidal ideation or suicidal thoughts Endocrine Endocrinology: Denies excessive sweating, polydipsia or polyuria Hematologic/Lymphatic Hematologic/Lymphatic: Denies anemia Allergic/Immunologic Allergic/Immunologic: Denies itchy eyes, lip swelling, throat swelling, tongue swelling or wheezing Vital Signs Vital Signs Vital Signs: 03/27/25 19:40 03/27/25 19:40 03/27/25 21:09 Pulse Rate 94 91 Blood Pressure 142/83 H BP Systolic 142 BP Diastolic 83 Pulse Ox 03/27/25 21:09 03/27/25 21:14 03/27/25 21:14 Pulse Rate 89 Blood Pressure BP Systolic BP Diastolic Pulse Ox 100 100 03/27/25 21:16 03/27/25 21:16 03/27/25 21:19 Pulse Rate 96 91 Blood Pressure 132/80 H BP Systolic 132 BP Diastolic 80 Pulse Ox 03/27/25 21:19 03/27/25 21:21 03/27/25 21:21 Pulse Rate 93 Blood Pressure 147/77 H BP Systolic 147 BP Diastolic 77 Pulse Ox 99 03/27/25 21:24 03/27/25 21:24 03/27/25 21:26 Pulse Rate 89 Blood Pressure 166/80 H BP Systolic 166 BP Diastolic 80 Pulse Ox 100 03/27/25 21:26 03/27/25 21:29 03/27/25 21:29 Pulse Rate 82 93 Blood Pressure BP Systolic BP Diastolic Pulse Ox 99 03/27/25 21:31 03/27/25 21:31 03/27/25 21:34 Pulse Rate 93 91 Blood Pressure 160/79 H BP Systolic 160 BP Diastolic 79 Pulse Ox 03/27/25 21:34 03/27/25 21:37 03/27/25 21:37 Pulse Rate 89 Blood Pressure 167/87 H BP Systolic 167 BP Diastolic 87 Pulse Ox 100 03/27/25 21:39 03/27/25 21:39 03/27/25 21:41 Pulse Rate 90 Blood Pressure 150/68 H BP Systolic 150 BP Diastolic 68 Pulse Ox 100 03/27/25 21:41 03/27/25 21:44 03/27/25 21:44 Pulse Rate 87 91 Blood Pressure BP Systolic BP Diastolic Pulse Ox 99 03/27/25 21:46 03/27/25 21:46 03/27/25 21:49 Pulse Rate 90 91 Blood Pressure 150/67 H BP Systolic 150 BP Diastolic 67 Pulse Ox 03/27/25 21:49 03/27/25 22:03 03/27/25 22:03 Pulse Rate 105 H Blood Pressure 147/74 H BP Systolic 147 BP Diastolic 74 Pulse Ox 98 Weight Weight: 326 lb 8.073 oz Body Mass Index (BMI) 45.7 PRE- weight 285 lb PRE- Body Mass Index 39.9 (BMI) Physical Exam Const alert, oriented x3 and no apparent distress General Appearance: cooperative Orientation / Consciousness: awake HEENT normocephalic Neck full ROM Lymph Lymphatic: no lymphadenopathy noted Chest inspection of chest normal Resp normal respiratory effort and normal air movement Effort and Inspection: able to speak in complete sentences and symmetric chest movement GI soft to palpation and non-tender Inspection: gravid Palpation: soft; Negative for tender external exam normal Back/Spine normal to inspection Extremity normal to inspection and full ROM Skin no rashes or lesions noted Psych mental status grossly normal Appearance: grossly normal Speech: normal speech Labs Labs Labs: Blood Type A POSITIVE Antibody Screen NEGATIVE Hct, (37-47) 35.9 % L Hgb, (12.0-15.0) 12.8 g/dL Obstetrics Ultrasound Syphilis Total Ab, (Nonreactive) Nonreactive Rubella IgG Antibody, (Nonreactive) REAC Hep Bs Antigen, (Nonreactive) Nonreactive Hepatitis C Antibody, (Nonreactive) Nonreactive Chlamydia DNA (JR) Negative N.gonorrhoeae DNA (JR) Negative HIV 1&2 Antibody, (Nonreactive) Nonreactive Glucose 1 Hr 50 gm, (70-140) 142 mg/dL H Gest Glucose Tolerance mg/dL Assessment & Plan (1) Active labor: PLAN: Patient presents IAL, plan expectant management for , pitocin/AROM PRN if needed. Pain management: plans epidural. GBS positive plan IV PCN. Management of any complications: none I have reviewed the [facility] and made any clinically relevant updates. Dr Ruiz aware of assessment, plan and admission. agrees with above (2) Positive GBS test: COMMENT: treat in labor (3) Abnormal glucose affecting : COMMENT: NL 3 hr glucose (4) Obesity affecting : QUALIFIERS: Trimester: third trimester Obesity type affecting : unspecified obesity Qualified Code(s): O99.213 - Obesity complicating , third trimester COMMENT: BMI 42.0-weekly NSTs at 34 weeks A1C (5) Supervision of high-risk : QUALIFIERS: Trimester: third trimester Qualified Code(s): O09.93 - Supervision of high risk , unspecified, third trimester COMMENT: PRR,, ARAM 04/07/25, ajit : Nader (6) : QUALIFIERS: Weeks of gestation: 38 weeks Qualified Code(s): Z3A.38 - 38 weeks gestation of COMMENT: Discuss genetic/carrier testing - declined nl anatomy (7) Asthma: COMMENT: Rescue inhaler Charges/Coding Multi Select Codes Urinary/Genital Urinary/Genital CPT Codes: No Charge
[2025-03-27] MEDS: Oxytocin 15 Units/NS 250ml 15 UNITS/250 ML IV.SOLN 334 UNITS IV (23:09)
--- NOTE | 2025-03-27 23:44 | OB.VAGDELI_ITS ---
Assessment & Plan (1) Vaginal delivery: COMMENT: KW IAL SROM 38.3 festus Salomon (2) Active labor: (3) Positive GBS test: COMMENT: treat in labor (4) Abnormal glucose affecting : COMMENT: NL 3 hr glucose (5) Obesity affecting : QUALIFIERS: Trimester: third trimester Obesity type affecting : unspecified obesity Qualified Code(s): O99.213 - Obesity complicating , third trimester COMMENT: BMI 42.0-weekly NSTs at 34 weeks A1C (6) Supervision of high-risk : QUALIFIERS: Trimester: third trimester Qualified Code(s): O09.93 - Supervision of high risk , unspecified, third trimester COMMENT: PRR,, ARAM 04/07/25, ajit : Nader (7) : QUALIFIERS: Weeks of gestation: 38 weeks Qualified Code(s): Z3A.38 - 38 weeks gestation of COMMENT: Discuss genetic/carrier testing - declined nl anatomy (8) Asthma: COMMENT: Rescue inhaler Maternal Data Information ARAM Calculator Estimated Delivery Date Method Current WG Current Estimate 04/07/25 LMP (Certain) 38w 3d Other Estimates 04/07/25 Ultrasound #1 38w 3d Final ARAM: 04/07/25 Final ARAM Source: US >20 weeks Gestational age: 38.3 Vaginal Delivery Maternal Presentation Maternal Presentation: Spontaneous Rupture of Membranes Maternal Presentation: Presented to unit for active labor and SROM at 1800 for clear fluid Vaginal Delivery Information Procedure Performed: Spontaneous Vaginal Delivery Surgeon/Practitioner: Angelica Maldonado Date of Procedure: 03/27/25 Pre-Procedure Diagnosis: see problem list Post-Procedure Diagnosis: same Type of anesthesia: Epidural Estimated Blood Loss: 500 Time of Delivery: 23:04 Findings Description of procedure: Progressed well to 10cm dilated and made steady progress with effective maternal pushing. Delivered the head in THELMA presentation. The head was delivered atraumatically and a loose nuchal cord x2 was identified and was easily reduced over the 's head. The anterior and posterior shoulders delivered without complication followed by the rest of the and the infant was placed on the maternal abdomen. Delayed cord clamping was employed for approximately 3 minutes. Cord was clamped and cut and gentle traction was applied to the cord and the placenta delivered spontaneously. Immediately following, it was noted to be intact with a 3 vessel cord. Uterine bleeding stable. The perineum and vagina were inspected and noted to have bilateral vaginal sidewall/labial lacerations which were repaired with 3-0 Vicryl in the usual fashion. EBL was 500. Patient and infant tolerated delivery well. Apgars 9/9. Dr Ruiz notified of vaginal delivery and orders reviewed. Physician agrees with current plan of care. Presentation: Vertex Amniotic Membrane Rupture Type: Spontaneous Amniotic Fluid Description: Clear Placental Delivery Description: Spontaneous Placenta Disposition: [facility] Specimen collected: No Cord Vessel Description: 3 Vessels Cord Entanglement: Around neck x 2, loose Cord Gases: ABG and VBG Infant A Gender: Male (1 minute): 9 (5 minute): 9 Delayed Cord Clamping: Yes Endoscopy Specialty Technician continuity director: No Post Vaginal Deli Medications given after delivery: IV Pitocin Episiotomy Description: None Laceration: 2nd degree Complication Complications: No Multi Select Codes Urinary/Genital Urinary/Genital CPT Codes: 02187 Vaginal Delivery [facility]
--- NOTE | 2025-03-27 23:48 | DCINST_ITS ---
Discharge Instructions DC O2, CPAP, BIPAP needs Home O2 Discharge instructions: No Dressing / Incision Discharge Activity: Return to Normal Activity May resume sexual activity in: 6-8 weeks Dressing / Incision Call your doctor if you observe: Fever of 101 or Higher, Coldness, Increased Pain, Numbness or Tingling, Change in Color, Inability to urinate, Inability to have a bowel movement, Using more than 1 pad per hour, Shortness of breath, Dizziness, Fainting spells, Swelling in the ankles, Chest pain, Increased palpitations (irregular heartbeat), Calf discomfort and Uncontrolled pain Follow Up Care Please Follow Up With: Angelica Maldonado CNM When: Please call the office to schedule your follow up appointment in 6 weeks. If you had high blood pressure please call to schedule an appointment in 2 weeks. Test Results: Test results from this visit will be discussed in further detail at your follow- up appointment, if applicable. Discharge Plan Admission Admit Date/Time: 03/27/25 19:54 Attending Provider: Angelica Maldonado Primary Care Provider: Cheryl Hills Discharge Orders/Prescriptions Prescriptions: No Action ondansetron 4 mg tablet,disintegrating 4 mg PO Q6H PRN (Reason: nausea and vomiting) Qty: 30 4RF DHA 200 mg capsule PO albuterol sulfate 90 mcg/actuation aerosol powdr breath activated 1 inh inhalation Q4-6H PRN sertraline 50 mg tablet 50 mg PO QDAY Qty: 30 6RF Referrals / Follow Up: Cheryl Hills DO [Primary Care Provider, Internal Medicine]
[2025-03-27] MEDS: Oxytocin 15 Units/NS 250ml 15 UNITS/250 ML IV.SOLN 83 UNITS IV (23:54)
[2025-03-28] VITALS (18 sets, daily range): BP systolic 114–136; BP diastolic 54–79; PULSE 102–146; RESP 16–18; TEMP 36.1–36.8; O2SAT 98–99
[2025-03-28 06:01] LABS: Hematocrit 29.4 % (37-47); Hemoglobin 10.2 g/dL (12.0-15.0); Immature Granulocytes Count 0.140 X10^3/uL (0.0-0.0); Mean Corp Hgb Conc 34.7 g/dL (32-36); Mean Corpuscular Volume 85.2 fL (81-99); Mean Platelet Vol. 10.4 fl (6.2-12.0); NRBC Flagged by Analyzer 0 % (0-5); POSITIVE DIFFERENTIAL YES; Platelet Count 262 K/mm3 (150-450); RBC Distribution Width CV 12.7 % (11.6-14.6); RBC Distribution Width SD 39.0 fl (35.1-43.9); Red Blood Count 3.45 M/mm3 (4.2-5.4); White Blood Count 24.1 K/mm3 (4.4-11.0)
[2025-03-28 06:03] LABS: Differential Indicated SCAN CRITERIA MET
[2025-03-28 06:49] LABS: Differential Comment SCANNED
[2025-03-28 06:50] LABS: Anisocytosis 1+; Polychromasia 1+
[2025-03-28 06:51] LABS: Tear Drop Cell RARE
--- NOTE | 2025-03-28 07:52 | PCM.PN.OB ---
Subjective Subjective Patient doing well without complaints. Tolerating PO. Ambulating and voiding without difficulty. Feeding well. Denies chest pain, shortness of breath, calf pain/swelling, fevers, chills, lightheadedness. Objective Data Objective Data Vital Signs: Vital Signs Temp Pulse Resp BP Pulse Ox O2 Del Method 98.2 F 115 H 18 133/69 H 98 Room Air 03/28/25 06:06 03/28/25 06:06 03/28/25 06:06 03/28/25 06:06 03/28/25 06:06 03/28/25 06:06 Oxygen Delivery Method Room Air Weight: 326 lb 8.073 oz Body Mass Index (BMI) 45.7 Intake & Output: Intake and Output for Last 24 Hours 03/26/25 03/27/25 03/28/25 23:59 23:59 23:59 Intake Total 2350 / 2350 250 / 250 Output Total 1000 / 1000 Balance 2350 / 2350 -750 / -750 Lab / Micro Data 03/28/25 05:55 Labs: Laboratory Results - last 24 hr 03/27/25 20:10: WBC 16.4 H, RBC 4.30, Hgb 12.8, Hct 35.9 L, MCV 83.5, MCH 29.8, MCHC 35.7, RDW Std Deviation 38.8, RDW Coeff of Erika 12.8, Plt Count 292, MPV 10.5, Immature Gran % (Auto) 0.500, Neut % (Auto) 81.8 H, Lymph % (Auto) 12.0 L, [place] % (Auto) 5.4, Eos % (Auto) 0.1, Baso % (Auto) 0.2, Absolute Neuts (auto) 13.4 H, Absolute Lymphs (auto) 1.98, Nucleated RBC % 0, Syphilis Total Ab Nonreactive, Blood Type A POSITIVE, Antibody Screen NEGATIVE 03/28/25 05:55: WBC 24.1 H, RBC 3.45 L, Hgb 10.2 L, Hct 29.4 L, MCV 85.2, MCH 29.6, MCHC 34.7, RDW Std Deviation 39.0, RDW Coeff of Erika 12.7, Plt Count 262, MPV 10.4, Immature Gran % (Auto) 0.600, Neut % (Auto) 86.8 H, Lymph % (Auto) 6.1 L, [place] % (Auto) 6.3, Eos % (Auto) 0.0, Baso % (Auto) 0.2, Absolute Neuts (auto) 20.9 H, Absolute Lymphs (auto) 1.47, Nucleated RBC % 0, Differential Comment SCANNED, Platelet Estimate ADEQUATE, Polychromasia 1+, Anisocytosis 1+, Tear Drop Cells RARE Physical Exam Const alert and oriented x3 HEENT normocephalic Eyes PERRL Neck full ROM Resp normal respiratory effort GI soft to palpation GI Narrative: FF below U Assessment & Plan (1) Vaginal delivery: COMMENT: KW IAL SROM 38.3 boy Aime PLAN: Plan s/p PPD # 1 1. routine post delivery care 2. breast feeding- support given 3. rh positive 4. rubella immune
--- NOTE | 2025-03-28 12:32 | CASEMGMT ---
Social Work Assessment Labor and Delivery Unit Patient Address: [address] [place] [address] [address] [place] [address] Phone number: [phone] Date of Referral: 03/27/25 Time of Referral: 339 Referred By: Angelica Maldonado CNM Date of Intervention: 03/28/25 Time of Intervention: 1130 Reason for Referral: "mental health, depression" - "triggered PHQ-9" History obtained from: medical records, mother of baby (ROSA), father of baby (FOB), maternal grandmother Household composition: Currently residing in the home is MOB, FOB, maternal grandparents, maternal great-grandfather, maternal great-aunt, and baby to be added when ready for discharge. ROSA states that there have always been this many people in the home and there is reportedly a safe space for baby. ROSA denies any housing concerns. Patient's parent/guardian status: ROSA states that she and CLAIRE (Vadim) have been for a little over a year, but together since December 2021. This is ROSA's first child, but CLAIRE's second. CLAIRE has a 4.5 year old son, Emanuel, who MARYB shares custody with Emanuel's mother. Medical History: ROSA is 24 year old female who is 1 para 1 following labor and delivery of . ROSA received routine care during with [facility]. ROSA presented to [facility] at 38 weeks gestation for a vaginal delivery. Baby boy, Aime Painting, was born on 03[birth year], weighing 7lbs, 13oz with apgars of 9 and 9 at one and five minutes of life respectively. ROSA plans to breast feed and reports that baby will be followed by [facility] for pediatric care and follow up. 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 Supplies: ROSA states that she has some but not all infant supplies: car seat, safe sleep space, clothes, diapers, and wipes. MOB states that she may still need some additional clothing. Childcare/Caregiver(s): MOB will be the primary caregiver to baby, along with MOB's mother. Transportation: MOB reports having no concerns and states having reliable transportation. Programs/Agencies Involved: MOB denies all agency involvement, but states desire to get into counseling. Children Services/Legal Issues: No history of children services involvement. No issues or concerns warranting referral to be made at this time. Behavioral Health Issues: Mental Health History: MOB has mental health history of depression and reportedly started Zoloft in December. MOB scored 19 on the [place] and stated "sometime" having thoughts of harming self. MOB denies any specific thoughts, ideation, or plans. Substance Use History: MOB denies substance use prior to and during . Family History: MOB denies family history of addiction. MOB's mother stated having PPD and being able to watch for signs and symptoms of possible PPD for MOB. FOB reportedly also has history of depression. Drug Screens: No drug screens observed while completing chart review. Family/Social Stressors: MOB denies any issues, concerns or stressors at this time. Support Systems: MOB states that her parents and brother, along with FOB, are biggest support. Depression/Shaken Baby/Safe Sleeping: SW discussed baby blues and depression and anxiety with MOB. SW explained to MOB that due to having depression already, MOB is more likely to experience PPD. MOB expressed understanding. SW expressed importance of safe sleep inside and outside of the bedroom. SW educated MOB on always placing baby in bedside bassinet and not sleeping with baby in bed with her. SW explained that baby's bassinet should be free of any blankets, pillows or stuffed animals. SW educated MOB on shaken baby prevention. MOB expressed understanding. ASSESSMENT: MOB and baby admitted following labor and delivery. MOB has mental health history of depression and is currently on Zoloft. This is MOB's first child and currently residing in MOB's home is FOB, maternal grandparents, maternal great-grandfather, and maternal great-aunt. MOB states baby has safe sleep space in the home and MOB states having a large support system. FOB was observed engaging in conversation when necessary and observed changing baby's diaper when asked. MOB was observed holding baby appropriately and maternal grandparents and uncle were in the room for half of assessment. MOB reports understanding how current depression could lead to PPD and maternal grandmother expressed having PPD and being able to help MOB recognize signs when necessary. MOB scored 19 on the [place] and stated "sometime" having thoughts of harming self. MOB denies any specific thoughts, ideation, or plans. MOB is low risk for suicide. MOB talkative and open with SW during completion of assessment. MOB was receptive to resources provided and discussed. PLAN: No other services requested or indicated. MOB and baby to be discharged when medically ready. Parents were provided literature regarding: signs and symptoms of baby blues and mood and anxiety disorders, Help Me Grow, shaken baby prevention, ABCs of safe sleep and a list of county resources that are available for them should any needs present themselves. Lilly Machado, MILITARY POLICE OFFICER, [employer]
--- OUTSIDE RECORDS SUMMARY | 2025-03-28 16:20 | XMS RPT_ITS | CCD ---
Author Organization [facility] Care Team Providers Care Dining Room Attendant Name Role Phone Mango Whiteside Admitting Unavailable Mango Whiteside Attending Unavailable No Doctor Assigned, Nodr Primary Care Unavail able Mango Whiteside Admitting Unavailable Mango Whiteside Attending Unavailable No Doctor Assigned, Nodr Primary Care Unavail able Manog Whiteside Admitting Unavailable WhitesideMango quinn Attending Unavailable [...] Care Unavailable Angelica Maldonado CNM Attending Provider [phone] Angelica Maldonado CNM Referring Provider [phone] Dr. [...] Dr. Dorys Dow DO Attending Physician Chris PARTS REMOVER-CNusrat Attending Physician [phone] Angelica Maldonado CNM Attending Physician [phone] Joseph FRAUSTO, Dr. Lu Attending Physician Oberhauser, Daquan Primary Care Unavailable Angelica Maldonado Attending Unavailable Oberhauser, Daquan Primary Care Unavailable Angelica Maldonado Attending Unavailable Oberhauser, Daquan Referring Unavailable Dorys Dow Attending Unavailbhupendra Perez PARTS REMOVERNusrat Attending Unavailable Angelica Maldonado Attending Unavailable Miguelina Espinal Attending Unavailable Angelica Maldonado Attending Unavailable Angelica Maldonado Attending Unavailable Tabitha Byrnes Attending Unavailable Dorys Dow Attending UnavailTabitha Griffin Attending Unavailable Tabitha Byrnes Attending Unavailable Oberhauser, Daquan Primary Care Unavailable Oberhauser, Daquan Referring Unavailable Tabitha Byrnes Attending Unavailable Angelica Maldonado Attending Unavailable Angelica Maldonado Referring Unavailable Angelica Maldonado Attending Unavailable Oberhauser, Daquan Primary Care Unavailable Cardwell PARTS REMOVER, Nusrat Attending Unavailable Cardwell PARTS REMOVERNusrat Referring Unavailable Oberhauser, Daquan Primary Care Unavailable [...] oral solution (1 source) alpha-Adrenergic Agonist, Uncompetitive B-asppyb-W-asparta te Receptor Antagonist, Sigma-1 Agonist Start: 03-11-2023 [...] Discuss genetic/stone ier testing - undecided Discuss genetic/stoen ier testing - declined nl anatomy Other [...] Test Name Value Interpretation Reference Range Facility Digital Press Operator Office Visit Reporton 03-13-2025 Digital Press Operator Office Visit Report [facility] [address], [address] [place] [address] OFFICE VISIT Date of Service: 03/13/25 MR#: [id number] Acct: [id number] Name: ANGELITA SUTTON Rep #: [id number] : 2000 Provider: MARIANNA Mascorro ams Age/Sex: 24/F Location: [facility] [place] Status: Signed Intake Vital Signs 12/19/24 11:06 01/15/25 10:04 03/06/25 10:54 03/13/25 08:54 03/13/25 08:55 Height 5 ft 11 in 5 ft 11 in 5 ft 11 in 5 ft 11 in 5 ft 11 in Weight: 316 lb 9 oz BMI 44.1 BP 127/81 H Intake Visit Reasons: 36wk3d ob/nst Brancher Required: No Is patient in pain?: No [...] Negative : No PFSH PFSH Surgical History [place] teeth removed S/P tonsillectomy Family History Father Hypothyroid Grandmother Garvin disease Grandmother Diabetes Hypertension Kidney failure Social History adopted: No household members: spouse and other details: step son 's ex current occupational status: employed 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 ??-?? (more content not included)... Normal [facility] Digital Press Operator Office Visit Reporton 03-06-2025 Digital Press Operator Office Visit Report [facility] [address], [address] [place] [address] OFFICE VISIT Date of Service: 03/06/25 MR#: [id number] Acct: [id number] Name: ANGELITA SUTTON Rep #: [id number] : 2000 Provider: Dr. Tabitha goldman MD Age/Sex: 24/F Location: [facility] Status: Signed Intake Vital Signs 01/15/25 10:04 02/27/25 09:48 03/06/25 10:54 Height 5 ft 11 in 5 ft 11 in 5 ft 11 in Weight: 311 lb 2 oz 312 lb 7 oz BMI 43.4 43.5 BP 129/83 H 132/83 H Intake Visit Reasons: 35wk 3d *NST only Brancher Required: No Is patient in pain?: No [...] Negative : No PFSH PFSH Surgical History [place] teeth removed S/P tonsillectomy Family History Father Hypothyroid Grandmother Garvin disease Grandmother Diabetes Hypertension Kidney failure Social History adopted: No household members: spouse and other details: step son 's ex current occupational status: employed 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 Normal [facility] Gestational GTT 3HR 100gon 1 GEST GTT 100gm High [facility] Comment on above: Order Comment: Y Result [...] L3890.6301, L509.4006, L509.8002, L100.0100, L3890.6006, L501.9985 #### [facility] [address] [facility] [place], [address] OB Limited With Biometricson 03-01-2025 OB Limited With Biometrics [facility] [address] [place], [place] [address] OB Limited With Biometrics MR#: [id number] Acct: [id number] Name: ANGELITA SUTTON Rep #: [id number] : 2000 F 24 From: Bryan otto MD PCP: Dr. Daquan Hills, DO Status: REG CLI Study: OB Limited With Biometrics Date of Exam: 03/01 Exam# [id number] Ordering Dr: Tabitha Byrnes PROCEDURE: OB LIMITED [...] Daquan Hills DO; Dr. Tabitha Byrnes MD Parcel Carrier: Signed Normal [facility] Digital Press Operator Office Visit Reporton 02-27-2025 Digital Press Operator Office Visit Report [facility] [address], [address] [place] [address] OFFICE VISIT Date of Service: 02/27/25 MR#: [id number] Acct: [id number] Name: HERMANANGELITA PRIEST Rep #: [id number] : 2000 Provider: Dr. Tabitha goldman MD Age/Sex: 24/F Location: [facility] [place] Status: Signed Intake Vital Signs 12/19/24 11:06 02/13/25 13:53 02/27/25 09:48 Height 5 ft 11 in 5 ft 11 in 5 ft 11 in Weight: 307 lb 4 oz 311 lb 2 oz BMI 42.8 43.4 BP 116/68 129/83 H Intake Visit Reasons: 34w 3d ob/nst Brancher Required: No Is patient in pain?: No [...] Negative : No PFSH PFSH Surgical History [place] teeth removed S/P tonsillectomy Family History Father Hypothyroid Grandmother Garvin disease Grandmother Diabetes Hypertension Kidney failure Social History adopted: No household members: spouse and other details: step son 's ex current occupational status: employed 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 Normal [facility] - Chemistry and C hemistry - challengeOrdered By: Tabitha Byrnes on 02-13-2025 Glucose Ql (U) Negative [facility] - UrinalysisOrder ed By: Tabitha Byrnes on 02-13-2025 Protein Ql (U) Negative [facility] Digital Press Operator Office Visit Reporton 02-13-2025 Digital Press Operator Office Visit Report [facility] [address], [address] [place] [address] OFFICE VISIT Date of Service: 02/13/25 MR#: [id number] Acct: [id number] Name: ANGELITA SUTTON Rep #: [id number] : 2000 Provider: Dr. Tabitha goldman MD Age/Sex: 24/F Location: [facility] Status: Signed Intake Vital Signs 12/19/24 11:06 01/29/25 10:51 02/13/25 13:53 Height 5 ft 11 in 5 ft 11 in 5 ft 11 in Weight: 307 lb 4 oz BMI 42.8 BP 116/68 Intake Visit Reasons: 32wk 3D ob Brancher Required: No Is patient in pain?: No [...] Negative : No PFSH PFSH Surgical History [place] teeth removed S/P tonsillectomy Family History Father Hypothyroid Grandmother Garvin disease Grandmother Diabetes Hypertension Kidney failure Social History adopted: No household members: spouse and other details: step son 's ex current occupational status: employed 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 Normal [facility] - Chemistry and C hemistry - challengeOrdered By: Angelica Maldonado on 01-29-2025 Glucose Ql (U) Negative [facility] - UrinalysisOrder ed By: Angelica Maldonado on 01-29-2025 Protein Ql (U) Negative [facility] Digital Press Operator Office Visit Reporton 01-29-2025 Digital Press Operator Office Visit Report [facility] [address] [place] [address] OFFICE VISIT Date of Service: 01/29/25 MR#: [id number] Acct: [id number] Name: HERMANANGELITA PRIEST Rep #: [id number] : 2000 Provider: MARIANNA Mascorro ams Age/Sex: 24/F Location: [facility] Status: Signed Intake Vital Signs 12/19/24 11:06 01/15/25 10:04 01/29/25 10:50 01/29/25 10:51 Height 5 ft 11 in 5 ft 11 in 5 ft 11 in 5 ft 11 in Weight: 303 lb 9 oz BMI 42.3 BP 131/83 H Intake Visit Reasons: 30wk 2D ob Brancher Required: No Is patient in pain?: No [...] Negative : No PFSH PFSH Surgical History [place] teeth removed S/P tonsillectomy Family History Father Hypothyroid Grandmother Garvin disease Grandmother Diabetes Hypertension Kidney failure Social History adopted: No household members: spouse and other details: step son 's ex current occupational status: employed 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 no (more content not included)... Normal [facility] Absolute lymphocyte countOrd ered By: Dorys Ahn on 01-15-2025 Lymphocytes Auto (Unsp spec) [#/Vol] 2.07 10*3/uL 0.83-4.51 [facility] Absolute neutrophil countOrd ered By: Dorys Ahn on 01-15-2025 Neutrophils (Bld) [#/Vol] 8.5 10*3/uL High 2.0-7.7 [facility] Automated lymphocyte count a s percentage of total leukocytesOrdered By: Dorys Ahn on 01-15-2025 Lymphocytes/100 WBC Auto (Unsp spec) 18.4 % Low 19-41 [facility] Basophil percentageOrdered B y: Dorys Ahn on 01-15-2025 Basophils/100 WBC (Bld) 0.3 % 0-1 [facility] CBC W/Diff, Automatedon 01-01 Absolute Lymph 2.07 X10 3/uL Normal 0.83-4.51 [facility] Comment on above: Performed By: #### L 509.8002, L3890.6006, L501.0250, L100.0100 #### [facility] [address] [place], [address] Absolute Neut 8.5 X10 3/uL High 2.0-7.7 [facility] Comment on above: Performed By: #### L 509.8002, L3890.6006, L501.0250, L100.0100 #### [facility] [address] [place], [address] Basophils/100 WBC (Bld) 0.3 % Normal 0-1 [facility] Comment on above: Performed By: #### L 509.8002, L3890.6006, L501.0250, L100.0100 #### [facility] [address] [place], [address] Eosinophils/100 WBC (Bld) 0.6 % Normal 0-5 [facility] Comment on above: Performed By: #### L 509.8002, L3890.6006, L501.0250, L100.0100 #### [facility] [address] [place], [address] Erythrocyte distribution width (RBC) [Ratio] 12.6 % Normal 11.6-14.6 [facility] Comment on above: Performed By: #### L 509.8002, L3890.6006, L501.0250, L100.0100 #### [facility] [address] [place], [address] Hematocrit (Bld) [Volume fraction] 37.9 % Normal 37-47 [facility] Comment on above: Performed By: #### L 509.8002, L3890.6006, L501.0250, L100.0100 #### [facility] [address] [place], [address] Hemoglobin (Bld) [Mass/Vol] 12.9 g/dL Normal 12.0-15.0 [facility] Comment on above: Performed By: #### L 509.8002, L3890.6006, L501.0250, L100.0100 #### [facility] [address] [place], [address] IG% 0.700 Normal 0.0-0.9 [facility] Comment on above: Result Comment: IG% - Immature Granulocytes (promyelocytes, myelocytes and metamyelocytes) > 1% indicates that a LEFT SHIFT is Present. Performed By: #### L 509.8002, L3890.6006, L501.0250, L100.0100 #### [facility] [address] [place], [address] Lymphocytes/100 WBC (Bld) 18.4 % Low 19-41 [facility] Comment on above: Performed By: #### L 509.8002, L3890.6006, L501.0250, L100.0100 #### [facility] [address] [place], [address] MCH (RBC) [Entitic mass] 29.9 pg Normal 27.0-32.0 [facility] Comment on above: Performed By: #### L 509.8002, L3890.6006, L501.0250, L100.0100 #### [facility] [address] [place], [address] MCHC (RBC) [Mass/Vol] 34.0 g/dL Normal 32-36 [facility] Comment on above: Performed By: #### L 509.8002, L3890.6006, L501.0250, L100.0100 #### [facility] [address] [place], [address] MCV (RBC) [Entitic vol] 87.7 fL Normal 81-99 [facility] Comment on above: Performed By: #### L 509.8002, L3890.6006, L501.0250, L100.0100 #### [facility] [address] [place], [address] Monocytes/100 WBC (Bld) 4.6 % Normal 0-10 [facility] Comment on above: Performed By: #### L 509.8002, L3890.6006, L501.0250, L100.0100 #### [facility] [address] [place], [address] Neutrophils/100 WBC (Bld) 75.4 % High 47-70 [facility] Comment on above: Performed By: #### L 509.8002, L3890.6006, L501.0250, L100.0100 #### [facility] [address] [place], [address] Nucleated RBC (Bld) [#/Vol] 0 10*3/uL Normal 0-5 [facility] Comment on above: Performed By: #### L 509.8002, L3890.6006, L501.0250, L100.0100 #### [facility] [address] [place], [address] Platelet mean volume (Bld) [Entitic vol] 10.3 fL Normal 6.2-12.0 [facility] Comment on above: Performed By: #### L 509.8002, L3890.6006, L501.0250, L100.0100 #### [facility] [address] [place], [address] Platelets (Bld) [#/Vol] 293 10*3/uL Normal 150-450 [facility] Comment on above: Performed By: #### L 509.8002, L3890.6006, L501.0250, L100.0100 #### [facility] [address] [place], [address] RBC (Bld) [#/Vol] 4.32 10*6/uL Normal 4.2-5.4 [facility] Comment on above: Performed By: #### L 509.8002, L3890.6006, L501.0250, L100.0100 #### [facility] [address] [place], [address] RDW SD 40.6 fl Normal 35.1-43.9 [facility] Comment on above: Performed By: #### L 509.8002, L3890.6006, L501.0250, L100.0100 #### [facility] [address] [place], [address] WBC (Bld) [#/Vol] 11.3 10*3/uL High 4.4-11.0 [facility] Comment on above: Performed By: #### L 509.8002, L3890.6006, L501.0250, L100.0100 #### [facility] [address] [place], [address] Eosinophil percentageOrdered By: Dorys Ahn on 01-15-2025 Eosinophils/100 WBC (Bld) 0.6 % 0-5 [facility] Erythrocyte distribution wid th ratioOrdered By: Dorys Ahn on 01-15-2025 Erythrocyte distribution width (RBC) [Ratio] 12.6 % 11.6-14.6 [facility] Erythrocyte distribution wid th standard deviationOrdered By: Dorys Ahn on 01-15-2025 Erythrocyte distribution width (RBC) [Ratio] 40.6 fl 35.1-43.9 [facility] Glucose Challenge Gest 1H 50 sam 01-15-2025 GLU GEST 50g 1H 147 mg/dL High 70-140 [facility] Comment on above: Result Comment: AMENDED REPORT 01/15/25 1321 GLU GEST 50g 1H previously reported as: 147 H mg/dL Performed By: #### L 509.8002, L3890.6006, L501.0250, L100.0100 #### [facility] [address] [place], [address] Glucose measurement at 2 margie rs post-dose gestational glucose tolerance testOrdered By: Dorys Ahn on 01-15-2025 Glucose [Mass/Vol] 142 mg/dL High 70-140 [facility] Comment on above: Previous reported re sult: 147 mg/dLEdited by: DANI on 01/15/25:1321 AMENDED REPORT 01/15/25 1321 GLU GEST 50g 1H previously reported as: 147 H mg/dL HIVon 01-15-2025 HIV Non-Reactive Normal Nonreactive [facility] Comment on above: Result Comment: Non- Reactive Reactive Repeatedly reactive samples must be confirmed according to CDC recommended confirmatory algorithms. The subresults for either HIVAG or AHIV can be used as an aid in the selection of the confirmation algorithm for reactive samples. Send out specimens with Reactive results to [facility] for confirmation. Order the HIV antibody detection and differentiation: lc#[id number] Performed By: #### B TS, L3890.6102, L3890.6301, L509.4006, L509.8002, L100.0100, L3890.6006, L501.9985 #### [facility] [address] [place], [place], [address] Hematocrit Auto (Bld) [Volum e fraction]Ordered By: Dorys Ahn on 01-15-2025 Hematocrit (Bld) [Volume fraction] 37.9 % 37-47 [facility] Hemoglobin measurementOrdere d By: Dorys Ahn on 01-15-2025 Hemoglobin (Bld) [Mass/Vol] 12.9 g/dL 12.0-15.0 [facility] Immature granulocytes/100 WB C Auto (Bld)Ordered By: Dorys Ahn on 01-15-2025 Immature granulocytes/100 WBC (Bld) 0.700 % 0.0-0.9 [facility] Comment on above: IG% - Immature Granu locytes (promyelocytes, myelocytes and metamyelocytes) > 1% indicates that a LEFT SHIFT is Present. Laboratory - Chemistry and C hemistry - challengeOrdered By: Nusrat Perez on 01-15-2025 Glucose Ql (U) Negative [facility] - UrinalysisOrder ed By: Nusrat Perez on 01-15-2025 Protein Ql (U) Negative [facility] MCV (mean corpuscular volume ) determinationOrdered By: Dorys Ahn on 01-15-2025 MCV (RBC) [Entitic vol] 87.7 fL 81-99 [facility] Mean corpuscular hemoglobin (MCH) determinationOrdered By: Dorys Ahn on 01-15-2025 MCH (RBC) [Entitic mass] 29.9 pg 27.0-32.0 [facility] Mean corpuscular hemoglobin concentration (MCHC) determinationOrdered By: Dorys Ahn on 01-15-2025 MCHC (RBC) [Mass/Vol] 34.0 g/dL 32-36 [facility] Mean platelet volume determi nationOrdered By: Dorys Ahn on 01-15-2025 Platelet mean volume (Bld) [Entitic vol] 10.3 fL 6.2-12.0 [facility] Monocyte percentageOrdered B y: Dorys Ahn on 01-15-2025 Monocytes/100 WBC (Bld) 4.6 % 0-10 [facility] Neutrophil percentageOrdered By: Dorys Ahn on 01-15-2025 Neutrophils/100 WBC (Bld) 75.4 % High 47-70 [facility] No Panel InformationOrdered By: Dorys Ahn on 01-15-2025 HIV (1&2) Antibody Non-Reactive Nonreactive [facility] Comment on above: Non-ReactiveReactive Repeatedly reactive samples must be confirmed according to CDC recommended confirmatory algorithms. The subresults for either HIVAG or AHIV can be used as an aid in the selection of the confirmation algorithm for reactive samples.Send out specimens with Reactive results to [facility] for confirmation.Order the HIV antibody detection and differentiation: #[id number] Nucleated red blood cell per centageOrdered By: Dorys Ahn on 01-15-2025 Nucleated RBC/100 WBC (Bld) [Ratio] 0 % 0-5 [facility] Digital Press Operator Office Visit Reporton 01-15-2025 Digital Press Operator Office Visit Report [facility], [address] [place] [address] OFFICE VISIT Date of Service: 01/15/25 MR#: [id number] Acct: [id number] Name: HERMANANGELITA PRIEST Rep #: [id number] : 2000 Provider: RENATO de la cruz Age/Sex: 24/F Location: [facility] [place] Status: Signed Intake Vital Signs 10/27/24 13:59 12/19/24 11:06 01/15/25 09:52 01/15/25 10:04 Height 5 ft 11 in 5 ft 11 in 5 ft 11 in 5 ft 11 in Weight: 301 lb 2 oz BMI 42.0 BP 118/84 H Intake Visit Reasons: 28 wk ob/glucose Chief Complaint: 28 Week OB/Glucose Brancher Required: No Is patient in pain?: No [...] Negative : Yes PFSH PFSH Surgical History [place] teeth removed S/P tonsillectomy Family History Father Hypothyroid Grandmother Garvin disease Grandmother Diabetes Hypertension Kidney failure Social History adopted: No household members: spouse and other details: step son 's ex current occupational status: employed 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 ?-???-??? (more content not included)... Normal [facility] Platelet countOrdered By: Hugh Ahn on 01-15-2025 Platelets (Bld) [#/Vol] 293 10*3/uL 150-450 [facility] RBC Auto (Bld) [#/Vol]Ordere d By: Dorys Ahn on 01-15-2025 RBC (Bld) [#/Vol] 4.32 10*6/uL 4.2-5.4 [facility] Syphilis Antibodieson 2024 Syphilis Abs Non-Reactive Normal Nonreactive [facility] Comment on above: Performed By: #### B TS, L3890.6102, L3890.6301, L509.4006, L509.8002, L100.0100, L3890.6006, L501.9985 #### [facility] [address] [place], [address] White blood cell (WBC) count Ordered By: Dorys Ahn on 01-15-2025 WBC (Bld) [#/Vol] 11.3 10*3/uL High 4.4-11.0 [facility] - Chemistry and C hemistry - challengeOrdered By: Dorys Ahn on 12-19-2024 Glucose Ql (U) Negative [facility] - UrinalysisOrder ed By: Dorysangeli Ahn on 12-19-2024 Protein Ql (U) Negative [facility] Digital Press Operator Office Visit Reporton 12-19-2024 Digital Press Operator Office Visit Report [facility], [address] [place] [address] OFFICE VISIT Date of Service: 12/19/24 MR#: [id number] Acct: [id number] Name: ANGELITA SUTTON Rep #: [id number] : 2000 Provider: Dr. Dorys Parra DO Age/Sex: 24/F Location: [facility] Status: Signed Intake Vital Signs 10/27/24 13:59 11/20/24 09:23 12/19/24 11:06 Height 5 ft 11 in 5 ft 11 in 5 ft 11 in Weight: 300 lb 6 oz BMI 41.8 BP 117/75 Intake Visit Reasons: 24 wk ob Brancher Required: No Is patient in pain?: No [...] Negative : No PFSH PFSH Surgical History [place] teeth removed S/P tonsillectomy Family History Father Hypothyroid Grandmother Garvin disease Grandmother Diabetes Hypertension Kidney failure Social History adopted: No household members: spouse and other details: step son 's ex current occupational status: employed 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 Normal [facility] D-DIMER, QUANTITATIVEon 11-02 D-DIMER QUANTITATIVE < Normal 0.27-0.49 [facility] Comment on above: Order Comment: A D-d [...] #### 4 [id number] #### [facility] [address] [address] Bruno Alexandra M.D. [id number] ED Prov Noteon 11-30-2024 ED Prov Note [facility] EMERGENCY DEPARTMENT ATTENDING NOTE: NAME: Angelita Sutton CSN: [id number] 24 y.o. PCP: Daquan Hills DO History: Chief Complaint: Leg Pain and Problem HPI: The history was obtained from the patient. Angelita is a 24 y.o. female who presents with a chief complaint of Leg Pain and Problem. 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 Mindy Huang MD ED Attending Physician [facility] EMERGENCY DEPARTMENT [1] Social History Socioeconomic History Marital status: Tobacco Use Smoking status: Never Smokeless tobacco: Never Vaping Use Vaping status: Never Used Substance and Sexual Activity Alcohol use: Not Currently Drug use: Not Currently [2] No Known Allergies Mindy Huang MD 11/30/24 2338 AUTHENTICATED BY MINDY HUANG, ON 11/30/2024 23:38:00 Normal [facility] - Chemistry and C hemistry - challengeOrdered By: Dorys Ahn on 11-20-2024 Glucose Ql (U) Negative [facility] Laboratory - UrinalysisOrder ed By: Dorys Ahn on 11-20-2024 Protein Ql (U) Negative [facility] Digital Press Operator Office Visit Reporton 11-20-2024 Digital Press Operator Office Visit Report [facility] [address], [address] [place] [address] OFFICE VISIT Date of Service: 11/20/24 MR#: [id number] Acct: [id number] Name: HERMANANGELITALOREE ACOSTA Rep #: [id number] : 2000 Provider: Dr. Dorys Parra DO Age/Sex: 23/F Location: [facility] Status: Signed Intake Vital Signs 09/04/24 08:50 10/27/24 13:59 11/20/24 09:21 11/20/24 09:23 Height 5 ft 11 in 5 ft 11 in 5 ft 11 in 5 ft 11 in Weight: 300 lb BMI 41.8 BP 139/82 H Intake Visit Reasons: 20wk ob Brancher Required: No Is patient in pain?: No [...] Negative : No PFSH PFSH Surgical History [place] teeth removed S/P tonsillectomy Family History Father Hypothyroid Grandmother Garvin disease Grandmother Diabetes Hypertension Kidney failure Social History adopted: No household members: spouse and other details: step son 's ex current occupational status: employed 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 ??-??? (more content not included)... Normal [facility] Laboratory - Chemistry and C hemistry - challengeOrdered By: Miguelina Espinal on 10-27-2024 Glucose Ql (U) Negative [facility] Laboratory - UrinalysisOrder ed By: Miguelina Espinal on 10-27-2024 Protein Ql (U) Negative [facility] Digital Press Operator Office Visit Reporton 10-27-2024 Digital Press Operator Office Visit Report [facility] [address], [address] [place] [address] OFFICE VISIT Date of Service: 10/27/24 MR#: [id number] Acct: [id number] Name: ANGELITA SUTTON Rep #: [id number] : 2000 Provider: MARIANNA cardoza Age/Sex: 23/F Location: [facility] Status: Signed Intake Vital Signs 09/04/24 08:50 09/29/24 14:56 10/27/24 13:59 Height 5 ft 11 in 5 ft 11 in 5 ft 11 in Weight: 289 lb BMI 40.3 BP 138/79 H Intake Visit Reasons: 16wk ob Chief Complaint: 16wk ob Brancher Required: No Is patient in pain?: No [...] 07/01/24 : No PFSH PFSH Surgical History [place] teeth removed S/P tonsillectomy Family History Father Hypothyroid Grandmother Garvin disease Grandmother Diabetes Hypertension Kidney failure Social History adopted: No household members: spouse and other details: step son 's ex current occupational status: employed 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 Normal [facility] - Chemistry and C hemistry - challengeOrdered By: Tabitha Byrnes on 09-29-2024 Glucose Ql (U) Negative [facility] Laboratory - UrinalysisOrder ed By: Tabitha Byrnes on 09-29-2024 Protein Ql (U) Negative [facility] Digital Press Operator Office Visit Reporton 09-29-2024 Digital Press Operator Office Visit Report [facility] [address], [address] [place] [address] OFFICE VISIT Date of Service: 09/29/24 MR#: [id number] Acct: [id number] Name: ANGELITA SUTTON Rep #: [id number] : 2000 Provider: Dr. Tabitha goldman MD Age/Sex: 23/F Location: [facility] [place] Status: Signed Intake Vital Signs 09/04/24 08:50 09/29/24 14:53 09/29/24 14:56 Height 5 ft 11 in 5 ft 11 in 5 ft 11 in Weight: 295 lb 6 oz BMI 41.1 BP 130/82 H Intake Visit Reasons: 12wk ob Brancher Required: No Is patient in pain?: No [...] Negative : No PFSH PFSH Surgical History [place] teeth removed S/P tonsillectomy Family History Father Hypothyroid Grandmother Bhanu disease Grandmother Diabetes Hypertension Kidney failure Social History adopted: No household members: spouse and other details: step son 's ex current occupational status: employed 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 Normal [facility] Chlamydia/GC JR aptimaon CHLAMY,NUC ACID Negative [facility] Comment on above: Performed By: #### B TS, L3890.6102, L3890.6301, L509.4006, L509.8002, L100.0100, L3890.6006, L501.9985 #### [facility] [address] [place], [place], [id number] GC BY NUC ACID Negative [facility] Comment on above: Performed By: #### B TS, L3890.6102, L3890.6301, L509.4006, L509.8002, L100.0100, L3890.6006, L501.9985 #### [facility] [address] [place], [place], [id number] PAP I-G w/rfx hrHPV-Aptimaon 09-07-2024 ADEQ Comment Normal . [facility] Comment on above: Order Comment: Speci men Comment: [id number] Comment: No. of containers..01 ThinPrep Vial Result Comment: Sati sfactory for evaluation. No endocervical component is identified. Performed By: #### B TS, L3890.6102, L3890.6301, L509.4006, L509.8002, L100.0100, L3890.6006, L501.9985 #### [facility] [address] [place], [address] COMM . Normal . [facility] Comment on above: Order Comment: Speci men Comment: [id number] Comment: No. of containers..01 ThinPrep Vial Performed By: #### B TS, L3890.6102, L3890.6301, L509.4006, L509.8002, L100.0100, L3890.6006, L501.9985 #### [facility] [address] [place], [place], [id number] COMMENT Comment Normal . [facility] Comment on above: Order Comment: Speci men Comment: [id number] Comment: No. of containers..01 ThinPrep Vial Result Comment: This liquid based ThinPrep(R) pap test was screened with the use of an image guided system. Performed By: #### B TS, L3890.6102, L3890.6301, L509.4006, L509.8002, L100.0100, L3890.6006, L501.9985 #### [facility] [address] [place], [place], [id number] DIAG Comment Normal . [facility] Comment on above: Order Comment: Speci men Comment: [id number] Comment: No. of containers..01 ThinPrep Vial Result Comment: NEGA TIVE FOR INTRAEPITHELIAL LESION OR MALIGNANCY. Performed By: #### B TS, L3890.6102, L3890.6301, L509.4006, L509.8002, L100.0100, L3890.6006, L501.9985 #### [facility] [address] [place], [place], [id number] HPV RFLX Comment Normal . [facility] Comment on above: Order Comment: Speci men Comment: [id number] Comment: No. of containers..01 ThinPrep Vial Result Comment: The HPV DNA reflex criteria were not met with this specimen result therefore, no HPV testing was performed. Performed at: [address] [id number] Hand Hide Stretcher: Brigette George MD, Phone: [phone] Performed By: #### B TS, L3890.6102, L3890.6301, L509.4006, L509.8002, L100.0100, L3890.6006, L501.9985 #### [facility] [address] [place], [place], [id number] PAPSMR Comment Normal . [facility] Comment on above: Order Comment: Speci men Comment: [id number] Comment: No. of containers..01 ThinPrep Vial Result [...] L3890.6301, L509.4006, L509.8002, L100.0100, L3890.6006, L501.9985 #### [facility] [address] [place], [place], [id number] PERFORM Comment Normal . [facility] Comment on above: Order Comment: Speci men Comment: [id number] Comment: No. of containers..01 ThinPrep Vial Result Comment: Oly Santacruz, Pneumatic Systems Operator (ASCP) Performed By: #### B TS, L3890.6102, L3890.6301, L509.4006, L509.8002, L100.0100, L3890.6006, L501.9985 #### [facility] [address] [place], [place], [id number] Urine Cultureon 09-05-2024 URC Culture exhibits no growth. Normal [facility] Comment on above: Performed By: #### B TS, L3890.6102, L3890.6301, L509.4006, L509.8002, L100.0100, L3890.6006, L501.9985 #### [facility] [address] [place], [place], [id number] Absolute lymphocyte countOrd ered By: Angelica Maldonado on 09-04-2024 Lymphocytes Auto (Unsp spec) [#/Vol] 1.88 10*3/uL 0.83-4.51 [facility] Absolute neutrophil countOrd ered By: Angelica Maldonado on 09-04-2024 Neutrophils (Bld) [#/Vol] 9.3 10*3/uL High 2.0-7.7 [facility] Automated lymphocyte count a s percentage of total leukocytesOrdered By: Angelica Maldonado on 09-04-2024 Lymphocytes/100 WBC Auto (Unsp spec) 15.8 % Low 19-41 [facility] Basophil percentageOrdered B y: Angelica Maldonado on 09-04-2024 Basophils/100 WBC (Bld) 0.3 % 0-1 [facility] CBC W/Diff, Automatedon 05 Absolute Lymph 1.88 X10 3/uL Normal 0.83-4.51 [facility] Comment on above: Performed By: #### B TS, L3890.6102, L3890.6301, L509.4006, L509.8002, L100.0100, L3890.6006, L501.9985 #### [facility] [address] [place], [address] Absolute Neut 9.3 X10 3/uL High 2.0-7.7 [facility] Comment on above: Performed By: #### B TS, L3890.6102, L3890.6301, L509.4006, L509.8002, L100.0100, L3890.6006, L501.9985 #### [facility] [address] [place], [address] Basophils/100 WBC (Bld) 0.3 % Normal 0-1 [facility] Comment on above: Performed By: #### B TS, L3890.6102, L3890.6301, L509.4006, L509.8002, L100.0100, L3890.6006, L501.9985 #### [facility] [address] [place], [address] Eosinophils/100 WBC (Bld) 0.3 % Normal 0-5 [facility] Comment on above: Performed By: #### B TS, L3890.6102, L3890.6301, L509.4006, L509.8002, L100.0100, L3890.6006, L501.9985 #### [facility] [address] [place], [address] Erythrocyte distribution width (RBC) [Ratio] 12.8 % Normal 11.6-14.6 [facility] Comment on above: Performed By: #### B TS, L3890.6102, L3890.6301, L509.4006, L509.8002, L100.0100, L3890.6006, L501.9985 #### [facility] [address] [place], [address] Hematocrit (Bld) [Volume fraction] 40.6 % Normal 37-47 [facility] Comment on above: Performed By: #### B TS, L3890.6102, L3890.6301, L509.4006, L509.8002, L100.0100, L3890.6006, L501.9985 #### [facility] [address] [place], [address] Hemoglobin (Bld) [Mass/Vol] 14.2 g/dL Normal 12.0-15.0 [facility] Comment on above: Performed By: #### B TS, L3890.6102, L3890.6301, L509.4006, L509.8002, L100.0100, L3890.6006, L501.9985 #### [facility] [address] [place], [address] IG% 0.600 Normal 0.0-0.9 [facility] Comment on above: Result Comment: IG% - Immature Granulocytes (promyelocytes, myelocytes and metamyelocytes) > 1% indicates that a LEFT SHIFT is Present. Performed By: #### B TS, L3890.6102, L3890.6301, L509.4006, L509.8002, L100.0100, L3890.6006, L501.9985 #### [facility] [address] [place], [address] Lymphocytes/100 WBC (Bld) 15.8 % Low 19-41 [facility] Comment on above: Performed By: #### B TS, L3890.6102, L3890.6301, L509.4006, L509.8002, L100.0100, L3890.6006, L501.9985 #### [facility] [address] [place], [address] MCH (RBC) [Entitic mass] 29.1 pg Normal 27.0-32.0 [facility] Comment on above: Performed By: #### B TS, L3890.6102, L3890.6301, L509.4006, L509.8002, L100.0100, L3890.6006, L501.9985 #### [facility] [address] [place], [address] MCHC (RBC) [Mass/Vol] 35.0 g/dL Normal 32-36 [facility] Comment on above: Performed By: #### B TS, L3890.6102, L3890.6301, L509.4006, L509.8002, L100.0100, L3890.6006, L501.9985 #### [facility] [address] [place], [address] MCV (RBC) [Entitic vol] 83.2 fL Normal 81-99 [facility] Comment on above: Performed By: #### B TS, L3890.6102, L3890.6301, L509.4006, L509.8002, L100.0100, L3890.6006, L501.9985 #### [facility] [address] [place], [address] Monocytes/100 WBC (Bld) 4.8 % Normal 0-10 [facility] Comment on above: Performed By: #### B TS, L3890.6102, L3890.6301, L509.4006, L509.8002, L100.0100, L3890.6006, L501.9985 #### [facility] [address] [place], [address] Neutrophils/100 WBC (Bld) 78.2 % High 47-70 [facility] Comment on above: Performed By: #### B TS, L3890.6102, L3890.6301, L509.4006, L509.8002, L100.0100, L3890.6006, L501.9985 #### [facility] [address] [place], [address] Nucleated RBC (Bld) [#/Vol] 0 10*3/uL Normal 0-5 [facility] Comment on above: Performed By: #### B TS, L3890.6102, L3890.6301, L509.4006, L509.8002, L100.0100, L3890.6006, L501.9985 #### [facility] [address] [place], [address] Platelet mean volume (Bld) [Entitic vol] 10.1 fL Normal 6.2-12.0 [facility] Comment on above: Performed By: #### B TS, L3890.6102, L3890.6301, L509.4006, L509.8002, L100.0100, L3890.6006, L501.9985 #### [facility] [address] [place], [address] Platelets (Bld) [#/Vol] 339 10*3/uL Normal 150-450 [facility] Comment on above: Performed By: #### B TS, L3890.6102, L3890.6301, L509.4006, L509.8002, L100.0100, L3890.6006, L501.9985 #### [facility] [address] [place], [address] RBC (Bld) [#/Vol] 4.88 10*6/uL Normal 4.2-5.4 [facility] Comment on above: Performed By: #### B TS, L3890.6102, L3890.6301, L509.4006, L509.8002, L100.0100, L3890.6006, L501.9985 #### [facility] [address] [place], [address] RDW SD 38.9 fl Normal 35.1-43.9 [facility] Comment on above: Performed By: #### B TS, L3890.6102, L3890.6301, L509.4006, L509.8002, L100.0100, L3890.6006, L501.9985 #### [facility] [address] [place], [address] WBC (Bld) [#/Vol] 11.9 10*3/uL High 4.4-11.0 [facility] Comment on above: Performed By: #### B TS, L3890.6102, L3890.6301, L509.4006, L509.8002, L100.0100, L3890.6006, L501.9985 #### [facility] [address] [place], [place], [id number] Cervical or vagninal specime n microscopic examination by cytology stain (reported asOrdered By: Angelica Maldonado on 09-04-2024 Cytology report Cyto stain Doc (Cvx/Vag) Comment . [facility] Comment on above: The Pap smear is [...] trachomatis rRNA JR+probe Ql (Unsp spec) Negative [facility] Eosinophil percentageOrdered By: Angelica Maldonado on 09-04-2024 Eosinophils/100 WBC (Bld) 0.3 % 0-5 [facility] Erythrocyte distribution wid th ratioOrdered By: Angelica Maldonado on 09-04-2024 Erythrocyte distribution width (RBC) [Ratio] 12.8 % 11.6-14.6 [facility] Erythrocyte distribution wid th standard deviationOrdered By: Angelica Maldonado on 09-04-2024 Erythrocyte distribution width (RBC) [Ratio] 38.9 fl 35.1-43.9 [facility] HIVon 09-04-2024 HIV Non-Reactive Normal Nonreactive [facility] Comment on above: Result Comment: Non- Reactive Reactive Repeatedly reactive samples must be confirmed according to CDC recommended confirmatory algorithms. The subresults for either HIVAG or AHIV can be used as an aid in the selection of the confirmation algorithm for reactive samples. Send out specimens with Reactive results to [facility] for confirmation. Order the HIV antibody detection and differentiation: [id number] Performed By: #### B TS, L3890.6102, L3890.6301, L509.4006, L509.8002, L100.0100, L3890.6006, L501.9985 #### [facility] [address] [place], [place], [id number] Hematocrit Auto (Bld) [Volum e fraction]Ordered By: Angelica Maldonado on 09-04-2024 Hematocrit (Bld) [Volume fraction] 40.6 % 37-47 [facility] Hemoglobin A1con 09-04-2024 HbA1c (Bld) [Mass fraction] 5.1 % Normal <=5.6 [facility] Comment on above: Result Comment: Norm al < 5.7 % Prediabetic 5.7 - 6.4 % Diabetic >or= 6.5 % Please note range changes. Performed By: #### B TS, L3890.6102, L3890.6301, L509.4006, L509.8002, L100.0100, L3890.6006, L501.9985 #### [facility] [address] [place], [address] Hemoglobin A1c percentageOrd ered By: Angelica Maldonado on 09-04-2024 HbA1c (Bld) [Mass fraction] 5.1 % <5.7 [facility] Comment on above: Normal < 5.7 % Predi abetic 5.7 - 6.4 % Diabetic >or= 6.5 % Please note range changes. Hemoglobin measurementOrdere d By: Angelica Maldonado on 09-04-2024 Hemoglobin (Bld) [Mass/Vol] 14.2 g/dL 12.0-15.0 [facility] Hepatitis C Antibodyon 09-04 Hepatitis C Ab Non-Reactive Normal Nonreactive [facility] Comment on above: Result Comment: Reac tive: Presumptive evidence of antibodies to HCV. Follow CDC recommendations for supplemental testing. Non-Reactive: Antibodies to HCV were not detected; does not exclude the possibility of exposure to HCV Reactive Results are presumptive evidence of antibodies to HCV. Follow CDC recommendations for supplemental testing. Order confirmation testing: HCV Quant by PCR testing - HCVPCR #[id number] Non Reactive: < 0.8 Equivocal: >/= 0.8 to < 1.0 Reactive: >/= 1.0 The [facility] requires that a reactive/equivocal HCV antibody result be sent out for confirmation. HCV Quant by PCR testing. Performed By: #### B TS, L3890.6102, L3890.6301, L509.4006, L509.8002, L100.0100, L3890.6006, L501.9985 #### [facility] [address] [place], [place], [id number] Immature granulocytes/100 WB C Auto (Bld)Ordered By: Angelica Maldonado on 09-04-2024 Immature granulocytes/100 WBC (Bld) 0.600 % 0.0-0.9 [facility] Comment on above: IG% - Immature Granu locytes (promyelocytes, myelocytes and metamyelocytes) > 1% indicates that a LEFT SHIFT is Present. L3890.6102on 09-04-2024 HEP B Surf Ag Non-Reactive Normal Nonreactive [facility] Comment on above: Result Comment: Reac tive: Presumptive evidence of HBV. Repeatedly reactive samples must be confirmed using a neutralization test ([employer] HBsAg Confirmatory Test) Non-Reactive: HBsAg not detected; does not exclude the possibility of exposure to HBV Performed By: #### B TS, L3890.6102, L3890.6301, L509.4006, L509.8002, L100.0100, L3890.6006, L501.9985 #### [facility] [address] [place], [place], [address] L509.4006on 09-04-2024 Rubella IgG REAC Normal Nonreactive [facility] Comment on above: Result Comment: Anti body Result: Interpretation Non-Reactive: Non-Immune Reactive: Immune The following results were obtained with the [employer] Rubella IgG assay. Results from assays of other manufacturers cannot be used interchangeably. Performed By: #### B TS, L3890.6102, L3890.6301, L509.4006, L509.8002, L100.0100, L3890.6006, L501.9985 #### [facility] [address] [place], [address] Laboratory - CytologyOrdered By: Angelica Maldonado on 09-04-2024 Pneumatic Systems Operator Cyto stain Nom (Cvx/Vag) [ID] Comment . [facility] Comment on above: Lashonda Domínguez ytologist ([facility]) Laboratory - Microbiology an d Antimicrobial susceptibilityOrdered By: Angelica Maldonado on 09-04-2024 HBV surface Ag Ql (S) Non-Reactive Nonreactive [facility] Comment on above: Reactive: Presumptiv e evidence of HBV. Repeatedly reactive samples must be confirmed using a neutralization test ([employer] HBsAg Confirmatory Test)Non-Reactive: HBsAg not detected; does not exclude the possibility of exposure to HBV Laboratory - Miscellaneous t estsOrdered By: Angelica Maldonado on 09-04-2024 Service comment (Unsp spec) [Interp] . . [facility] MCV (mean corpuscular volume ) determinationOrdered By: Angelica aMldonado on 09-04-2024 MCV (RBC) [Entitic vol] 83.2 fL 81-99 [facility] Mean corpuscular hemoglobin (MCH) determinationOrdered By: Angelica Maldonado on 09-04-2024 MCH (RBC) [Entitic mass] 29.1 pg 27.0-32.0 [facility] Mean corpuscular hemoglobin concentration (MCHC) determinationOrdered By: Angelica Maldonado on 09-04-2024 MCHC (RBC) [Mass/Vol] 35.0 g/dL 32-36 [facility] Mean platelet volume determi nationOrdered By: Angelica Maldonado on 09-04-2024 Platelet mean volume (Bld) [Entitic vol] 10.1 fL 6.2-12.0 [facility] Monocyte percentageOrdered B y: Angelica Maldonado on 09-04-2024 Monocytes/100 WBC (Bld) 4.8 % 0-10 [facility] Neisseria gonorrhoeae nuclei c acid detection by amplified probe techniqueOrdered By: Angelica Maldonado on 09-04-2024 N. gonorrhoeae DNA JR+probe Ql (Unsp spec) Negative [facility] Neutrophil percentageOrdered By: Angelica Maldonado on 09-04-2024 Neutrophils/100 WBC (Bld) 78.2 % High 47-70 [facility] No Panel InformationOrdered By: Angelica Maldonado on 09-04-2024 Pap Smear Specimen Adequacy Comment . [facility] Comment on above: Satisfactory for ruben luation. No endocervical component is identified. HIV (1&2) Antibody Non-Reactive Nonreactive [facility] Comment on above: Non-ReactiveReactive Repeatedly reactive samples must be confirmed according to CDC recommended confirmatory algorithms. The subresults for either HIVAG or AHIV can be used as an aid in the selection of the confirmation algorithm for reactive samples.Send out specimens with Reactive results to [facility] for confirmation.Order the HIV antibody detection and differentiation: lc#[id number] Nucleated red blood cell per centageOrdered By: Angelica Maldonado on 09-04-2024 Nucleated RBC/100 WBC (Bld) [Ratio] 0 % 0-5 [facility] Digital Press Operator Office Visit Reporton 09-04-2024 Digital Press Operator Office Visit Report [facility] [address], [address] [place] [address] OFFICE VISIT Date of Service: 09/04/24 MR#: [id number] Acct: [id number] Name: ANGELITA SUTTON Rep #: [id number] : 2000 Provider: MARIANNA Mascorro ams Age/Sex: 23/F Location: [facility] Status: Signed Intake Vital Signs 08/18/24 13:40 09/04/24 08:50 Height 5 ft 11 in 5 ft 11 in Weight: 294 lb 2 oz BMI 41.0 BP 124/84 H Intake Visit Reasons: NOB:LMP 3/ ARAM 04/07 Do NOT shorten per KW Chief Complaint: New OB Brancher Required: No Is patient in pain?: No [...] past year?: No PFSH PFSH Surgical History [place] teeth removed S/P tonsillectomy Family History Father Hypothyroid Grandmother Garvin disease Grandmother Diabetes Hypertension Kidney failure Social History adopted: No household members: spouse and other details: step son 's ex current occupational status: employed 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 Normal [facility] Platelet countOrdered By: Ezra Maldonado on 09-04-2024 Platelets (Bld) [#/Vol] 339 10*3/uL 150-450 [facility] RBC Auto (Bld) [#/Vol]Ordere d By: Angelica Maldonado on 09-04-2024 RBC (Bld) [#/Vol] 4.88 10*6/uL 4.2-5.4 [facility] Syphilis Antibodieson 2024 Syphilis Abs Non-Reactive Normal Nonreactive [facility] Comment on above: Performed By: #### B TS, L3890.6102, L3890.6301, L509.4006, L509.8002, L100.0100, L3890.6006, L501.9985 #### [facility] [address] [place], [address] Type AND Screenon 09-04-2024 ABO and Rh group Nom (Bld) Blood group A Rh(D) positive Normal [facility] Comment on above: Order Comment: PN Performed By: #### B TS, L3890.6102, L3890.6301, L509.4006, L509.8002, L100.0100, L3890.6006, L501.9985 #### [facility] [address] [place], [address] Urine cultureOrdered By: Lakhwinder Maldonado on 09-04-2024 Bacteria identified Cx Nom (U) Culture exhibits no growth. [facility] White blood cell (WBC) count Ordered By: Angelica Maldonado on 09-04-2024 WBC (Bld) [#/Vol] 11.9 10*3/uL High 4.4-11.0 [facility] - Chemistry and C hemistry - challengeOrdered By: Angelica Maldonado on 08-18-2024 HCG ( test) Ql (U) Positive [facility] Office Visit Reporton 2024 Office Visit Report [facility] [address] [place] [address] OFFICE VISIT Date of Service: 08/18/24 MR#: [id number] Acct: [id number] Patient: ANGELITA SUTTON Rep #: [id number] : 2000 Provider: MARIANNA Mascorro ams Age/Sex: 23/F Location: [facility] Status: Signed Intake Vital Signs 08/18/24 13:40 Height 5 ft 11 in Weight: 301 lb 4 oz BMI 42.0 BP 122/76 H Intake Visit Reasons: PNOB nurse visit Brancher Required: No Accompanied by: Allergies No Known [...] Venegas Signature: Date (if applicable) CC: Normal [facility] ED Prov Noteon 12-15-2023 ED Prov Note ED PROVIDER NOTE [facility] NAME: Angelita Johnson AGE: 23 y.o. : 2000 VISIT DATE: 12/15/2023 CSN: [id number] PCP: Daquan Hills DO Chief Complaint Patient [...] BY LIDIA KRUGER, ON 12/15/2023 12:57:52 Normal [facility] POC , URINE - RALSo n 12-15-2023 Beta HCG ( test) Ql (U) Negative Normal Negative [facility] Comment on above: Order Comment: Negat raymon: Dilute urine specimens, as indicated by a low specific gravity (<1.010) may not contain representitive levels of hCG. If is still suspected, a serum test or repeat urine test using a first morning urine specimen should be considered. POC URINALYSIS DIPSTICK,AUTO - RALSon 12-15-2023 POC BILIRUBIN, URINE Negative Normal Negative [facility] POC BLOOD, URINE Trace-intact Abnormal Negative [facility] POC GLUCOSE, URINE Negative Normal Negative [facility] POC KETONES, URINE Negative Normal Negative [facility] POC LEUKOCYTE ESTERASE, URINE Small Abnormal Negative [facility] POC NITRITE, URINE Negative Normal Negative [facility] POC PH, URINE 7.0 Normal 5.0-7.0 [facility] POC PROTEIN, URINE Negative Normal Negative [facility] POC SPECIFIC GRAVITY 1.020 Normal 1.005-1.025 [facility] POC UROBILINOGEN 0.2 mg/dL Normal < 2.0 [facility] dical [place] URINE AEROBIC CULTUREon 12-01 URINE AEROBIC CULTURE URINE CULTURE > 10,000 CFU/mL mixture of normal urogenital microbiota Normal [facility] Comment on above: Performed By: #### 4 [id number] #### [facility] [address] [place] [address] Sukhi Amaro M.D. [id number] ED Prov Noteon 11-01-2023 ED Prov Note [...] ------- PAST HISTORY ------- Past Medical History: @[facility]@ Past Surgical History: has no [...] Follow-up: Trent Leblanc MD [address] [facility] [id number] In 3 days Final Impression: 1. Subacromial bursitis of right shoulder joint (Please note that portions of this note were completed with a voice recognition program. Efforts were made to edit the dictations but occasionally words are mis-transcribed.) G (more content not included)... Normal [facility] COVID-19, MOLECULARon 2023 SARS-CoV-2 (COVID-19) Ab IA Ql Detected Abnormal Not Detected [facility] Comment on above: Result Comment: Test ing was performed using the Net[employer] ID NOW COVID-19 assay on the ID NOW platform. This test has not been approved for use in asymptomatic patients and its performance in this patient population has not been evaluated. Negative results do not rule out the presence of SARS-CoV-2/COVID-19. Influenza virus A and B and SARS-CoV-2 (COVID-19) identified JR+probe Nom (Resp)on 03-12-2023 FLUAV RNA JR+probe Ql (Resp) Not detected Not Detected [facility] FLUBV RNA JR+probe Ql (Resp) Not detected Not Detected [facility] Interpretation and review of laboratory results Normal [facility] SARS-CoV-2 (COVID-19) RNA JR+probe Ql (Resp) Not detected Not Detected [facility] This assay has received FDA Emergency [...] and has been validated for use at [facility]. Negative results do not preclude COVID-19 infections or Influenza A/B infections, and should not be used as the sole basis for diagnosis, treatment, or other management decisions. If Influenza A/B and RSV PCR results are negative, testing for Parainfluenza virus, Adenovirus and Metapneumovirus is routinely performed for [facility] pediatric oncology and intensive care inpatients, and is available on other patients by placing an add-on request. [facility] Influenza virus A and B and SARS-CoV-2 (COVID-19) identified JR+probe Nom (Resp)on 03-11-2023 FLUAV RNA JR+probe Ql (Resp) Not detected Normal Not Detected [facility] Comment on above: Order Comment: [...] and has been validated for use at [facility]. Negative results do not preclude COVID-19 infections or Influenza A/B infections, and should not be used as the sole basis for diagnosis, treatment, or other management decisions. If Influenza A/B and RSV PCR results are negative, testing for Parainfluenza virus, Adenovirus and Metapneumovirus is routinely performed for [facility] pediatric oncology and intensive care inpatients, and is available on other patients by placing an add-on request. Performed By: #### 9 [id number] #### CATHY Parekh ([id number]) [facility] ([facility]) [address] [place] [address] FLUBV RNA JR+probe Ql (Resp) Not detected Normal Not Detected [facility] Comment on above: Order Comment: [...] and has been validated for use at [facility]. Negative results do not preclude COVID-19 infections or Influenza A/B infections, and should not be used as the sole basis for diagnosis, treatment, or other management decisions. If Influenza A/B and RSV PCR results are negative, testing for Parainfluenza virus, Adenovirus and Metapneumovirus is routinely performed for [facility] pediatric oncology and intensive care inpatients, and is available on other patients by placing an add-on request. Performed By: #### 9 [id number] #### CATHY Parekh ([id number]) [facility] ([facility]) [address] [place] [address] SARS-CoV-2 (COVID-19) RNA JR+probe Ql (Resp) Not detected Normal Not Detected [facility] Comment on above: Order Comment: [...] and has been validated for use at [facility]. Negative results do not preclude COVID-19 infections or Influenza A/B infections, and should not be used as the sole basis for diagnosis, treatment, or other management decisions. If Influenza A/B and RSV PCR results are negative, testing for Parainfluenza virus, Adenovirus and Metapneumovirus is routinely performed for [facility] pediatric oncology and intensive care inpatients, and is available on other patients by placing an add-on request. Performed By: #### 9 [id number] #### CATHY Parekh ([id number]) [facility] ([facility]) [address] [place] [address] CHEST 1 VIEWon 06-18-2021 CHEST 1 VIEW Patient Name: ANGELITA JOHNSON STUDY: CHEST 1 VIEW; 06/18/2021 1:18 pm INDICATION: sob . COMPARISON: None. ACCESSION NUMBER(S): [id number] ORDERING CLINICIAN: MINDY CRUZ FINDINGS: The heart is not enlarged. No infiltrate, pleural effusion or pneumothorax is seen. IMPRESSION: Electronically signed by: ROSA KERR MD [facility] Provider Note - ED v3on 06-03 Provider Note - ED v3 Provider Note: Chart Review: ED NOTES ED NOTES: ====HPI==== Patient is an 20-year-old female who presents to the emergency department for a rash and shortness of breath. 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 Minor errors in bulk pallet builder may be present. Please call if questions.. HISTORY OF PRESENTING ILLNESS ANGELITA is a 20 year old Female and was seen by me at 18-Jun-2021 12:53 for a chief complaint of multiple medical complaints (Brought to ED per [facility] from school. 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 She [...] rate of [address] elevation. ID interval is 174 ms and QRS duration is 94 ms. DISPOSITION Diagnosis/Annotatio n: ED Dx Name:Allergic reaction Code:T78.40XA Disposition: discharged (more content not included)... Normal [facility] Triage - EDon 06-18-2021 Triage - ED Quick Triage: Are You no Have You Given In The Last 6 Weeksno Are You Currently Breastfeedingno The patient and/or guardian verbally acknowledges placement for services into the following (when Urgent Care Service hours are operating):emergenc y department Chart Review: ARRIVAL INFORMATION Mode of Arrival: ambulance Agency: [facility] Agency Name: [place] CHIEF COMPLAINT ANGELITA JOHNSON is a Female patient with a chief complaint of multiple medical complaints (Brought to ED per [place] squad from school. 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 She [...] Updated: 18-Jun-2021 13:06 by Miladis Dean (RN) [facility] MRI Knee w/o Contrast Righto n 02-04-2018 MRI Knee w/o Contrast Right Exam Date/Time: 02/04/2018 08:09 EDT Reason for Exam: RIGHT KNEE PAIN RIGHT KNEE INTERNAL DERANGEMENT PT WANTS TO GO FEET FIRST;Internal derangement Report STUDY: MRI of the KNEEknee dated 02/04/2018. INDICATION: Internal derangement COMPARISON: None. ACCESSION NUMBER(S): [id number]. ORDERING CLINICIAN: Mango Whiteside. TECHNIQUE: Multiplanar multisequence [...] Signed by: Wade Ivy MD Technologist: MONICO [facility] XR Knee Complete Righton XR Knee Complete Right Exam Date/Time: 01/28/2018 10:18 EDT Reason for Exam: Pain, Non Traumatic Report STUDY: XR Knee Complete Right; 01/28/2018 10:18 am INDICATION: Volleyball injury 2 weeks ago; knee pain COMPARISON: 02/04/2016 ACCESSION NUMBER(S): [id number] ORDERING CLINICIAN: Reyna Mark FINDINGS: Compared to the prior examination, no fracture or joint effusion is identified. IMPRESSION: Unremarkable radiographic appearance of the right knee. FINAL REPORT Dictated: 01/28/2018 10:48 am Maribel Hilton MD Signed (Electronic Signature): 01/28/2018 10:48 am Signed by: Maribel Hilton MD Technologist: TAMMY [facility] Vital Signs Date Time Vital Sign Value Performing Clinician Facility 02-13-2025 13:53-0400 Body height 180.[address] Dorys Dow DO Work Phone: [facility] 02-13-2025 13:53-0400 Body mass index (BMI) [Ratio] 42.8 kg/m2 Dr. Dorys Dow DO Work Phone: [facility] 02-13-2025 13:53-0400 Body weight 139.[address] Dorys Dow DO Work Phone: [facility] 02-13-2025 13:53-0400 Diastolic blood pressure 68 mm[Hg] Dr. Dorys Dow DO Work Phone: [facility] 02-13-2025 13:53-0400 Systolic blood pressure 116 mm[Hg] Dr. Dorys Dow DO Work Phone: [facility] 01-29-2025 10:51-0400 Body height 180.[address] Dorys Dow DO Work Phone: [facility] 01-29-2025 10:50-0400 Body mass index (BMI) [Ratio] 42.3 kg/m2 Dr. Dorys Dow DO Work Phone: [facility] 01-29-2025 10:50-0400 Body weight 137.[address] Dorys Dow DO Work Phone: [facility] 01-29-2025 10:50-0400 Diastolic blood pressure 83 mm[Hg] Dr. Dorys Dow DO Work Phone: [facility] 01-29-2025 10:50-0400 Systolic blood pressure 131 mm[Hg] Dr. Dorys Dow DO Work Phone: [facility] 01-15-2025 10:04-0400 Body height 180.[address] Dorys Dow DO Work Phone: [facility] 01-15-2025 09:52-0400 Body mass index (BMI) [Ratio] 42 kg/m2 Dr. Dorys Dow DO Work Phone: [facility] 01-15-2025 09:52-0400 Body weight 136.[address] Dorys Dow DO Work Phone: [facility] 01-15-2025 09:52-0400 Diastolic blood pressure 84 mm[Hg] Dr. Dorys Dow DO Work Phone: [facility] 01-15-2025 09:52-0400 Systolic blood pressure 118 mm[Hg] Dr. Dorys Dow DO Work Phone: [facility] 12-19-2024 11:06-0400 Body height 180.34 cm Angelica Maldonado CNM Work Phone: [facility] 12-19-2024 11:06-0400 Body mass index (BMI) [Ratio] 41.8 kg/m2 Angelica Maldonado CNM Work Phone: [facility] 12-19-2024 11:06-0400 Body weight 136.24 kg Angelica Maldonado CNM Work Phone: [facility] 12-19-2024 11:06-0400 Diastolic blood pressure 75 mm[Hg] Angelica Maldonado CNM Work Phone: [facility] 12-19-2024 11:06-0400 Systolic blood pressure 117 mm[Hg] Angelica Maldonado CNM Work Phone: [facility] 11-20-2024 09:23-0400 Body height 180.34 cm Angelica Maldonado CNM Work Phone: [facility] 11-20-2024 09:21-0400 Body mass index (BMI) [Ratio] 41.8 kg/m2 Angelica Maldonado CNM Work Phone: [facility] 11-20-2024 09:21-0400 Body weight 136.07 kg Angelica Maldonado CNM Work Phone: [facility] 11-20-2024 09:21-0400 Diastolic blood pressure 82 mm[Hg] Angelica Maldonado CNM Work Phone: [facility] 11-20-2024 09:21-0400 Systolic blood pressure 139 mm[Hg] Angelica Maldonado CNM Work Phone: [facility] 10-27-2024 13:59-0400 Body height 180.34 cm Angelica Maldonado CNM Work Phone: [facility] 10-27-2024 13:59-0400 Body mass index (BMI) [Ratio] 40.3 kg/m2 Angelica Maldonado CNM Work Phone: [facility] 10-27-2024 13:59-0400 Body weight 131.08 kg Angelica Maldonado CNM Work Phone: [facility] 10-27-2024 13:59-0400 Diastolic blood pressure 79 mm[Hg] Angelica Maldonado CNM Work Phone: [facility] 10-27-2024 13:59-0400 Systolic blood pressure 138 mm[Hg] Angelica Maldonado CNM Work Phone: [facility] 09-29-2024 14:56-0400 Body height 180.34 cm Angelica Maldonado CNM Work Phone: [facility] 09-29-2024 14:53-0400 Body mass index (BMI) [Ratio] 41.1 kg/m2 Angelica Maldonado CNM Work Phone: [facility] 09-29-2024 14:53-0400 Body weight 133.97 kg Angelica Maldonado CNM Work Phone: [facility] 09-29-2024 14:53-0400 Diastolic blood pressure 82 mm[Hg] Angelica Maldonado CNM Work Phone: [facility] 09-29-2024 14:53-0400 Systolic blood pressure 130 mm[Hg] Angelica Maldonado CNM Work Phone: [facility] 09-04-2024 08:50-0400 Body height 180.34 cm Angelica Maldonado CNM Work Phone: [facility] 09-04-2024 08:50-0400 Body mass index (BMI) [Ratio] 41 kg/m2 Angelica Maldonado CNM Work Phone: [facility] 09-04-2024 08:50-0400 Body weight 133.41 kg Angelica Maldonado CNM Work Phone: [facility] 09-04-2024 08:50-0400 Diastolic blood pressure 84 mm[Hg] Angelica Maldonado CNM Work Phone: [facility] 09-04-2024 08:50-0400 Systolic blood pressure 124 mm[Hg] Angelica Maldonado CNM Work Phone: [facility] 08-18-2024 13:40-0400 Body mass index (BMI) [Ratio] 42 kg/m2 Angelica Maldonado CNM Work Phone: [facility] 08-18-2024 13:40-0400 Body weight 136.64 kg Angelica Maldonado CNM Work Phone: [facility] 08-18-2024 13:40-0400 Diastolic blood pressure 76 mm[Hg] Angelica Maldonado CNM Work Phone: [facility] 08-18-2024 13:40-0400 Systolic blood pressure 122 mm[Hg] Angelica Joel CABRAL Work Phone: [facility] 03-11-2023 14:55-0500 Body height 180.3 cm Jay Newbill PA-C Work Phone: [facility] 03-11-2023 14:55-0500 Body mass index (BMI) [Ratio] 41.69 kg/m2 Jay Newbill PA-C Work Phone: [facility] 03-11-2023 14:55-0500 Body temperature 97.5 [degF] Jay Newbill PA-C Work Phone: [phone] [place] [address] 03-11-2023 14:55-0500 Body weight 135.58 kg Jay Newbill PA-C Work Phone: [facility] 03-11-2023 14:55-0500 Diastolic blood pressure 82 mm[Hg] Jay Newbill PA-C Work Phone: [facility] 03-11-2023 14:55-0500 Heart rate 104 /min Jay Newbill PA-C Work Phone: [facility] 03-11-2023 14:55-0500 SaO2% (BldA) [Mass fraction] 98 % Jay Newbill PA-C Work Phone: [facility] 03-11-2023 14:55-0500 Systolic blood pressure 136 mm[Hg] Jay Newbill PA-C Work Phone: [facility] 2022 10:05-0400 Body height 180.3 cm Daquan Aguillonerhauser DO Work Phone: [facility] 2022 10:05-0400 Body mass index (BMI) [Ratio] 39.75 kg/m2 Daquan Oberhauser DO Work Phone: [facility] 2022 10:05-0400 Body weight 129.28 kg Daquan Oberhauser DO Work Phone: [facility] 2022 10:05-0400 Diastolic blood pressure 66 mm[Hg] Daquan Oberhauser DO Work Phone: [facility] 2022 10:05-0400 Heart rate 87 /min Daquan Oberhauser DO Work Phone: [facility] 2022 10:05-0400 SaO2% (BldA) [Mass fraction] 95 % Daquan Oberhauser DO Work Phone: [facility] 2022 10:05-0400 Systolic blood pressure 121 mm[Hg] Daquan Oberhauser DO Work Phone: [facility] 08-21-2022 11:08-0400 Body height 180.3 cm Daquan Oberhauser DO Work Phone: [facility] 08-21-2022 11:08-0400 Body mass index (BMI) [Ratio] 41.42 kg/m2 Daquan Oberhauser DO Work Phone: [facility] 08-21-2022 11:08-0400 Body weight 134.72 kg Daquan Oberhauser DO Work Phone: [facility] 08-21-2022 11:08-0400 Diastolic blood pressure 81 mm[Hg] Daquan Oberhauser DO Work Phone: [facility] 08-21-2022 11:08-0400 Heart rate 91 /min Daquan Oberhauser DO Work Phone: [facility] 08-21-2022 11:08-0400 SaO2% (BldA) [Mass fraction] 95 % Daquan Oberhauser DO Work Phone: [facility] 08-21-2022 11:08-0400 Systolic blood pressure 119 mm[Hg] Daquan Oberhauser DO Work Phone: [facility] Encounters Encounter Date Encounter Type Care Provider Facility Start: 03-13-2025 ambulatory Daquan Oberhauser Facili ty:[facility] Start: 03-13-2025 End: 03-13-2025 ambulatory Daquan Oberhauser Facility:[facility] Start: 03-06-2025 End: 03-06-2025 ambulatory Dauqan Oberhauser Facility:[facility] Start: 03-02-2025 End: 03-02-2025 ambulatory Daquan Oberhauser Facility:[facility] Start: 03-01-2025 End: 03-01-2025 ambulatory Daquan Oberhauser Facility:[facility] Start: 02-27-2025 End: 02-27-2025 ambulatory Tabitha Byrnes Facility:[facility] Start: 02-13-2025 End: 02-13-[address] Tabitha Byrnes MD -[facility] Work Phone: Start: 02-13-2025 End: 02-13-[address] Dorys Dow DO Work Phone: -[facility] Start: 01-29-2025 End: 01-29-2025 Patient encounter procedure Angelica Maldonado CNM -[facility] Work Phone: Start: 01-29-2025 End: 01-29-[address] Dorys Dow DO Work Phone: -[facility] Start: 01-15-2025 End: 01-15-2025 Patient encounter procedure Nusrat GROSS -[facility] Work Phone: Start: 01-15-2025 End: 01-15-[address] Dorys Dow DO Work Phone: -[facility] Start: 01-15-2025 End: 01-15-2025 ambulatory Dorys Dow Facility:[facility] Start: 12-19-2024 End: 12-19-[address] Dorys Dow DO -[facility] Work Phone: Start: 12-19-2024 End: 12-19-2024 ambulatory Angelica Maldonado CNM Work Phone: -[facility] Start: 11-30-2024 End: 11-30-2024 Emergency department patient visit [facility] Start: 11-30-2024 End: 11-30-2024 ambulatory [facility] Start: 11-20-2024 End: 11-20-[address] Dorys Dow DO -[facility] Work Phone: Start: 11-20-2024 End: 11-20-2024 ambulatory Angelica Maldonado CNM Work Phone: [facility] Start: 11-14-2024 End: 11-14-2024 ambulatory TABITHA BYRNES [facility] Start: 10-27-2024 End: 10-27-2024 Patient encounter procedure Miguelina Espinal CNM -[facility] Work Phone: Start: 10-27-2024 End: 10-27-2024 ambulatory Angelica Maldonado CNM Work Phone: -[facility] Start: 09-29-2024 End: 09-29-[address] Tabitha Byrnes MD -[facility] Work Phone: Start: 09-29-2024 End: 09-29-2024 ambulatory Angelica Maldonado CNM Work Phone: [facility] Work Phone: Start: 09-04-2024 End: 09-04-2024 ambulatory Angelica Maldonado CNM Work Phone: [facility] Work Phone: Start: 09-04-2024 End: 09-04-2024 Patient encounter procedure Angelica Maldonado CNM -Laboratory, Specimen Work Phone: Start: 09-04-2024 End: 09-04-2024 Patient encounter procedure Angelica Maldonado CNM -[facility] Work Phone: Start: 09-04-2024 End: 09-04-2024 ambulatory Angelica Maldonado CNElina Work Phone: [facility] Work Phone: Start: 09-04-2024 End: 09-04-2024 ambulatory Angelica Maldonado Facility:[facility] Start: 08-18-2024 End: 08-18-2024 Patient encounter procedure Angelica Maldonado CNM -[facility] Work Phone: Start: 08-18-2024 End: 08-18-2024 ambulatory Angelica Maldonado Facility:[facility] Start: 12-15-2023 End: 12-15-2023 Emergency department patient visit MURILLO LENI [facility] Start: 11-01-2023 End: 11-01-2023 [facility] Start: 06-09-2023 End: 06-09-2023 Emergency department patient visit DAQUAN [facility] Start: 03-11-2023 End: 03-11-2023 ambulatory [facility] Start: 03-11-2023 End: 03-11-2023 Office outpatient visit 25 minutes [facility] Work Phone: [facility] Comment on above: Acute asthmatic bron chitis (Primary Dx); Upper respiratory tract infection, unspecified type Start: 2022 End: 2022 ambulatory [facility] Start: 2022 End: 2022 Office outpatient visit 15 minutes Daquan Hills DO Work Phone: [facility] Comment on above: Menorrhagia with irr egular cycle (Primary Dx) Start: 08-27-2022 End: 08-28-2022 ambulatory [facility] Start: 08-21-2022 End: 08-21-2022 ambulatory [facility] Start: 08-21-2022 End: 08-21-2022 Office outpatient new 30 minutes Daquan Hills DO Work Phone: [facility] Comment on above: Menorrhagia with irr egular cycle (Primary Dx) Start: 03-29-2018 End: 03-30-2018 Patient encounter procedure Mango Whiteside Facility:[facility] Start: 02-18-2018 End: 04-09-2018 Patient encounter procedure Mango Whiteside Facility:[facility] Start: 02-18-2018 Patient encounter Facil [id number] Start: 02-10-2018 End: 02-11-2018 Patient encounter procedure Mango Antoine Whiteside Facility:[facility] Start: 02-04-2018 End: 02-05-2018 Patient encounter procedure Mango Whiteside Facility:[facility] Start: 02-04-2018 Patient encounter Facil [id number] Start: 01-28-2018 End: 01-29-2018 Patient encounter procedure Mango Whiteside Facility:[facility] Start: 01-28-2018 Patient encounter Facil [id number] Procedures Date Procedure Procedure Detail Performing Clinician Start: 01-15-2025 Serologic test for syphilis Dr. Dorys Dwo DO Work Phone: Start: 09-04-2024 Urine culture Angelica perez [facility] Work Phone: Start: 09-04-2024 Liquid based cervica l cytology screening Angelica WALTON Work Phone: Comment on above: NEGATIVE FOR INTRAEP ITHELIAL LESION OR MALIGNANCY. This liquid based Th inPrep(R) pap test was screened withthe use of an image guided system. The HPV DNA reflex c riteria were not met with this specimenresult therefore, no HPV testing was performed.Performed at: [address]onzalez [place] [id number] Director: Brigette George MD, Phone: [phone] Start: 09-04-2024 Hepatitis C antibody measurement Angelica [...] HCV Quant by PCR testing - HCVPCR #[id number] Non Reactive: < 0.8 Equivocal: >/= 0.8 to < 1.0 Reactive: >/= 1.0The [facility] requires that a reactive/equivocal HCV antibody result be sent out for confirmation. HCV Quant by PCR testing. Start: 09-04-2024 Rubella IgG measurement Angelica Maldonado [facility] Work Phone: Comment on above: Antibody Result: Int erpretationNon-Reactive: Non- ImmuneReactive: ImmuneThe following results were obtained with the [employer]s Rubella IgG assay. Results from assays of other manufacturers cannot be used interchangeably. Start: 09-04-2024 Serologic test for syphilis Angelica Maldonado [facility] Work Phone: Start: 03-11-2023 SARS-COV-2 AND INFLU [...] 2) Zoste r Vaccines (1 of 2) [facility] Start: 11-28-2025 DTaP/Tdap/Td Vaccine s (7 - Td or Tdap) DTaP/Tdap/Td Vaccines (7 - Td or Tdap) [facility] Start: 01-29-2025 End: 01-29-2025 Patient encounter procedure Abnormal glucose affecting [facility] Work Phone: Start: 01-15-2025 CBC W Auto Different ial panel - Blood [facility] Start: 01-15-2025 Measurement of gluco se 2 hours after glucose challenge for glucose tolerance test [facility] Start: 01-15-2025 Serologic test for syphilis [facility] Start: 01-15-2025 [facility] Start: 09-04-2024 Chlamydia deoxyribon ucleic acid detection [facility] Start: 09-04-2024 Liquid based cervica l cytology screening [facility] Start: 01-01-2023 Influenza vaccination [facility] Start: 2022 End: 2022 Patient encounter procedure 2022 10:00 AM EDT Office Visit [facility] [address] [place] [id number] Daquan Hills, [address] [facility] [place] [address] [facility] Start: 08-21-2022 End: 08-22-2023 CBC W Auto Differential panel - Blood CBC and Auto Differential Lab Routine Menorrhagia with irregular cycle Expected: 08/21/2022 (Approximate), Expires: 08/22/2023 [facility] Work Phone: Comment on above: Expected: 08/21/2022 (Approximate), Expires: 08/22/2023 Start: 08-21-2022 End: 08-22-2023 Comprehensive metabolic 2000 panel - Serum or Plasma Comprehensive Metabolic Panel Lab Routine Menorrhagia with irregular cycle Expected: 08/21/2022 (Approximate), Expires: 08/22/2023 [facility] Service Area Work Phone: Comment on above: Expected: 08/21/2022 (Approximate), Expires: 08/22/2023 Start: 08-21-2022 End: 08-22-2023 Ferritin [Mass/volume] in Serum or Plasma Ferritin Lab Routine Menorrhagia with irregular cycle Expected: 08/21/2022 (Approximate), Expires: 08/22/2023 [facility] Work Phone: Comment on above: Expected: 08/21/2022 (Approximate), Expires: 08/22/2023 Start: 08-21-2022 End: 08-22-2023 Iron and Iron binding capacity panel - Serum or Plasma Iron and TIBC Lab Routine Menorrhagia with irregular cycle Expected: 08/21/2022 (Approximate), Expires: 08/22/2023 [facility] Work Phone: Comment on above: Expected: 08/21/2022 (Approximate), Expires: 08/22/2023 Start: 08-21-2022 End: 08-22-2023 TSH with reflex to Free T4 if abnormal TSH with reflex to Free T4 if abnormal Lab Routine Menorrhagia with irregular cycle Expected: 08/21/2022 (Approximate), Expires: 08/22/2023 [facility] Work Phone: Comment on above: Expected: 08/21/2022 (Approximate), Expires: 08/22/2023 Start: 06-20-2021 Hepatitis A Vaccines (2 of 2 - 2-dose series) Hepatitis A Vaccines (2 of 2 - 2-dose series) [facility] Start: 04-22-2021 COVID-19 Vaccine (2 - Booster for Mal series) COVID-19 Vaccine (2 - Booster for Mal series) [facility] Start: 2020 Hepatitis C screening Hepatitis C [facility] Start: 2005 Well Child Visit (WC V) - Annual Well Child Visit (WCV) - Annual [facility] Start: 07-29-2003 Application of denta l fluoride varnish Fluoride Varnish [facility] Start: 2002 Hearing Screening (#1) Hearing Scree jerilyn (#1) [facility] Start: 2002 HIV screening HIV Screening [facility] Start: 2002 Lipid panel Lipid Panel [facility] CBC W Auto Different ial panel - Blood [facility] Erythrocyte mean corpuscular volume determination [facility] Hematocrit [Volume Fraction] of Blood [facility] Hemoglobin [Mass/vol ume] in Blood [facility] Leukocytes [#/volume ] in Blood [facility] Mean corpuscular hemoglobin concentration determination [facility] Mean corpuscular hemoglobin determination [facility] Measurement of gluco se 2 hours after glucose challenge for glucose tolerance test [facility] Neisseria gonorrhoea e rRNA [Presence] in Unspecified specimen by JR with probe detection [facility] Neutrophil count [facility] Neutrophil percent differential count [facility] Path report.final Dx Spec [facility] PCR test for Chlamyd ia trachomatis [facility] Platelets [#/volume] in Blood [facility] Red blood cell count [facility] Red cell distributio n width determination [facility] Serologic test for syphilis [facility] Immunizations Immunization Date Immunization Notes Care Provider Fa [facility] 02-13-2025 Seasonal trivalent influenza vaccine, adjuvanted, preservative free Dr. Dorys Dow DO Work Phone: [facility] 01-15-2025 tetanus toxoid, redu tim diphtheria toxoid, and acellular pertussis vaccine, adsorbed Dr. Dorys Dow DO Work Phone: [facility] 12-18-2020 hepatitis A vaccine, pediatric/adolescent dosage, 2 dose schedule Daquan Hills DO Work Phone: [facility] 12-18-2020 hepatitis B vaccine, pediatric or pediatric/adolescent dosage Daquan Hills DO Work Phone: [facility] 12-18-2020 Human Papillomavirus 9-valent vaccine Daquan Hills DO Work Phone: [facility] 12-18-2020 meningococcal B vaccine, recombinant, OMV, adjuvanted Daquan Hills DO Work Phone: [facility] 12-18-2020 meningococcal polysaccharide (groups A, C, Y and W-135) diphtheria toxoid conjugate vaccine (MCV4P) Daquan Hills DO Work Phone: [facility] 12-18-2020 hepatitis A and hepatitis B vaccine Daquan Oberhauser DO Work Phone: [facility] Work Phone: 11-29-2015 Human Papillomavirus 9-valent vaccine Daquan Obzachary DO Work Phone: [facility] 11-29-2015 measles, mumps, rubella, and varicella virus vaccine Daquan Obermckenzieer DO Work Phone: [facility] 11-29-2015 meningococcal polysaccharide (groups A, C, Y and W-135) diphtheria toxoid conjugate vaccine (MCV4P) Daquan Obzachary DO Work Phone: [facility] 11-29-2015 tetanus toxoid, redu tim diphtheria toxoid, and acellular pertussis vaccine, adsorbed Daquan Obzachary DO Work Phone: [facility] 01-14-2009 diphtheria, tetanus toxoids and acellular pertussis vaccine, unspecified formulation Daquan Obermckenzieer DO Work Phone: [facility] Work Phone: 01-14-2009 hepatitis B vaccine, pediatric or pediatric/adolescent dosage Daquan Obzachary DO Work Phone: [facility] Work Phone: 01-14-2009 measles, mumps and rubella virus vaccine Daquan Obermckenzieer DO Work Phone: [facility] Work Phone: 01-14-2009 poliovirus vaccine, unspecified formulation Daquan Obermckenzieer DO Work Phone: [facility] Work Phone: 01-14-2009 varicella virus vaccine Emilio n Oberyenifer DO Work Phone: [facility] Work Phone: 05-19-2004 diphtheria, tetanus toxoids and acellular pertussis vaccine, unspecified formulation Daquan Hills DO Work Phone: [facility] Work Phone: 05-19-2004 influenza, injectabl e, quadrivalent, preservative free Dauqan Hills DO Work Phone: [facility] Work Phone: 05-19-2004 varicella virus vaccine Emilio Hills DO Work Phone: [facility] Work Phone: 05-19-2004 influenza virus vaccine, unspecified formulation Daquan Hills DO Work Phone: [facility] Work Phone: 03-20-2004 pneumococcal conjuga te vaccine, 7 valent Daquan Hills DO Work Phone: [facility] Work Phone: 03-10-2004 pneumococcal conjuga te vaccine, 7 valent Daquan Hills DO Work Phone: [facility] Work Phone: 12-31-2003 haemophilus influenz ae type b vaccine, PRP-T conjugate Daquan Hills DO Work Phone: [facility] Work Phone: 12-31-2003 measles, mumps and rubella virus vaccine Daquan Hills DO Work Phone: [facility] Work Phone: 12-31-2003 poliovirus vaccine, inactivated Daquan Hills DO Work Phone: [facility] Work Phone: 12-21-2003 haemophilus influenz ae type b vaccine, conjugate unspecified formulation Daquan Hills DO Work Phone: [facility] Work Phone: 12-21-2003 measles, mumps and rubella virus vaccine Daquan Hills DO Work Phone: [facility] Work Phone: 12-21-2003 poliovirus vaccine, unspecified formulation Daquan Hills DO Work Phone: [facility] Work Phone: 05-29-2003 diphtheria, tetanus toxoids and acellular pertussis vaccine, unspecified formulation Daquan Hills DO Work Phone: [facility] Work Phone: 05-29-2003 haemophilus influenz ae type b vaccine, PRP-T conjugate Daquan Hills DO Work Phone: [facility] Work Phone: 05-29-2003 pneumococcal conjuga te vaccine, 7 valent Daquan Hills DO Work Phone: [facility] Work Phone: 03-30-2003 DTaP-hepatitis B and poliovirus vaccine Daquan Hills DO Work Phone: [facility] 03-30-2003 haemophilus influenz ae type b vaccine, PRP-T conjugate Daquan Hills DO Work Phone: [facility] Work Phone: 03-30-2003 pneumococcal conjuga te vaccine, 7 valent Daquan Hills DO Work Phone: [facility] Work Phone: 01-29-2003 DTaP-hepatitis B and poliovirus vaccine Daquan Hills DO Work Phone: [facility] Work Phone: 01-29-2003 haemophilus influenz ae type b vaccine, PRP-T conjugate Daquan Hills DO Work Phone: [facility] Work Phone: 01-29-2003 pneumococcal conjuga te vaccine, 7 valent Daquan Hills DO Work Phone: [facility] Work Phone: 2002 hepatitis B vaccine, pediatric or pediatric/adolescent dosage Daquan Hills DO Work Phone: [facility] Work Phone: Payers Date Payer Category Payer Unknown [id number] 2024 Unknown [id number] 2024 Unknown [id number] 2024 Self-pay 2024 Unknown [id number] 2022 Unknown [id number] 2018 Unknown 2002 Unknown [id number] 2.16. 840.1.886704.3.579.2.356 2002 Unknown [id number] 2.16. 840.1.820473.3.579.2.356 2002 Unknown [id number] 2.16. 840.1.227218.3.579.2.356 2002 Unknown [id number] 2.16.840 .1.642583.3.579.2.1245 2002 Unknown [id number] 2.16.8 40.1.609219.3.579.2.1244 2002 Unknown [id number] 2.16.8 40.1.094050.3.579.2.1244 2002 Unknown [id number] 2.16.84 0.1.994013.3.579.2.1244 2002 Unknown [id number] 2.16. 840.1.587770.3.579.2.902 2002 Unknown [id number] 2.16. 840.1.595789.3.579.2.902 2002 Unknown [id number] 2.16. 840.1.349913.3.579.2.902 2002 Unknown [id number] 2.16. 840.1.324841.3.579.2.479 2002 Unknown [id number] 2.16. 840.1.419710.3.579.2.479 2002 Unknown [id number] 2.16. 840.1.182012.3.579.2.903 1974 Unknown [id number] 2.16.84 0.1.954324.3.579.2. 1974 Unknown [id number] 2.16.84 0.1.857148.3.579.2.7 1974 Unknown [id number] 2.16.84 0.1.897252.3.579.2.7 1974 Unknown [id number] 2.16.84 0.1.455972.3.579.2. 1974 Unknown [id number] 2.16.84 0.1.120284.3.579.2.717 1973 Unknown [id number] 2.16.84 0.1.175677.3.579.2.717 1973 Unknown [id number] 2.16.84 0.1.936567.3.579.2.717 Unknown [id number] 2.16.8 40.1.304213.3.579.2.462 Unknown [id number] 2.16.8 40.1.160815.3.579.2.462 Unknown [id number] 2.16.8 40.1.211168.3.579.2.462 Unknown [id number] 2.16.8 40.1.005264.3.579.2.462 Unknown [id number] 2.16.8 40.1.852558.3.579.2.462 Unknown [id number] 2.16.8 40.1.171673.3.579.2.462 Unknown [id number] 2.16.8 40.1.816034.3.579.2.462 Unknown [id number] 2.16.8 40.1.678792.3.579.2.462 Unknown [id number] 2.16.8 40.1.712859.3.579.2.462 Unknown [id number] 2.16.8 40.1.408525.3.579.2.462 Unknown [id number] 2.16.8 40.1.939905.3.579.2.462 Unknown [id number] 2.16.8 40.1.771026.3.579.2.462 Unknown [id number] 2.16.8 40.1.680315.3.579.2.462 Unknown [id number] 2.16.8 40.1.202771.3.579.2.462 Unknown [id number] 2.16.8 40.1.295181.3.579.2.462 Unknown [id number] 2.16.8 40.1.830831.3.579.2.462 Unknown [id number] 2.16.8 40.1.973653.3.579.2.462 Unknown [id number] 2.16.8 40.1.145505.3.579.2.462 Social History Date Type Detail Facility Start: 08-21-2022 End: 08-18-2024 Tobacco smoking status WIIS Never smoked tobacco [facility] Work Phone: Start: 08-21-2022 Tobacco use and exposure Smokeless tobacco non-user [facility] Work Phone: Start: 08-21-2022 End: 03-11-2023 Alcohol intake Lifetime non-drinker (finding) [facility] Work Phone: Start: 08-21-2022 End: 03-11-2023 History of Social function [facility] Work Phone: Start: 08-21-2022 End: 03-11-2023 Tobacco use panel [facility] Work Phone: Start: 2002 Sex Assigned At Not on file U [facility] Work Phone: Start: 08-11-2022 End: 03-11-2023 Exposure to SARS-CoV-2 (event) Not sure [facility] Start: 2002 Sex Assigned At Female [facility] Clinical Notes 08-21-2022 to 02-13-2025 Note Date & Type Note Facility 02-13-2025 Progress note [facility] 02-13-2025 Progress note Note Date/Time February 13, 2025 2:29pm [facility] [address], [address] [place] [address] OFFICE VISIT Date of Service: 02/13/25 MR#: [id number] Acct: [id number] Name: ANGELITA SUTTON Rep #: [id number] : 2000 Provider: Dr. Ned Byrnes MD Age/Sex: 24/F Location: [facility] Status: Signed Intake Vital Signs 12/19/24 11:06 01/29/25 10:51 02/13/25 13:53 Height 5 ft 11 in 5 ft 11 in 5 ft 11 in Weight: 307 lb 4 oz BMI 42.8 BP 116/68 Intake Visit Reasons: 32wk 3D ob Brancher Required: No Is patient in pain?: No [...] Negative : No PFSH PFSH Surgical History [place] teeth removed S/P tonsillectomy Family History Father Hypothyroid Grandmother Garvin disease Grandmother Diabetes Hypertension Kidney failure Social History adopted: No household members: spouse and other details: step son & 's ex current occupational status: employed 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 Elective abortions Hx Para [...] Symptoms of Preeclampsia, Infant Feeding No and [place] [employer] Results POC Urinalysis 2 Dip (Clinic) Office Urine Glucose Negative Last Edit by Nusrat Don on 02/13/25 14:05 Office Urine Protein Negative Last Edit by Nusrat Don on 02/13/25 14:05 Immunizations Fluad 2024- 65yr up(PF)45 mcg(15 mcgx3)/0.5 mL intramuscular syringe Performing Provider: Tabitha Byrnes MD Performing Location: [facility] Administered by: Nusrat Don on 02/13/25 14:02 2 Dose Route Admin Location Dispensed Lot Number Expiration Date Pack age NDC NDC Sustainable Landscape [employer] 0.5 mL IM Left Deltoid 0.5 mL [id number] 09/09/25 [id number] [employer]. VIS Given Date VIS Provided VIS Publication [...] Today Z23 - Encounter for immunization 02/13/25 6875 <Electronically signed by Tabitha rios MD> Date _ [facility] Signature: Date (if applicable) CC: ~ [facility] Work Phone: 1(971) 798-639709-29-2025 Progress [facility] [address], [address] [place] [address] OFFICE VISIT Date of Service: 01/29/25 MR#: [id number] Acct: [id number] Name: ANGELITA SUTTON Rep #: [id number] : 2000 Provider: MARIANNA Maldonado Age/Sex: 24/F Location: [facility] Status: Signed Intake Vital Signs 12/19/24 11:06 01/15/25 10:04 01/29/25 10:50 01/29/25 10:51 Height 5 ft 11 in 5 ft 11 in 5 ft 11 in 5 ft 11 in Weight: 303 lb 9 oz BMI 42.3 BP 131/83 H Intake Visit Reasons: 30wk 2D ob Brancher Required: No Is patient in pain?: No [...] Negative : No PFSH PFSH Surgical History [place] teeth removed S/P tonsillectomy Family History Father Hypothyroid Grandmother Garvin disease Grandmother Diabetes Hypertension Kidney failure Social History adopted: No household members: spouse and other details: step son & 's ex current occupational status: employed 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 Elective abortions Hx Para [...] and Symptoms of Preeclampsia, Feeding No and [place] [employer] ROS Const Reports system reviewed [...] Cosigner Signature: Date (if applicable) CC: ~ [facility]07-21-2025 Evaluation note* Diagnosis Onset Date Resolution [...] Supervision of high-risk acute February 13 1:49pm [facility] Work Phone: [phone] Evaluation note* Diagnosis Onset Date Resolution Status [...] of high-risk acute January 29, 2025 10:44am [facility] Work Phone: [phone] Progress [facility] [address] [place] [address], [address] [place] [address] OFFICE VISIT Date of Service: 10/27/24 MR#: [id number] Acct: [id number] Name: ANGELITA SUTTON Rep #: [id number] : 2000 Provider: MARIANNA Espinal Age/Sex: 23/F Location: [facility] Status: Signed Intake Vital Signs 09/04/24 08:50 09/29/24 14:56 10/27/24 13:59 Height 5 ft 11 in 5 ft 11 in 5 ft 11 in Weight: 289 lb BMI 40.3 BP 138/79 H Intake Visit Reasons: 16wk ob Chief Complaint: 16wk ob Brancher Required: No Is patient in pain?: No [...] 07/01/24 : No PFSH PFSH Surgical History [place] teeth removed S/P tonsillectomy Family History Father Hypothyroid Grandmother Garvin disease Grandmother Diabetes Hypertension Kidney failure Social History adopted: No household members: spouse and other details: step son & 's ex current occupational status: employed 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 Elective abortions Hx Para [...] Cosigner Signature: Date (if applicable) CC: ~ [facility]06-27-2025 Progress note Author Miguelinaewndy Espinal [facility] Note Date/Time October 27, 2024 2:31 pm [facility] [address], [address] [place] [address] OFFICE VISIT Date of Service: 10/27/24 MR#: [id number] Acct: [id number] Name: ANGELITA SUTTON Rep #: [id number] : 2000 Provider: MARIANNA Espinal Age/Sex: 23/F Location: [facility] Status: Signed Intake Vital Signs 09/04/24 08:50 09/29/24 14:56 10/27/24 13:59 Height 5 ft 11 in 5 ft 11 in 5 ft 11 in Weight: 289 lb BMI 40.3 BP 138/79 H Intake Visit Reasons: 16wk ob Chief Complaint: 16wk ob Brancher Required: No Is patient in pain?: No [...] 07/01/24 : No PFSH PFSH Surgical History [place] teeth removed S/P tonsillectomy Family History Father Hypothyroid Grandmother Garvin disease Grandmother Diabetes Hypertension Kidney failure Social History adopted: No household members: spouse and other details: step son & 's ex current occupational status: employed 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 Ned Byrnes MD Age/Sex: 23/F Location: [facility] Status: Signed Intake Vital Signs 09/04/24 08:50 09/29/24 14:53 09/29/24 14:56 Height 5 ft 11 in 5 ft 11 in 5 ft 11 in Weight: 295 lb 6 oz BMI 41.1 BP 130/82 H Intake Visit Reasons: 12wk ob Brancher Required: No Is patient in pain?: No [...] Negative : No PFSH PFSH Surgical History [place] teeth removed S/P tonsillectomy Family History Father Hypothyroid Grandmother Garvin disease Grandmother Diabetes Hypertension Kidney failure Social History adopted: No household members: spouse and other details: step son & 's ex current occupational status: employed 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 Ned Byrnes MD Age/Sex: 23/F Location: [facility] Status: Signed Intake Vital Signs 09/04/24 08:50 09/29/24 14:53 09/29/24 14:56 Height 5 ft 11 in 5 ft 11 in 5 ft 11 in Weight: 295 lb 6 oz BMI 41.1 BP 130/82 H Intake Visit Reasons: 12wk ob Brancher Required: No Is patient in pain?: No [...] Negative : No PFSH PFSH Surgical History [place] teeth removed S/P tonsillectomy Family History Father Hypothyroid Grandmother Garvin disease Grandmother Diabetes Hypertension Kidney failure Social History adopted: No household members: spouse and other details: step son & 's ex current occupational status: employed 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 Elective abortions Hx Para [...] Cosign Signature: Date (if applicable) CC: ~ [facility] Work Phone: 1(666) 862-255505-05-2025 Evaluation note* Diagnosis Onset Date Resolution Status Admit Date Asthma acute September 04, 2024 8:46am Obesity affecting acute September 04, 2024 8:46am acute September 04, 2024 8:46am Supervision of high-risk a cute September 04, 2024 8:46am [facility] Work Phone: 1([phone]) 838-202505-05-2025 Evaluation note* Diagnosis Onset Date Resolution Status Admit Date Asthma acute September 04, 2024 8:46am Obesity affecting acute September 04, 2024 8:46am acute September 04, 2024 8:46am Supervision of high-risk a cute September 04, 2024 8:46am Asthma acute September 29, 2024 2:00pm Obesity affecting acute September 29, 2024 2:00pm acute September 29, 2024 2:00pm Supervision of high-risk a cute September 29, 2024 2:00pm [facility] Work Phone: 1(539) 475-370005-05-2025 Evaluation note* Diagnosis Onset Date Resolution Status [...] of high-risk acute October 27, 2024 1:56pm [facility] Work Phone: 1([phone]) 791-894705-05-2025 Evaluation note* Diagnosis Onset Date Resolution Status [...] of high-risk acute November 20, 2024 9:07am [facility] Work Phone: 1(482) 464-902205-05-2025 Evaluation note* Diagnosis Onset Date Resolution Status [...] Supervision of high-risk acute December 19 11:00am [facility] Work Phone: 1(696) 301-665611-09-2023 History of Present illness Narrative* Jay Stewart [...] Relevant Medications azithromycin (Zithromax) 250 mg tablet cgzatouustajqja-yzombdyri-PS (Bromfed DM) 2-30-10 mg/5 mL syrup predniSONE (Deltasone) 10 mg tablet Other Relevant Orders Sars-CoV-2 and Influenza A/B PCR Upper respiratory tract infection, unspecified type Relevant Medications azithromycin (Zithromax) 250 mg tablet kzqanclqplbtxcn-nmoiexbnl-AY (Bromfed DM) 2-30-10 mg/5 mL syrup predniSONE (Deltasone) 10 mg tablet Other Relevant Orders Sars-CoV-2 and Influenza A/B PCR Final diagnoses: [J45.909] Acute asthmatic bronchitis [J06.9] Upper respiratory tract infection, unspecified type documented in this [facility] Work Phone: 1(262) 575-271107-28-2023 History of Present illness Narrative* [place] [...] [facility]orrhag[facility] with irregular [facility]: 1(379) 510-567004-21-2023 History of Present illness Narrative* [place], [...] Menorrhagia with irregular cycle [facility]: Evaluation note* Diagnosis Menorrhagia with irregular cycle- Primary documented in this encounter [facility] Work Phone: Evaluation note* Diagnosis Menorrhagia with irregular cycle- Primary documented in this encounter [facility] Work Phone: Evaluation note* Diagnosis Acute asthmatic bronchitis- Primary Unspecified asthma, with exacerbation Upper respiratory tract infection, unspecified type documented in this encounter [facility] Work Phone: Progress note Author Angelica Maldonado [facility] Note Date/Time January 29, 2025 11:13am [facility] [address], [address] [place] [address] OFFICE VISIT Date of Service: 01/29/25 MR#: [id number] Acct: [id number] Name: ANGELITA SUTTON Rep #: [id number] : 2000 Provider: MARIANNA Maldonado Age/Sex: 24/F Location: [facility] Status: Signed Intake Vital Signs 12/19/24 11:06 01/15/25 10:04 01/29/25 10:50 01/29/25 10:51 Height 5 ft 11 in 5 ft 11 in 5 ft 11 in 5 ft 11 in Weight: 303 lb 9 oz BMI 42.3 BP 131/83 H Intake Visit Reasons: 30wk 2D ob Brancher Required: No Is patient in pain?: No [...] Negative : No PFSH PFSH Surgical History [place] teeth removed S/P tonsillectomy Family History Father Hypothyroid Grandmother Garvin disease Grandmother Diabetes Hypertension Kidney failure Social History (Reviewed 01/29/25 @ 10:50 by Vivian Benavides adopted: No household members: spouse and other details: step son & 's ex current occupational status: employed 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 Elective abortions Hx Para [...] Cosigner Signature: Date (if applicable) CC: ~ [facility] Work Phone: Reason for referral (narrative)* Consultation (Routine) - Authorized Specialty Diagnoses / Procedures Referred By Amarjit sneed Referred To Contact Primary Care Procedures Follow Up In Primary Care [place], DO [address] [facility] [place] [address] Referral ID Status Reason Start Date Expiration Date V isits Requested Visits Authorized [id number] Authorized 08/21/2022 02/17/2023 1 1 [facility] Work Phone: Reason for referral (narrative)No reason for referral information [facility] Work Phone: Summary Purpose Family History No Family History Records Found Relationship Condition Age at Onset Recorded Date/T uday father Hypothyroidism Unknown grandmother Garvin's disease Unknown grandmother Diabetes mellitus Unknown Hypertension [...] 29, 2025 10:44am Supervision of high-risk Septe [facility] 2024 10:44am Chief Complaint Admit [...] 15, 2025 9:49am Supervision of high-risk Septe [facility] 2024 9:49am Abnormal glucose affecting Sep tember 2024 10:44am Asthma January 29, 2025 10:44am Obesity affecting January 292024 10:44am January 29, 2025 10:44am Supervision of high-risk Septe [facility] 2024 10:44am Abnormal glucose affecting Oct david 2024 1:49pm Asthma February 13, 2025 1 :49pm Obesity affecting January 1:49pm February 13, 2025 1 :49pm Supervision of high-risk Octob er 2024 1:49pm Additional Source Comments INFORMATION SOURCE (unrecogn ized section and content) DATE CREATED AUTHOR 03/04/2018 [facility] DATE CREATED AUTHOR AUTHOR'S ORGANIZ ATION 06/21/2018 [facility] DATE CREATED AUTHOR AUTHOR'S ORGANIZ ATION 06/21/2021 [facility] DATE CREATED AUTHOR AUTHOR'S ORGANIZ ATION 08/31/2022 [facility] DATE CREATED AUTHOR AUTHOR'S ORGANIZ ATION 03/13/2023 [facility] DATE CREATED AUTHOR AUTHOR'S ORGANIZ ATION 12/22/2023 [facility] DATE CREATED AUTHOR AUTHOR'S ORGANIZ ATION 12/02/2024 [facility] DATE CREATED AUTHOR AUTHOR'S ORGANIZ ATION 12/08/2024 [facility] DATE CREATED AUTHOR AUTHOR'S ORGANIZ ATION 03/14/2025 [facility] Reason for Visit (unrecogniz ed section and content) Reason Comments Establish Care Patients periods are getting worse. Reason Comments Follow-up Would like to discus s control medication. Very emotional. Tiredness. Specialty Diagnoses / Procedures Referred By Amarjit sneed Referred To Contact Primary Care Procedures Follow Up In Primary Care Daquan Hills DO [address] [facility] [place] [address] Referral ID Status Reason Start Date Expiration Date V isits Requested Visits Authorized [id number] Authorized 08/21/2022 02/17/2023 1 1 Reason Comments URI Patient having cough , sore throat, head and chest congestion, SOB and frontal headache x 2 days. Care Teams (unrecognized sec tion and content) Dining Room Attendant Relationship Specialty Start Date End Date Daquan Hills DO [address] [facility] [place] [address] PCP - General Internal Medicine 07/27/22 Dining Room Attendant Relationship Specialty Start Date End Date Daquan Hills DO [address] [facility] [place] [address] PCP - General Internal Medicine 07/27/22 Dining Room Attendant Relationship Specialty Start Date End Date Daquan Hills DO [address] [facility] [place] [address] PCP - General Internal Medicine 07/27/22 Team [...] Member Role/Relationship Status Dates Nusrat Perez NP, PARTS REMOVER-C Attending Provider Active Start: January 15, 2025 [...] Member Role/Relationship Status Dates Nusrat Perez NP [employer]C Attending physician Active Start: January 15, 2025 [...] Member Role/Relationship Status Dates Nusrat Perez NP [employer]-C Attending physician Active Start: January 15, 2025 [...] BE BASED ON THE PRIMARY CLINICAL RECORDS. [employer] [facility]. provides no warranty or guarantee of the accuracy or completeness of information in this document.
[2025-03-29 01:23] VITALS: BP 131/82; PULSE 136; RESP 16; TEMP 36.7; O2SAT 100
--- NOTE | 2025-03-29 02:25 | NURSING ---
patient called RN to room, patient was on toilet crying, legs shaking violently. RN took patients vitals and assessed patient. RN and tech assisted patient into wheelchair and into bed, tolerated fair. Patient moved into bed and calmed down. RN called provider
--- NOTE | 2025-03-29 08:17 | PCM.DC.SUM ---
Providers Date of Admission: 03/27/25 Primary Care Physician: Dr. Cheryl Hills DO Reason For Visit: LABOR Diagnosis Discharge Diagnosis (1) Vaginal delivery: Status: Acute Code(s): O80 - Encounter for full-term uncomplicated delivery Medications at Discharge Home Medications albuterol sulfate 90 mcg/actuation breath activated powder inhaler 1 inh inhalation Q4-6H PRN 08/18/24 docosahexaenoic acid 200 mg capsule ( DHA) mg PO 08/18/24 ondansetron 4 mg disintegrating tablet 4 mg PO Q6H PRN nausea and vomiting #30 tabs 09/04/24 sertraline 50 mg tablet 50 mg PO QDAY #30 tabs 01/29/25 cyclobenzaprine 5 mg tablet 5 mg PO TID PRN muscle spasm #20 tabs 03/29/25 Hospital Course Procedures - ( vaginal delivery ) Summary of Care Provided Minutes Spent on Discharge: 20 Hospital Course: The patient was admitted on 03/27/25 to L&D for SROM. She labored for approximately 13 hours and pushed briefly. She delivered her viable infant on HD #1. On PPD#2 her only complaint was pinching of her vaginal tissue with movement and some aches in her legs. She did well with Flexeril and is requesting dc to home with this medication. She is being discharged to home on HD#3 in stable condition. Physical Exam Const alert, oriented x3 and no apparent distress General Appearance: cooperative and comfortable Resp normal respiratory effort Cardio regular rate GI normal to inspection, nondistended, normoactive bowel sounds GI Narrative: uterus is firm below umbilicus Palpation: soft Back/Spine no CVA tenderness and thoraco-lumbar ROM normal Extremity normal to inspection, no clubbing, cyanosis or edema, no calf tenderness and no pedal edema Psych mental status grossly normal, thought process normal, cooperative, affect normal, speech normal, activity/motor behavior normal, denies homicidal ideation and denies suicidal ideation Weight / BMI Weight Weight: 326 lb 8.073 oz Body Mass Index (BMI) 45.7 PRE- weight 285 lb PRE- Body Mass Index 39.9 (BMI) ABG / Lab / Microbiology Data 03/28/25 05:55 D/C Instructions Discharge Activity: May Not Drive (for 1 week ) May resume sexual activity in: 6-8 weeks Weight Bearing Status: Weight bearing as tolerated Call your doctor if you observe: Fever of 101 or Higher, Coldness, Increased Pain, Numbness or Tingling, Change in Color, Inability to urinate, Inability to have a bowel movement, Using more than 1 pad per hour, Shortness of breath, Dizziness, Fainting spells, Swelling in the ankles, Chest pain, Increased palpitations (irregular heartbeat), Calf discomfort and Uncontrolled pain DC O2, CPAP, BIPAP Needs Home O2 Discharge instructions: No DC home with Oxygen: No Please Follow Up With: Angelica Maldonado CNM When: Please call the office to schedule your follow up appointment in 6 weeks. If you had high blood pressure please call to schedule an appointment in 2 weeks. Meaningful Use Info Meaningful Use Meaningful Use Diagnoses (Choose all that apply): None applicable Discharge Plan Admission Admit Date/Time: 03/27/25 19:53 Primary Reason for Your Visit: vaginal delivery Attending Provider: Angelica Maldonado Primary Care Provider: Cheryl Hills Discharge Orders/Prescriptions Prescriptions: New cyclobenzaprine 5 mg tablet 5 mg PO TID PRN (Reason: muscle spasm) Qty: 20 0RF Continued ondansetron 4 mg tablet,disintegrating 4 mg PO Q6H PRN (Reason: nausea and vomiting) Qty: 30 4RF DHA 200 mg capsule PO albuterol sulfate 90 mcg/actuation aerosol powdr breath activated 1 inh inhalation Q4-6H PRN sertraline 50 mg tablet 50 mg PO QDAY Qty: 30 6RF Referrals / Follow Up: Cheryl Hills DO [Primary Care Provider, Internal Medicine] Disposition Disposition (needs filled in before D/C Order can be placed): Home, Self Care
[2025-03-29 09:55] VITALS: BP 111/59; PULSE 119; RESP 16; TEMP 36.9; O2SAT 99
== END 2025-03-29 11:55 | disposition home or self-care (01) | DRG 806 ==
LOC: WPOUT 03-28 16:03 → WP 03-28 16:03
PROVIDERS: Admitting Provider Advanced Practice Midwife; PCP Internal Medicine; Referring Provider Advanced Practice Midwife; Visit Provider Advanced Practice Midwife
DX: O69.81X0 Labor and delivery complicated by cord around neck, without compression, not applicable or unspecified (principal); Z37.0 Single live birth; O98.82 Other maternal infectious and parasitic diseases complicating childbirth; F32.A Depression, unspecified; J45.909 Unspecified asthma, uncomplicated; O99.214 Obesity complicating childbirth; O99.344 Other mental disorders complicating childbirth; B95.1 Streptococcus, group B, as the cause of diseases classified elsewhere; Z3A.38 38 weeks gestation of pregnancy; O99.814 Abnormal glucose complicating childbirth; O99.52 Diseases of the respiratory system complicating childbirth; O70.0 First degree perineal laceration during delivery
CPT/HCPCS: 59025; 59050; 85025; 86780; 86850; 86900; 86901; 99221; G0378; J2405